=== PATIENT | male | born 1980 | race Caucasian/White ===

== ENCOUNTER 2022-11-19 18:27 | Emergency (ER) | payer OTHER, SELFPAY ==
--- NOTE | ~2022-11-19 | XR_ITS ---
EXAMINATION: XR CHEST CLINICAL INFORMATION: Palpitations. COMPARISON: None available. TECHNIQUE: 2 views of the chest were obtained. XR/XR chest 2V FINDINGS/IMPRESSION: There is no acute radiographic finding. No infiltrate, effusion or pneumothorax is seen. The patient is status post cardiac valve replacement with associated median sternotomy. The heart appears normal in size. No adenopathy is seen.
--- NOTE | 2022-11-19 18:29 | ECG_ITS ---
Test Reason : CHEST PAIN Blood Pressure : / mmHG Vent. Rate : 121 BPM Atrial Rate : 121 BPM P-R Int : 144 ms QRS Dur : 136 ms QT Int : 362 ms P-R-T Axes : 046 -22 121 degrees QTc Int : 514 ms Sinus tachycardia Possible Left atrial enlargement Left bundle branch block Abnormal ECG No previous ECGs available Referred By: Erma Dimas Electronically Signed By:KATLYN CEE
[2022-11-19 18:50] VITALS: BP 150/111; PULSE 129; RESP 18; TEMP 37.4; O2SAT 98; BMI 30.8
--- NOTE | 2022-11-19 18:54 | ED_ITS ---
HPI - Chest Pain General Chief Complaint: Chest Pain Stated Complaint: chest pain, high bp, heart rate inc Time Seen by Provider: 11/19/22 19:37 Related Data Allergies Allergy/AdvReac Type Severity Reaction Status Date / Time phenytoin [From DILANTIN] Allergy Unknown GAVE PT A Unverified 11/19/22 18:50 TOXIC LEVEL [facility] Social History Social History Alcohol intake: current Alcohol intake frequency: 0-2 drinks per day Smoked in Last 30 Days: Yes Substance Use Type: Marijuana Advance Directives: No Advance Directives Information Provided: No Physical Exam 2 Vital Signs: Vital Signs: Last Vital Signs Temp 99.3 F 11/19/22 18:50 Pulse 114 H 11/19/22 19:44 Resp 28 H 11/19/22 19:44 BP 174/111 H 11/19/22 19:44 Pulse Ox 96 11/19/22 19:44 O2 Del Method Room Air 11/19/22 19:44 BMI result Body Mass Index 30.8 Course Course Course Narrative: This is a rapid medical exam. deferred additional HPI, ROS, PE to primary provider. 41 yo male with history of CAD, CABG, aortic valve replacement here with chest pain since yesterday, anxious. Was at [facility] [place]NOTE 2[place] yesterday, left AMA and returns today came [place] [facility] [place]. Unable to tolerate metoprolol/coumadin the last week. Will obtain labs, EKG, CXR Medications Administered Discontinued Medications Generic Name Dose Route Start Last Admin Trade Name Freq PRN Reason Stop Dose Admin Amlodipine Besylate 10 mg 11/19/22 20:12 11/19/22 20:21 Amlodipine Besylate 10 Mg Tablet PO 11/19/22 20:13 10 mg ONCE ONE Administration Protocol Metoprolol Tartrate 50 mg 11/19/22 20:12 11/19/22 20:18 Metoprolol Tartrate 50 Mg Tablet PO 11/19/22 20:13 50 mg ONCE ONE Administration Protocol Medical Decision Making Lab Data 11/19/22 19:21 11/19/22 19:21 Labs: Lab Results 11/19/22 Range/Units 19:21 WBC 17.5 H (4.8-10.8) X10*3/uL RBC 5.19 (4.60-5.80) X10*6/uL Hgb 15.9 (14.0-18.0) g/dl Hct 46.2 (42.0-52.0) % MCV 89.0 (80.0-98.0) fL MCH 30.6 (27.0-33.0) pg MCHC 34.4 (31.0-36.0) g/dl RDW 18.3 H (11.0-16.0) % Plt Count 297 (160-400) X10*3/uL MPV 10.1 (9.4-12.4) fL Immature Gran % (Auto) 0.7 H (0.0-0.4) % Neut % (Auto) 70.1 (45-73) % Lymph % (Auto) 21.0 (20-40) % [place] % (Auto) 7.3 (2-11) % Eos % (Auto) 0.3 (0-4) % Baso % (Auto) 0.6 (0-2) % Lymph # (Auto) 3.7 (1.2-4.9) X10*3/uL [place] # (Auto) 1.3 H (0.1-1.2) X10*3/uL Eos # (Auto) 0.1 (0.0-0.4) X10*3/uL Baso # (Auto) 0.1 (0.0-0.2) X10*3/uL Abs Immat Gran (auto) 0.12 H (0.00-0.03) X10*3/uL Absolute Neuts (auto) 12.2 H (2.0-8.3) x10*3/uL Absolute Nucleated RBC 0.000 (0.0-0.012) X10*3/uL Nucleated RBC % (auto) 0.0 (0.0-0.2) /100WBC PT 16.2 H (11.1-13.3) SEC INR 1.3 H (0.9-1.1) Sodium 139 (135-145) mmol/L Potassium 4.0 (3.3-5.1) mmol/L Chloride 106 (96-108) mmol/L Carbon Dioxide 21 L (22-29) mmol/L Anion Gap 16 (12-20) BUN 10 (9-16) mg/dL Creatinine 0.91 (0.5-1.4) mg/dL Estim Creat Clear Calc 112.7 Estimated GFR > 60 Random Glucose 121 H (60-115) mg/dL Calcium 9.8 (8.4-10.2) mg/dL Magnesium 2.0 (1.6-2.6) mg/dL Total Bilirubin 0.3 (0.0-1.0) mg/dL Direct Bilirubin 0.1 (0.0-0.5) mg/dL AST 51 H (5-37) U/L ALT 44 H (0-40) U/L Alkaline Phosphatase 115 (39-117) U/L Troponin I High Sens 6.4 (<3.5-35.0) ng/L Total Protein 7.7 (6.5-8.0) g/dL Albumin 3.9 (3.5-5.0) g/dL Discharge Plan Discharge Clinical Impression: Chest pain Patient Disposition: Elopement Interventions: ED Discharge Assessment Last Done: 11/19/22 21:04 Discharge Date/Time: 11/19/22 21:17
[2022-11-19 19:25] LABS: MANUAL DIFF FLAG NO
[2022-11-19 19:26] LABS: Basophils Absolute Auto 0.1 X10*3/uL (0.0-0.2); Basophils Percent Auto 0.6 % (0-2); Eosinophils Absolute Auto 0.1 X10*3/uL (0.0-0.4); Eosinophils Percent Auto 0.3 % (0-4); Hematocrit 46.2 % (42.0-52.0); Hemoglobin 15.9 g/dl (14.0-18.0); Imm Gran Abs Auto 0.12 X10*3/uL (0.00-0.03); Imm Gran Pct Auto 0.7 % (0.0-0.4); Lymphocytes Absolute Auto 3.7 X10*3/uL (1.2-4.9); Mean Corpuscular HGB Conc 34.4 g/dl (31.0-36.0); Mean Corpuscular Hemoglobin 30.6 pg (27.0-33.0); Mean Platelet Volume 10.1 fL (9.4-12.4); Monocytes Absolute Auto 1.3 X10*3/uL (0.1-1.2); Monocytes Percent Auto 7.3 % (2-11); Neutrophils Absolute Auto 12.2 x10*3/uL (2.0-8.3); Neutrophils Percent Auto 70.1 % (45-73); Platelet Count 297 X10*3/uL (160-400); Red Blood Count 5.19 X10*6/uL (4.60-5.80); Red Cell Distribution Width 18.3 % (11.0-16.0); White Blood Count 17.5 X10*3/uL (4.8-10.8)
[2022-11-19 19:37] LABS: INTERNATIONAL NORM RATIO 1.3 (0.9-1.1); Prothrombin Time 16.2 SEC (11.1-13.3)
[2022-11-19 19:44] VITALS: BP 174/111; PULSE 114; RESP 28; O2SAT 96
--- NOTE | 2022-11-19 19:45 | PC.NURSE ---
Pt ca&ox4, no signs of distress. Pt reports 3/10 left chest pain that radiates to right chest Pt denies sob. Pts SO at bedside. CT in with pt Plan of care ongoing.
[2022-11-19 19:47] LABS: Alanine Aminotransferase 44 U/L (0-40); Albumin Level 3.9 g/dL (3.5-5.0); Alkaline Phosphatase 115 U/L (39-117); Anion Gap 16 (12-20); Aspartate Amino Transferase 51 U/L (5-37); Bilirubin Direct 0.1 mg/dL (0.0-0.5); Bilirubin Total 0.3 mg/dL (0.0-1.0); Blood Urea Nitrogen 10 mg/dL (9-16); Calcium 9.8 mg/dL (8.4-10.2); Carbon Dioxide 21 mmol/L (22-29); Chloride 106 mmol/L (96-108); Creatinine Clr Calc Pharmacy 112.7; Estimated Glomerular Filt Rate > 60; Glucose Random 121 mg/dL (60-115); Sodium 139 mmol/L (135-145); Total Protein 7.7 g/dL (6.5-8.0)
--- NOTE | 2022-11-19 19:49 | PC.NURSE ---
Provider Ramona notified about B/P 174/111 Per pt will require ultrasound guided iv for placement. provider made aware. plan of care ongoing.
--- NOTE | 2022-11-19 19:51 | PC.NURSE ---
ultrasound placed in pts room for provider. Pt made aware provider to attempt IV. Plan of care ongoing.
[2022-11-19 19:54] LABS: Troponin-I High Sensitivity 6.4 ng/L (<3.5-35.0)
[2022-11-19] MEDS: Metoprolol Tartrate 50 MG TABLET PO (20:18)
[2022-11-19] MEDS: amLODIPine Besylate 10 MG TABLET PO (20:21)
--- NOTE | 2022-11-19 20:23 | PC.NURSE ---
Pt medicated per may. Pt tolerated meds well Plan of care ongoing.
== END 2022-11-19 21:17 | disposition left against medical advice (07) ==
PROVIDERS: Nurse Practitioner Family; Emergency Provider Emergency Medicine; PCP Internal Medicine
DX: R07.9 Chest pain, unspecified (principal); I10 Essential (primary) hypertension; F12.90 Cannabis use, unspecified, uncomplicated; Z95.1 Presence of aortocoronary bypass graft; Z95.3 Presence of xenogenic heart valve
CPT/HCPCS: 36415; 71046; 80048; 80076; 83735; 84484; 85025; 85610; 93005; 99283; 99285

== ENCOUNTER 2024-02-28 02:05 | Inpatient (IN) | payer MEDICAID, SELFPAY ==
--- NOTE | 2024-02-28 | ECG_ITS ---
Test Reason : tachy Blood Pressure : / mmHG Vent. Rate : 131 BPM Atrial Rate : 131 BPM P-R Int : 124 ms QRS Dur : 138 ms QT Int : 366 ms P-R-T Axes : 040 -15 138 degrees QTc Int : 540 ms Sinus tachycardia Left bundle branch block Abnormal ECG When compared with ECG of 19-NOV-2022 18:32, No significant change was found Referred By: Generic ED Physician Electronically Signed By:JL BUSBY MD
--- NOTE | ~2024-02-28 | US_ITS ---
EXAMINATION: US TRIPLEX LOWER EXTREMITY, BILATERAL CLINICAL INFORMATION: Bilateral lower extremity pain. Swelling. Tachycardia. Syncope. COMPARISON: None available. TECHNIQUE: Color-flow triplex imaging with spectral analysis and compression Doppler were performed on the bilateral lower extremities. FINDINGS: Respiratory variation, normal compression and augmented flow are noted throughout the bilateral lower extremities. The visualized common femoral vein, superficial femoral vein, profunda femoral vein, popliteal vein and midcalf peroneal and posterior tibial venous segments show no evidence of deep venous thrombosis bilaterally. There is no Boggs's cyst. US/US venous duplex LE BI IMPRESSION: No evidence of deep venous thrombosis involving the bilateral lower extremities. Electronically signed by: Charli Ang MD 02/28/2024 04:24 AM [facility]
--- NOTE | ~2024-02-28 | CT_ITS ---
EXAMINATION: CT ANGIOGRAM CHEST CLINICAL INFORMATION: Syncope, tachycardia. Positive d-dimer. COMPARISON: Chest radiograph 11/19/2022. TECHNIQUE: Multiple axial images were obtained through the chest after the administration of 65 mL of Omnipaque 350 intravenous contrast. Extensive vascular post-processing including two-dimensional and three-dimensional reformatted images were created and reviewed on an independent workstation. This CT examination was performed using dose optimization techniques as appropriate, variously including the following: *Automated exposure control *Adjustment of mA and/or kV according to patient size (this includes techniques or standardized protocols for targeted exams where dose is matched to indication/reason for exam; i.e. extremities or head) *Use of iterative reconstruction technique DLP: 499 mGy-cm FINDINGS: Pulmonary arterial system: Finding suspicious for subsegmental intraluminal filling defects are noted and include the following: Absent intraluminal opacification within a apical posterior subsegmental branch of the right upper pulmonary lobe (series 604 image [id number]) and several right basilar subsegmental pulmonary arteries within the posteromedial aspect of the right lung base (series 604 image 272, 294. Similar findings are noted within the left lower pulmonary lobe (for example series 604 image 292). No segmental or more proximal pulmonary emboli identified. The main and central pulmonary arteries are normal in caliber. Thoracic aorta: Normal caliber. Mineral scattered calcific atherosclerosis. Lungs and pleura: No focal pulmonary consolidation. No pleural effusions or pneumothoraces. Mediastinum: No pericardial thickening or pericardial fluid collections. Normal heart size. Multiple median sternotomy wires. Thoracic wall: No axillary lymphadenopathy. No thoracic wall inflammatory changes. Incidentally visualized abdominal structures: Digital glands are partially included in the field of view are normal in appearance. Osseous structures: No suspicious skeletal lesions noted. CT/CT angio chest PE protocol IMPRESSION: *CT pulmonary angiogram positive for pulmonary emboli. Scattered subsegmental pulmonary arteries demonstrate abrupt truncation of expected intraluminal opacification. Findings are suspicious for bilateral scattered subsegmental pulmonary emboli. No additional acute pulmonary abnormalities identified. Overall thrombus burden: Mild. No evidence of right heart strain. No reflux of contrast into the hepatic veins to suggest elevated central venous pressure. VTE: Positive Electronically signed by: Charli Ang MD 02/28/2024 05:10 AM [facility]
--- NOTE | ~2024-02-28 | CT_ITS ---
EXAMINATION: CT HEAD WITHOUT CONTRAST CLINICAL INFORMATION: Fall. Syncope. On Coumadin. COMPARISON: None available. TECHNIQUE: Contiguous axial imaging was performed from the skull base to vertex without intravenous administration of contrast. This CT examination was performed using dose optimization techniques as appropriate, variously including the following: *Automated exposure control *Adjustment of mA and/or kV according to patient size (this includes techniques or standardized protocols for targeted exams where dose is matched to indication/reason for exam; i.e. extremities or head) *Use of iterative reconstruction technique DLP: 755 mGy-cm FINDINGS: No intracranial hemorrhage, tumors or acute infarcts identified. Mild diffuse commensurate prominence of the ventricles and sulci. No abnormal extra-axial fluid collections. Mild focal cortical lines of malacia within the anterior left middle frontal lobe gyrus. (Series 2 image 29). No extracranial soft tissue inflammatory changes. No significant opacification of the visualized paranasal sinuses, mastoid air cells and middle ear cavities. CT/CT head/brain wo IV con IMPRESSION: *No acute intracranial abnormalities. No intracanal hemorrhage. 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 Electronically signed by: Charli Ang MD 02/28/2024 04:55 AM EST
[2024-02-28 02:13] VITALS: BP 127/74; PULSE 132; RESP 18; TEMP 37.3; O2SAT 97; BMI 32.1
--- NOTE | 2024-02-28 02:50 | PC.NURSE ---
EKG from triage shown to MD Nunez, per MD Nunez advisement the patient was brought back to the main and placed in ed bed 5. Pt was wheeled back due to his inability to walk well s/t pain. Pt reporting that he has been having work ups completed throughout the week to figure things out adding that he was told that his potassium and magnesium were undetectable and then the next day after repeat lab draw he was told it was back to normal. Staff at bedside attempting to obtain IV access and blood work, however patient reporting he is a difficult stick and requires US guided IVs going further to try and dictate to the RNs where he will and will not have an IV placed. RN found a vein in the right middle finger but he refused to have an IV placed there. staff remains at bedside to continue attempts
[2024-02-28 03:00] VITALS: BP 120/90; PULSE 122; RESP 30; TEMP 37.1; O2SAT 99
[2024-02-28 03:05] LABS: Basophils Absolute Auto 0.1 X10*3/uL (0.0-0.2); Basophils Percent Auto 0.4 % (0-2); Eosinophils Absolute Auto 0.3 X10*3/uL (0.0-0.4); Eosinophils Percent Auto 1.4 % (0-4); Imm Gran Pct Auto 1.5 % (0.0-0.4); Lymphocytes Absolute Auto 3.9 X10*3/uL (1.2-4.9); Lymphocytes Percent Auto 19.8 % (20-40); MANUAL DIFF FLAG SCAN; Mean Corpuscular HGB Conc 35.1 g/dl (31.0-36.0); Mean Corpuscular Volume 88.1 fL (80.0-98.0); Mean Platelet Volume 10.5 fL (9.4-12.4); Monocytes Absolute Auto 1.5 X10*3/uL (0.1-1.2); Monocytes Percent Auto 7.6 % (2-11); NRBC Pct Auto 0.5 /100WBC (0.0-0.2); Neutrophils Absolute Auto 13.8 x10*3/uL (2.0-8.3); Neutrophils Percent Auto 69.3 % (45-73); Platelet Count 315 X10*3/uL (160-400); Red Cell Distribution Width 15.9 % (11.0-16.0); SCAN SMEAR FLAG 1; White Blood Count 19.9 X10*3/uL (4.8-10.8)
[2024-02-28 03:10] LABS: INTERNATIONAL NORM RATIO 1.9 (0.9-1.1); Prothrombin Time 22.4 SEC (10.9-12.4)
[2024-02-28 03:12] LABS: D Dimer High Sensitivity 539 NG/ML
[2024-02-28 03:23] LABS: Albumin Level 3.3 g/dL (3.5-5.0); Anion Gap 14 (12-20); Aspartate Amino Transferase 95 U/L (5-37); Bilirubin Total 0.3 mg/dL (0.0-1.0); Blood Urea Nitrogen 5 mg/dL (9-16); Calcium 8.8 mg/dL (8.4-10.2); Carbon Dioxide 24 mmol/L (22-29); Chloride 104 mmol/L (96-108); Creatinine Clr Calc Pharmacy 131.3; Estimated Glomerular Filt Rate > 60; Glucose Random 121 mg/dL (60-115); Magnesium 1.9 mg/dL (1.6-2.6); Potassium 3.1 mmol/L (3.3-5.1); Sodium 139 mmol/L (135-145); Total Protein 6.6 g/dL (6.5-8.0)
[2024-02-28 03:27] LABS: SLIDE REVIEW VERIFIED
--- NOTE | 2024-02-28 03:45 | ED_ITS ---
HPI - General Adult General Chief complaint: Extremity Problem Stated complaint: fall Time Seen by Provider: 02/28/24 02:51 Source: patient and family Mode of arrival: ambulatory Limitations: no limitations History of Present Illness ED Provider: Dr. Yee Nunez HPI narrative: Patient comes to the emergency room complaining of bilateral lower extremity pain from the ankles to the knees. Patient states that he has noted that his legs are becoming significantly more swollen. Patient states that over last few days he has fallen twice. Patient states that he becomes very lightheaded, dizzy and falls, believes that he has been losing consciousness but is not sure yet. Patient denies any chest pain, complaining of palpitations. Related Data Allergies Allergy/AdvReac Type Severity Reaction Status Date / Time phenytoin [From DILANTIN] Allergy Unknown GAVE PT A Verified 02/28/24 03:56 TOXIC LEVEL albuterol AdvReac Anxiety Verified 02/28/24 03:56 gabapentin [From Neurontin] AdvReac Unknown Verified 02/28/24 03:56 Review of Systems 2 Review of Systems: Constitutional : No Weight loss, No Fever, No Chills, No Night Sweats, No Fatigue, No Malaise ENT/Mouth : No Hearing loss, No Ear Pain, No Nasal Congestion, No Sinus Pain, No Hoarseness, No sore throat, No Rhinorrhea, No Swallowing Difficulty Eyes: No Eye Pain, No Swelling, No Redness, No Foreign Body, No Discharge, No Vision Changes Cardiovascular : Complaining of palpitations, syncopal episode Respiratory : No Cough, No Sputum, No Wheezing, No Smoke Exposure, No Dyspnea Gastrointestinal : No Nausea, No Vomiting, No Diarrhea, No Constipation, No abdominal Pain, No Hematochezia, No Melena Genitourinary : no irregular bleeding, No Dysuria, No Urinary Frequency, No Hematuria, No Urinary Incontinence, No Urgency, No Flank Pain, No Urinary Flow Changes, No Hesitancy Musculoskeletal : Complaining of lower extremity edema, pain No joint pain, No Myalgias, No Joint Swelling Skin : No Skin Lesions, No rash Neuro : No Weakness, No Numbness, No Paresthesias, No Loss of Consciousness, No Dizziness, No Headache Psych : No Anxiety/Panic, No Depression, No SI/HI/AH/VH, No Social Issues, Heme/Lymph: No Bruising, No Bleeding,No Lymphadenopathy Endocrine : No Polyuria, No Polydipsia, No Temperature Intolerance [facility], [facility] Past Medical History Medical History Coronary artery disease Surgical History (Updated 02/28/24 @ 03:52 by Yee Nunez MD) Aortic valve replaced Social History Social History Alcohol intake: current Alcohol intake frequency: 3 or more drinks per day Alcohol type: hard liquor Smoked in Last 30 Days: Yes Use of substances other than those prescribed or required for medical reasons: Yes Substance Use Type: Marijuana Last Used Substance: Days (ago) Advance Directives: No Advance Directives Information Provided: Yes Physical Exam ED Vital Signs: Vital Signs - 24 hr 02/28/24 02:13 02/28/24 03:00 02/28/24 05:10 Temperature 99.1 F 98.8 F 97.9 F Pulse Rate 132 H 122 H 108 H Respiratory Rate 18 30 H 18 Blood Pressure 127/74 120/90 H 122/79 Pulse Oximetry 97 99 97 Oxygen Delivery Method Room Air Room Air Room Air BMI result Body Mass Index 32.1 Const Other: Appearance: Alert. Oriented X3. No acute distress. Eyes: Pupils equal, round and reactive to light. ENT: Pharynx normal. Neck: Normal inspection. Neck supple. No lymph nodes noted. No crepitus CVS: Tachycardic, regular, heart rate in the 120s to 130s. Pulses normal. Normal S1 and S2 Respiratory: No respiratory distress. Breath sounds normal. No Wheezing. No rales Abdomen: Soft and nontender. No rigidity. No distention. Skin: Skin warm and dry. Normal skin color. Normal skin turgor. Extremities: +1 pitting edema bilaterally, pain to palpation in the calves bilaterally. Neuro: Oriented X 3. No motor deficit. No sensory deficit. Moving all extremities. No slurred speech. CN 2 through 12 grossly intact Psych: calm, cooperative, normal affect Course Course Course Narrative: -my interpretation of labs, patient has chronic leukocytosis, today 19.9. Chemistry shows potassium at 3.1, INR a bit subtherapeutic at 1.9, D-dimer 539. -ultrasound, head CT, and CT scan for pulmonary embolisms are pending. -patient refuses to give any ultrasound or imaging done on as he gets pain medications. Patient was given IV morphine. -CT scan of the chest is positive for bilateral pulmonary embolisms, no saddle embolism. Blood pressure stable. Oxygen saturation stable. -I discussed the patient with our hospitalist Dr. Costa. Patient developed PEs on Coumadin which is subtherapeutic. Patient will be admitted, heparin bolus and drip will be started. -patient complaining of ongoing pain in the lower extremities, patient given Dilaudid. -of note, patient states now that earlier today he was seen at [facility]. Patient states that his ultrasound was negative. States that he was not scan. Patient came to the emergency room here because his legs hurt. We obtained records from [facility]. Patient was seen there earlier today, ultrasound was negative for DVTs. Patient did not get a CTA. Seems that earlier today patient was offered Tylenol for leg pain, patient got upset and left against medical advice. -patient was given here Dilaudid, p.o. Ativan for anxiety. -patient being admitted by the medicine day team Patient's potassium 3.1, repleted p.o.. Medications Administered Discontinued Medications Generic Name Dose Route Start Last Admin Trade Name Freq PRN Reason Stop Dose Admin Iohexol 85 ml 02/28/24 04:31 02/28/24 04:31 Iohexol 350 Mg/Ml 100 Ml Infus..Btl IV 02/28/24 04:32 85 ml ONCE ONE Administration Morphine Sulfate 2 mg 02/28/24 03:53 02/28/24 03:57 Morphine Sulfate 2 Mg/Ml Cartridge IVPUSH 02/28/24 03:54 2 mg ONCE ONE Administration Protocol Potassium Chloride 60 meq 02/28/24 03:45 02/28/24 04:33 Potassium Chloride Packet 20 Meq Packet PO 02/28/24 03:46 60 meq ONCE ONE Administration Potassium Chloride 60 meq 02/28/24 04:14 02/28/24 04:33 Potassium Chloride Er 20 Meq Tab.Er.Prt PO 02/28/24 04:15 Not Given ONCE ONE Medical Decision Making Medical Decision Making MDM Narrative: Although patient is ultrasound of the lower extremities is negative, patient is tachycardic, INR subtherapeutic. A CTA of chest was ordered, results positive for PE Differential Diagnosis Differential Diagnoses: The differential diagnosis associated with the presentation includes (DVTs, PEs, ACS) Admission/Observation Consideration of admission/observation: Escalation of care including admission/observation considered Consult Healthcare Provider Management of the patient was discussed with: Hospitalist Lab Data MDM Lab Attestation statement: I reviewed the patient's lab results. 02/28/24 02:59 02/28/24 02:59 Labs: Lab Results 02/28/24 Range/Units 02:59 WBC 19.9 H (4.8-10.8) X10*3/uL RBC 4.20 L (4.60-5.80) X10*6/uL Hgb 13.0 L (14.0-18.0) g/dl Hct 37.0 L (42.0-52.0) % MCV 88.1 (80.0-98.0) fL MCH 31.0 (27.0-33.0) pg MCHC 35.1 (31.0-36.0) g/dl RDW 15.9 (11.0-16.0) % Plt Count 315 (160-400) X10*3/uL MPV 10.5 (9.4-12.4) fL Immature Gran % (Auto) 1.5 H (0.0-0.4) % Neut % (Auto) 69.3 (45-73) % Lymph % (Auto) 19.8 L (20-40) % [place] % (Auto) 7.6 (2-11) % Eos % (Auto) 1.4 (0-4) % Baso % (Auto) 0.4 (0-2) % Lymph # (Auto) 3.9 (1.2-4.9) X10*3/uL [place] # (Auto) 1.5 H (0.1-1.2) X10*3/uL Eos # (Auto) 0.3 (0.0-0.4) X10*3/uL Baso # (Auto) 0.1 (0.0-0.2) X10*3/uL Abs Immat Gran (auto) 0.30 H (0.00-0.03) X10*3/uL Absolute Neuts (auto) 13.8 H (2.0-8.3) x10*3/uL Absolute Nucleated RBC 0.100 H (0.0-0.012) X10*3/uL Nucleated RBC % (auto) 0.5 H (0.0-0.2) /100WBC Smear Tech's Comments VERIFIED PT 22.4 H (10.9-12.4) SEC INR 1.9 H (0.9-1.1) APTT 35.7 (26.0-36.8) SEC D-Dimer High Sensitivty 539 NG/ML Sodium 139 (135-145) mmol/L Potassium 3.1 L (3.3-5.1) mmol/L Chloride 104 (96-108) mmol/L Carbon Dioxide 24 (22-29) mmol/L Anion Gap 14 (12-20) BUN 5 L (9-16) mg/dL Creatinine 0.78 (0.5-1.4) mg/dL Estim Creat Clear Calc 131.3 Estimated GFR > 60 Random Glucose 121 H (60-115) mg/dL Calcium 8.8 D (8.4-10.2) mg/dL Magnesium 1.9 (1.6-2.6) mg/dL Total Bilirubin 0.3 (0.0-1.0) mg/dL AST 95 H (5-37) U/L ALT 41 H (0-40) U/L Alkaline Phosphatase 121 H (39-117) U/L Total Creatine Kinase 33 L (38-174) U/L Total Protein 6.6 (6.5-8.0) g/dL Albumin 3.3 L (3.5-5.0) g/dL Independent Interpretation I performed an independent interpretation of an: Ultrasound and CT Scan Radiology Impression Discussion of test interpretation with radiology: I have reviewed the radiologist's reading. Radiologist Impression: *CT pulmonary angiogram positive for pulmonary emboli. Scattered subsegmental pulmonary arteries demonstrate abrupt truncation of expected intraluminal opacification. Findings are suspicious for bilateral scattered subsegmental pulmonary emboli. No additional acute pulmonary abnormalities identified. Overall thrombus burden: Mild. No evidence of right heart strain. No reflux of contrast into the hepatic veins to suggest elevated central venous pressure. VTE: Positive Respiratory variation, normal compression and augmented flow are noted throughout the bilateral lower extremities. The visualized common femoral vein, superficial femoral vein, profunda femoral vein, popliteal vein and midcalf peroneal and posterior tibial venous segments show no evidence of deep venous thrombosis bilaterally. There is no Boggs's cyst. US/US venous duplex LE BI IMPRESSION: No evidence of deep venous thrombosis involving the bilateral lower extremities. Critical Care Time Critical Care Time Critical Care Time: Yes Total Critical Care Time: 75 Attestation: I have personally provided critical care time. Time includes review of lab data, radiology results, discussion with consultants, and monitoring for potential decompensation. Intervention performed as documented. Discharge Plan Discharge Clinical Impression: Bilateral pulmonary embolism, Acute hypokalemia, Subtherapeutic international normalized ratio (INR) Patient Disposition: Admitted As Inpatient Print Language: Wolof
[2024-02-28] MEDS: Morphine Sulfate 2 MG/ML CARTRIDGE IVPUSH (03:57)
[2024-02-28 04:03] LABS: Alanine Aminotransferase 41 U/L (0-40); Alkaline Phosphatase 121 U/L (39-117)
[2024-02-28] MEDS: iohexoL 350 MG/ML 100 ML INFUS..BTL 85 ML IV (04:31)
[2024-02-28] MEDS: Potassium Chloride Packet 20 MEQ PACKET 60 MEQ PO (04:33)
[2024-02-28 05:10] VITALS: BP 122/79; PULSE 108; RESP 18; TEMP 36.6; O2SAT 97
--- NOTE | 2024-02-28 05:52 | PC.NURSE ---
20g U/S IV placed to R upper arm. pt very vocal about what he does and does not want. pt reports feeling better after pain medication but does not want morphine again. pt remains tachy at 110, O2 97%, grant SOB, diff breathing, and CP
[2024-02-28 05:59] LABS: Partial Thromboplastin Time 35.7 SEC (26.0-36.8)
[2024-02-28 06:36] VITALS: BP 114/87; PULSE 107; RESP 18; TEMP 36.7; O2SAT 97
[2024-02-28] MEDS: HYDROmorphone HCl 1 MG/ML SYRINGE IVPUSH (07:00)
[2024-02-28] MEDS: LORazepam 1 MG TABLET 2 MG PO (07:06)
[2024-02-28] MEDS: Heparin Sodium,Porcine/1/2NS 25,000 UNIT/250 ML IV.SOLN 13.23 UNIT IVCONT (07:09)
--- NOTE | 2024-02-28 07:23 | MHC.EDTECH ---
assumed care of pt at 0700, pt has labs ordered, pt is a hard stick (US IV placed), lab called to attempt draw
--- NOTE | 2024-02-28 07:26 | PC.NURSE ---
Heparin drip started per protocol with 2 RNs verifying. APTT used for baseline PTT, order placed for next draw
[2024-02-28 08:24] VITALS: BP 126/82; PULSE 99; RESP 20; O2SAT 97
--- NOTE | 2024-02-28 09:00 | PC.NURSE ---
Pt agitated and being verbally abusive with staff. rod puller aware and talked to pt about situation.
--- NOTE | 2024-02-28 09:12 | MHC.EDTECH ---
attempted to remind pt of need of urine sample and he stated I am not doing any urine tests for anyone, when you have some time ill explain to you how everything down there is not great. Its a mental thing , RN aware
[2024-02-28] MEDS: Pantoprazole Sodium 40 MG/10 ML VIAL IVPUSH (09:56)
--- NOTE | 2024-02-28 10:07 | PHA.MEDREC ---
Addendum entered by Gus Kelsey RP 02/28/24 11:16: MED REC CHECKED BY [facility] Original Note: Pharmacy Consult ? Medication Reconciliation Pharmacy has completed the medication reconciliation. Spoke to pt to confirm meds. Per patient, still taking fluconazole 100 mg BID and preventative and takes warfarin 5 mg daily. Fluconazole last filled in August and last filled warfarin was 2 mg daily. However, as patient attests to taking them, left them on med rec as patient stated.
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
[2024-02-28 11:29] VITALS: BP 114/89; PULSE 95; RESP 20; TEMP 36.6; O2SAT 98
[2024-02-28] MEDS: LORazepam 1 MG TABLET PO (12:58)
[2024-02-28] MEDS: HYDROmorphone HCl 0.5 MG/0.5 ML SYRINGE IVPUSH (12:59)
--- NOTE | 2024-02-28 13:07 | PC.NURSE ---
Pt medicated per MAR for pain and anxiety.
[2024-02-28 13:17] LABS: PTT Heparin Drip 46.2 SEC (53-77.9)
--- NOTE | 2024-02-28 14:20 | PC.NURSE ---
This RN second witness for heparin bolus in dose rate change however current IV not flushing. Pt is difficult IV stick and refusing further IV sticks, Bandar KOENIG aware. Pt only will accept Ultrasound IV and pt made aware this RN not trained. Fatou aware and will d/c heparin and start Lovenox
--- NOTE | 2024-02-28 14:59 | PC.NURSE ---
IV now working, however, per provider, plan is to D/C heparin.
--- NOTE | 2024-02-28 15:23 | PC.NURSE ---
Went into patient's room w/ primary RN to give scheduled Lovonox. Patient states he does his own lovonox, offered to give patient the vial to dose himself. Patient turned to visitor and asked them do you wan to go home? Patient stating he will not speak to primary nurse and wants to talk to head doctor jose and go home. Informed patient AMA form can be printed and provider notified by primary RN.
--- NOTE | 2024-02-28 15:39 | PC.NURSE ---
2 RNs went into room to administered pts enoxaprin per MAR, pt upset and becoming agitated. Demanding to know why heparin isn't being restarted. RNs explained that pt is being switched to enoxaprin and warfarin and the hospitalist was coming down to re-explain the plan of treatment going forward. Pt continued to be angry and verbally abusive to staff, refused anything at this time. A short period later, pt ripped IV out of his arm, put on his clothing and yelled he was leaving. Pt walked out of hospital, would not stop and talk to anyone. Security checked pts arm at door to confirm absence of IV, no IV noted and IV found on pts stretcher after. Hospitalist aware of situation.
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
== END 2024-02-28 17:37 | disposition left against medical advice (07) | DRG 134 ==
LOC: HO.ED 06:43 → HO.EDOVER 12:40
PROVIDERS: Admitting Provider Student in an Organized Health Care Education/Training Program; Emergency Provider Emergency Medicine; Visit Provider Internal Medicine
DX: I26.99 Other pulmonary embolism without acute cor pulmonale (principal); E87.6 Hypokalemia; R79.1 Abnormal coagulation profile; M79.662 Pain in left lower leg; F41.9 Anxiety disorder, unspecified; M79.661 Pain in right lower leg; F10.20 Alcohol dependence, uncomplicated; K21.9 Gastro-esophageal reflux disease without esophagitis; Z86.718 Personal history of other venous thrombosis and embolism; Z59.2 Discord with neighbors, lodgers and landlord; Z79.01 Long term (current) use of anticoagulants; Z79.899 Other long term (current) drug therapy
CPT/HCPCS: 36415; 70450; 71275; 80053; 82550; 83735; 85025; 85379; 85610; 85730; 93005; 93970; 99285; J1171; J1644; J2270; J2470; Q9967

== ENCOUNTER → 2024-02-28 02:36 | Outpatient (BNV) | payer OTHER, SELFPAY | PROVIDERS: Emergency Provider Emergency Medicine; Visit Provider Internal Medicine Cardiovascular Disease | DX: R00.0 Tachycardia, unspecified (principal); I44.7 Left bundle-branch block, unspecified; R94.31 Abnormal electrocardiogram [ECG] [EKG] | CPT/HCPCS: 93010 ==

== ENCOUNTER → 2024-02-28 12:33 | Outpatient (BNV) | payer MEDICAID, SELFPAY | PROVIDERS: Admitting Provider Student in an Organized Health Care Education/Training Program; Emergency Provider Emergency Medicine; Visit Provider Student in an Organized Health Care Education/Training Program | DX: I26.99 Other pulmonary embolism without acute cor pulmonale (principal); Z53.29 Procedure and treatment not carried out because of patient's decision for other reasons | CPT/HCPCS: 99223; 99238 ==

== ENCOUNTER 2024-03-01 00:54 | Emergency (ER) | payer MEDICAID, SELFPAY ==
[2024-03-01 00:57] VITALS: BMI 32.1
--- NOTE | 2024-03-01 01:00 | PC.NURSE ---
charge lpn made aware of triage note.
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
--- NOTE | 2024-03-01 01:37 | MHC.EDTECH ---
pt to be d/c, labs and urine no longer needed.
[2024-03-01 01:40] VITALS: BP 144/91; PULSE 105; RESP 18; TEMP 36.9; O2SAT 97
== END 2024-03-01 01:47 | disposition home or self-care (01) ==
PROVIDERS: Emergency Provider Internal Medicine
DX: F33.1 Major depressive disorder, recurrent, moderate (principal); I26.99 Other pulmonary embolism without acute cor pulmonale; Z79.01 Long term (current) use of anticoagulants; Z79.899 Other long term (current) drug therapy
CPT/HCPCS: 99283

== ENCOUNTER 2024-03-05 21:33 | Emergency (ER) | payer MEDICAID, SELFPAY ==
--- NOTE | ~2024-03-05 | XR_ITS ---
EXAMINATION: XR chest 2V CLINICAL INFORMATION: cough COMPARISON: CTA dated 02/28/2024 TECHNIQUE: 2 views of the chest FINDINGS: Clear lungs. No pneumothorax. No pleural effusion. Normal cardiomediastinal silhouette. XR/XR chest 2V IMPRESSION: Clear lungs. Electronically signed by: Anisha Sherman MD 03/05/2024 11:15 PM [facility]
[2024-03-05 21:52] VITALS: BP 116/88; PULSE 108; RESP 20; TEMP 37.2; O2SAT 98; BMI 31.3
[2024-03-05 22:43] LABS: Influenza A PCR NEGATIVE (Negative); Influenza B PCR NEGATIVE (Negative); Resp Syncy Virus RNA Qual PCR NEGATIVE (Negative); SARS COV2 PCR INHOUSE NEGATIVE (Negative)
[2024-03-05 22:48] VITALS: BP 124/77; PULSE 96; RESP 20; TEMP 36.7; O2SAT 96
--- NOTE | 2024-03-05 22:48 | ED_ITS ---
HPI - General Adult General Chief complaint: Upper Respiratory Symptoms Stated complaint: ?Cold, flu like symptoms Time Seen by Provider: 03/05/24 22:42 Source: patient Mode of arrival: ambulatory Limitations: no limitations History of Present Illness ED Provider: Dr. Yee Nunez HPI narrative: Patient comes to the emergency room complaining of congestion, generalized body aches for 2 days. Patient denies chest pain and lower extremity pain. Patient has a taking Robitussin without any significant relief. Patient reports some shortness of breath worsened by the nasal congestion. Of note, patient known to have bilateral PEs, left against medical advice from the hospital 5 days ago - Related Data Home Medications ?Medication ?Instructions ?Recorded ?Confirmed clonidine 0.2 mg/24 hr weekly 1 patch transdermal WE@0900 02/28/24 02/28/24 transdermal patch fluconazole 40 mg/mL oral 100 mg PO BID 02/28/24 02/28/24 suspension metoprolol tartrate 50 mg tablet 100 mg PO BID 02/28/24 02/28/24 pantoprazole 40 mg tablet,delayed 40 mg PO DAILY@0630 02/28/24 02/28/24 release warfarin 5 mg tablet 5 mg PO DAILY 02/28/24 02/28/24 warfarin 2 mg tablet 2 mg PO DAILY 03/01/24 03/01/24 Previous Rx's ?Medication ?Instructions ?Recorded prednisolone 15 mg/5 mL oral 60 mg (20 mL) PO DAILY 4 days #80 03/05/24 solution mL Allergies Allergy/AdvReac Type Severity Reaction Status Date / Time phenytoin [From DILANTIN] Allergy Unknown GAVE PT A Verified 03/05/24 21:55 TOXIC LEVEL albuterol AdvReac Anxiety Verified 03/05/24 21:55 gabapentin [From Neurontin] AdvReac Unknown Verified 03/05/24 21:55 Review of Systems Review of Systems: Constitutional : No Weight loss, No Fever, No Chills, No Night Sweats, No Fatigue, No Malaise ENT/Mouth : No Hearing loss, No Ear Pain, complaining of l Congestion, No Sinus Pain, No Hoarseness, No sore throat, No Rhinorrhea, No Swallowing Difficulty Eyes: No Eye Pain, No Swelling, No Redness, No Foreign Body, No Discharge, No Vision Changes Cardiovascular : No Chest Pain, no orthopnea no edema no palpitations Respiratory : Complaining of cough Gastrointestinal : No Nausea, No Vomiting, No Diarrhea, No Constipation, No abdominal Pain, No Hematochezia, No Melena Genitourinary : no irregular bleeding, No Dysuria, No Urinary Frequency, No Hematuria, No Urinary Incontinence, No Urgency, No Flank Pain, No Urinary Flow Changes, No Hesitancy Musculoskeletal : No joint pain, No Myalgias, No Joint Swelling Skin : No Skin Lesions, No rash Neuro : No Weakness, No Numbness, No Paresthesias, No Loss of Consciousness, No Dizziness, No Headache Psych : No Anxiety/Panic, No Depression, No SI/HI/AH/VH, No Social Issues, Heme/Lymph: No Bruising, No Bleeding,No Lymphadenopathy Endocrine : No Polyuria, No Polydipsia, No Temperature Intolerance [facility] Past Medical History Medical History (Updated 03/05/24 @ 23:30 by Yee Nunez MD) Bilateral pulmonary embolism Noncompliance with medications Alcohol dependence Endocarditis Surgical History Aortic valve replaced Social History Social History Alcohol intake: current Alcohol intake frequency: 3 or more drinks per day Alcohol type: hard liquor Substance Use Type: Marijuana Advance Directives: No Advance Directives Information Provided: Yes Do you have a plan to hurt others: No Plan Physical Exam ED Vital Signs: Vital Signs - 24 hr 03/05/24 21:52 03/05/24 22:48 Temperature 98.9 F 98.0 F Pulse Rate 108 H 96 Respiratory Rate 20 20 Blood Pressure 116/88 124/77 Pulse Oximetry 98 96 Oxygen Delivery Method Room Air Room Air BMI result Body Mass Index 31.3 Const Other: Appearance: Alert. Oriented X3. No acute distress. Eyes: Pupils equal, round and reactive to light. ENT: Mild nasal congestion Neck: Normal inspection. Neck supple. No lymph nodes noted. No crepitus CVS: Normal heart rate and rhythm. Pulses normal. Normal S1 and S2 Respiratory: Mild bilateral wheezing, good air movement Abdomen: Soft and nontender. No rigidity. No distention. Skin: Skin warm and dry. Normal skin color. Normal skin turgor. Extremities: No lower extremity edema. No Lacerations. No Rash Neuro: Oriented X 3. No motor deficit. No sensory deficit. Moving all extremities. No slurred speech. CN 2 through 12 grossly intact Psych: calm, cooperative, normal affect Course Course Course Narrative: I discussed the physical exam with the patient, patient is mildly wheezing. Patient states that he has history of childhood asthma. I recommended a breathing treatment and steroids. However, patient states that albuterol/Xopenex give him panic attacks 90 for the wheezing is mild he prefers to skip the breathing treatment altogether, agreeable to take p.o. prednisone. Patient's serology tests and x-rays pending Medications Administered Discontinued Medications Generic Name Dose Route Start Last Admin Trade Name Kelvinq PRN Reason Stop Dose Admin Prednisolone Sodium Phosphate 60 mg 03/05/24 22:53 03/05/24 22:58 Prednisolone Sodium Phosphate 15 Mg/5 Ml Solution PO 03/05/24 22:54 60 mg NOW STA Administration Prednisone 60 mg 03/05/24 22:48 03/05/24 23:03 Prednisone 20 Mg Tablet PO 03/05/24 22:49 Not Given ONCE ONE Medical Decision Making Medical Decision Making MDM Narrative: Patient's serology test negative for influenza COVID and RSV Chest x-ray does not show any acute abnormality. Patient likely having a viral URI Differential Diagnosis Differential Diagnoses: The differential diagnosis associated with the presentation includes (Pneumonia, COVID, RSV, influenza, viral URI) Lab Data [facility] Lab Attestation statement: I reviewed the patient's lab results. Labs: Lab Results 03/05/24 Range/Units 22:02 Influenza Type A (PCR) NEGATIVE (Negative) Influenza Type B (PCR) NEGATIVE (Negative) RSV RNA Qual (PCR) NEGATIVE (Negative) SARS-CoV-2 RNA (RT-PCR) NEGATIVE (Negative) Independent Interpretation I performed an independent interpretation of an: Plain X-Ray Radiology Impression Discussion of test interpretation with radiology: I have reviewed the radiologist's reading. Radiologist Impression: Clear lungs Discharge Plan Discharge Clinical Impression: Acute viral bronchitis Patient Disposition: Home, Self-Care Instructions: Acute Bronchitis (ED) Additional Instructions: Please follow-up with your primary care physician tomorrow. If you have any worsening or new symptoms, please return to the emergency room or call 911 Prescriptions: New prednisolone 15 mg/5 mL solution 60 mg PO DAILY 4 Days Qty: 80 0RF No Action clonidine 0.2 mg/24 hr patch weekly 1 patch transdermal WE@0900 pantoprazole 40 mg tablet,delayed release (DR/EC) 40 mg PO DAILY@0630 metoprolol tartrate 50 mg tablet 100 mg PO BID fluconazole 40 mg/mL suspension for reconstitution 100 mg PO BID warfarin 5 mg tablet 5 mg PO DAILY warfarin 2 mg tablet 2 mg PO DAILY Print Language: Slovak
[2024-03-05] MEDS: prednisoLONE sodium phosphate 15 MG/5 ML SOLUTION 60 MG PO (22:58)
--- NOTE | 2024-03-05 23:03 | PC.NURSE ---
Patient refused prednisone tablets, said he can't swallow pills because it get's stuck i the back of his throat and i cough a lot of crap up. Provider notified.
[2024-03-05 23:48] VITALS: BP 124/77; PULSE 96; RESP 20; TEMP 36.7; O2SAT 96
== END 2024-03-05 23:49 | disposition home or self-care (01) ==
PROVIDERS: Emergency Provider Emergency Medicine
DX: J20.8 Acute bronchitis due to other specified organisms (principal); R05.9 Cough, unspecified; Z03.818 Encounter for observation for suspected exposure to other biological agents ruled out; Z79.01 Long term (current) use of anticoagulants
CPT/HCPCS: 0241U; 71046; 99283; 99284

== ENCOUNTER 2024-03-13 21:15 | Emergency (ER) | payer MEDICAID, SELFPAY ==
[2024-03-13 21:54] VITALS: BP 130/92; PULSE 118; RESP 20; TEMP 37.1; O2SAT 95; BMI 32.9
--- NOTE | 2024-03-13 22:06 | ECG_ITS ---
Test Reason : SYNCOPE Blood Pressure : / mmHG Vent. Rate : 112 BPM Atrial Rate : 112 BPM P-R Int : 146 ms QRS Dur : 132 ms QT Int : 366 ms P-R-T Axes : 025 -21 118 degrees QTc Int : 499 ms Sinus tachycardia Left bundle branch block Abnormal ECG When compared with ECG of 28-FEB-2024 02:36, No significant change was found Referred By: Generic ED Physician Electronically Signed By:JL BUSBY MD
[2024-03-13 22:46] LABS: Appearance Urine Clear; Color Urine Yellow; Glucose Urine UA Negative (Negative); Leukocyte Esterase Urine Negative (Negative); Nitrite Urine Negative (Negative); PH 6.5 (5.0-9.0); Urine Blood Negative (Negative); Urine Ketones Trace mg/dL (Negative); Urine Protein Negative (Neg-Trace)
[2024-03-13 22:47] LABS: Hematocrit 40.1 % (42.0-52.0); Hemoglobin 13.8 g/dl (14.0-18.0); Mean Corpuscular HGB Conc 34.4 g/dl (31.0-36.0); Mean Corpuscular Hemoglobin 31.8 pg (27.0-33.0); Mean Corpuscular Volume 92.4 fL (80.0-98.0); NRBC Pct Auto 0.2 /100WBC (0.0-0.2); PLT CLUMP 1; Red Blood Count 4.34 X10*6/uL (4.60-5.80); Red Cell Distribution Width 18.9 % (11.0-16.0)
[2024-03-13 22:48] LABS: White Blood Count 16.8 X10*3/uL (4.8-10.8)
[2024-03-13 23:00] LABS: Anion Gap 15 (12-20); Blood Urea Nitrogen 10 mg/dL (9-16); Carbon Dioxide 21 mmol/L (22-29); Chloride 109 mmol/L (96-108); Creatinine Clr Calc Pharmacy 134.6; Estimated Glomerular Filt Rate > 60; Glucose Random 107 mg/dL (60-115); Potassium 4.3 mmol/L (3.3-5.1); Sodium 141 mmol/L (135-145)
[2024-03-13 23:05] LABS: SLIDE REVIEW MANUAL DIFF
[2024-03-13 23:13] LABS: Atypical Lymph Absolute Manual 0.7 x10*3/uL; Atypical Lymphs Percent Manual 4 % (0-6); Band Neutrophils Percent 1 % (3-5); Basophils Abs Manual 0.2 X10*3/uL (0.0-0.2); Basophils Percent Manual 1 % (0-2); Eosinophils Absolute Manual 0.2 X10*3/uL (0.0-0.4); Eosinophils Percent Manual 1 % (0-4); Lymphocytes Absolute Manual 4.2 X10*3/uL (1.2-4.9); Lymphocytes Percent Manual 25 % (20-40); Metamyelocytes Absolute 0.3 X10*3/uL; Metamyelocytes Percent 2 %; Monocytes Absolute Manual 1.2 X10*3/uL (0.1-1.2); Monocytes Percent Manual 7 % (2-11); Neutrophils Absolute Manual 10.1 X10*3/uL (2.0-8.3); Neutrophils Percent Manual 59 % (45-73)
[2024-03-13 23:14] LABS: Basophilic Stippling 1+ (0-2) /OIF; RBC Morphology NOTED; Target Cells 1+ (5-14) /OIF
[2024-03-13 23:16] LABS: Platelet Estimate NORMAL (NORMAL); Platelet Morphology Comment NORMAL
[2024-03-13 23:17] LABS: Mean Platelet Volume 10.8 fL (9.4-12.4); Platelet Count 411 X10*3/uL (160-400)
[2024-03-13 23:23] LABS: Influenza A PCR NEGATIVE (Negative); Influenza B PCR NEGATIVE (Negative); Resp Syncy Virus RNA Qual PCR NEGATIVE (Negative); SARS COV2 PCR INHOUSE NEGATIVE (Negative)
--- NOTE | 2024-03-13 23:33 | PC.NURSE ---
radiology came to take the xray and pt refused. This rn talked with the pt and was ruddly answered with WHAT as he took his hat off his face. Pt teaching given and will not ok for xray till he sees a provider. pt is rude and disrespectful to staff.
--- NOTE | 2024-03-13 23:50 | PC.NURSE ---
After pt was triaged, he was to go have labs drawn and refused. After the pt saw who was drawning the labs the pt then permitted the tech to drawn them. pt then goes out to the waiting room.
[2024-03-14 00:59] VITALS: BP 146/94; PULSE 108; PULSE 110; RESP 16; TEMP 36.8; O2SAT 96
[2024-03-14 02:00] VITALS: BP 149/94; PULSE 111; RESP 23; TEMP 36.8; O2SAT 95
--- NOTE | 2024-03-14 02:39 | PC.NURSE ---
Patient left without being seen from his room 16 in the treatment area. Staff were aware.
== END 2024-03-14 02:40 | disposition left against medical advice (07) ==
PROVIDERS: Emergency Provider Emergency Medicine; PCP Internal Medicine
DX: M79.601 Pain in right arm (principal); R55 Syncope and collapse; Z79.899 Other long term (current) drug therapy; Z03.818 Encounter for observation for suspected exposure to other biological agents ruled out
CPT/HCPCS: 0241U; 36415; 80048; 81003; 84484; 85007; 85025; 85027; 93005; 99283; 99285

== ENCOUNTER → 2024-03-13 22:06 | Outpatient (BNV) | payer MEDICAID, SELFPAY | PROVIDERS: Emergency Provider Emergency Medicine; PCP Internal Medicine; Visit Provider Internal Medicine Cardiovascular Disease | DX: R55 Syncope and collapse (principal); R00.0 Tachycardia, unspecified; R94.31 Abnormal electrocardiogram [ECG] [EKG] | CPT/HCPCS: 93010 ==

== ENCOUNTER 2024-03-15 13:59 | Emergency (ER) | payer MEDICAID, SELFPAY ==
[2024-03-15 14:02] VITALS: BP 147/90; PULSE 130; RESP 18; TEMP 37; O2SAT 96; BMI 32.9
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
--- NOTE | 2024-03-15 14:04 | ECG_ITS ---
Test Reason : CHECK QT INTERVAL Blood Pressure : / mmHG Vent. Rate : 140 BPM Atrial Rate : 140 BPM P-R Int : 126 ms QRS Dur : 134 ms QT Int : 324 ms P-R-T Axes : 022 -30 114 degrees QTc Int : 494 ms Sinus tachycardia Left axis deviation Left bundle branch block Abnormal ECG When compared with ECG of 13-MAR-2024 22:15, No significant change was found Referred By: Hayde Ingram Electronically Signed By:JL BUSBY MD
[2024-03-15 14:40] LABS: Appearance Urine Clear; Color Urine Yellow; Glucose Urine UA Negative (Negative); Leukocyte Esterase Urine Negative (Negative); Nitrite Urine Negative (Negative); PH 6.5 (5.0-9.0); Urine Blood Negative (Negative); Urine Ketones Negative (Negative); Urine Protein Negative (Neg-Trace)
--- NOTE | 2024-03-15 14:40 | PC.NURSE ---
pt refusing to be placed on a media monitor upon entering room.
--- NOTE | 2024-03-15 14:44 | PC.NURSE ---
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 States LBB is known and that he feels fine . Is here for medical clearance. skin PWD. denies CP. awaits provider eval.
[2024-03-15 14:48] LABS: Amphetamine Screen Urine Not Detected (Not Detect); Barbiturates, Urine Not Detected (Not Detect); Benzodiazepines Screen Urine POSITIVE (Not Detect); Buprenorphine Scr Not Detected (Not Detect); Cannabinoid Screen Urine POSITIVE (Not Detect); Cocaine Screen Urine Not Detected (Not Detect); Fentanyl, urine Not Detected (Not Detect); Methadone Screen, Urine Not Detected (Not Detect); Opiate Screen Urine POSITIVE (Not Detect); Oxycodone Screen Urine Not Detected (Not Detect); Phencyclidine Screen Urine Not Detected (Not Detect)
[2024-03-15 14:57] LABS: COVID-19 Test Negative (Negative); IDNOW Serial# 55D5AD1C
[2024-03-15 15:02] VITALS: BP 137/107; PULSE 120
[2024-03-15] MEDS: Metoprolol Tartrate 50 MG TABLET PO (15:02)
[2024-03-15] MEDS: diazePAM 5 MG TABLET 10 MG PO (15:03)
[2024-03-15 15:39] LABS: MANUAL DIFF FLAG NO
[2024-03-15 15:45] LABS: Basophils Absolute Auto 0.1 X10*3/uL (0.0-0.2); Basophils Percent Auto 0.6 % (0-2); Eosinophils Absolute Auto 0.1 X10*3/uL (0.0-0.4); Eosinophils Percent Auto 0.4 % (0-4); Hematocrit 40.3 % (42.0-52.0); Imm Gran Abs Auto 0.18 X10*3/uL (0.00-0.03); Imm Gran Pct Auto 1.2 % (0.0-0.4); Lymphocytes Absolute Auto 2.7 X10*3/uL (1.2-4.9); Lymphocytes Percent Auto 18.6 % (20-40); Mean Corpuscular HGB Conc 34.7 g/dl (31.0-36.0); Mean Corpuscular Hemoglobin 31.5 pg (27.0-33.0); Mean Corpuscular Volume 90.8 fL (80.0-98.0); Mean Platelet Volume 10.5 fL (9.4-12.4); Monocytes Percent Auto 7.1 % (2-11); NRBC Pct Auto 0.1 /100WBC (0.0-0.2); Neutrophils Absolute Auto 10.5 x10*3/uL (2.0-8.3); Neutrophils Percent Auto 72.1 % (45-73); Platelet Count 390 X10*3/uL (160-400); Red Blood Count 4.44 X10*6/uL (4.60-5.80); Red Cell Distribution Width 18.7 % (11.0-16.0); White Blood Count 14.5 X10*3/uL (4.8-10.8)
[2024-03-15 16:49] LABS: Troponin-I High Sensitivity 3.4 ng/L (<3.5-35.0)
[2024-03-15 16:53] LABS: Alanine Aminotransferase 56 U/L (0-40); Albumin Level 3.6 g/dL (3.5-5.0); Alkaline Phosphatase 121 U/L (39-117); Anion Gap 13 (12-20); Aspartate Amino Transferase 46 U/L (5-37); Bilirubin Total 0.3 mg/dL (0.0-1.0); Blood Urea Nitrogen 6 mg/dL (9-16); Calcium 9.3 mg/dL (8.4-10.2); Carbon Dioxide 22 mmol/L (22-29); Chloride 108 mmol/L (96-108); Estimated Glomerular Filt Rate > 60; Ethanol < 10 mg/dL; Glucose Random 111 mg/dL (60-115); Magnesium 1.8 mg/dL (1.6-2.6); Sodium 139 mmol/L (135-145); Total Protein 7.3 g/dL (6.5-8.0)
[2024-03-15 17:06] VITALS: BP 137/107; PULSE 120; RESP 18; TEMP 36.6; O2SAT 98
--- NOTE | 2024-03-15 17:06 | PC.NURSE ---
patient refusing to leave until respite wet pour supervisor comes to speak with MD.
== END 2024-03-15 17:18 | disposition home or self-care (01) ==
PROVIDERS: Registered Nurse Emergency; Emergency Provider Emergency Medicine; PCP Internal Medicine
DX: R00.0 Tachycardia, unspecified (principal); F33.1 Major depressive disorder, recurrent, moderate; Z09 Encounter for follow-up examination after completed treatment for conditions other than malignant neoplasm; Z86.718 Personal history of other venous thrombosis and embolism; Z79.01 Long term (current) use of anticoagulants; Z11.52 Encounter for screening for COVID-19; Z79.899 Other long term (current) drug therapy
CPT/HCPCS: 80053; 80307; 81003; 83735; 84443; 84484; 85025; 87635; 93005; 99283

== ENCOUNTER → 2024-03-15 14:04 | Outpatient (BNV) | payer MEDICAID, SELFPAY | PROVIDERS: Emergency Provider Emergency Medicine; PCP Internal Medicine; Visit Provider Internal Medicine Cardiovascular Disease | DX: R00.0 Tachycardia, unspecified (principal); R94.31 Abnormal electrocardiogram [ECG] [EKG]; I44.7 Left bundle-branch block, unspecified | CPT/HCPCS: 93010 ==

== ENCOUNTER 2024-03-17 23:46 | Emergency (ER) | payer MEDICAID, SELFPAY ==
--- NOTE | ~2024-03-17 | CT_ITS ---
CLINICAL HISTORY: fall, on blood thinners CT head without contrast Comparison: CT/SR - CT HEAD/BRAIN WO IV CON - 02/28/24 04:18 EST Findings: Encephalomalacia in the left frontal lobe. No intracranial hemorrhage, mass effect or midline shift. No significant atrophy. Bubbly debris in the right maxillary sinus and to a lesser degree in posterior left ethmoid air cells. Mild mucosal thickening of the sphenoid sinuses. The orbits are unremarkable. There is no acute fracture. IMPRESSION: 1. No acute intracranial findings 2. Paranasal sinus disease. This document has been electronically signed by: Karlos Anaya MD on 03/18/2024 02:40:32
--- NOTE | ~2024-03-17 | CT_ITS ---
CLINICAL HISTORY: fall CT cervical spine without contrast Comparison: None Findings: Vertebral alignment is within normal limits. No significant degenerative change. No acute fractures or dislocations. Visualized intracranial contents are unremarkable. Soft tissues of the neck are normal. Lung apices are clear. IMPRESSION: No acute findings. This document has been electronically signed by: Karlos Anaya MD on 03/18/2024 02:41:37
--- NOTE | ~2024-03-17 | XR_ITS ---
CLINICAL HISTORY: fall, right hip pain Exam: AP pelvis with AP and frog-leg lateral views of the right hip. Comparison: None. Findings: Bony alignment of the hip joints is anatomic. No acute fracture. Minor degenerative change of the hip joints. Pubic rami are intact. Surgical clips are seen within the right inguinal region. Bilateral vasectomy clips are also evident. Impression: No fracture. This document has been electronically signed by: Jt Deluna MD on 03/18/2024 00:44:47
--- NOTE | ~2024-03-17 | XR_ITS ---
CLINICAL HISTORY: pain, fall 2 view right knee Comparison: None Findings: Bones intact. No dislocations. No significant degenerative change. No joint effusion. No radiopaque foreign body. IMPRESSION: 1. No acute findings. This document has been electronically signed by: Karlos Anaya MD on 03/18/2024 02:12:43
[2024-03-17 23:50] VITALS: BP 122/85; PULSE 111; RESP 16; TEMP 36.6; O2SAT 96; BMI 32.9
--- NOTE | 2024-03-18 | ECG_ITS ---
Test Reason : CHEST PAIN Blood Pressure : / mmHG Vent. Rate : 104 BPM Atrial Rate : 104 BPM P-R Int : 154 ms QRS Dur : 136 ms QT Int : 388 ms P-R-T Axes : 036 -16 114 degrees QTc Int : 510 ms Sinus tachycardia Left bundle branch block Abnormal ECG When compared with ECG of 15-MAR-2024 14:30, No significant change was found Referred By: Generic ED Physician Electronically Signed By:JL BUSBY MD
--- NOTE | 2024-03-18 01:30 | PC.NURSE ---
pt complaining to chest pain, order for EKG placed, pt refusing to take shirt off while performing EKG, had to educated pt regarding importance of place him on monitor after refusing, second call about chest pain, educated pt on EKG results, on bedside monitor reading, pt became rude, yelling at this RN, Notified Dr. Nunez and Clinical coordinator. Pt continue to be unapproachable at this time. Pt awaiting CT, X-ray. Due abusive behavior, this RN will have Clinical coordinator address pt needs.
--- NOTE | 2024-03-18 01:35 | ED.FALL ---
HPI - Fall General Chief Complaint: Fall Stated Complaint: fall, head strike Time Seen by Provider: 03/18/24 01:20 Source: patient Mode of arrival: ambulatory Limitations: no limitations History of Present Illness ED Provider: Dr. Yee Nunez HPI Narrative: Patient comes to the emergency room complaining of a mechanical fall. Patient states that he is unsure how he fell, may have tripped on transitioning between the rock and the tile. Patient initially when he came in endorsed right hip pain. When I spoke to the patient, complaining of right femur pain/right knee pain. Also, patient states that he may have hit his head and lost consciousness. Patient takes blood thinners. Related Data Home Medications ?Medication ?Instructions ?Recorded ?Confirmed clonidine 0.2 mg/24 hr weekly 1 patch transdermal WE@0900 02/28/24 02/28/24 transdermal patch fluconazole 40 mg/mL oral 100 mg PO BID 02/28/24 02/28/24 suspension metoprolol tartrate 50 mg tablet 100 mg PO BID 02/28/24 02/28/24 pantoprazole 40 mg tablet,delayed 40 mg PO DAILY@0630 02/28/24 02/28/24 release warfarin 5 mg tablet 5 mg PO DAILY 02/28/24 02/28/24 warfarin 2 mg tablet 2 mg PO DAILY 03/01/24 03/01/24 Previous Rx's ?Medication ?Instructions ?Recorded prednisolone 15 mg/5 mL oral 60 mg (20 mL) PO DAILY 4 days #80 03/05/24 solution mL Allergies Allergy/AdvReac Type Severity Reaction Status Date / Time phenytoin [From DILANTIN] Allergy Unknown GAVE PT A Verified 03/17/24 23:55 TOXIC LEVEL lidocaine Allergy Unknown Verified 03/17/24 23:55 prednisone Allergy Unknown Verified 03/17/24 23:55 tramadol Allergy Anaphylaxis Verified 03/17/24 23:55 trazodone Allergy Unknown Verified 03/17/24 23:55 albuterol AdvReac Anxiety Verified 03/17/24 23:55 gabapentin [From Neurontin] AdvReac Unknown Verified 03/17/24 23:55 morphine AdvReac Unknown Verified 03/17/24 23:55 Review of Systems Review of Systems: Constitutional : No Weight loss, No Fever, No Chills, No Night Sweats, No Fatigue, No Malaise ENT/Mouth : No Hearing loss, No Ear Pain, No Nasal Congestion, No Sinus Pain, No Hoarseness, No sore throat, No Rhinorrhea, No Swallowing Difficulty Eyes: No Eye Pain, No Swelling, No Redness, No Foreign Body, No Discharge, No Vision Changes Cardiovascular : No Chest Pain, No SOB, No Dyspnea on Exertion, No Orthopnea, No Edema, No Palpitations Respiratory : No Cough, No Sputum, No Wheezing, No Smoke Exposure, No Dyspnea Gastrointestinal : No Nausea, No Vomiting, No Diarrhea, No Constipation, No abdominal Pain, No Hematochezia, No Melena Genitourinary : no irregular bleeding, No Dysuria, No Urinary Frequency, No Hematuria, No Urinary Incontinence, No Urgency, No Flank Pain, No Urinary Flow Changes, No Hesitancy Musculoskeletal : Complaining of right hip pain, right leg pain Skin : No Skin Lesions, No rash Neuro : No Weakness, No Numbness, No Paresthesias, complaining of possible loss of consciousness No Dizziness, No Headache Psych : No Anxiety/Panic, No Depression, No SI/HI/AH/VH, No Social Issues, Heme/Lymph: No Bruising, No Bleeding,No Lymphadenopathy Endocrine : No Polyuria, No Polydipsia, No Temperature Intolerance PMFSH Past Medical History Medical History Bilateral pulmonary embolism Noncompliance with medications Alcohol dependence Endocarditis Surgical History Aortic valve replaced Social History Social History Alcohol intake: current Alcohol intake frequency: does not drink Alcohol type: hard liquor Substance Use Type: Marijuana Advance Directives: No Advance Directives Information Provided: Yes Do you have a plan to hurt others: No Plan Physical Exam Vital Signs: Vital Signs: Last Vital Signs Temp 98.6 F 03/18/24 01:54 Pulse 102 H 03/18/24 01:54 Resp 14 03/18/24 01:54 BP 125/99 H 03/18/24 01:54 Pulse Ox 96 03/17/24 23:50 O2 Del Method Room Air 03/18/24 01:54 BMI result Body Mass Index 32.9 Const: Other: Appearance: Alert. Oriented X3. No acute distress. Well-appearing Eyes: Pupils equal, round and reactive to light. ENT: Pharynx normal. Neck: Normal inspection. Neck supple. No lymph nodes noted. No crepitus CVS: Normal heart rate and rhythm. Pulses normal. Normal S1 and S2 Respiratory: No respiratory distress. Breath sounds normal. No Wheezing. No rales Abdomen: Soft and nontender. No rigidity. No distention. Skin: Skin warm and dry. Normal skin color. Normal skin turgor. Extremities: No lower extremity edema. No Lacerations. No Rash Neuro: Oriented X 3. No motor deficit. No sensory deficit. Moving all extremities. No slurred speech. CN 2 through 12 grossly intact Psych: calm, cooperative, normal affect Course Course Course Narrative: I was informed by the patient's nurse, that the patient is being very antagonistic, has already fired his nurse and the tech for no apparent reason. Reviewing patient's records, every time that he comes to the emergency room, he gets into some kind of verbal disagreement with his nurses and the providers. Medical Decision Making Medical Decision Making [facility] Narrative: Patient's x-ray of the hip does not show any acute abnormality. Patient states that it is not his hip his hurts, it is his lower extremity. Extra pending. CT scan of the head pending. Sign-out given to my colleague Dr. Cantu Differential Diagnosis Differential Diagnoses: The differential diagnosis associated with the presentation includes (Contusion, hip fracture, hip dislocation, intracranial bleed) Independent Interpretation I performed an independent interpretation of an: Plain X-Ray Radiology Impression Discussion of test interpretation with radiology: I have reviewed the radiologist's reading. Radiologist Impression: Bony alignment of the hip joints is anatomic. No acute fracture. Minor degenerative change of the hip joints. Pubic rami are intact. Surgical clips are seen within the right inguinal region. Bilateral vasectomy clips are also evident. Impression: No fracture. Discharge Plan Discharge Clinical Impression: Fall, Multiple contusions Patient Disposition: Still a Patient Prescriptions: No Action clonidine 0.2 mg/24 hr patch weekly 1 patch transdermal WE@0900 pantoprazole 40 mg tablet,delayed release (DR/EC) 40 mg PO DAILY@0630 metoprolol tartrate 50 mg tablet 100 mg PO BID fluconazole 40 mg/mL suspension for reconstitution 100 mg PO BID warfarin 5 mg tablet 5 mg PO DAILY warfarin 2 mg tablet 2 mg PO DAILY prednisolone 15 mg/5 mL solution 60 mg PO DAILY 4 Days Qty: 80 0RF Print Language: Turkmen
--- NOTE | 2024-03-18 01:37 | PC.NURSE ---
Assumed care of pt at this time due to patient being verbally abusive to staff/primary RN Lady. Advised that is not acceptable. Shows no evidence of learning. Will stay for imaging.
[2024-03-18 01:54] VITALS: BP 125/99; PULSE 102; RESP 14; TEMP 37
[2024-03-18 02:39] VITALS: BP 125/99; PULSE 102; RESP 14; TEMP 37
== END 2024-03-18 02:39 | disposition home or self-care (01) ==
PROVIDERS: Emergency Provider Emergency Medicine
DX: M25.551 Pain in right hip (principal); M25.561 Pain in right knee; T14.8XXA Other injury of unspecified body region, initial encounter; W01.0XXA Fall on same level from slipping, tripping and stumbling without subsequent striking against object, initial encounter; I44.7 Left bundle-branch block, unspecified; Y93.9 Activity, unspecified; Y92.9 Unspecified place or not applicable; Y99.9 Unspecified external cause status; F12.90 Cannabis use, unspecified, uncomplicated; Z86.711 Personal history of pulmonary embolism; Z79.899 Other long term (current) drug therapy; Z79.01 Long term (current) use of anticoagulants
CPT/HCPCS: 70450; 72125; 73502; 73560; 93005; 99284; 99285

== ENCOUNTER → 2024-03-17 23:59 | Outpatient (BNV) | payer MEDICAID, SELFPAY | PROVIDERS: Visit Provider Radiology Diagnostic Radiology | DX: M25.551 Pain in right hip (principal) | CPT/HCPCS: 73502 ==

== ENCOUNTER → 2024-03-18 01:10 | Outpatient (BNV) | payer MEDICAID, SELFPAY | PROVIDERS: Emergency Provider Emergency Medicine; Visit Provider Internal Medicine Cardiovascular Disease | DX: R07.9 Chest pain, unspecified (principal); R00.0 Tachycardia, unspecified; R94.31 Abnormal electrocardiogram [ECG] [EKG] | CPT/HCPCS: 93010 ==

== ENCOUNTER → 2024-03-18 01:33 | Outpatient (BNV) | payer MEDICAID, SELFPAY | PROVIDERS: Emergency Provider Emergency Medicine; Visit Provider Radiology Diagnostic Radiology | DX: S14.109A Unspecified injury at unspecified level of cervical spinal cord, initial encounter (principal); S09.90XA Unspecified injury of head, initial encounter; Z79.01 Long term (current) use of anticoagulants; M25.561 Pain in right knee; W19.XXXA Unspecified fall, initial encounter | CPT/HCPCS: 70450; 72125; 73560 ==

== ENCOUNTER 2024-03-26 21:38 | Emergency (ER) | payer MEDICAID, SELFPAY ==
[2024-03-26 21:52] VITALS: BP 115/76; PULSE 94; RESP 18; TEMP 37; O2SAT 97; BMI 32.9
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
--- NOTE | 2024-03-26 22:54 | PC.NURSE ---
pt called t/w into room- pt sts that he would like something for his anxiety, as he would like to eventually be comfortable enough to take off bulletproof vest. sts his valium and clonazepam are not working.
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
[2024-03-27] MEDS: diazePAM 5 MG TABLET 10 MG PO (00:16)
[2024-03-27 00:19] LABS: MANUAL DIFF FLAG NO
[2024-03-27 00:20] VITALS: BP 115/86; PULSE 92; RESP 14; TEMP 36.6; O2SAT 94
[2024-03-27 00:23] LABS: Basophils Absolute Auto 0.1 X10*3/uL (0.0-0.2); Basophils Percent Auto 0.6 % (0-2); Eosinophils Absolute Auto 0.3 X10*3/uL (0.0-0.4); Eosinophils Percent Auto 2.1 % (0-4); Hematocrit 36.2 % (42.0-52.0); Hemoglobin 12.5 g/dl (14.0-18.0); Imm Gran Abs Auto 0.06 X10*3/uL (0.00-0.03); Imm Gran Pct Auto 0.5 % (0.0-0.4); Lymphocytes Absolute Auto 3.6 X10*3/uL (1.2-4.9); Lymphocytes Percent Auto 26.8 % (20-40); Mean Corpuscular HGB Conc 34.5 g/dl (31.0-36.0); Mean Corpuscular Hemoglobin 31.5 pg (27.0-33.0); Mean Corpuscular Volume 91.2 fL (80.0-98.0); Mean Platelet Volume 10.5 fL (9.4-12.4); Monocytes Absolute Auto 1.2 X10*3/uL (0.1-1.2); Neutrophils Absolute Auto 8.1 x10*3/uL (2.0-8.3); Platelet Count 334 X10*3/uL (160-400); Red Blood Count 3.97 X10*6/uL (4.60-5.80); Red Cell Distribution Width 17.8 % (11.0-16.0); White Blood Count 13.3 X10*3/uL (4.8-10.8)
[2024-03-27 00:38] LABS: INTERNATIONAL NORM RATIO 2.4 (0.9-1.1); Prothrombin Time 28.6 SEC (10.9-12.4)
[2024-03-27 00:42] LABS: Alanine Aminotransferase 28 U/L (0-40); Albumin Level 3.4 g/dL (3.5-5.0); Alkaline Phosphatase 72 U/L (39-117); Anion Gap 10 (12-20); Aspartate Amino Transferase 37 U/L (5-37); Bilirubin Direct 0.1 mg/dL (0.0-0.5); Bilirubin Total 0.4 mg/dL (0.0-1.0); Blood Urea Nitrogen 8 mg/dL (9-16); Calcium 8.9 mg/dL (8.4-10.2); Carbon Dioxide 24 mmol/L (22-29); Chloride 109 mmol/L (96-108); Creatinine Clr Calc Pharmacy 127.9; Estimated Glomerular Filt Rate > 60; Glucose Random 113 mg/dL (60-115); Potassium 4.1 mmol/L (3.3-5.1); Sodium 139 mmol/L (135-145); Total Protein 6.8 g/dL (6.5-8.0)
[2024-03-27 00:45] LABS: D Dimer High Sensitivity < 150 NG/ML
[2024-03-27 00:57] VITALS: BP 115/86; PULSE 92; RESP 14; TEMP 36.6; O2SAT 94
== END 2024-03-27 00:59 | disposition home or self-care (01) ==
PROVIDERS: Emergency Provider Emergency Medicine; PCP Internal Medicine
DX: R07.9 Chest pain, unspecified (principal); M79.604 Pain in right leg; R79.1 Abnormal coagulation profile; Z86.711 Personal history of pulmonary embolism; Z79.01 Long term (current) use of anticoagulants
CPT/HCPCS: 36415; 80048; 80076; 85025; 85379; 85610; 99283; 99285

== ENCOUNTER 2024-03-28 18:37 | Emergency (ER) | payer MEDICAID, SELFPAY ==
[2024-03-28 19:30] VITALS: BP 133/87; PULSE 111; RESP 18; TEMP 37.2; O2SAT 97; BMI 32.9
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
--- NOTE | 2024-03-28 21:12 | PC.NURSE ---
PT CALLED BACK TO TRIAGE AND SPOKE WITH MD QUINTERO. PT INITIALLY REPORTED THAT HE DID NOT WANT TO BE SEEN AND ONLY WANTED THE NAME OF THE PREVIOUS PROVIDER HE SPOKE TO. ONCE HE SAW DR QUINTERO, HE REPORTED THAT HE DID NOT WANT ANY PRESCRIPTIONS HOWEVER ONLY WANTED HELP WITH HIS ANXIETY. ALTERNATIVE MEDICATIONS TO BENZOS OFFERED (HYDROXYZINE) AND THE PT REFUSED STATING THAT'S FUNNY LAST TIME YOU GAVE ME A BENZO . EDUCATION PROVIDED AND PT OFFERED NO OTHER COMPLAINTS, QUESTIONS, OR CONCERNS STATING I SHOULD HAVE KNOWN BETTER THAN TO COME HERE PRIOR TO EXITING THE TRIAGE ROOM. PT APPEARING TO PRESENT AT BASELINE FROM INITIAL TRIAGE WITHOUT ACUTE DISTRESS NOTED.
--- NOTE | 2024-03-28 21:24 | MHC.CARE ---
The patient is a 43-year-old male who arrived at the [facility] requesting a refill of Klonopin and Valium to facilitate his admission to a treatment program. He was unable to provide contact information to the program. The patient explained that in order to be admitted, he needed an updated prescription and medical clearance. He mentioned that his previous healthcare provider is no longer practicing, and his current primary care physician, who practices holistic medicine, refuses to prescribe these medications. The care team informed him that the ED would not be able to fulfill his prescription request. The patient noted that he had previously obtained a prescription from [facility] and expressed concern that Dr. Sosa at [facility] would not prescribe the medications due to alleged personal issues between them. He further indicated that if he were alone with Dr. Sosa, there will be issues. The patient requested to be medically cleared by a different doctor.
--- NOTE | 2024-03-28 22:24 | PC.NURSE ---
pt not present at 2200 to received dc paperwork. does not appear the pt is anywhere to be found in the WR
== END 2024-03-28 22:00 | disposition home or self-care (01) ==
PROVIDERS: Emergency Provider Emergency Medicine; PCP Internal Medicine
DX: F41.9 Anxiety disorder, unspecified (principal); Z76.5 Malingerer [conscious simulation]; Z86.718 Personal history of other venous thrombosis and embolism; Z79.01 Long term (current) use of anticoagulants; Z79.899 Other long term (current) drug therapy
CPT/HCPCS: 99281; 99282

== ENCOUNTER 2024-03-31 23:10 | Emergency (ER) | payer MEDICAID, SELFPAY ==
--- NOTE | ~2024-03-31 | CT_ITS ---
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 Global cerebral volume loss and chronic microvascular ischemic changes. No acute intracranial hemorrhage, extra-axial fluid collection, mass effect, or midline shift. Ventricular system and basilar cisterns are patent. [place]-white matter differentiation is maintained. No gross orbital abnormality. No suspicious or acute bone lesion. Mastoid air cells and paranasal sinuses are predominantly clear. IMPRESSION: 1. No acute intracranial abnormality. 2. Global cerebral volume loss and chronic microvascular ischemic changes. This document has been electronically signed by: Burke Conley MD on 04/01/2024 01:57:07
[2024-03-31 23:16] VITALS: BP 127/84; PULSE 115; RESP 14; TEMP 36.5; O2SAT 96; BMI 32.9
--- NOTE | 2024-03-31 23:35 | ECG_ITS ---
Test Reason : OD Blood Pressure : */* mmHG Vent. Rate : 103 BPM Atrial Rate : 103 BPM P-R Int : 154 ms QRS Dur : 138 ms QT Int : 382 ms P-R-T Axes : 39 -9 111 degrees QTcB Int : 500 ms Sinus tachycardia Left bundle branch block Abnormal ECG When compared with ECG of 18-Mar-2024 01:10, No significant change was found Referred By: Generic ED Physician Electronically Signed By: JL BUSBY MD
--- NOTE | 2024-04-01 00:10 | PC.NURSE ---
chief ultrasound technologist attempted to draw labs on pt which was unsuccessful, tough stick. This RN walked into the room and said Hi! My name is Lizz I'm going to be your nurse vasu pt replied, You're not sticking me again without an ultrasound, not happening.
--- NOTE | 2024-04-01 00:17 | ED.OVERDOSE ---
HPI - Overdose General Chief Complaint: Overdose Stated Complaint: bad reaction to new meds Time Seen by Provider: 04/01/24 00:16 History of Present Illness ED Provider: Richie Hopper MD HPI Narrative: Per triage note patient initiated Prozac today taking at 20:30 started with 1 mg Prozac tab and took Valium, Klonopin, Tylenol with codeine and clonidine. Patient also reports mild left frontal headache and feeling slightly unsteady on his feet. says it has been a few days he has seemed a little unsteady on his feet but he has not had headache fall or head strike Tells me his INR was 2.7 Related Data Home Medications ?Medication ?Instructions ?Recorded ?Confirmed clonidine 0.2 mg/24 hr weekly 1 patch transdermal WE@0900 02/28/24 02/28/24 transdermal patch fluconazole 40 mg/mL oral 100 mg PO BID 02/28/24 02/28/24 suspension metoprolol tartrate 50 mg tablet 100 mg PO BID 02/28/24 02/28/24 pantoprazole 40 mg tablet,delayed 40 mg PO DAILY@0630 02/28/24 02/28/24 release warfarin 5 mg tablet 5 mg PO DAILY 02/28/24 02/28/24 warfarin 2 mg tablet 2 mg PO DAILY 03/01/24 03/01/24 Previous Rx's ?Medication ?Instructions ?Recorded prednisolone 15 mg/5 mL oral 60 mg (20 mL) PO DAILY 4 days #80 03/05/24 solution mL Allergies Allergy/AdvReac Type Severity Reaction Status Date / Time phenytoin [From DILANTIN] Allergy Unknown GAVE PT A Verified 03/31/24 23:34 TOXIC LEVEL lidocaine Allergy Unknown Verified 03/31/24 23:34 prednisone Allergy Unknown Verified 03/31/24 23:34 tramadol Allergy Anaphylaxis Verified 03/31/24 23:34 trazodone Allergy Unknown Verified 03/31/24 23:34 albuterol AdvReac Anxiety Verified 03/31/24 23:34 gabapentin [From Neurontin] AdvReac Unknown Verified 03/31/24 23:34 morphine AdvReac Unknown Verified 03/31/24 23:34 PMFSH Past Medical History Medical History Bilateral pulmonary embolism Noncompliance with medications Alcohol dependence Endocarditis Surgical History Aortic valve replaced Social History Social History Alcohol intake: current Alcohol intake frequency: does not drink Alcohol type: hard liquor Substance Use Type: Marijuana Advance Directives: No Advance Directives Information Provided: Yes Do you have a plan to hurt others: No Plan Physical Exam Vital Signs: Vital Signs: Last Vital Signs Temp 97.7 F 04/01/24 02:26 Pulse 91 04/01/24 02:26 Resp 23 H 04/01/24 02:26 BP 123/95 H 04/01/24 02:26 Pulse Ox 97 04/01/24 02:26 O2 Del Method Room Air 04/01/24 02:26 BMI result Body Mass Index 32.9 Const: Other: EXAM: Gen: Alert, awake, well appearing, well hydrated. Head: Atraumatic Eyes: Anicteric, Normal conjunctiva. ENT: Moist mucosa, no pallor. ? Neck: Supple. Respiratory: Breathing comfortably, No distress.Clear to auscultation bilaterally, symmetric chest expansion, No wheeze, rales, ronchi. Cardiovascular: Regular rate and rhythm. No murmurs or rub. Well perfused periphery, warm extremities. No edema. ? Abdominal: Soft, no objective distension. No palpable masses or obvious organomegaly. No focal tenderness, no guarding, no rebound tenderness or other peritoneal findings. : No flank tenderness. Neuro: Alert. Gross movement of all extremities intact. ? Vital signs: See flowsheet Medications Administered Discontinued Medications Generic Name Dose Route Start Last Admin Trade Name Freq PRN Reason Stop Dose Admin Iohexol 85 ml 04/01/24 01:21 04/01/24 01:22 Iohexol 350 Mg/Ml 100 Ml Infus..Btl IV 04/01/24 01:22 85 ml ONCE ONE Administration Medical Decision Making Medical Decision Making MDM Narrative: [age] male with adverse reaction to combination of medications that he is prescribed. No overdose, these are prescribed medications taken as prescribed however this is clearly polypharmacy situation. Unclear if he is formally prescribed Valium and clonazepam at the same time? . Monitoring. Advised to call prescribing physician 1st thing in the morning. Left bundle branch block on ECG with no dynamic changes nor any criteria for acute ischemia or STEMI. ___ Patient also reports a mild frontal headache. He is on warfarin for DVT/PE tells me PE was diagnosed in February at [facility] any currently has no chest pain or difficulty breathing nor any hypoxia, his heart rate is 94 at the bedside and he was no pleuritic pain and no labored breathing. INR was 2.7 this morning per the patient he can walk he is slightly unsteady it is unclear whether he was just drowsy when I assessed him or he is perhaps slightly ataxic could be secondary to polypharmacy but given the anticoagulation fact that he is a poor historian CT head to exclude ICH is reasonable. Lab Data MDM Lab Attestation statement: I reviewed the patient's lab results. Of note INR could not be sent as the patient declined any further direct sticks for blood work. Reassuringly he tells me his INR was 2.7 this morning at check in the outpatient setting Discharge Plan Discharge Clinical Impression: Medication adverse effect Patient Disposition: Home, Self-Care Instructions: Benzodiazepine Overdose (ED) Additional Instructions: DISCHARGE DIAGNOSES: Likely symptomatic overdose multiple medications and/or an adverse reaction to your new medication duloxetine. Headache and resolved unsteady walking in the setting of anticoagulation. Unclear cause HISTORY OF PRESENTATION: Significant sleepiness and unsteady gait after taking your medications which include 2 types of benzodiazepines and a new medication that was prescribed duloxetine. EMERGENCY DEPARTMENT COURSE,TESTS, TREATMENTS: While in the ED today you were monitored several hours with no severe or serious adverse events. Because you are on blood thinners and you had a headache and slight unsteadiness of the gait a CT head was performed to rule out bleeding in the brain this was: DISCHARGE MEDICATIONS: ?[We have made no changes to your regular medication regimen] FOLLOW-UP: ?Call your primary or general physician soon as possible to discuss your symptoms, your ED visit and to discuss follow up plans Call your psychiatry provider we recommend a discussion about prescribed Valium and clonazepam as well as discussing the duloxetine INSTRUCTIONS ?& RETURN PRECAUTIONS: If any symptoms change first call your primary physician, if it is after-hours your primary doctors office should have a provider operations coordinator you can speak with. If the symptoms are severe or very concerning to you then call 911 or return to the ED. Richie Hopper MD Emergency Physician [facility] Prescriptions: No Action clonidine 0.2 mg/24 hr patch weekly 1 patch transdermal WE@0900 pantoprazole 40 mg tablet,delayed release (DR/EC) 40 mg PO DAILY@0630 metoprolol tartrate 50 mg tablet 100 mg PO BID fluconazole 40 mg/mL suspension for reconstitution 100 mg PO BID warfarin 5 mg tablet 5 mg PO DAILY warfarin 2 mg tablet 2 mg PO DAILY prednisolone 15 mg/5 mL solution 60 mg PO DAILY 4 Days Qty: 80 0RF Discharge Date/Time: 04/01/24 04:24 Print Language: Kosovan
[2024-04-01] MEDS: iohexoL 350 MG/ML 100 ML INFUS..BTL 85 ML IV (01:22)
[2024-04-01 02:26] VITALS: BP 123/95; PULSE 91; RESP 23; TEMP 36.5; O2SAT 97
== END 2024-04-01 04:24 | disposition home or self-care (01) ==
PROVIDERS: Emergency Provider Emergency Medicine; PCP Internal Medicine
DX: T43.221A Poisoning by selective serotonin reuptake inhibitors, accidental (unintentional), initial encounter (principal); T42.4X1A Poisoning by benzodiazepines, accidental (unintentional), initial encounter; T40.2X1A Poisoning by other opioids, accidental (unintentional), initial encounter; T46.5X1A Poisoning by other antihypertensive drugs, accidental (unintentional), initial encounter; R51.9 Headache, unspecified; Y92.9 Unspecified place or not applicable; R26.81 Unsteadiness on feet; I44.7 Left bundle-branch block, unspecified; F12.90 Cannabis use, unspecified, uncomplicated; Z86.711 Personal history of pulmonary embolism; Z79.01 Long term (current) use of anticoagulants
CPT/HCPCS: 70450; 93005; 99283; 99284; Q9967

== ENCOUNTER → 2024-03-31 23:35 | Outpatient (BNV) | payer MEDICAID, SELFPAY | PROVIDERS: Emergency Provider Emergency Medicine; PCP Internal Medicine; Visit Provider Internal Medicine Cardiovascular Disease | DX: R00.0 Tachycardia, unspecified (principal); I44.7 Left bundle-branch block, unspecified; R94.31 Abnormal electrocardiogram [ECG] [EKG] | CPT/HCPCS: 93010 ==

== ENCOUNTER → 2024-04-01 01:12 | Outpatient (BNV) | payer MEDICAID, SELFPAY | PROVIDERS: Emergency Provider Emergency Medicine; PCP Internal Medicine; Visit Provider Radiology Diagnostic Radiology | DX: G31.89 Other specified degenerative diseases of nervous system (principal); I67.82 Cerebral ischemia | CPT/HCPCS: 70450 ==

== ENCOUNTER 2024-04-06 19:54 | Emergency (ER) | payer MEDICAID, SELFPAY ==
--- NOTE | ~2024-04-06 | US_ITS ---
CLINICAL HISTORY: severe calf pain, hx DVTs Venous duplex ultrasound right lower extremity Comparison: US/SR - US VENOUS DUPLEX LE BI - 02/28/24 03:58 EST Findings: The visualized deep veins are fully compressible with normal Doppler color flow and spectral tracings. No popliteal cyst. Mildly prominent right inguinal lymph node with normal fatty hilum. IMPRESSION: 1. Negative for right lower extremity deep vein thrombosis. This document has been electronically signed by: Karlos Anaya MD on 04/06/2024 21:07:44
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
[2024-04-06 19:59] VITALS: BP 128/83; PULSE 83; RESP 18; TEMP 36.7; O2SAT 98; BMI 31.3
[2024-04-06 21:06] LABS: MANUAL DIFF FLAG NO
[2024-04-06 21:07] LABS: Basophils Absolute Auto 0.1 X10*3/uL (0.0-0.2); Basophils Percent Auto 0.6 % (0-2); Eosinophils Absolute Auto 0.3 X10*3/uL (0.0-0.4); Eosinophils Percent Auto 2.4 % (0-4); Hematocrit 40.7 % (42.0-52.0); Hemoglobin 14.2 g/dl (14.0-18.0); Imm Gran Abs Auto 0.05 X10*3/uL (0.00-0.03); Imm Gran Pct Auto 0.4 % (0.0-0.4); Lymphocytes Absolute Auto 4.1 X10*3/uL (1.2-4.9); Lymphocytes Percent Auto 33.1 % (20-40); Mean Corpuscular HGB Conc 34.9 g/dl (31.0-36.0); Mean Corpuscular Hemoglobin 31.6 pg (27.0-33.0); Mean Corpuscular Volume 90.6 fL (80.0-98.0); Mean Platelet Volume 10.2 fL (9.4-12.4); Monocytes Absolute Auto 1.1 X10*3/uL (0.1-1.2); Neutrophils Absolute Auto 6.7 x10*3/uL (2.0-8.3); Neutrophils Percent Auto 54.5 % (45-73); Platelet Count 365 X10*3/uL (160-400); Red Blood Count 4.49 X10*6/uL (4.60-5.80); Red Cell Distribution Width 17.3 % (11.0-16.0); White Blood Count 12.3 X10*3/uL (4.8-10.8)
[2024-04-06 21:14] LABS: INTERNATIONAL NORM RATIO 4.1 (0.9-1.1); Prothrombin Time 48.3 SEC (10.9-12.4)
[2024-04-06 21:16] LABS: Partial Thromboplastin Time 56.4 SEC (26.0-36.8)
[2024-04-06 21:20] LABS: Alanine Aminotransferase 23 U/L (0-40); Albumin Level 3.6 g/dL (3.5-5.0); Alkaline Phosphatase 83 U/L (39-117); Anion Gap 11 (12-20); Aspartate Amino Transferase 31 U/L (5-37); Bilirubin Total 0.5 mg/dL (0.0-1.0); Blood Urea Nitrogen 7 mg/dL (9-16); Calcium 9.1 mg/dL (8.4-10.2); Carbon Dioxide 22 mmol/L (22-29); Chloride 110 mmol/L (96-108); Creatinine Clr Calc Pharmacy 131.5; Estimated Glomerular Filt Rate > 60; Glucose Random 86 mg/dL (60-115); Potassium 3.5 mmol/L (3.3-5.1); Sodium 139 mmol/L (135-145); Total Protein 7.5 g/dL (6.5-8.0)
--- NOTE | 2024-04-06 22:18 | PC.NURSE ---
Pt asking registration for lab results, angered when they told him they could not provide the results. Pt stated well I'm not waiting any longer its already been 2 hours LWCT.
== END 2024-04-06 22:59 | disposition left against medical advice (07) ==
PROVIDERS: Registered Nurse Emergency; Emergency Provider Emergency Medicine; PCP Internal Medicine
DX: K62.5 Hemorrhage of anus and rectum (principal); R60.0 Localized edema; M79.604 Pain in right leg; Z86.711 Personal history of pulmonary embolism; Z79.01 Long term (current) use of anticoagulants; Z79.899 Other long term (current) drug therapy
CPT/HCPCS: 36415; 80053; 85025; 85610; 85730; 93971; 99281; 99284

== ENCOUNTER → 2024-04-06 20:03 | Outpatient (BNV) | payer MEDICAID, SELFPAY | PROVIDERS: PCP Internal Medicine; Visit Provider Radiology Diagnostic Radiology | DX: M79.661 Pain in right lower leg (principal) | CPT/HCPCS: 93971 ==

== ENCOUNTER 2024-04-10 09:42 | Emergency (ER) | payer MEDICAID, SELFPAY ==
--- NOTE | 2024-04-10 09:44 | ECG_ITS ---
Test Reason : CHEST PAIN Blood Pressure : */* mmHG Vent. Rate : 112 BPM Atrial Rate : 112 BPM P-R Int : 150 ms QRS Dur : 142 ms QT Int : 380 ms P-R-T Axes : 45 -15 118 degrees QTcB Int : 518 ms Sinus tachycardia Left bundle branch block Abnormal ECG When compared with ECG of 31-Mar-2024 23:48, No significant change was found Referred By: Generic ED Physician Electronically Signed By: EMILY ORTEGA
[2024-04-10 10:07] VITALS: BP 124/87; PULSE 103; RESP 18; TEMP 36.8; O2SAT 98; BMI 34.0
[2024-04-10 10:11] LABS: MANUAL DIFF FLAG NO
[2024-04-10 10:13] LABS: Basophils Absolute Auto 0.1 X10*3/uL (0.0-0.2); Basophils Percent Auto 0.4 % (0-2); Eosinophils Absolute Auto 0.1 X10*3/uL (0.0-0.4); Eosinophils Percent Auto 0.6 % (0-4); Hematocrit 40.4 % (42.0-52.0); Hemoglobin 13.9 g/dl (14.0-18.0); Imm Gran Abs Auto 0.07 X10*3/uL (0.00-0.03); Imm Gran Pct Auto 0.4 % (0.0-0.4); Lymphocytes Absolute Auto 3.4 X10*3/uL (1.2-4.9); Lymphocytes Percent Auto 20.8 % (20-40); Mean Corpuscular HGB Conc 34.4 g/dl (31.0-36.0); Mean Corpuscular Hemoglobin 31.2 pg (27.0-33.0); Mean Corpuscular Volume 90.6 fL (80.0-98.0); Mean Platelet Volume 10.6 fL (9.4-12.4); Monocytes Absolute Auto 1.3 X10*3/uL (0.1-1.2); Monocytes Percent Auto 7.8 % (2-11); NRBC Pct Auto 0.1 /100WBC (0.0-0.2); Neutrophils Absolute Auto 11.4 x10*3/uL (2.0-8.3); Platelet Count 342 X10*3/uL (160-400); Red Blood Count 4.46 X10*6/uL (4.60-5.80); Red Cell Distribution Width 17.2 % (11.0-16.0); White Blood Count 16.3 X10*3/uL (4.8-10.8)
--- OUTSIDE RECORDS SUMMARY | 2024-04-10 10:59 | XMS_ITS | Clinical Summary ---
Author Organization [facility] Address [address] [place] [phone] Phone Care Team Providers Care Fastener Technologist Name Role Phone Tomas Jordan MD Primary Care Provider [phone] Allergies Active Allergy Reactions Criticality Noted Date Comments Albuterol Chills Medium 02/27/2024 Phenytoin Sodium Extended Seizures High 02/27/2024 Ketorolac 03/07/2024 Lidocaine 03/07/2024 Morphine 03/07/2024 Nicotine 03/07/2024 Nutritional Supplements 03/07/2024 Prednisone Disorientated 03/07/2024 Trazodone 03/07/2024 Medications No known medications Encounters Date Type Department Care Team Description 03/19/2024 7:38 PM EST - 03/20/2024 12:41 AM [facility] Emergency [address] [place] [phone] Discharge Disposition: Home or Self Care 03/17/2024 12:47 PM EST - 03/17/2024 3:08 PM [facility] Emergency [address] [place] [phone] Discharge Disposition: Home or Self Care 03/07/2024 8:21 PM EST - 03/08/2024 1:28 AM [facility] Emergency [address] [place] [phone] Discharge Disposition: Home or Self Care 02/27/2024 4:17 PM EST - 02/27/2024 6:13 PM [facility] Emergency [address] [place] [phone] Pain (Primary Dx) Discharge Disposition: Left Against Medical Advice from Last 3 Months Surgical History Surgery Date Site/Laterality Comments CARDIAC VALVE REPLACEMENT Medical History Medical History Date Comments Hypertension Social History Tobacco Use Types Packs/Day Years Used Date Smoking Tobacco: Some Days Cigarettes Smokeless Tobacco: Never Tobacco Cessation:Ready to Q uit: Not Asked; Counseling Given: Not Answered Sex and Gender Information Value Date Recorded Sex Assigned at Male 02/27/2024 4:40 PM EST Gender Identity Male 03/17/2024 3:04 PM EST Sexual Orientation Choose not to disclose 2023 4:40 PM EST Job Start Date Occupation Industry Not on file Not on file Not on file Obstetrics History Last Filed Vital Signs Vital Sign Reading Time Taken Comments Blood Pressure 121/71 03/19/2024 7:53 PM EST Pulse 105 03/19/2024 7:53 PM EST Temperature 36.8 ??C (98.2 ??F) 03/19/2024 7:53 PM ES T Respiratory Rate 18 03/19/2024 7:53 PM EST Oxygen Saturation 100% 03/19/2024 7:53 PM EST Inhaled Oxygen Concentration - - Weight 95.5 kg (210 lb 8 oz) 03/19/2024 7:53 PM EST Height 170.2 cm (5' 7 ) 03/19/2024 7:53 PM EST Body Mass Index 32.97 03/19/2024 7:53 PM EST Plan of Treatment Health Maintenance Due Date Last Done Comments DTaP,Tdap,and Td Vaccines (1 - Tdap) 12/20/1998 Hepatitis B Vaccines (1 of 3 - 19+ 3-dose series) 12/20/1998 Pneumococcal Vaccine: Pediat rics (0 to 5 Years) and At-Risk Patients (6 to 64 Years) (2 of 2 - PCV) 05/06/2015 05/06/2014 COVID-19 Vaccine ( - 2023-2 5 season) 2023 Influenza Vaccine (#1) 2023 Cholesterol Screening (Lipid Panel) 02/27/2024 Depression Screening 02/27/2024 HIV Screening 02/27/2024 Hepatitis C Screening 02/27/2024 Social Influencers of Health Screening 02/27/2024 HIB Vaccines Aged Out No longer eligi ble based on patient's age to complete this topic HPV Vaccines Aged Out No longer eligi ble based on patient's age to complete this topic Hepatitis A Vaccines Aged Out No long er eligible based on patient's age to complete this topic IPV Vaccines Aged Out No longer eligi ble based on patient's age to complete this topic MMR Vaccines Aged Out No longer eligi ble based on patient's age to complete this topic Meningococcal ACWY Vaccine Aged Out N o longer eligible based on patient's age to complete this topic RSV Immunization Patients Un marquita 20 months Aged Out No longer eligible b ased on patient's age to complete this topic Varicella Vaccines Aged Out No longer eligible based on patient's age to complete this topic Procedures Procedure Name Priority Date/Time Associated Diagnosis Comments XR CHEST 2 VIEWS STAT 03/19/2024 8:19 PM EST ECG 12-LEAD STAT 03/19/2024 7:48 PM EST ECG ANNOTATED 03/19/2024 XR CHEST 2 VIEWS STAT 03/07/2024 8:54 PM EST XR CHEST 2 VIEWS STAT 02/27/2024 5:59 PM EST URINALYSIS WITH REFLEX MICROSCOPIC STAT 02/27/2024 5:51 PM EST URINALYSIS WITH REFLEX MICROSCOPIC STAT 02/27/2024 5:51 PM EST RESPIRATORY VIRUS PANEL MOLECULAR STUDY STAT 02/27/2024 5:51 PM EST VAS US DUPLEX LOWER EXT VENOUS BILAT STAT 02/27/2024 5:26 PM EST Pain CREATINE KINASE STAT 02/27/2024 4:33 PM EST MAGNESIUM STAT 02/27/2024 4:33 PM EST CBC WITH AUTO DIFFERENTIAL STAT 02/27/2024 4:33 PM EST PROTHROMBIN TIME WITH INR STAT 02/27/2024 4:33 PM EST ACTIVATED PARTIAL THROMBOPLASTIN TIME STAT 02/27/2024 4:33 PM EST CBC AND DIFFERENTIAL STAT 02/27/2024 4:33 PM EST BASIC METABOLIC PANEL STAT 02/27/2024 4:33 PM EST from Last 3 Months Results * XR Chest 2 Views (03/19/2024 8:19 PM EST) Only the most recent of3 resultswithin the time period is included. Anatomical Region Laterality Modality Body Radiographic Evangelina ging 03/20/2024 9:58 AM EST Impressions 03/20/2024 10:02 AM EST FINDINGS/IMPRESSION: No pneumonia or pulmonary edema. ??No pleural effusion or pneumothorax. ??Cardiac silhouette is stable in size with aortic valve prosthesis and median sternotomy noted. ??No acute fracture -------- FINAL REPORT -------- Dictated By: STORM SOLOMON Dictated Date: 03/20/2024 09:58 ET Assigned Physician: STORM SOLOMON Reviewed and Electronically Signed By: STORM SOLOMON Signed Date: 03/20/2024 10:02 ET Workstation ID: [id number] Transcribed By: Self Edit Transcribed Date: 03/20/2024 09:58 ET Narrative 03/20/2024 10:02 AM EST XR CHEST 2 VIEWS INDICATION: ??Chest pain TECHNIQUE: XR CHEST 2 VIEWS COMPARISON: 03/07/2024 Procedure Note Storm Solomon MD - 03/20/2024 XR CHEST 2 VIEWS INDICATION: Chest pain TECHNIQUE: XR CHEST 2 VIEWS COMPARISON: 03/07/2024 IMPRESSION: FINDINGS/IMPRESSION: No pneumonia or pulmonary edema. No pleural effusionor pneumothorax. Cardiac silhouette is stable in size with aortic valveprosthesis and median sternotomy noted. No acute fracture -------- FINAL REPORT -------- Dictated By: STORM SOLOMON Dictated Date: 03/20/2024 09:58 ET Assigned Physician: STORM SOLOMON Reviewed and Electronically Signed By: STORM SOLOMON Signed Date: 03/20/2024 10:02 ET Workstation ID: [id number] Transcribed By: Self Edit Transcribed Date: 03/20/2024 09:58 ET Yobani Ngo DO IMG XR PROCEDURES * ECG 12 lead (03/19/2024 7:48 PM EST) [facility] Ventricular Rate ECG 104 BPM GEMUSE Atrial Rate 104 BPM GEMUSE P-R Interval 128 ms GEMUSE QRS Duration 140 ms GEMUSE Q-T Interval 390 ms GEMUSE QTc 512 ms GEMUSE P Wave [place] 36 degrees GEMUSE R [place] -7 degrees GEMUSE T [place] 107 degrees GEMUSE ECG Interpretation Sinus tachycardia Left bundle branch block Abnormal ECG No previous ECGs available Confirmed by KALA CAVANAUGH ([id number]) on 03/21/2024 3:25:33 PM GEMUSE 03/19/2024 7:48 PM EST 03/21/2024 3:25 PM EST Yobani Ngo DO ECG ORDERABLES GEMUSE * ECG-Annotated (03/19/2024) Provider Onbase MD ECG ORDERABLES * Urinalysis with reflex microscopic (02/27/2024 5:51 PM EST) [facility] Specific [place] Urine 1.012 1.003 - 1.030 LAB URINALYSIS - AUTOMATED METHOD 02/27/2024 6:24 PM [facility] pH, Urine 7.0 5.0 - 8.0 pH LAB URINALYSIS - AUTOMATED METHOD 02/27/2024 6:24 PM [facility] Leukocytes, Urine Negative Negative LAB URINALYSIS - AUTOMATED METHOD 02/27/2024 6:24 PM [facility] Nitrite, Urine Negative Negative LAB URINALYSIS - AUTOMATED METHOD 02/27/2024 6:24 PM [facility] Protein, Urine Negative <=Trace mg/dL LAB URINALYSIS - AUTOMATED METHOD 02/27/2024 6:24 PM [facility] Glucose, Urine Negative Negative mg/dL LAB URINALYSIS - AUTOMATED METHOD 02/27/2024 6:24 PM [facility] Ketones, Urine Negative Negative mg/dL LAB URINALYSIS - AUTOMATED METHOD 02/27/2024 6:24 PM [facility] Urobilinogen, Urine 1.0 0.2 - 1.0 mg/dL LAB URINALYSIS - AUTOMATED METHOD 02/27/2024 6:24 PM [facility] Bilirubin, Urine Negative Negative LAB URINALYSIS - AUTOMATED METHOD 02/27/2024 6:24 PM [facility] Blood, Urine Negative Negative LAB URINALYSIS - AUTOMATED METHOD 02/27/2024 6:24 PM [facility] Urine Urine specimen obtained by clean catch procedure / Unknown Non-blood Collection / Unknown 02/27/2024 5:51 PM EST 02/27/2024 6:03 PM EST Piotr KOENIG LAB URINE ORDERABLES [facility] [address] [place] [address], * Respiratory virus panel molecular study (02/27/2024 5:51 PM EST) Pathologist [facility] Adenovirus Detection by PCR Not Detected Not Detected LAB MICROBIOLOGY METHOD 02/27/2024 7:05 PM [facility] Influenza A PCR Not Detected Not Detected LAB MICROBIOLOGY METHOD 02/27/2024 7:05 PM [facility] Influenza B PCR Not Detected Not Detected LAB MICROBIOLOGY METHOD 02/27/2024 7:05 PM [facility] Coronavirus 229E Not Detected Not Detected LAB MICROBIOLOGY METHOD 02/27/2024 7:05 PM [facility] Coronavirus HKU1 Not Detected Not Detected LAB MICROBIOLOGY METHOD 02/27/2024 7:05 PM [facility] Coronavirus OC43 Not Detected Not Detected LAB MICROBIOLOGY METHOD 02/27/2024 7:05 PM [facility] Coronavirus NL63 Not Detected Not Detected LAB MICROBIOLOGY METHOD 02/27/2024 7:05 PM [facility] Parainfluenza Virus 1 Not Detected Not Detected LAB MICROBIOLOGY METHOD 02/27/2024 7:05 PM [facility] Parainfluenza Virus 2 Not Detected Not Detected LAB MICROBIOLOGY METHOD 02/27/2024 7:05 PM [facility] Parainfluenza Virus 3 Not Detected Not Detected LAB MICROBIOLOGY METHOD 02/27/2024 7:05 PM [facility] Parainfluenza Virus 4 Not Detected Not Detected LAB MICROBIOLOGY METHOD 02/27/2024 7:05 PM [facility] RSV PCR Not Detected Not Detected LAB MICROBIOLOGY METHOD 02/27/2024 7:05 PM [facility] Human Metapneumovirus A and B Not Detected Not Detected LAB MICROBIOLOGY METHOD 02/27/2024 7:05 PM [facility] Rhinovirus/Entero virus Not Detected Not Detected LAB MICROBIOLOGY METHOD 02/27/2024 7:05 PM [facility] Bordetella pertussis Not Detected Not Detected LAB MICROBIOLOGY METHOD 02/27/2024 7:05 PM [facility] Bordetella parapertussis Not Detected Not Detected LAB MICROBIOLOGY METHOD 02/27/2024 7:05 PM [facility] Mycoplasma pneumo by PCR Not Detected Not Detected LAB MICROBIOLOGY METHOD 02/27/2024 7:05 PM [facility] Chlamydia pneumoniae Not Detected Not Detected LAB MICROBIOLOGY METHOD 02/27/2024 7:05 PM [facility] SARS COV-2 Not Detected Not Detected LAB MICROBIOLOGY METHOD 02/27/2024 7:05 PM [facility] Swab Both anterior nares / Unknown Non-blood Collection / Unknown 02/27/2024 5:51 PM EST 02/27/2024 5:59 PM EST Narrative [facility] - 02/27/2024 7:05 PM EST Testing was performed using the [employer] Respiratory Pathogen PCR Assay. All results must be correlated with the clinical findings. Results should not be used as the sole basis for diagnosis. False Negative results may occur from the presence of sequence variants in the region targeted by the assay or the presence of inhibitors. Results may be affected by concurrent antiviral/antimicrobial therapy or levels of organisms that are below the limit of detection. Piotr KOENIG LAB MICROBIOLOGY - G ENERAL ORDERABLES [facility] [address] [place] [address], * Vascular US Duplex Lower Extremity Venous Bilateral (02/27/2024 5:26 PM EST) Anatomical Region Laterality Modality Vascular, Abdomen Ultrasound 02/28/2024 9:28 AM EST Impressions 02/28/2024 9:29 AM EST No evidence of deep vein thrombosis. -------- FINAL REPORT -------- Dictated By: Cong Reza Dictated Date: 02/28/2024 09:28 ET Assigned Physician: Cong Reza Reviewed and Electronically Signed By: Cong Reza Signed Date: 02/28/2024 09:29 ET Workstation ID: [id number] Transcribed By: Self Edit Transcribed Date: 02/28/2024 09:28 ET Narrative 02/28/2024 9:29 AM EST Ultrasound duplex venous study bilateral lower extremity TECHNIQUE: Grayscale and color imaging with spectral analysis was performed of the region of interest INDICATION: Pain COMPARISON: None FINDINGS: The veins appear normal throughout the bilateral lower extremity. ??Normal venous flow. ??Normal compressibility. ??Soft tissues appear normal. ??No evidence of thrombosis. Procedure Note Cong Reza MD - 02/28/2024 Ultrasound duplex venous study bilateral lower extremity TECHNIQUE: Grayscale and color imaging with spectral analysis wasperformed of the region of interest INDICATION: Pain COMPARISON: None FINDINGS: The veins appear normal throughout the bilateral lower extremity. Normalvenous flow. Normal compressibility. Soft tissues appear normal. Noevidence of thrombosis. IMPRESSION: No evidence of deep vein thrombosis. -------- FINAL REPORT -------- Dictated By: Cong Reza Dictated Date: 02/28/2024 09:28 ET Assigned Physician: Cong Reza Reviewed and Electronically Signed By: Cong Reza Signed Date: 02/28/2024 09:29 ET Workstation ID: [id number] Transcribed By: Self Edit Transcribed Date: 02/28/2024 09:28 ET Piotr KOENIG CV VASCULAR PROCEDUR ES * (ABNORMAL) CBC auto differential (02/27/2024 4:33 PM EST) WBC 20.8(H) 4.8 - 10.8 K/mcL LAB HEMETOLOGY METHOD 02/27/2024 4:43 PM [facility] RBC 4.30 3.80 - 5.50 M/mcL LAB HEMETOLOGY METHOD 02/27/2024 4:43 PM [facility] Hemoglobin 13.2 12.0 - 18.0 g/dL LAB HEMETOLOGY METHOD 02/27/2024 4:43 PM [facility] Hematocrit 38.5 36.0 - 48.0 % LAB HEMETOLOGY METHOD 02/27/2024 4:43 PM [facility] MCV 90.0 79.0 - 98.0 FL LAB HEMETOLOGY METHOD 02/27/2024 4:43 PM [facility] MCH 30.8 27.0 - 32.0 pcg LAB HEMETOLOGY METHOD 02/27/2024 4:43 PM [facility] MCHC 34.3 32.0 - 37.0 g/dL LAB HEMETOLOGY METHOD 02/27/2024 4:43 PM [facility] RDW 15.9(H) 11.0 - 15.0 % LAB HEMETOLOGY METHOD 02/27/2024 4:43 PM [facility] Platelets 303 130 - 400 K/mcL LAB HEMETOLOGY METHOD 02/27/2024 4:43 PM [facility] MPV 10.8 7.0 - 11.0 FL LAB HEMETOLOGY METHOD 02/27/2024 4:43 PM [facility] NRBC 0.4 <1.0 % LAB HEMETOLOGY METHOD 02/27/2024 4:43 PM [facility] NRBC Absolute 0.09 <0.10 K/mcL LAB HEMETOLOGY METHOD 02/27/2024 4:43 PM [facility] Neutrophils Relative 77.1 % LAB HEMETOLOGY METHOD 02/27/2024 4:43 PM [facility] Lymphocytes Relative 15.2 % LAB HEMETOLOGY METHOD 02/27/2024 4:43 PM [facility] Monocytes Relative 5.5 % LAB HEMETOLOGY METHOD 02/27/2024 4:43 PM [facility] Eosinophils Relative 0.6 % LAB HEMETOLOGY METHOD 02/27/2024 4:43 PM [facility] Basophils Relative 0.5 % LAB HEMETOLOGY METHOD 02/27/2024 4:43 PM [facility] Immature Granulocytes Relative 1.1 % LAB HEMETOLOGY METHOD 02/27/2024 4:43 PM [facility] Neutrophils Absolute 16.05(H) 1.50 - 7.00 K/mcL LAB HEMETOLOGY METHOD 02/27/2024 4:43 PM [facility] Lymphocytes Absolute 3.16 1.00 - 5.00 K/mcL LAB HEMETOLOGY METHOD 02/27/2024 4:43 PM EST [facility] Monocytes Absolute 1.15(H) 0.20 - 1.00 K/[facility] LAB HEMETOLOGY METHOD 02/27/2024 4:43 PM EST [facility] Eosinophils Absolute 0.13 0.00 - 0.50 K/[facility] LAB HEMETOLOGY METHOD 02/27/2024 4:43 PM EST [facility] Basophils Absolute 0.10 0.00 - 0.20 K/[facility] LAB HEMETOLOGY METHOD 02/27/2024 4:43 PM EST [facility] Immature Granulocytes Absolute 0.23(H) 0.00 - 0.03 K/[facility] LAB HEMETOLOGY METHOD 02/27/2024 4:43 PM EST [facility] Blood Venous blood specimen / Unknown Venipuncture / Unknown 02/27/2024 4:33 PM EST 02/27/2024 4:38 PM EST Orion Davidson MD LAB BLOOD ORDERAB LES [facility] [address] [place] [address], [place] [phone] * APTT (02/27/2024 4:33 PM EST) aPTT 38.3 24.1 - 39.3 sec LAB COAGULATION METHOD 02/27/2024 4:50 PM EST [facility] Blood Venous blood specimen / Unknown Venipuncture / Unknown 02/27/2024 4:33 PM EST 02/27/2024 4:38 PM EST Orion Davidson MD LAB BLOOD ORDERAB LES Performing Organization Address City/[facility]/ZIP Co de Phone Number [facility] [address] [place] [address], [place] [phone] * (ABNORMAL) Prothrombin time with INR (02/27/2024 4:33 PM EST) [facility] Protime 21.2(H) 10.6 - 13.9 sec LAB COAGULATION METHOD 02/27/2024 4:50 PM EST [facility] INR 1.7 LAB COAGULATION METHOD 02/27/2024 4:50 PM EST [facility] Blood Venous blood specimen / Unknown Venipuncture / Unknown 02/27/2024 4:33 PM EST 02/27/2024 4:38 PM EST Orion Davidson MD LAB BLOOD ORDERAB LES Performing Organization Address City/[facility]/ZIP Co de Phone Number [facility] [address] [place] [address], [place] [phone] * Magnesium (02/27/2024 4:33 PM EST) [facility] Magnesium 1.9 1.9 - 2.6 mg/dL LAB CHEMISTRY METHOD 02/27/2024 5:06 PM EST [facility] Blood Venous blood specimen / Unknown Venipuncture / Unknown 02/27/2024 4:33 PM EST 02/27/2024 4:38 PM EST Piotr KOENIG LAB BLOOD ORDERABLES [facility] [address] [place] [address], [place] [phone] * Creatine kinase (02/27/2024 4:33 PM EST) [facility] Total CK 37 22 - 269 unit/L LAB CHEMISTRY METHOD 02/27/2024 5:06 PM EST [facility] Blood Venous blood specimen / Unknown Venipuncture / Unknown 02/27/2024 4:33 PM EST 02/27/2024 4:38 PM EST Piotr KOENIG LAB BLOOD ORDERABLES [facility] [address] [place] [address], * (ABNORMAL) Basic metabolic panel (02/27/2024 4:33 PM EST) Sodium 140 133 - 145 mmol/L LAB CHEMISTRY METHOD 02/27/2024 5:03 PM [facility] Potassium 3.5 3.5 - 5.5 mmol/L LAB CHEMISTRY METHOD 02/27/2024 5:03 PM [facility] Chloride 106 96 - 110 mmol/L LAB CHEMISTRY METHOD 02/27/2024 5:03 PM [facility] CO2 26 21 - 32 mmol/L LAB CHEMISTRY METHOD 02/27/2024 5:03 PM [facility] Anion Gap 8 3 - 11 LAB CHEMISTRY METHOD 02/27/2024 5:03 PM [facility] Glucose 109(H) 70 - 100 mg/dL LAB CHEMISTRY METHOD 02/27/2024 5:03 PM [facility] BUN 6 5 - 25 mg/dL LAB CHEMISTRY METHOD 02/27/2024 5:03 PM [facility] Creatinine 0.72 0.50 - 1.30 mg/dL LAB CHEMISTRY METHOD 02/27/2024 5:03 PM [facility] eGFR 116 >=60 mL/min/1. 73m2 LAB CHEMISTRY METHOD 02/27/2024 5:03 PM [facility] Comment:Calculation based on the??Chronic Kidney Disease Epidemiology Collaboration (CKD-EPI) equation refit??without adjustment for race. BUN/Creatinine Ratio 8.3 LAB CHEMISTRY METHOD 02/27/2024 5:03 PM [facility] Calcium 8.9 8.5 - 10.5 mg/dL LAB CHEMISTRY METHOD 02/27/2024 5:03 PM [facility] Blood Venous blood specimen / Unknown Venipuncture / Unknown 02/27/2024 4:33 PM EST 02/27/2024 4:38 PM EST Orion Davidson MD LAB BLOOD ORDERAB LES JASON [facility] ([facility] [address] [place] [address], from Last 3 Months Care Teams Fastener Technologist Relationship Specialty Start Date End Date Tomas Jordan MD [address] [place] [address], [address] [place] [address] PCP - General Internal Medicine 02/27/24
--- OUTSIDE RECORDS SUMMARY | 2024-04-10 10:59 | XMS_ITS | Encounter Summary ---
Author Organization [facility] Address [address] [place] [address] Care Team Providers Care Hospital Security Officer Name Role Phone Tomas Jordan MD Primary Care Provider [phone] Encounter Details Date Type Department Care Team (Late st Contact Info) Description 03/17/2024 12:47 PM EST - 03/17/2024 3:[address] [facility] Emergency [address] [place] [address] Discharge Disposition: Home or Self Care Social History Tobacco Use Types Packs/Day Years Used Date Smoking Tobacco: Some Days Cigarettes Smokeless Tobacco: Never Sex and Gender Information Value Date Recorded Sex Assigned at Male 02/27/2024 4:40 PM EST Gender Identity Male 03/17/2024 3:04 PM EST Sexual Orientation Choose not to disclose 2023 4:40 PM EST Job Start Date Occupation Industry Not on file Not on file Not on file documented as of this encounter Discharge Disposition Disposition Code Departure Means Destination Home or Self Care documented in this encounter Plan of Treatment Not on file documented as of this encounter Visit Diagnoses Not on filedocumented in this encounter Care Teams Hospital Security Officer Relationship Specialty Start Date End Date Tomas Jordan MD [address] [place] [address], [address] [place] [address] PCP - General Internal Medicine 02/27/24 documented as of this encounter
== END 2024-04-10 11:46 | disposition left against medical advice (07) ==
PROVIDERS: Emergency Provider Emergency Medicine; PCP Internal Medicine
DX: R07.89 Other chest pain (principal)
CPT/HCPCS: 36415; 85025; 93005; 99281; 99283

== ENCOUNTER → 2024-04-10 09:44 | Outpatient (BNV) | payer MEDICAID, SELFPAY | PROVIDERS: Emergency Provider Emergency Medicine; PCP Internal Medicine; Visit Provider Internal Medicine | DX: R07.9 Chest pain, unspecified (principal); R00.0 Tachycardia, unspecified; R94.31 Abnormal electrocardiogram [ECG] [EKG] | CPT/HCPCS: 93010 ==

== ENCOUNTER 2024-04-14 20:22 | Emergency (ER) | payer MEDICAID, SELFPAY ==
--- NOTE | ~2024-04-14 | XR_ITS ---
CLINICAL HISTORY: trauma 4 view right foot Comparison: None Findings: No fractures or dislocations. No significant arthritic change or erosions. No ankle effusion. No radiopaque foreign body. IMPRESSION: 1. No acute findings. This document has been electronically signed by: Jose E Moreno MD on 04/14/2024 21:30:50
--- NOTE | ~2024-04-14 | XR_ITS ---
CLINICAL HISTORY: trauma 3 view right ankle Comparison: None Findings: No acute fractures or dislocations. No significant arthritic change or erosions. No ankle effusion. No radiopaque foreign body. IMPRESSION: 1. No acute findings. This document has been electronically signed by: Jose E Moreno MD on 04/14/2024 21:30:13
[2024-04-14 20:28] VITALS: BP 123/84; PULSE 102; RESP 20; TEMP 36.3; O2SAT 98; BMI 31.3
--- NOTE | 2024-04-14 20:30 | ED_ITS ---
HPI - General Adult General Chief complaint: Extremity Problem Stated complaint: rt foot pain Time Seen by Provider: 04/15/24 01:00 Source: patient Limitations: no limitations History of Present Illness ED Provider: Ruthy Castillo PA-C HPI narrative: 43-year-old male with a history of PE on warfarin, alcohol abuse, prior endocarditis, status post aortic valve replacement, presents with right foot pain. Patient states he fell down 2 stairs last night, now with right foot and ankle pain swelling and redness. Related Data Home Medications ?Medication ?Instructions ?Recorded ?Confirmed clonidine 0.2 mg/24 hr weekly 1 patch transdermal WE@0900 02/28/24 02/28/24 transdermal patch fluconazole 40 mg/mL oral 100 mg PO BID 02/28/24 02/28/24 suspension metoprolol tartrate 50 mg tablet 100 mg PO BID 02/28/24 02/28/24 pantoprazole 40 mg tablet,delayed 40 mg PO DAILY@0630 02/28/24 02/28/24 release warfarin 5 mg tablet 5 mg PO DAILY 02/28/24 02/28/24 warfarin 2 mg tablet 2 mg PO DAILY 03/01/24 03/01/24 Previous Rx's ?Medication ?Instructions ?Recorded prednisolone 15 mg/5 mL oral 60 mg (20 mL) PO DAILY 4 days #80 03/05/24 solution mL Allergies Allergy/AdvReac Type Severity Reaction Status Date / Time phenytoin [From DILANTIN] Allergy Unknown GAVE PT A Verified 04/14/24 20:32 TOXIC LEVEL fluoxetine [From Prozac] Allergy Unknown Verified 04/14/24 20:34 lidocaine Allergy Unknown Verified 04/14/24 20:32 prednisone Allergy Unknown Verified 04/14/24 20:32 tramadol Allergy Anaphylaxis Verified 04/14/24 20:32 trazodone Allergy Unknown Verified 04/14/24 20:32 albuterol AdvReac Anxiety Verified 04/14/24 20:32 gabapentin [From Neurontin] AdvReac Unknown Verified 04/14/24 20:32 morphine AdvReac Unknown Verified 04/14/24 20:32 Review of Systems Review of Systems: Yes all other systems are reviewed and are negative Constitutional: Constitutional: Denies fever(s) Musculoskeletal: Musculoskeletal: Reports arthralgias and Reports joint swelling PMFSH Past Medical History Attestation statement: The following information was validated with the patient. Medical History Bilateral pulmonary embolism Noncompliance with medications Alcohol dependence Endocarditis Surgical History Aortic valve replaced Social History Social History Unable to assess alcohol history related to: Refusing to respond Alcohol intake: current Alcohol intake frequency: does not drink Alcohol type: hard liquor Use of substances other than those prescribed or required for medical reasons: Refusing to respond Substance Use Type: Marijuana Advance Directives: No Advance Directives Information Provided: Yes Physical Exam ED Vital Signs: Vital Signs - 24 hr 04/14/24 20:28 04/15/24 02:00 04/15/24 02:05 Temperature 97.4 F 97.4 F Pulse Rate 102 H 102 H Pulse Rate [Right Dorsalis Pedis] 72 Respiratory Rate 20 20 Blood Pressure 123/84 123/84 Pulse Oximetry 98 98 Oxygen Delivery Method Room Air Room Air BMI result Body Mass Index 31.3 Const Other: Alert, appears older than stated age Orientation/consciousness: patient oriented x3 Resp Effort & Inspection: normal respiratory effort Cardio Other: Pedal edema Skin Other: Warm dry no rash Neuro General: patient oriented x3, gait normal, no focal motor deficits and CN's II- XI intact bilaterally Extrem Other: Full flexion and extension of the right ankle no deformity, no overlying erythema, bilateral pitting edema that is chronic, ambulates with a ease Psych Other: Hostile, belligerent, threatening staff Course Course Course Narrative: RME, this is a rapid medical exam performed by Fabrizio Barreto please refer to primary provider for complete H&P- 43-year-old male presents for evaluation of right ankle pain and foot pain. He reports last night he twisted his foot after falling down the last 2 steps of a staircase. Denies any head injury. Plan for x-rays. He has pain over the right medial malleolus and dorsal surface of the right midfoot Reevaluation(s) Reevaluation #1: As I was reviewing results with the patient and performing an exam, the patient abruptly cut me off to state ?you not listening to a damn thing I am saying?. He proceeded to discuss his chronic bilateral peripheral edema. I attempted to relay to the patient that this is chronic, that he could follow up with his primary care for his dependent edema. The patient proceeded to threaten me stating well I will be reporting you to the medical board too?. Patient leaving without the benefit of his discharge instructions, he is ambulating with a ease without crutches, which I had said I was going to order for him. Time: 01:55 Medical Decision Making Medical Decision Making MDM Narrative: 43-year-old male with a history of PE on warfarin, alcohol abuse, prior endocarditis, status post aortic valve replacement, presents with right foot pain. Patient states he fell down 2 stairs last night, now with right foot and ankle pain swelling and redness. Problem: Anticoagulated alcohol abuse History: Per patient I have considered the following differential diagnoses: Fracture, dislocation, sprain contusion Plan: X-rays of the foot and ankle were obtained from triage they are unremarkable, the plan was to send with crutches, the patient left without the benefit of his discharge instructions, or crutches. However, I watched him walk out of the emergency department with a ease, he is not limping, in his exam was unremarkable. I have independently reviewed the following tests: X-ray right foot: Findings: No fractures or dislocations. No significant arthritic change or erosions. No ankle effusion. No radiopaque foreign body. IMPRESSION: 1. No acute findings. This document has been electronically signed by: Jose E Moreno MD on 04/14/2024 21:30:50 X-ray right ankle:Findings: No acute fractures or dislocations. No significant arthritic change or erosions. No ankle effusion. No radiopaque foreign body. IMPRESSION: 1. No acute findings. This document has been electronically signed by: Jose E Moreno MD on 04/14/2024 21:30:13 Discharge Plan Discharge Clinical Impression: Sprain of foot, right, Sprain of ankle, right Patient Disposition: Home, Self-Care Instructions: Ankle Sprain (ED), Foot Sprain (ED), R.I.C.E. Treatment (ED) Additional Instructions: The x-rays of the foot and ankle were normal, you do not sustain a fracture or dislocation. You have a sprain. See home care instructions. You can use [id number] Tylenol 1000 mg taken every 8 hours, for pain. Use the crutches as needed, bear weight as tolerated. Follow up with your primary care provider as needed. Prescriptions: No Action clonidine 0.2 mg/24 hr patch weekly 1 patch transdermal WE@0900 pantoprazole 40 mg tablet,delayed release (DR/EC) 40 mg PO DAILY@0630 metoprolol tartrate 50 mg tablet 100 mg PO BID fluconazole 40 mg/mL suspension for reconstitution 100 mg PO BID warfarin 5 mg tablet 5 mg PO DAILY warfarin 2 mg tablet 2 mg PO DAILY prednisolone 15 mg/5 mL solution 60 mg PO DAILY 4 Days Qty: 80 0RF Interventions: ED Discharge Assessment Last Done: 04/15/24 02:05 Discharge Date/Time: 04/15/24 02:05 Print Language: Slovak
--- OUTSIDE RECORDS SUMMARY | 2024-04-15 00:43 | XMS_ITS | Clinical Summary ---
Author Organization [facility] Address [address] [place] [phone] Phone Care Team Providers Care Produce Assistant Name Role Phone Tomas Jordan MD Primary Care Provider Allergies Active Allergy Reactions Criticality Noted Date Comments Albuterol Chills Medium 02/27/2024 Phenytoin Sodium Extended Seizures High 02/27/2024 Ketorolac 03/07/2024 Lidocaine 03/07/2024 Morphine 03/07/2024 Nicotine 03/07/2024 Nutritional Supplements 03/07/2024 Prednisone Disorientated 03/07/2024 Trazodone 03/07/2024 Medications No known medications Encounters Date Type Department Care Team Description 03/19/2024 7:38 PM EST - 03/20/2024 12:41 AM [facility] [address] [place] [phone] Discharge Disposition: Home or Self Care 03/17/2024 12:47 PM EST - 03/17/2024 3:08 PM [facility] [address] [place] [phone] Discharge Disposition: Home or Self Care 03/07/2024 8:21 PM EST - 03/08/2024 1:28 AM [facility] [address] [place] [phone] Discharge Disposition: Home or Self Care 02/27/2024 4:17 PM EST - 02/27/2024 6:13 PM [facility] [address] [place] [phone] Pain (Primary Dx) Discharge Disposition: Left Against [...] Signed Date: 03/20/2024 10:02 ET Workstation ID: [id number] Transcribed By: Self Edit Transcribed Date: 03/20/2024 [...] Signed Date: 03/20/2024 10:02 ET Workstation ID: [id number] Transcribed By: Self Edit Transcribed Date: 03/20/2024 09:58 ET Yobani Ngo DO IMG XR PROCEDURES * ECG 12 lead (03/19/2024 7:48 PM EST) [facility] Ventricular Rate ECG 104 BPM GEMUSE Atrial Rate 104 BPM GEMUSE P-R Interval 128 ms GEMUSE QRS Duration 140 ms GEMUSE Q-T Interval 390 ms GEMUSE QTc 512 ms GEMUSE P Wave [place] 36 degrees GEMUSE R [place] -7 degrees GEMUSE T [place] 107 degrees GEMUSE ECG Interpretation Sinus tachycardia Left bundle branch block Abnormal ECG No previous ECGs available Confirmed by KALA CAVANAUGH ([id number]) on 03/21/2024 3:25:33 PM GEMUSE 03/19/2024 7:48 PM EST 03/21/2024 3:25 PM EST Yobani Ngo DO ECG ORDERABLES GEMUSE * ECG-Annotated (03/19/2024) Provider Onbase MD ECG ORDERABLES * Urinalysis with reflex microscopic (02/27/2024 5:51 PM EST) [facility] Specific [place] Urine 1.012 1.003 - 1.030 LAB URINALYSIS - AUTOMATED METHOD 02/27/2024 6:24 PM [facility] pH, Urine 7.0 5.0 - 8.0 pH LAB URINALYSIS - AUTOMATED METHOD 02/27/2024 6:24 PM [facility] Leukocytes, Urine Negative Negative LAB URINALYSIS - AUTOMATED METHOD 02/27/2024 6:24 PM [facility] Nitrite, Urine Negative Negative LAB URINALYSIS - AUTOMATED METHOD 02/27/2024 6:24 PM [facility] Protein, Urine Negative <=Trace mg/dL LAB URINALYSIS - AUTOMATED METHOD 02/27/2024 6:24 PM [facility] Glucose, Urine Negative Negative mg/dL LAB URINALYSIS - AUTOMATED METHOD 02/27/2024 6:24 PM [facility] Ketones, Urine Negative Negative mg/dL LAB URINALYSIS - AUTOMATED METHOD 02/27/2024 6:24 PM [facility] Urobilinogen, Urine 1.0 0.2 - 1.0 mg/dL LAB URINALYSIS - AUTOMATED METHOD 02/27/2024 6:24 PM [facility] Bilirubin, Urine Negative Negative LAB URINALYSIS - AUTOMATED METHOD 02/27/2024 6:24 PM [facility] Blood, Urine Negative Negative LAB URINALYSIS - AUTOMATED METHOD 02/27/2024 6:24 PM [facility] Urine Urine specimen obtained by clean catch procedure / Unknown Non-blood Collection / Unknown 02/27/2024 5:51 PM EST 02/27/2024 6:03 PM EST Piotr KOENIG LAB URINE ORDERABLES [facility] [address] [place] [address], * Respiratory virus panel molecular study (02/27/2024 5:51 PM EST) Pathologist [facility] Adenovirus Detection by PCR Not Detected Not Detected LAB MICROBIOLOGY METHOD 02/27/2024 7:05 PM [facility] Influenza A PCR Not Detected Not Detected LAB MICROBIOLOGY METHOD 02/27/2024 7:05 PM [facility] Influenza B PCR Not Detected Not Detected LAB MICROBIOLOGY METHOD 02/27/2024 7:05 PM [facility] Coronavirus 229E Not Detected Not Detected LAB MICROBIOLOGY METHOD 02/27/2024 7:05 PM [facility] Coronavirus HKU1 Not Detected Not Detected LAB MICROBIOLOGY METHOD 02/27/2024 7:05 PM [facility] Coronavirus OC43 Not Detected Not Detected LAB MICROBIOLOGY METHOD 02/27/2024 7:05 PM [facility] Coronavirus NL63 Not Detected Not Detected LAB MICROBIOLOGY METHOD 02/27/2024 7:05 PM [facility] Parainfluenza Virus 1 Not Detected Not Detected LAB MICROBIOLOGY METHOD 02/27/2024 7:05 PM [facility] Parainfluenza Virus 2 Not Detected Not Detected LAB MICROBIOLOGY METHOD 02/27/2024 7:05 PM [facility] Parainfluenza Virus 3 Not Detected Not Detected LAB MICROBIOLOGY METHOD 02/27/2024 7:05 PM [facility] Parainfluenza Virus 4 Not Detected Not Detected LAB MICROBIOLOGY METHOD 02/27/2024 7:05 PM [facility] RSV PCR Not Detected Not Detected LAB MICROBIOLOGY METHOD 02/27/2024 7:05 PM [facility] Human Metapneumovirus A and B Not Detected Not Detected LAB MICROBIOLOGY METHOD 02/27/2024 7:05 PM [facility] Rhinovirus/Entero virus Not Detected Not Detected LAB MICROBIOLOGY METHOD 02/27/2024 7:05 PM [facility] Bordetella pertussis Not Detected Not Detected LAB MICROBIOLOGY METHOD 02/27/2024 7:05 PM [facility] Bordetella parapertussis Not Detected Not Detected LAB MICROBIOLOGY METHOD 02/27/2024 7:05 PM [facility] Mycoplasma pneumo by PCR Not Detected Not Detected LAB MICROBIOLOGY METHOD 02/27/2024 7:05 PM [facility] Chlamydia pneumoniae Not Detected Not Detected LAB MICROBIOLOGY METHOD 02/27/2024 7:05 PM [facility] SARS COV-2 Not Detected Not Detected LAB MICROBIOLOGY METHOD 02/27/2024 7:05 PM [facility] Swab Both anterior nares / Unknown Non-blood Collection / Unknown 02/27/2024 5:51 PM EST 02/27/2024 5:59 PM EST Narrative [facility] - 02/27/2024 7:05 PM EST Testing was performed using the [employer] Respiratory Pathogen PCR Assay. All results must [...] KOENIG LAB MICROBIOLOGY - G ENERAL ORDERABLES [facility] [address] [place] [address], * Vascular US Duplex Lower Extremity Venous [...] Signed Date: 02/28/2024 09:29 ET Workstation ID: [id number] Transcribed By: Self Edit Transcribed Date: 02/28/2024 [...] Signed Date: 02/28/2024 09:29 ET Workstation ID: [id number] Transcribed By: Self Edit Transcribed Date: 02/28/2024 09:28 ET Piotr KOENIG CV VASCULAR PROCEDUR ES * (ABNORMAL) CBC auto differential (02/27/2024 4:33 PM EST) WBC 20.8(H) 4.8 - 10.8 K/mcL LAB HEMETOLOGY METHOD 02/27/2024 4:43 PM [facility] RBC 4.30 3.80 - 5.50 M/mcL LAB HEMETOLOGY METHOD 02/27/2024 4:43 PM [facility] Hemoglobin 13.2 12.0 - 18.0 g/dL LAB HEMETOLOGY METHOD 02/27/2024 4:43 PM [facility] Hematocrit 38.5 36.0 - 48.0 % LAB HEMETOLOGY METHOD 02/27/2024 4:43 PM [facility] MCV 90.0 79.0 - 98.0 FL LAB HEMETOLOGY METHOD 02/27/2024 4:43 PM [facility] MCH 30.8 27.0 - 32.0 pcg LAB HEMETOLOGY METHOD 02/27/2024 4:43 PM [facility] MCHC 34.3 32.0 - 37.0 g/dL LAB HEMETOLOGY METHOD 02/27/2024 4:43 PM [facility] RDW 15.9(H) 11.0 - 15.0 % LAB HEMETOLOGY METHOD 02/27/2024 4:43 PM [facility] Platelets 303 130 - 400 K/mcL LAB HEMETOLOGY METHOD 02/27/2024 4:43 PM [facility] MPV 10.8 7.0 - 11.0 FL LAB HEMETOLOGY METHOD 02/27/2024 4:43 PM [facility] NRBC 0.4 <1.0 % LAB HEMETOLOGY METHOD 02/27/2024 4:43 PM [facility] NRBC Absolute 0.09 <0.10 K/mcL LAB HEMETOLOGY METHOD 02/27/2024 4:43 PM [facility] Neutrophils Relative 77.1 % LAB HEMETOLOGY METHOD 02/27/2024 4:43 PM [facility] Lymphocytes Relative 15.2 % LAB HEMETOLOGY METHOD 02/27/2024 4:43 PM [facility] Monocytes Relative 5.5 % LAB HEMETOLOGY METHOD 02/27/2024 4:43 PM [facility] Eosinophils Relative 0.6 % LAB HEMETOLOGY METHOD 02/27/2024 4:43 PM [facility] Basophils Relative 0.5 % LAB HEMETOLOGY METHOD 02/27/2024 4:43 PM [facility] Immature Granulocytes Relative 1.1 % LAB HEMETOLOGY METHOD 02/27/2024 4:43 PM [facility] Neutrophils Absolute 16.05(H) 1.50 - 7.00 K/mcL LAB HEMETOLOGY METHOD 02/27/2024 4:43 PM [facility] Lymphocytes Absolute 3.16 1.00 - 5.00 K/mcL LAB HEMETOLOGY METHOD 02/27/2024 4:43 PM EST [facility] Monocytes Absolute 1.15(H) 0.20 - 1.00 K/[facility] LAB HEMETOLOGY METHOD 02/27/2024 4:43 PM EST [facility] Eosinophils Absolute 0.13 0.00 - 0.50 K/[facility] LAB HEMETOLOGY METHOD 02/27/2024 4:43 PM EST [facility] Basophils Absolute 0.10 0.00 - 0.20 K/[facility] LAB HEMETOLOGY METHOD 02/27/2024 4:43 PM EST [facility] Immature Granulocytes Absolute 0.23(H) 0.00 - 0.03 K/[facility] LAB HEMETOLOGY METHOD 02/27/2024 4:43 PM EST [facility] Blood Venous blood specimen / Unknown Venipuncture / Unknown 02/27/2024 4:33 PM EST 02/27/2024 4:38 PM EST Orion Davidson MD LAB BLOOD ORDERAB LES [facility] [address] [place] [address], [place] [phone] * APTT (02/27/2024 4:33 PM EST) aPTT 38.3 24.1 - 39.3 sec LAB COAGULATION METHOD 02/27/2024 4:50 PM EST [facility] Blood Venous blood specimen / Unknown Venipuncture / Unknown 02/27/2024 4:33 PM EST 02/27/2024 4:38 PM EST Orion Davidson MD LAB BLOOD ORDERAB LES Performing Organization Address City/[facility]/ZIP Co de Phone Number [facility] [address] [place] [address], [place] [phone] * (ABNORMAL) Prothrombin time with INR (02/27/2024 4:33 PM EST) [facility] Protime 21.2(H) 10.6 - 13.9 sec LAB COAGULATION METHOD 02/27/2024 4:50 PM EST [facility] INR 1.7 LAB COAGULATION METHOD 02/27/2024 4:50 PM EST [facility] Blood Venous blood specimen / Unknown Venipuncture / Unknown 02/27/2024 4:33 PM EST 02/27/2024 4:38 PM EST Orion Davidson MD LAB BLOOD ORDERAB LES Performing Organization Address City/[facility]/ZIP Co de Phone Number [facility] [address] [place] [address], [place] [phone] * Magnesium (02/27/2024 4:33 PM EST) [facility] Magnesium 1.9 1.9 - 2.6 mg/dL LAB CHEMISTRY METHOD 02/27/2024 5:06 PM EST [facility] Blood Venous blood specimen / Unknown Venipuncture / Unknown 02/27/2024 4:33 PM EST 02/27/2024 4:38 PM EST Piotr KOENIG LAB BLOOD ORDERABLES [facility] [address] [place] [address], [place] [phone] * Creatine kinase (02/27/2024 4:33 PM EST) [facility] Total CK 37 22 - 269 unit/L LAB CHEMISTRY METHOD 02/27/2024 5:06 PM EST [facility] Blood Venous blood specimen / Unknown Venipuncture / Unknown 02/27/2024 4:33 PM EST 02/27/2024 4:38 PM EST Piotr KOENIG LAB BLOOD ORDERABLES [facility] [address] [place] [address], * (ABNORMAL) Basic metabolic panel (02/27/2024 4:33 PM EST) Sodium 140 133 - 145 mmol/L LAB CHEMISTRY METHOD 02/27/2024 5:03 PM [facility] Potassium 3.5 3.5 - 5.5 mmol/L LAB CHEMISTRY METHOD 02/27/2024 5:03 PM [facility] Chloride 106 96 - 110 mmol/L LAB CHEMISTRY METHOD 02/27/2024 5:03 PM [facility] CO2 26 21 - 32 mmol/L LAB CHEMISTRY METHOD 02/27/2024 5:03 PM [facility] Anion Gap 8 3 - 11 LAB CHEMISTRY METHOD 02/27/2024 5:03 PM [facility] Glucose 109(H) 70 - 100 mg/dL LAB CHEMISTRY METHOD 02/27/2024 5:03 PM [facility] BUN 6 5 - 25 mg/dL LAB CHEMISTRY METHOD 02/27/2024 5:03 PM [facility] Creatinine 0.72 0.50 - 1.30 mg/dL LAB CHEMISTRY METHOD 02/27/2024 5:03 PM [facility] eGFR 116 >=60 mL/min/1. 73m2 LAB CHEMISTRY METHOD 02/27/2024 5:03 PM [facility] Comment:Calculation based on the??Chronic Kidney Disease Epidemiology Collaboration (CKD-EPI) equation refit??without adjustment for race. BUN/Creatinine Ratio 8.3 LAB CHEMISTRY METHOD 02/27/2024 5:03 PM [facility] Calcium 8.9 8.5 - 10.5 mg/dL LAB CHEMISTRY METHOD 02/27/2024 5:03 PM [facility] Blood Venous blood specimen / Unknown Venipuncture / Unknown 02/27/2024 4:33 PM EST 02/27/2024 4:38 PM EST Orion Davidson MD LAB BLOOD ORDERAB LES [facility] [address] [place] [address], from Last 3 Months Care Teams Produce Assistant Relationship Specialty Start Date End Date Tomas Jordan MD [address] [place] [address], [address] [place] [address] PCP - General Internal Medicine 02/27/24
--- OUTSIDE RECORDS SUMMARY | 2024-04-15 00:43 | XMS_ITS | Encounter Summary ---
Author Organization [facility] Address [address] [place] [address] Care Team Providers Care Plumbing Hardware Assembler Name Role Phone Tomas Jordan MD Primary Care Provider [phone] Encounter Details Date Type Department Care Team (Late st Contact Info) Description 03/17/2024 12:47 PM EST - 03/17/2024 3:08 PM EST Emergency [facility] Emergency [address] [place] [address] Discharge Disposition: Home or Self [...] on filedocumented in this encounter Care Teams Plumbing Hardware Assembler Relationship Specialty Start Date End Date Tomas Jordan MD [address] [place] [address], [address] [place] [address] PCP - General Internal Medicine 02/27/24 documented as of this encounter
--- OUTSIDE RECORDS SUMMARY | 2024-04-15 00:43 | XMS_ITS | Encounter Summary ---
Author Organization [facility] Address [address] [place] [address] Care Team Providers Care Accounts Receivable Coordinator Name Role Phone Tomas Jordan MD Primary Care Provider [phone] Reason for Visit * Reason Comments Chest Pain Cp, abd pain, coughi ng up blood Encounter Details Date Type Department Care Team (Late st Contact Info) Description 03/19/2024 7:38 PM EST - 03/20/2024 12:41 AM EST Emergency [facility] [address] [place] [address] Discharge Disposition: Home or Self [...] on file documented as of this encounter Last Filed Vital Signs Vital Sign Reading [...] Mass Index 32.97 03/19/2024 7:53 PM EST documented in this encounter Discharge Disposition Disposition Code Departure Means Destination Home or Self Care documented in this encounter Progress Notes * Ambrosio Dowd RN - 03/19/2024 8:02 PM EST Pt states he would like to wait to for ultrasound IV for blood work * Ambrosio Dowd RN - 03/19/2024 7:55 PM EST Pt arrives steady even gait with cane c/o chest pain and coughing up blood that started approx. 2 hours MANAGER STATISTICAL. Pt states he fell 2 days ago and was seen at [facility] and had a head CT done which was unremarkable. Pt also c/o nausea and dizziness. Denies vomiting, diarrhea. Denies blood in stool. documented in this encounter Plan of Treatment Not on file documented as of this encounter Procedures Procedure Name Priority Date/Time Associated Diagnosis Comments XR CHEST 2 VIEWS STAT 03/19/2024 8:19 PM EST ECG 12-LEAD STAT 03/19/2024 7:48 PM EST ECG ANNOTATED 03/19/2024 documented in this encounter Results * XR Chest 2 Views (03/19/2024 8:19 PM EST) Anatomical Region Laterality Modality Body Radiographic Evangelina [...] Signed Date: 03/20/2024 10:02 ET Workstation ID: [id number] Transcribed By: Self Edit Transcribed Date: 03/20/2024 [...] Signed Date: 03/20/2024 10:02 ET Workstation ID: [id number] Transcribed By: Self Edit Transcribed Date: 03/20/2024 09:58 ET Yobani Ngo DO IMG XR PROCEDURES * ECG 12 lead (03/19/2024 7:48 PM EST) Ventricular Rate ECG 104 BPM GEMUSE Atrial Rate 104 BPM GEMUSE P-R Interval 128 ms GEMUSE QRS Duration 140 ms GEMUSE Q-T Interval 390 ms GEMUSE QTc 512 ms GEMUSE P Wave [employer] 36 degrees GEMUSE R [employer] -7 degrees GEMUSE T [employer] 107 degrees GEMUSE ECG Interpretation Sinus tachycardia Left bundle branch block Abnormal ECG No previous ECGs available Confirmed by KALA CAVANAUGH ([id number]) on 03/21/2024 3:25:33 PM GEMUSE 03/19/2024 7:48 PM EST 03/21/2024 3:25 PM EST Yobani Ngo DO ECG ORDERABLES GEMUSE * ECG-Annotated (03/19/2024) Provider Onbase MD ECG ORDERABLES documented in this encounter Visit Diagnoses Not on filedocumented in this encounter Care Teams Accounts Receivable Coordinator Relationship Specialty Start Date End Date Tomas Jordan MD [address] [place] [address], [address] [place] [address] PCP - General Internal Medicine 02/27/24 documented as of this encounter
--- NOTE | 2024-04-15 01:13 | PC.NURSE ---
Patient was brought from waiting room to ED 16. Upon introducing myself, the patient appeared agitated stating: Really? It took me calling the nursing supervisor game farm 3 times for me to get back here? That's ridiculous. This RN apologized for the wait in the waiting room (~4 hours) and assured the patient that a provider will see him shortly. Patient asked which providers are working tonight, and this RN stated Dr. Nunez, Dr. Marks, & ARYA Castillo are working tonight . The patient responded by stating: I can't see Dr. Nunez, I think it's a conflict of interest because I'm filing a lawsuit against her and Dr. Sosa. I'm going to be upset if either of them are going to see me tonight . Nursing Copy Room Technician (June Heard), fast food assistant restaurant manager (Sonja Chandra), & providers aware. Awaiting ED provider evaluation.
--- NOTE | 2024-04-15 01:51 | MHC.EDTECH ---
at this time this tech answered the pt's call light, when asked if i could help the pt stated Are you the doctor? I stated that i am a tech not a doctor, and the pt stated well then you can't help me i then stated that i could attempt in getting the doctor for him.
[2024-04-15 02:00] VITALS: PULSE 72
--- NOTE | 2024-04-15 02:03 | PC.NURSE ---
ARYA Castillo went to bedside to speak with patient regarding xray results. Patient expressed frustration verbally with wait, and stated that he is dissatisfied with his plan of care (to discharge home with crutches & alida wrap for right foot sprain w/o fracture), and stated I'm going to report you to the medical board too and left without awaiting discharge paperwork. Ambulated with steady gait out of ED. Patient did not wait for vital signs, crutches, or discharge paperwork.
[2024-04-15 02:05] VITALS: BP 123/84; PULSE 102; RESP 20; TEMP 36.3; O2SAT 98
== END 2024-04-15 02:05 | disposition home or self-care (01) ==
PROVIDERS: Emergency Provider Emergency Medicine; PCP Internal Medicine
DX: S93.401A Sprain of unspecified ligament of right ankle, initial encounter (principal); M79.671 Pain in right foot; W10.9XXA Fall (on) (from) unspecified stairs and steps, initial encounter; Y93.9 Activity, unspecified; Y92.89 Other specified places as the place of occurrence of the external cause; Y99.8 Other external cause status; Z86.711 Personal history of pulmonary embolism; Z79.01 Long term (current) use of anticoagulants; Z79.899 Other long term (current) drug therapy
CPT/HCPCS: 73610; 73630; 99283; 99284

== ENCOUNTER → 2024-04-14 20:30 | Outpatient (BNV) | payer MEDICAID, SELFPAY | PROVIDERS: PCP Internal Medicine; Visit Provider Specialist | DX: M25.571 Pain in right ankle and joints of right foot (principal); M79.671 Pain in right foot | CPT/HCPCS: 73610; 73630 ==

== ENCOUNTER 2024-04-16 15:54 | Inpatient (IN) | payer MEDICAID, SELFPAY ==
[2024-04-16] VITALS (9 sets, daily range): BP systolic 106–150; BP diastolic 77–100; PULSE 96–160; RESP 14–43; TEMP 35.9–38.2; O2SAT 87–96; BMI 26.6; BMI 31.1
--- NOTE | ~2024-04-16 | XR_ITS ---
CLINICAL HISTORY: cough 2 view chest x-ray. Comparison: CR/SR - XR CHEST 2V - 03/05/24 22:11 EST Findings: The lungs are adequately expanded. Minimal interstitial prominence. No focal consolidation. No effusion or pneumothorax. Cardiac and mediastinal contours are within normal limits. No acute osseous abnormality Impression: Minimal interstitial prominence without focal consolidation to suggest pneumonia. This document has been electronically signed by: Arjun Quintero MD on 04/16/2024 17:17:03
--- NOTE | 2024-04-16 16:05 | ECG_ITS ---
Test Reason : sob Blood Pressure : */* mmHG Vent. Rate : 138 BPM Atrial Rate : 138 BPM P-R Int : 126 ms QRS Dur : 134 ms QT Int : 348 ms P-R-T Axes : 56 -11 112 degrees QTcB Int : 527 ms Sinus tachycardia Left bundle branch block Abnormal ECG When compared with ECG of 10-Apr-2024 09:51, No significant change was found Referred By: Generic ED Physician Electronically Signed By: EMILY ORTEGA
--- NOTE | 2024-04-16 16:10 | ED.SOB ---
HPI - SOB/Dyspnea General Chief Complaint: Dyspnea Stated Complaint: left ama for flu at [facility], now wants to cooperate Time Seen by Provider: 04/16/24 16:06 Related Data Home Medications ?Medication ?Instructions ?Recorded ?Confirmed clonidine 0.2 mg/24 hr weekly 1 patch transdermal TU@0900 02/28/24 04/17/24 transdermal patch metoprolol tartrate 50 mg tablet 100 mg PO BID 02/28/24 04/17/24 pantoprazole 40 mg tablet,delayed 40 mg PO DAILY@0630 02/28/24 04/17/24 release warfarin 5 mg tablet 2 - 7 mg PO DAILY 02/28/24 04/17/24 clonazepam 1 mg tablet 1 mg PO TID PRN Anxiety 04/17/24 04/17/24 clonidine HCl 0.2 mg tablet 0.1 mg PO TID PRN Blood Pressure 04/17/24 04/17/24 Allergies Allergy/AdvReac Type Severity Reaction Status Date / Time phenytoin [From DILANTIN] Allergy Unknown GAVE PT A Verified 04/16/24 16:38 TOXIC LEVEL fluoxetine [From Prozac] Allergy Unknown Verified 04/16/24 16:38 lidocaine Allergy Unknown Verified 04/16/24 16:38 prednisone Allergy Unknown Verified 04/16/24 16:38 tramadol Allergy Anaphylaxis Verified 04/16/24 16:38 trazodone Allergy Unknown Verified 04/16/24 16:38 albuterol AdvReac Anxiety Verified 04/16/24 16:38 gabapentin [From Neurontin] AdvReac Unknown Verified 04/16/24 16:38 morphine AdvReac Unknown Verified 04/16/24 16:38 [facility] Past Medical History Medical History Bilateral pulmonary embolism Noncompliance with medications Alcohol dependence Endocarditis Surgical History Aortic valve replaced Social History Social History Household Members: Spouse Housing: House Do you presently have visiting nurse or other home services: No Unable to assess alcohol history related to: Refusing to respond Alcohol intake: current Alcohol intake frequency: does not drink Alcohol type: hard liquor Comment: Pt refuses fall risk measures, explained protocol/ safety measures Patient Tobacco Use Status: Current everyday Tobacco user Tobacco use type: Cigarette Cigarettes Per Day: 10 e-Cigarette/Vaping Use: Never Used Second Hand Smoke Exposure: No Substance Use Type: Marijuana Physical Exam Vital Signs: Vital Signs: Last Vital Signs Temp 97.6 F 04/17/24 08:00 Pulse 99 04/17/24 09:45 Resp 18 04/17/24 09:45 BP 133/94 H 04/17/24 08:00 Pulse Ox 95 04/17/24 09:00 O2 Del Method Room Air 04/17/24 09:00 O2 Flow Rate 2 04/17/24 08:00 BMI result Body Mass Index 26.6 Medications Administered Discontinued Medications Generic Name Dose Route Start Last Admin Trade Name Freq PRN Reason Stop Dose Admin Acetaminophen 975 mg 04/16/24 17:54 04/16/24 18:09 Acetaminophen 325 Mg Tablet PO 04/16/24 17:55 975 mg ONCE ONE Administration Clonazepam 1 mg 04/17/24 07:44 04/17/24 08:22 Clonazepam 1 Mg Tablet PO 1 mg TID PRN Administration Anxiety Diazepam 5 mg 04/16/24 16:59 04/16/24 17:11 Diazepam 10 Mg/2 Ml Cartridge IVPUSH 04/16/24 17:00 5 mg STAT STA Administration Sodium Chloride 1,000 mls @ 999 mls/hr 04/16/24 17:15 04/16/24 20:40 Ns IV 04/16/24 18:15 Infused .Q1H1M SHAN Infusion Potassium Chloride/Sodium Chloride 20 meq in 1,000 mls @ 100 mls/hr 04/16/24 17:15 04/17/24 06:46 Kcl 20 Meq In 0.9 % Sodium Chl IVCONT Infused .Q10H SHAN Infusion Levalbuterol HCl 5 mg 04/16/24 16:11 04/16/24 16:16 Levalbuterol Hcl 1.25 Mg/3 Ml Vial.Neb INHALE 04/16/24 16:12 5 mg ONCE ONE Administration Levalbuterol HCl 1.25 mg 04/16/24 20:00 04/17/24 11:13 Levalbuterol Hcl 1.25 Mg/3 Ml Vial.Neb INHALE Not Given RQ4H WHILE AWAKE SHAN Methylprednisolone Sodium Succinate 80 mg 04/16/24 17:54 04/16/24 18:12 Methylprednisolone Sod Succ 125 Mg/2 Ml Vial IVPUSH 04/16/24 17:55 80 mg ONCE ONE Administration Methylprednisolone Sodium Succinate 40 mg 04/17/24 09:00 04/17/24 07:19 Methylprednisolone Sod Succ 40 Mg/Ml Vial IVPUSH 40 mg Q12H SHAN Administration Metoprolol Tartrate 100 mg 04/17/24 09:05 04/17/24 09:31 Metoprolol Tartrate 100 Mg Tablet PO 100 mg BID SHAN Administration Protocol Omeprazole 20 mg 04/17/24 09:30 04/17/24 09:32 Omeprazole 20 Mg Capsule. PO Not Given DAILY@0630 [facility] Oseltamivir Phosphate 75 mg 04/16/24 17:54 04/16/24 18:09 Oseltamivir Phosphate 75 Mg Capsule PO 04/16/24 17:55 75 mg ONCE ONE Administration Oseltamivir Phosphate 75 mg 04/17/24 09:00 04/17/24 07:19 Oseltamivir Phosphate 75 Mg Capsule PO 04/21/24 09:01 75 mg Q12H SHAN Administration Sodium Chloride 3 ml 04/17/24 00:00 04/17/24 07:19 0.9 % Sodium Chloride Flush 3 Ml Syringe IVFLUSH 3 ml QSHIFT [facility] Administration Warfarin Sodium 5 mg 04/16/24 21:45 04/16/24 23:00 Warfarin Sodium 5 Mg Tablet PO 04/16/24 21:46 Not Given ONCE ONE Zolpidem Tartrate 5 mg 04/16/24 22:03 04/16/24 22:22 Zolpidem Tartrate 5 Mg Tablet PO 5 mg BEDTIME PRN Administration Insomnia Medical Decision Making Lab Data 04/16/24 16:34 04/16/24 16:34 Labs: Lab Results 04/16/24 04/16/24 Range/Units 16:34 18:48 WBC 15.7 H (4.8-10.8) X10*3/uL RBC 4.35 L (4.60-5.80) X10*6/uL Hgb 13.7 L (14.0-18.0) g/dl Hct 40.4 L (42.0-52.0) % MCV 92.9 (80.0-98.0) fL MCH 31.5 (27.0-33.0) pg MCHC 33.9 (31.0-36.0) g/dl RDW 18.2 H (11.0-16.0) % Plt Count 316 (160-400) X10*3/uL MPV 11.1 (9.4-12.4) fL Immature Gran % (Auto) 0.6 H (0.0-0.4) % Neut % (Auto) 68.9 (45-73) % Lymph % (Auto) 15.9 L (20-40) % [place] % (Auto) 14.2 H (2-11) % Eos % (Auto) 0.0 (0-4) % Baso % (Auto) 0.4 (0-2) % Lymph # (Auto) 2.5 (1.2-4.9) X10*3/uL [place] # (Auto) 2.2 H (0.1-1.2) X10*3/uL Eos # (Auto) 0.0 (0.0-0.4) X10*3/uL Baso # (Auto) 0.1 (0.0-0.2) X10*3/uL Abs Immat Gran (auto) 0.09 H (0.00-0.03) X10*3/uL Absolute Neuts (auto) 10.8 H (2.0-8.3) x10*3/uL Absolute Nucleated RBC 0.160 H (0.0-0.012) X10*3/uL Nucleated RBC % (auto) 1.0 H (0.0-0.2) /100WBC Smear Tech's Comments VERIFIED PT 24.3 H D (10.9-12.4) SEC INR 2.1 H D (0.9-1.1) Hold Blue Top SEE NOTE Sodium 141 (135-145) mmol/L Potassium 3.2 L (3.3-5.1) mmol/L Chloride 105 (96-108) mmol/L Carbon Dioxide 25 (22-29) mmol/L Anion Gap 14 (12-20) BUN 7 L (9-16) mg/dL Creatinine 0.73 (0.5-1.4) mg/dL Estim Creat Clear Calc 116.5 Estimated GFR > 60 Random Glucose 115 (60-115) mg/dL Calcium 9.1 (8.4-10.2) mg/dL Total Bilirubin 0.4 (0.0-1.0) mg/dL Direct Bilirubin 0.2 (0.0-0.5) mg/dL AST 74 H (5-37) U/L ALT 45 H (0-40) U/L Alkaline Phosphatase 83 (39-117) U/L Troponin I High Sens 16.9 D (<3.5-35.0) ng/L B-Natriuretic Peptide 112 H (<100) pg/mL Total Protein 7.7 (6.5-8.0) g/dL Albumin 3.7 (3.5-5.0) g/dL Ethyl Alcohol < 10 mg/dL Influenza Type A (PCR) POSITIVE A (Negative) Influenza Type B (PCR) NEGATIVE (Negative) RSV RNA Qual (PCR) NEGATIVE (Negative) SARS-CoV-2 RNA (RT-PCR) NEGATIVE (Negative) Critical Care Time Critical Care Time Attestation: Critical Care Procedure Note Authorized and Performed by: MD Annetta I, Richie Hopper MD, independently performed critical care. Total critical care time: Approximately 80 minutes Due to a high probability of clinically significant, life threatening deterioration, the patient required my highest level of preparedness to intervene emergently and I personally spent this critical care time directly and personally managing the patient. This critical care time included obtaining a history; examining the patient; pulse oximetry; ordering and review of studies; arranging urgent treatment with development of a management plan; evaluation of patient's response to treatment; frequent reassessment; and, discussions with other providers. This critical care time was performed to assess and manage the high probability of imminent, life-threatening deterioration that could result in multi-organ failure. It was exclusive of separately billable procedures and treating other patients and teaching time. Brief narrative of care:43 M with acute hypoxic respiratory failure, severe tachypnea in the setting of influenza. required frequent clinical reassessment, neb tx, respiratory therapy consultation and aggressive crystaloid, steroid treatment. Discharge Plan Discharge Clinical Impression: Influenza due to influenza virus, type A, human Patient Disposition: Admitted As Inpatient Interventions: Admission Worksheet (ED) Last Done: 04/16/24 20:03 Discharge Date/Time: 04/16/24 20:45
[2024-04-16] MEDS: levalbuterol HCL 1.25 MG/3 ML VIAL.NEB 5 MG INHALE (16:16)
[2024-04-16 16:53] LABS: Basophils Absolute Auto 0.1 X10*3/uL (0.0-0.2); Basophils Percent Auto 0.4 % (0-2); Hematocrit 40.4 % (42.0-52.0); Hemoglobin 13.7 g/dl (14.0-18.0); Imm Gran Abs Auto 0.09 X10*3/uL (0.00-0.03); Imm Gran Pct Auto 0.6 % (0.0-0.4); Lymphocytes Absolute Auto 2.5 X10*3/uL (1.2-4.9); Lymphocytes Percent Auto 15.9 % (20-40); MANUAL DIFF FLAG SCAN; Mean Corpuscular HGB Conc 33.9 g/dl (31.0-36.0); Mean Corpuscular Hemoglobin 31.5 pg (27.0-33.0); Mean Corpuscular Volume 92.9 fL (80.0-98.0); Mean Platelet Volume 11.1 fL (9.4-12.4); Monocytes Absolute Auto 2.2 X10*3/uL (0.1-1.2); Monocytes Percent Auto 14.2 % (2-11); Neutrophils Absolute Auto 10.8 x10*3/uL (2.0-8.3); Neutrophils Percent Auto 68.9 % (45-73); Platelet Count 316 X10*3/uL (160-400); Red Blood Count 4.35 X10*6/uL (4.60-5.80); Red Cell Distribution Width 18.2 % (11.0-16.0); SCAN SMEAR FLAG 1; White Blood Count 15.7 X10*3/uL (4.8-10.8)
[2024-04-16 17:03] LABS: Alanine Aminotransferase 45 U/L (0-40); Albumin Level 3.7 g/dL (3.5-5.0); Alkaline Phosphatase 83 U/L (39-117); Anion Gap 14 (12-20); Aspartate Amino Transferase 74 U/L (5-37); Bilirubin Direct 0.2 mg/dL (0.0-0.5); Bilirubin Total 0.4 mg/dL (0.0-1.0); Blood Urea Nitrogen 7 mg/dL (9-16); Calcium 9.1 mg/dL (8.4-10.2); Carbon Dioxide 25 mmol/L (22-29); Chloride 105 mmol/L (96-108); Creatinine Clr Calc Pharmacy 116.5; Estimated Glomerular Filt Rate > 60; Glucose Random 115 mg/dL (60-115); Potassium 3.2 mmol/L (3.3-5.1); Sodium 141 mmol/L (135-145); Total Protein 7.7 g/dL (6.5-8.0)
[2024-04-16 17:09] LABS: B Type Natriuretic Peptide 112 pg/mL (<100)
[2024-04-16] MEDS: diazePAM 10 MG/2 ML CARTRIDGE 5 MG IVPUSH (17:11)
[2024-04-16 17:12] LABS: Troponin-I High Sensitivity 16.9 ng/L (<3.5-35.0)
[2024-04-16] MEDS: 0.9 % Sodium Chloride 1,000 ML 999 ML IV (17:33)
[2024-04-16] MEDS: Acetaminophen 325 MG TABLET 975 MG PO (18:09)
[2024-04-16] MEDS: Oseltamivir Phosphate 75 MG CAPSULE PO (18:09)
[2024-04-16] MEDS: methylPREDNISolone Sod Succ 125 MG/2 ML VIAL 80 MG IVPUSH (18:12)
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
[2024-04-16 18:20] LABS: SLIDE REVIEW VERIFIED
[2024-04-16 18:27] LABS: INTERNATIONAL NORM RATIO 2.1 (0.9-1.1); Prothrombin Time 24.3 SEC (10.9-12.4)
--- NOTE | 2024-04-16 19:15 | PC.NURSE ---
This RN assumed pt care @ 1900. Pt a&ox4, no signs of distress. Pts bolus still running. Plan of care ongoing.
[2024-04-16 19:35] LABS: Ethanol < 10 mg/dL
[2024-04-16] MEDS: levalbuterol HCL 1.25 MG/3 ML VIAL.NEB INHALE (19:37)
[2024-04-16 19:39] LABS: Influenza A PCR POSITIVE (Negative); Influenza B PCR NEGATIVE (Negative); Resp Syncy Virus RNA Qual PCR NEGATIVE (Negative); SARS COV2 PCR INHOUSE NEGATIVE (Negative)
--- NOTE | 2024-04-16 20:10 | PC.NURSE ---
Previous RN did not administer 1715 KCI. This RN who assumed care @ 1900, administered med. Plan of care ongoing.
[2024-04-16] MEDS: KCl 20 mEq in 0.9 % Sodium ChL 20 MEQ/1,000 ML IV.SOLN 250 MEQ IVCONT (20:18)
--- NOTE | 2024-04-16 20:28 | PC.NURSE ---
Pt reports he took 2mg of warfarin from his home meds Pt educated on importance of not taking home meds. Provider damon notifid and aware. Plan of care ongoing.
[2024-04-16] MEDS: Zolpidem Tartrate 5 MG TABLET PO (22:22)
[2024-04-17] VITALS (7 sets, daily range): BP systolic 133–137; BP diastolic 86–94; PULSE 84–111; RESP 18–24; TEMP 36–36.4; O2SAT 93–97
[2024-04-17] MEDS: KCl 20 mEq in 0.9 % Sodium ChL 20 MEQ/1,000 ML IV.SOLN 250 MEQ IVCONT (02:01)
--- NOTE | 2024-04-17 06:47 | PC.NURSE ---
Pt reported that he had a bright red stool and had flushed toilet. Pt also noted to have dyspnea on exertion, with wheezing noted throughout catalan. MD aware with orders to decrease fluids infusing at current rate of 250/hr to 100/hr. Md also states to continue to monitor for blood in stools, pt informed to not flush toilet if occurs again. Pt anxious, tearful states he wants to go home. Will continue to monitor.
[2024-04-17] MEDS: Oseltamivir Phosphate 75 MG CAPSULE PO (07:19)
[2024-04-17] MEDS: 0.9 % Sodium Chloride Flush 3 ML SYRINGE IVFLUSH ×2 (07:19)
[2024-04-17] MEDS: methylPREDNISolone Sod Succ 40 MG/ML VIAL IVPUSH (07:19)
[2024-04-17] MEDS: levalbuterol HCL 1.25 MG/3 ML VIAL.NEB INHALE (07:47)
[2024-04-17] MEDS: clonazePAM 1 MG TABLET PO (08:22)
--- NOTE | 2024-04-17 08:36 | PHA.MEDREC ---
Pharmacy Consult ? Medication Reconciliation Pharmacy has completed the medication reconciliation. Spoke with patient in his room this morning. Patient had all RX bottles of medications. Patient tests his INR daily and takes between 2-7 mg of warfarin daily and he states iit is never the same dose. Patient is not taking Fluoxetine because he said he had an allergic reaction to this medication. He never took the Truvada/Tivicay/doxycyline prescribed in March from an incident that happened because he was clear of STD's. Patient changes his Clonidine patch on Tuesdays and additionally takes clonidine 0.1 mg po tid if needed. Ambien and Lamotrigine taper were new meds prescribed but he has not picked up from the pharmacy yet.
[2024-04-17] MEDS: Metoprolol Tartrate 100 MG TABLET PO (09:31)
--- NOTE | 2024-04-17 09:44 | PC.NURSE ---
Addendum entered by Yaima Quijano RN 04/17/24 11:38: Time note began was 0944, pt left AMA at 1010am accompanied by his . Original Note: Pt A&Ox4, anxious this am, states has not had any of his home medications since coming in to hospital. Pt's medication reconciliation record updated and confirmed by pharmacy technologist. Pt was medicated with Clonazepam 1 mg po at approximately 0830 for anxiety as ordered by Dr. Pang when this RN reached out to discuss pt's concerns. Pt stating that won't be enough since he didn't take any medications yesterday and requesting Ativan IV. Pt's in room, pt then requested to ambulate around the hallway, discussed will need a mask to do so related to Influenza diagnosis and pt agreed and went for a walk. Pt then back to bed and ringing jerez incessantly stating he asked 4 times what his INR level was yesterday and they wouldn't tell me , pt belligerent and repeatedly threatening to leave AMA stating he wants his meds now and I'll just rip this IV out and leave . Pt updated that his INR was 2.[address] Pang at bedside to eval and declines to order IV anti-anxiety medications and Dr. Pang subsequently reviewed medication reconciliation record at bedside and reordered medications as appropriate. 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 Explained plan of care, all medications, and answered all questions pt asks. Dr. Pang stated if pt's oxygen level on RA was good he would reassess if pt would be able to be discharged later. O2 sat 94-95% on RA/ pt ambulating in room frequently. Pt stated if you're going to make me leave later why not just let me go now. Dr. Pang explained he would reassess pt's oxygen level again a bit later and provide paperwork and prescriptions at time of discharge. Pt stated let me set the record straight, I don't feel ready for discharge and if they do today I will brie and I will add that doctor to the list and you since you're the nurse . Pt explained that he would be reassessed and check all medications out and go over the treatment plan. Pt only want's to take his own home medication tablets due to size of ours and his is pantoprazole, not prilosec, his metoprolol is 2 tablets of the 50 mg tablets not one single 100mg tablet. Pt then in room with for 15-20 minutes and then pt stated I'm ripping this IV out right now, see, i'm putting it in the sharps container so you can't say I left with it and I'm leaving and I'm not signing shit . Pt fully dressed and put very large backpack on his back and walked out with to leave and would not sign any paperwork or wait for discharge or prescriptions. Dr. Pang, charge nurse Nancy Jasso and airfreight loading supervisor Jenni De Guzman notified.
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
== END 2024-04-17 10:10 | disposition left against medical advice (07) | DRG 113 ==
LOC: HO.ED 16:09 → HO.EDOVER 19:26 → HO.IMC 19:48
PROVIDERS: Admitting Provider Student in an Organized Health Care Education/Training Program; Emergency Provider Emergency Medicine; PCP Internal Medicine; Visit Provider Internal Medicine
DX: J10.1 Influenza due to other identified influenza virus with other respiratory manifestations (principal); J96.01 Acute respiratory failure with hypoxia; E87.6 Hypokalemia; F17.210 Nicotine dependence, cigarettes, uncomplicated; I10 Essential (primary) hypertension; K21.9 Gastro-esophageal reflux disease without esophagitis; R79.1 Abnormal coagulation profile; Z95.2 Presence of prosthetic heart valve; Z71.6 Tobacco abuse counseling; Z79.01 Long term (current) use of anticoagulants; Z79.899 Other long term (current) drug therapy
CPT/HCPCS: 0241U; 36415; 71045; 80048; 80076; 80307; 83880; 84484; 85025; 85610; 93005; 94640; 99285; J2919; J3360; J3480

== ENCOUNTER → 2024-04-16 16:05 | Outpatient (BNV) | payer MEDICAID, SELFPAY | PROVIDERS: Admitting Provider Student in an Organized Health Care Education/Training Program; Emergency Provider Emergency Medicine; PCP Internal Medicine; Visit Provider Internal Medicine | DX: I44.7 Left bundle-branch block, unspecified (principal); R00.0 Tachycardia, unspecified | CPT/HCPCS: 93010 ==

== ENCOUNTER → 2024-04-16 16:09 | Outpatient (BNV) | payer MEDICAID, SELFPAY | PROVIDERS: Emergency Provider Emergency Medicine; PCP Internal Medicine; Visit Provider Radiology Vascular & Interventional Radiology | DX: R05.9 Cough, unspecified (principal) | CPT/HCPCS: 71045 ==

== ENCOUNTER → 2024-04-16 18:50 | Outpatient (BNV) | payer MEDICAID, SELFPAY | PROVIDERS: Admitting Provider Student in an Organized Health Care Education/Training Program; Emergency Provider Emergency Medicine; PCP Internal Medicine; Visit Provider Student in an Organized Health Care Education/Training Program | DX: J96.01 Acute respiratory failure with hypoxia (principal); J10.1 Influenza due to other identified influenza virus with other respiratory manifestations; E87.6 Hypokalemia | CPT/HCPCS: 99223; 99238 ==

== ENCOUNTER 2024-04-17 16:00 | Emergency (ER) | payer MEDICAID, SELFPAY ==
[2024-04-17 16:21] VITALS: BP 130/64; PULSE 110; O2SAT 97
--- OUTSIDE RECORDS SUMMARY | 2024-04-17 16:41 | XMS_ITS | Encounter Summary ---
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 Pt states he fell 2 days ago and was seen at [facility] and had a head CT done [...] Signed Date: 03/20/2024 10:02 ET Workstation ID: [id number] Transcribed By: Self Edit Transcribed Date: 03/20/2024 [...] Signed Date: 03/20/2024 10:02 ET Workstation ID: [id number] Transcribed By: Self Edit Transcribed Date: 03/20/2024 09:58 ET Yobani Ngo DO IMG XR PROCEDURES * ECG 12 lead (03/19/2024 7:48 PM EST) Ventricular Rate ECG 104 BPM GEMUSE Atrial Rate 104 BPM GEMUSE P-R Interval 128 ms GEMUSE QRS Duration 140 ms GEMUSE Q-T Interval 390 ms GEMUSE QTc 512 ms GEMUSE P Wave [place] 36 degrees GEMUSE R [place] -7 degrees GEMUSE T [place] 107 degrees GEMUSE ECG Interpretation Sinus tachycardia Left bundle branch block Abnormal ECG No previous ECGs available Confirmed by KALA CAVANAUGH ([id number]) on 03/21/2024 3:25:33 PM GEMUSE 03/19/2024 7:48 PM EST 03/21/2024 3:25 PM EST Yobani Ngo DO ECG ORDERABLES GEMUSE * ECG-Annotated (03/19/2024) Provider Onbase MD ECG ORDERABLES documented in this encounter Visit Diagnoses Not on filedocumented in this encounter Care Teams Tax Director Relationship Specialty Start Date End Date Tomas Jordan MD [address] [place] [address], [address] [place] [address] PCP - General Internal Medicine 02/27/24 documented as of this encounter
--- OUTSIDE RECORDS SUMMARY | 2024-04-17 16:41 | XMS_ITS | Clinical Summary ---
Author Organization [facility] Address [address] [place] [phone] Phone Care Team Providers Care Analytical Lead Name Role Phone Tomas Jordan MD Primary Care Provider [phone] Allergies Active Allergy Reactions Criticality Noted Date Comments Albuterol Chills Medium 02/27/2024 Phenytoin Sodium Extended Seizures High 02/27/2024 Ketorolac 03/07/2024 Lidocaine 03/07/2024 Morphine 03/07/2024 Nicotine 03/07/2024 Nutritional Supplements 03/07/2024 Prednisone Disorientated 03/07/2024 Trazodone 03/07/2024 Medications No known medications Encounters Date Type Department Care Team Description 03/19/2024 7:38 PM EST - 03/20/2024 12:41 AM [facility] [address] [place] [phone] Discharge Disposition: Home or Self Care 03/17/2024 12:47 PM EST - 03/17/2024 3:08 PM [facility] [address] [place] [phone] Discharge Disposition: Home or Self Care 03/07/2024 8:21 PM EST - 03/08/2024 1:28 AM [facility] Emergency [address] [place] [phone] Discharge Disposition: Home or Self Care 02/27/2024 4:17 PM EST - 02/27/2024 6:13 PM [facility] Emergency [address] [place] [phone] Pain (Primary Dx) Discharge Disposition: Left Against [...] Signed Date: 03/20/2024 10:02 ET Workstation ID: [id number] Transcribed By: Self Edit Transcribed Date: 03/20/2024 [...] Signed Date: 03/20/2024 10:02 ET Workstation ID: [id number] Transcribed By: Self Edit Transcribed Date: 03/20/2024 09:58 ET Yobani Ngo DO IMG XR PROCEDURES * ECG 12 lead (03/19/2024 7:48 PM EST) [facility] Ventricular Rate ECG 104 BPM GEMUSE Atrial Rate 104 BPM GEMUSE P-R Interval 128 ms GEMUSE QRS Duration 140 ms GEMUSE Q-T Interval 390 ms GEMUSE QTc 512 ms GEMUSE P Wave [place] 36 degrees GEMUSE R [place] -7 degrees GEMUSE T [place] 107 degrees GEMUSE ECG Interpretation Sinus tachycardia Left bundle branch block Abnormal ECG No previous ECGs available Confirmed by KALA CAVANAUGH ([id number]) on 03/21/2024 3:25:33 PM GEMUSE 03/19/2024 7:48 PM EST 03/21/2024 3:25 PM EST Yobani Ngo DO ECG ORDERABLES GEMUSE * ECG-Annotated (03/19/2024) Provider Onbase MD ECG ORDERABLES * Urinalysis with reflex microscopic (02/27/2024 5:51 PM EST) [facility] Specific [place] Urine 1.012 1.003 - 1.030 LAB URINALYSIS - AUTOMATED METHOD 02/27/2024 6:24 PM [facility] pH, Urine 7.0 5.0 - 8.0 pH LAB URINALYSIS - AUTOMATED METHOD 02/27/2024 6:24 PM [facility] Leukocytes, Urine Negative Negative LAB URINALYSIS - AUTOMATED METHOD 02/27/2024 6:24 PM [facility] Nitrite, Urine Negative Negative LAB URINALYSIS - AUTOMATED METHOD 02/27/2024 6:24 PM [facility] Protein, Urine Negative <=Trace mg/dL LAB URINALYSIS - AUTOMATED METHOD 02/27/2024 6:24 PM [facility] Glucose, Urine Negative Negative mg/dL LAB URINALYSIS - AUTOMATED METHOD 02/27/2024 6:24 PM [facility] Ketones, Urine Negative Negative mg/dL LAB URINALYSIS - AUTOMATED METHOD 02/27/2024 6:24 PM [facility] Urobilinogen, Urine 1.0 0.2 - 1.0 mg/dL LAB URINALYSIS - AUTOMATED METHOD 02/27/2024 6:24 PM [facility] Bilirubin, Urine Negative Negative LAB URINALYSIS - AUTOMATED METHOD 02/27/2024 6:24 PM [facility] Blood, Urine Negative Negative LAB URINALYSIS - AUTOMATED METHOD 02/27/2024 6:24 PM [facility] Urine Urine specimen obtained by clean catch procedure / Unknown Non-blood Collection / Unknown 02/27/2024 5:51 PM EST 02/27/2024 6:03 PM EST Piotr KOENIG LAB URINE ORDERABLES [facility] [address] [place] [address], * Respiratory virus panel molecular study (02/27/2024 5:51 PM EST) Pathologist [facility] Adenovirus Detection by PCR Not Detected Not Detected LAB MICROBIOLOGY METHOD 02/27/2024 7:05 PM [facility] Influenza A PCR Not Detected Not Detected LAB MICROBIOLOGY METHOD 02/27/2024 7:05 PM [facility] Influenza B PCR Not Detected Not Detected LAB MICROBIOLOGY METHOD 02/27/2024 7:05 PM [facility] Coronavirus 229E Not Detected Not Detected LAB MICROBIOLOGY METHOD 02/27/2024 7:05 PM [facility] Coronavirus HKU1 Not Detected Not Detected LAB MICROBIOLOGY METHOD 02/27/2024 7:05 PM [facility] Coronavirus OC43 Not Detected Not Detected LAB MICROBIOLOGY METHOD 02/27/2024 7:05 PM [facility] Coronavirus NL63 Not Detected Not Detected LAB MICROBIOLOGY METHOD 02/27/2024 7:05 PM [facility] Parainfluenza Virus 1 Not Detected Not Detected LAB MICROBIOLOGY METHOD 02/27/2024 7:05 PM [facility] Parainfluenza Virus 2 Not Detected Not Detected LAB MICROBIOLOGY METHOD 02/27/2024 7:05 PM [facility] Parainfluenza Virus 3 Not Detected Not Detected LAB MICROBIOLOGY METHOD 02/27/2024 7:05 PM [facility] Parainfluenza Virus 4 Not Detected Not Detected LAB MICROBIOLOGY METHOD 02/27/2024 7:05 PM [facility] RSV PCR Not Detected Not Detected LAB MICROBIOLOGY METHOD 02/27/2024 7:05 PM [facility] Human Metapneumovirus A and B Not Detected Not Detected LAB MICROBIOLOGY METHOD 02/27/2024 7:05 PM [facility] Rhinovirus/Entero virus Not Detected Not Detected LAB MICROBIOLOGY METHOD 02/27/2024 7:05 PM [facility] Bordetella pertussis Not Detected Not Detected LAB MICROBIOLOGY METHOD 02/27/2024 7:05 PM [facility] Bordetella parapertussis Not Detected Not Detected LAB MICROBIOLOGY METHOD 02/27/2024 7:05 PM [facility] Mycoplasma pneumo by PCR Not Detected Not Detected LAB MICROBIOLOGY METHOD 02/27/2024 7:05 PM [facility] Chlamydia pneumoniae Not Detected Not Detected LAB MICROBIOLOGY METHOD 02/27/2024 7:05 PM [facility] SARS COV-2 Not Detected Not Detected LAB MICROBIOLOGY METHOD 02/27/2024 7:05 PM [facility] Swab Both anterior nares / Unknown Non-blood Collection / Unknown 02/27/2024 5:51 PM EST 02/27/2024 5:[address] [facility] - 02/27/2024 7:05 PM EST Testing was performed using the [employer] Respiratory Pathogen PCR Assay. All results must [...] KOENIG LAB MICROBIOLOGY - G ENERAL ORDERABLES [facility] ([facility]) [facility] [address] [place] [address], * Vascular US Duplex Lower Extremity Venous [...] Signed Date: 02/28/2024 09:29 ET Workstation ID: [id number] Transcribed By: Self Edit Transcribed Date: 02/28/2024 [...] Signed Date: 02/28/2024 09:29 ET Workstation ID: [id number] Transcribed By: Self Edit Transcribed Date: 02/28/2024 09:28 ET Piotr KOENIG CV VASCULAR PROCEDUR ES * (ABNORMAL) CBC auto differential (02/27/2024 4:33 PM EST) WBC 20.8(H) 4.8 - 10.8 K/mcL LAB HEMETOLOGY METHOD 02/27/2024 4:43 PM [facility] RBC 4.30 3.80 - 5.50 M/mcL LAB HEMETOLOGY METHOD 02/27/2024 4:43 PM [facility] Hemoglobin 13.2 12.0 - 18.0 g/dL LAB HEMETOLOGY METHOD 02/27/2024 4:43 PM [facility] Hematocrit 38.5 36.0 - 48.0 % LAB HEMETOLOGY METHOD 02/27/2024 4:43 PM [facility] MCV 90.0 79.0 - 98.0 FL LAB HEMETOLOGY METHOD 02/27/2024 4:43 PM [facility] MCH 30.8 27.0 - 32.0 pcg LAB HEMETOLOGY METHOD 02/27/2024 4:43 PM [facility] MCHC 34.3 32.0 - 37.0 g/dL LAB HEMETOLOGY METHOD 02/27/2024 4:43 PM [facility] RDW 15.9(H) 11.0 - 15.0 % LAB HEMETOLOGY METHOD 02/27/2024 4:43 PM [facility] Platelets 303 130 - 400 K/mcL LAB HEMETOLOGY METHOD 02/27/2024 4:43 PM [facility] MPV 10.8 7.0 - 11.0 FL LAB HEMETOLOGY METHOD 02/27/2024 4:43 PM [facility] NRBC 0.4 <1.0 % LAB HEMETOLOGY METHOD 02/27/2024 4:43 PM [facility] NRBC Absolute 0.09 <0.10 K/mcL LAB HEMETOLOGY METHOD 02/27/2024 4:43 PM [facility] Neutrophils Relative 77.1 % LAB HEMETOLOGY METHOD 02/27/2024 4:43 PM [facility] Lymphocytes Relative 15.2 % LAB HEMETOLOGY METHOD 02/27/2024 4:43 PM [facility] Monocytes Relative 5.5 % LAB HEMETOLOGY METHOD 02/27/2024 4:43 PM [facility] Eosinophils Relative 0.6 % LAB HEMETOLOGY METHOD 02/27/2024 4:43 PM [facility] Basophils Relative 0.5 % LAB HEMETOLOGY METHOD 02/27/2024 4:43 PM [facility] Immature Granulocytes Relative 1.1 % LAB HEMETOLOGY METHOD 02/27/2024 4:43 PM [facility] Neutrophils Absolute 16.05(H) 1.50 - 7.00 K/mcL LAB HEMETOLOGY METHOD 02/27/2024 4:43 PM [facility] Lymphocytes Absolute 3.16 1.00 - 5.00 K/mcL LAB HEMETOLOGY METHOD 02/27/2024 4:[address] [facility] Monocytes Absolute 1.15(H) 0.20 - 1.00 K/[facility] LAB HEMETOLOGY METHOD 02/27/2024 4:[address] [facility] Eosinophils Absolute 0.13 0.00 - 0.50 K/[facility] LAB HEMETOLOGY METHOD 02/27/2024 4:[address] [facility] Basophils Absolute 0.10 0.00 - 0.20 K/[facility] LAB HEMETOLOGY METHOD 02/27/2024 4:[address] [facility] Immature Granulocytes Absolute 0.23(H) 0.00 - 0.03 K/[facility] LAB HEMETOLOGY METHOD 02/27/2024 4:[address] [facility] Blood Venous blood specimen / Unknown Venipuncture / Unknown 02/27/2024 4:33 PM EST 02/27/2024 4:38 PM EST Orion Davidson MD LAB BLOOD ORDERAB LES [facility] [address] [place] [address], [place] [phone] * APTT (02/27/2024 4:33 PM EST) aPTT 38.3 24.1 - 39.3 sec LAB COAGULATION METHOD 02/27/2024 4:[address] [facility] Blood Venous blood specimen / Unknown Venipuncture / Unknown 02/27/2024 4:33 PM EST 02/27/2024 4:38 PM EST Orion Davidson MD LAB BLOOD ORDERAB LES Performing Organization Address City/[facility]/ZIP Co de Phone Number [facility] [address] [place] [address], [place] [phone] * (ABNORMAL) Prothrombin time with INR (02/27/2024 4:33 PM EST) [facility] Protime 21.2(H) 10.6 - 13.9 sec LAB COAGULATION METHOD 02/27/2024 4:[address] [facility] INR 1.7 LAB COAGULATION METHOD 02/27/2024 4:[address] [facility] Blood Venous blood specimen / Unknown Venipuncture / Unknown 02/27/2024 4:33 PM EST 02/27/2024 4:38 PM EST Orion Davidson MD LAB BLOOD ORDERAB LES Performing Organization Address City/[facility]/ZIP Co de Phone Number [facility] [address] [place] [address], [place] [phone] * Magnesium (02/27/2024 4:33 PM EST) [facility] Magnesium 1.9 1.9 - 2.6 mg/dL LAB CHEMISTRY METHOD 02/27/2024 5:[address] [facility] Blood Venous blood specimen / Unknown Venipuncture / Unknown 02/27/2024 4:33 PM EST 02/27/2024 4:38 PM EST Piotr KOENIG LAB BLOOD ORDERABLES [facility] [address] [place] [address], [place] [phone] * Creatine kinase (02/27/2024 4:33 PM EST) [facility] Total CK 37 22 - 269 unit/L LAB CHEMISTRY METHOD 02/27/2024 5:[address] [facility] Blood Venous blood specimen / Unknown Venipuncture / Unknown 02/27/2024 4:33 PM EST 02/27/2024 4:38 PM EST Piotr KOENIG LAB BLOOD ORDERABLES [facility] [address] [place] [address], * (ABNORMAL) Basic metabolic panel (02/27/2024 4:33 PM EST) Sodium 140 133 - 145 mmol/L LAB CHEMISTRY METHOD 02/27/2024 5:03 PM [facility] Potassium 3.5 3.5 - 5.5 mmol/L LAB CHEMISTRY METHOD 02/27/2024 5:03 PM [facility] Chloride 106 96 - 110 mmol/L LAB CHEMISTRY METHOD 02/27/2024 5:03 PM [facility] CO2 26 21 - 32 mmol/L LAB CHEMISTRY METHOD 02/27/2024 5:03 PM [facility] Anion Gap 8 3 - 11 LAB CHEMISTRY METHOD 02/27/2024 5:03 PM [facility] Glucose 109(H) 70 - 100 mg/dL LAB CHEMISTRY METHOD 02/27/2024 5:03 PM [facility] BUN 6 5 - 25 mg/dL LAB CHEMISTRY METHOD 02/27/2024 5:03 PM [facility] Creatinine 0.72 0.50 - 1.30 mg/dL LAB CHEMISTRY METHOD 02/27/2024 5:03 PM [facility] eGFR 116 >=60 mL/min/1. 73m2 LAB CHEMISTRY METHOD 02/27/2024 5:03 PM [facility] Comment:Calculation based on the??Chronic Kidney Disease Epidemiology Collaboration (CKD-EPI) equation refit??without adjustment for race. BUN/Creatinine Ratio 8.3 LAB CHEMISTRY METHOD 02/27/2024 5:03 PM [facility] Calcium 8.9 8.5 - 10.5 mg/dL LAB CHEMISTRY METHOD 02/27/2024 5:03 PM [facility] Blood Venous blood specimen / Unknown Venipuncture / Unknown 02/27/2024 4:33 PM EST 02/27/2024 4:38 PM EST Orion Davidson MD LAB BLOOD ORDERAB LES [facility] ([facility]) [facility] [address] [place] [address], from Last 3 Months Care Teams Analytical Lead Relationship Specialty Start Date End Date Tomas Jordan MD [address] [place] [address], [address] [place] [address] PCP - General Internal Medicine 02/27/24
== END 2024-04-17 16:43 | disposition left against medical advice (07) ==
PROVIDERS: Emergency Provider Emergency Medicine
DX: R05.9 Cough, unspecified (principal)

== ENCOUNTER 2024-04-23 13:39 | Emergency (ER) | payer MEDICAID, SELFPAY ==
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
[2024-04-23 13:42] VITALS: BP 115/61; PULSE 92; RESP 22; O2SAT 96; BMI 33.4
[2024-04-23 14:00] VITALS: BP 93/60; PULSE 89; RESP 12; TEMP 36.4; O2SAT 98
[2024-04-23] MEDS: Albuterol Sulfate 5 MG, Albuterol/Iprat 2.5/0.5MG 3 ML 3 ML INHALE (14:28)
[2024-04-23 14:30] VITALS: PULSE 89; RESP 22; O2SAT 95
--- NOTE | 2024-04-23 14:40 | PC.NURSE ---
Addendum entered by Alexandra Abel RN 04/23/24 15:13: RN returned to room after pt's provider reported pt wanted to speak to the shearing supervisor. Pt verbalized he was originally having anxiety, RN asked if seeing the machine and just looking at pt's veins would make him feel more comfortable. Pt agreeable. Pt became agreeable to RN starting US guided IV, labs obtained and sent. PT requesting something for anxiety. Original Note: RN at bedside for request of US guided IV. Pt initially agreeable and cooperative but upon bringing in the US machine pt states I've never seen that machine before, that's not the one they use. I made him aware it's a new, state of the art one and it's newer. Pt stated you're not using that one on me. RN said okay and left room.
[2024-04-23 15:14] LABS: Basophils Absolute Auto 0.1 X10*3/uL (0.0-0.2); Basophils Percent Auto 0.3 % (0-2); Eosinophils Absolute Auto 0.2 X10*3/uL (0.0-0.4); Eosinophils Percent Auto 1.3 % (0-4); Hematocrit 34.7 % (42.0-52.0); Hemoglobin 11.9 g/dl (14.0-18.0); Imm Gran Abs Auto 0.26 X10*3/uL (0.00-0.03); Imm Gran Pct Auto 1.5 % (0.0-0.4); Lymphocytes Absolute Auto 3.3 X10*3/uL (1.2-4.9); Lymphocytes Percent Auto 18.9 % (20-40); MANUAL DIFF FLAG NO; Mean Corpuscular HGB Conc 34.3 g/dl (31.0-36.0); Mean Corpuscular Hemoglobin 31.3 pg (27.0-33.0); Mean Corpuscular Volume 91.3 fL (80.0-98.0); Mean Platelet Volume 10.5 fL (9.4-12.4); Monocytes Percent Auto 5.6 % (2-11); NRBC Pct Auto 0.5 /100WBC (0.0-0.2); Neutrophils Absolute Auto 12.7 x10*3/uL (2.0-8.3); Neutrophils Percent Auto 72.4 % (45-73); Platelet Count 398 X10*3/uL (160-400); White Blood Count 17.5 X10*3/uL (4.8-10.8)
[2024-04-23 15:22] LABS: Partial Thromboplastin Time 56.6 SEC (26.0-36.8)
[2024-04-23] MEDS: LORazepam 2 MG/ML VIAL 0.5 MG IVPUSH (15:24)
[2024-04-23 15:26] LABS: Prothrombin Time 61.7 SEC (10.9-12.4)
[2024-04-23 16:26] LABS: Alanine Aminotransferase 42 U/L (0-40); Albumin Level 3.1 g/dL (3.5-5.0); Anion Gap 11 (12-20); Aspartate Amino Transferase 47 U/L (5-37); Bilirubin Total 0.3 mg/dL (0.0-1.0); Blood Urea Nitrogen 8 mg/dL (9-16); Calcium 8.5 mg/dL (8.4-10.2); Carbon Dioxide 26 mmol/L (22-29); Chloride 109 mmol/L (96-108); Creatinine Clr Calc Pharmacy 147.1; Estimated Glomerular Filt Rate > 60; Glucose Random 107 mg/dL (60-115); Potassium 3.5 mmol/L (3.3-5.1); Sodium 142 mmol/L (135-145); Total Protein 6.8 g/dL (6.5-8.0)
[2024-04-23 16:29] LABS: INTERNATIONAL NORM RATIO 5.3 (0.9-1.1)
--- NOTE | 2024-04-23 16:47 | PC.NURSE ---
Pt up out of bed walking in hallway yelling at staff. Pt educated on need to stay in room. Pt yelled at this RN Get my papers i'm leaving, I will take this IV out. ARMIN Ritchie and family mediator made aware of pt increasing agitation. Pt removed ultrasound guided IV himself, witnessed by ARMIN Ritchie. Pt refused d/c vitals and walked out of ED. family mediator aware.
[2024-04-23 16:49] VITALS: BP 0/0; PULSE 0; RESP 0; TEMP -17.7; TEMP 0; O2SAT 0
[2024-04-23 16:49] LABS: Alkaline Phosphatase 86 U/L (39-117)
== END 2024-04-23 16:51 | disposition left against medical advice (07) ==
PROVIDERS: Physician Assistant Medical; Emergency Provider Emergency Medicine; PCP Internal Medicine
DX: M54.50 Low back pain, unspecified (principal); S30.1XXA Contusion of abdominal wall, initial encounter; W06.XXXA Fall from bed, initial encounter; R79.1 Abnormal coagulation profile; Z53.29 Procedure and treatment not carried out because of patient's decision for other reasons; Y93.89 Activity, other specified; Y92.003 Bedroom of unspecified non-institutional (private) residence as the place of occurrence of the external cause; Y99.9 Unspecified external cause status; F17.210 Nicotine dependence, cigarettes, uncomplicated; Z95.2 Presence of prosthetic heart valve; Z86.718 Personal history of other venous thrombosis and embolism; Z86.711 Personal history of pulmonary embolism; Z79.01 Long term (current) use of anticoagulants
CPT/HCPCS: 36415; 80053; 83735; 85025; 85610; 85730; 94640; 96374; 99284; 99285; J2060

== ENCOUNTER 2024-04-23 22:32 | Emergency (ER) | payer MEDICAID, SELFPAY ==
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
[2024-04-23 23:00] VITALS: BP 125/82; BP 133/80; PULSE 100; RESP 21; TEMP 36.5; O2SAT 94; O2SAT 98; BMI 33.4
--- NOTE | 2024-04-23 23:13 | PC.NURSE ---
Patient refused blood draw at triage requesting labs draw at the main ED with IV line placement.
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
[2024-04-24 01:47] LABS: Hematocrit 35.8 % (42.0-52.0); Hemoglobin 12.4 g/dl (14.0-18.0)
[2024-04-24 02:09] VITALS: BP 110/68; PULSE 87; RESP 16; TEMP 36.6; O2SAT 96
[2024-04-24 03:29] VITALS: BP 113/78; PULSE 89; RESP 16; TEMP 36.8; O2SAT 98
== END 2024-04-24 03:34 | disposition home or self-care (01) ==
PROVIDERS: Physician Assistant Medical; Emergency Provider Emergency Medicine
DX: S30.1XXA Contusion of abdominal wall, initial encounter (principal); W06.XXXA Fall from bed, initial encounter; R79.1 Abnormal coagulation profile; K62.5 Hemorrhage of anus and rectum; F17.210 Nicotine dependence, cigarettes, uncomplicated; F12.90 Cannabis use, unspecified, uncomplicated; Z86.711 Personal history of pulmonary embolism; Z95.2 Presence of prosthetic heart valve; Z79.01 Long term (current) use of anticoagulants; Y93.89 Activity, other specified; Y92.003 Bedroom of unspecified non-institutional (private) residence as the place of occurrence of the external cause; Y99.9 Unspecified external cause status; Z79.899 Other long term (current) drug therapy
CPT/HCPCS: 36415; 70450; 71250; 74176; 85014; 85018; 99284

== ENCOUNTER → 2024-04-24 01:44 | Outpatient (BNV) | payer MEDICAID, SELFPAY | PROVIDERS: Emergency Provider Emergency Medicine; Visit Provider Radiology Diagnostic Radiology | DX: S20.212A Contusion of left front wall of thorax, initial encounter (principal); K62.5 Hemorrhage of anus and rectum; R55 Syncope and collapse; R16.0 Hepatomegaly, not elsewhere classified; W06.XXXA Fall from bed, initial encounter | CPT/HCPCS: 70450; 71250; 74176 ==

== ENCOUNTER 2024-05-09 21:34 | Emergency (ER) | payer MEDICAID, SELFPAY ==
[2024-05-09 21:46] VITALS: BP 152/100; PULSE 133; RESP 22; TEMP 37.3; O2SAT 96; BMI 36.6
[2024-05-09 21:52] VITALS: BP 152/94; PULSE 129; RESP 26; O2SAT 95
[2024-05-09 22:08] VITALS: BP 152/94; PULSE 130
[2024-05-09] MEDS: EPINEPHrine 1 MG/ML VIAL 0.3 MG IM (22:08)
[2024-05-09] MEDS: methylPREDNISolone Sod Succ 125 MG/2 ML VIAL IVPUSH (22:09)
[2024-05-09] MEDS: diphenhydrAMINE HCL 50 MG/ML VIAL IVPUSH (22:09)
[2024-05-09] MEDS: Famotidine/PF 20 MG/2 ML VIAL IVPUSH (22:09)
--- NOTE | 2024-05-09 22:26 | ED.ALLEREA ---
HPI - Allergic Reaction General Chief complaint: Allergic Reaction Stated complaint: ? medication reaction Time Seen by Provider: 05/09/24 21:54 Source: patient Mode of arrival: ambulatory Limitations: no limitations History of Present Illness ED Provider: HPI narrative: Patient apparently had burger at [place] within 45 minutes of eating burger noticed swelling of the tongue patient has same burger before without any problems does have allergic reaction to mushroom and bees patient feel his tongue is swollen no itching no rash otherwise no difficulty in breathing Related Data Home Medications ?Medication ?Instructions ?Recorded ?Confirmed clonidine 0.2 mg/24 hr weekly 1 patch transdermal TU@0900 02/28/24 04/17/24 transdermal patch metoprolol tartrate 50 mg tablet 100 mg PO BID 02/28/24 04/17/24 pantoprazole 40 mg tablet,delayed 40 mg PO DAILY@0630 02/28/24 04/17/24 release warfarin 5 mg tablet 2 - 7 mg PO DAILY 02/28/24 04/17/24 clonazepam 1 mg tablet 1 mg PO TID PRN Anxiety 04/17/24 04/17/24 clonidine HCl 0.2 mg tablet 0.1 mg PO TID PRN Blood Pressure 04/17/24 04/17/24 Previous Rx's ?Medication ?Instructions ?Recorded diphenhydramine HCl 25 mg capsule 50 mg (2 x 25 mg) PO TID PRN 05/09/24 (Benadryl) allergic reaction #20 caps nystatin 100,000 unit/mL oral 100,000 unit buccal DAILY #60 mL 05/09/24 suspension Allergies Allergy/AdvReac Type Severity Reaction Status Date / Time phenytoin [From DILANTIN] Allergy Unknown GAVE PT A Verified 05/09/24 21:50 TOXIC LEVEL fluoxetine [From Prozac] Allergy Unknown Verified 05/09/24 21:50 lidocaine Allergy Unknown Verified 05/09/24 21:50 tramadol Allergy Anaphylaxis Verified 05/09/24 21:50 trazodone Allergy Unknown Verified 05/09/24 21:50 gabapentin [From Neurontin] AdvReac Unknown Verified 05/09/24 21:50 morphine AdvReac Unknown Verified 05/09/24 21:50 Review of Systems Review of Systems: Yes all other systems are reviewed and are negative PMFSH Past Medical History Medical History Bilateral pulmonary embolism Noncompliance with medications Alcohol dependence Endocarditis Surgical History Aortic valve replaced Social History Social History Household Members: Spouse Housing: House Do you presently have visiting nurse or other home services: No Unable to assess alcohol history related to: Refusing to respond Alcohol intake: former Comment: Pt refuses fall risk measures, explained protocol/ safety measures Patient Tobacco Use Status: Current everyday Tobacco user Tobacco use type: Cigarette Cigarettes Per Day: 10 e-Cigarette/Vaping Use: Never Used Second Hand Smoke Exposure: No Substance Use Type: Marijuana Advance Directives: No Advance Directives Information Provided: No Do you have a plan to hurt others: No Plan Physical Exam ED Vital Signs: Vital Signs - 24 hr 05/09/24 21:46 05/09/24 21:52 05/09/24 22:08 Temperature 99.2 F Pulse Rate 133 H 129 H 130 H Respiratory Rate 22 H 26 H Blood Pressure 152/100 H 152/94 H 152/94 H Pulse Oximetry 96 95 Oxygen Delivery Method Room Air Room Air 05/09/24 23:29 05/09/24 23:47 Temperature 98.7 F 98.3 F Pulse Rate 113 H 112 H Respiratory Rate 18 20 Blood Pressure 124/78 125/77 Pulse Oximetry 95 98 Oxygen Delivery Method Room Air Room Air BMI result Body Mass Index 36.6 Appearance: Alert. Oriented X3. No acute distress. Eyes: PERRLA, No Nystagmus ENT: Pharynx normal. Swollen tongue uvula normal does have oral thrush Oral Mucosa moist Neck: Normal inspection. Neck supple. No stridor CVS: Normal heart rate and rhythm. Pulses normal aortic valve click+. Respiratory: No respiratory distress. Equal air entry bilateral, no wheezing/rales/rhonchi Abdomen: Soft and nontender. Bowel sounds are present, no mass palpable, no CVA tenderness Skin: Skin warm and dry. Normal skin color. Normal skin turgor. Extremities: No lower extremity edema. No calf tenderness Neuro: Oriented X 3. No motor deficit. Medications Administered Discontinued Medications Generic Name Dose Route Start Last Admin Trade Name Freq PRN Reason Stop Dose Admin Diphenhydramine HCl 50 mg 05/09/24 21:55 05/09/24 22:09 Diphenhydramine Hcl 50 Mg/Ml Vial IVPUSH 05/09/24 21:56 50 mg ONCE ONE Administration Epinephrine 0.3 mg 05/09/24 21:54 05/09/24 22:08 Epinephrine 1 Mg/Ml Vial IM 05/09/24 21:55 0.3 mg STAT STA Administration Famotidine 20 mg 05/09/24 21:55 05/09/24 22:09 Famotidine/Pf 20 Mg/2 Ml Vial IVPUSH 05/09/24 21:56 20 mg ONCE ONE Administration Fluconazole 150 mg 05/09/24 22:50 05/09/24 23:19 Fluconazole 150 Mg Tablet PO 05/09/24 22:51 Not Given ONCE ONE Lorazepam 1 mg 05/09/24 22:47 05/09/24 23:04 Lorazepam 2 Mg/Ml Vial IVPUSH 05/09/24 22:48 1 mg ONCE ONE Administration Methylprednisolone Sodium Succinate 125 mg 05/09/24 21:55 05/09/24 22:09 Methylprednisolone Sod Succ 125 Mg/2 Ml Vial IVPUSH 05/09/24 21:56 125 mg ONCE ONE Administration Nystatin 200,000 unit 05/09/24 23:11 05/09/24 23:44 Nystatin Oral Susp 500,000 Unit/5 Ml Oral.Susp BUCCAL 05/09/24 23:12 200,000 unit ONCE ONE Administration Protocol Medical Decision Making Medical Decision Making MDM Narrative: Patient has received epi Benadryl Solu-Medrol improved done swelling has not improved will discharge patient home on Benadryl Critical Care Time Critical Care Time Critical Care Time: Yes Total Critical Care Time: 35 Attestation: The patient was critically ill with a high probability of imminent or life threatening deterioration. I spent greater than 40???minutes of discontinuous time evaluating the patient,delivering critical care at the bedside, discussing and evaluating pertinent data with consultants. Critical care time does not include time spent performing separately billable procedures or teaching. Total time spent performing critical care was ?35??minutes. Discharge Plan Discharge Clinical Impression: Angioedema, Allergic reaction, Candidiasis of mouth Patient Disposition: Home, Self-Care Instructions: Oral Candidiasis (ED), Angioedema (ED), General Allergic Reaction (ED) Additional Instructions: Care and cautions as advised You can take Benadryl 25 mg 1-2 tablets every 6 hours if swelling of the tongue/rash. Nystatin liquid for oral throat as prescribed Report to ER if worsening of swelling of the tongue Prescriptions: New nystatin 100,000 unit/mL suspension 100,000 unit buccal DAILY Qty: 60 0RF Rx Instructions: administer 1/2 of dose in each side of the mouth diphenhydramine HCl [Benadryl] 25 mg capsule 50 mg PO TID PRN (Reason: allergic reaction) Qty: 20 0RF No Action clonidine 0.2 mg/24 hr patch weekly 1 patch transdermal TU@0900 pantoprazole 40 mg tablet,delayed release (DR/EC) 40 mg PO DAILY@0630 metoprolol tartrate 50 mg tablet 100 mg PO BID warfarin 5 mg tablet 2 - 7 mg PO DAILY clonazepam 1 mg tablet 1 mg PO TID PRN (Reason: Anxiety) clonidine HCl 0.2 mg Tablet 0.1 mg PO TID PRN (Reason: Blood Pressure) Interventions: ED Discharge Assessment Last Done: 05/09/24 23:47 Discharge Date/Time: 05/09/24 23:53 Print Language: Ecuadorean
[2024-05-09] MEDS: LORazepam 2 MG/ML VIAL 1 MG IVPUSH (23:04)
[2024-05-09 23:29] VITALS: BP 124/78; PULSE 113; RESP 18; TEMP 37.1; O2SAT 95
[2024-05-09] MEDS: Nystatin Oral Susp 500,000 UNIT/5 ML ORAL.SUSP 200000 UNIT BUCCAL (23:44)
[2024-05-09 23:47] VITALS: BP 125/77; PULSE 112; RESP 20; TEMP 36.8; O2SAT 98
== END 2024-05-09 23:53 | disposition home or self-care (01) ==
PROVIDERS: Emergency Provider Internal Medicine
DX: B37.0 Candidal stomatitis (principal); K14.8 Other diseases of tongue; Z79.899 Other long term (current) drug therapy
CPT/HCPCS: 96372; 96374; 96375; 99283; 99284; J0171; J1200; J2060; J2919

== ENCOUNTER 2024-05-10 19:06 | Emergency (ER) | payer MEDICAID, SELFPAY ==
[2024-05-10 19:10] VITALS: BP 129/73; PULSE 114; RESP 18; TEMP 37.3; O2SAT 97; BMI 30.4
--- NOTE | 2024-05-10 19:10 | ED.GENADULT ---
HPI - General Adult General Chief complaint: Allergic Reaction Stated complaint: Allergic reaction Related Data Home Medications ?Medication ?Instructions ?Recorded ?Confirmed clonidine 0.2 mg/24 hr weekly 2 patch transdermal TU@0900 02/28/24 04/17/24 transdermal patch metoprolol tartrate 50 mg tablet 100 mg PO BID 02/28/24 04/17/24 pantoprazole 40 mg tablet,delayed 40 mg PO DAILY@0630 02/28/24 04/17/24 release warfarin 5 mg tablet 2 - 7 mg PO DAILY 02/28/24 04/17/24 clonazepam 1 mg tablet 1 mg PO TID PRN Anxiety 04/17/24 04/17/24 clonidine HCl 0.2 mg tablet 0.1 mg PO TID PRN Blood Pressure 04/17/24 04/17/24 dolutegravir 50 mg tablet (Tivicay) 50 mg PO DAILY 05/12/24 emtricitabine 200 mg-tenofovir 1 tab PO DAILY 05/12/24 disoproxil fumarate 300 mg tablet lamotrigine 25 mg tablet 37.5 mg PO DAILY 05/12/24 Previous Rx's ?Medication ?Instructions ?Recorded nystatin 100,000 unit/mL oral 100,000 unit buccal DAILY #60 mL 05/09/24 suspension Allergies Allergy/AdvReac Type Severity Reaction Status Date / Time phenytoin [From DILANTIN] Allergy Unknown GAVE PT A Verified 05/12/24 12:20 TOXIC LEVEL fluoxetine [From Prozac] Allergy Unknown Verified 05/12/24 12:20 lidocaine Allergy Unknown Verified 05/12/24 12:20 tramadol Allergy Anaphylaxis Verified 05/12/24 12:20 trazodone Allergy Unknown Verified 05/12/24 12:20 gabapentin [From Neurontin] AdvReac Unknown Verified 05/12/24 12:20 morphine AdvReac Unknown Verified 05/12/24 12:20 [facility] Past Medical History Medical History Bilateral pulmonary embolism Noncompliance with medications Alcohol dependence Endocarditis Surgical History Aortic valve replaced Social History Social History Household Members: Spouse Housing: House Do you presently have visiting nurse or other home services: No Unable to assess alcohol history related to: Unknown Alcohol intake: former Comment: Pt refuses fall risk measures, explained protocol/ safety measures Patient Tobacco Use Status: Current everyday Tobacco user Tobacco use type: Cigarette Cigarettes Per Day: 10 Smoked in Last 30 Days: Yes e-Cigarette/Vaping Use: Never Used Second Hand Smoke Exposure: No Use of substances other than those prescribed or required for medical reasons: No Substance Use Type: Marijuana Advance Directives: No Advance Directives Information Provided: Yes Physical Exam ED Vital Signs: BMI result Body Mass Index 30.4 Course Course Course Narrative: This is a rapid medical exam performed by Марина Ingram NP: Additional HPI, ROS, PE not included below will be deferred to primary provider. Patient is a 43-year-old male with pmhx of bilateral PEs on warfarin, endocarditis, alcohol dependence presenting with complaint of tongue swelling and feeling short of breath after eating a bologna sandwich. Seen in this ED last night for similar symptoms after eating a burger. Managing secretions without difficulty. No angioedema. No uvula edema. Tongue appears red but does not appear swollen. Lungs clear throughout, no wheezing or stridor. No rash/hives. Was not able to pick up attendant his prescriptions from last night's visit. Discharge Plan Discharge Clinical Impression: Diagnosis unknown Patient Disposition: Left W/O Completing Treatment Prescriptions: No Action clonidine 0.2 mg/24 hr patch weekly 2 patch transdermal TU@0900 pantoprazole 40 mg tablet,delayed release (DR/EC) 40 mg PO DAILY@0630 metoprolol tartrate 50 mg tablet 100 mg PO BID warfarin 5 mg tablet 2 - 7 mg PO DAILY nystatin 100,000 unit/mL suspension 100,000 unit buccal DAILY Qty: 60 0RF Rx Instructions: administer 1/2 of dose in each side of the mouth clonazepam 1 mg tablet 1 mg PO TID PRN (Reason: Anxiety) clonidine HCl 0.2 mg Tablet 0.1 mg PO TID PRN (Reason: Blood Pressure) lamotrigine 25 mg tablet 37.5 mg PO DAILY emtricitabine-tenofovir (TDF) 200-300 mg tablet 1 tab PO DAILY Tivicay 50 mg tablet 50 mg PO DAILY Discharge Date/Time: 05/10/24 19:25
--- OUTSIDE RECORDS SUMMARY | 2024-05-10 20:07 | XMS_ITS | Encounter Summary ---
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 Anxiety Anxiety state, unspecified documented in this encounter Administered Medications Inactive Administered Medications - up to 3 most recent administrations Medication Order MAR Action Action Date Dose Rate Site acetaminophen (TYLENOL) tablet 1,000 mg 1,000 mg, oral, 3 times daily, First dose on Thu04/26/24 at 2100 aluminum-magnesium hydroxide-simethicone (MAALOX) 200-200-20 mg/5 mL suspension 30 mL 30 mL, oral, Every 8 hours PRN, heartburn, indigestion, Starting on Thu04/26/24 at 1958 HYDROmorphone (DILAUDID) tablet 4 mg 4 mg, oral, Every 4 hours PRN, severe pain, Starting on Thu04/26/24 at 1929 Given 04/26/2024 9:49 PM EST 4 mg ketamine (KETALAR) injection 500 mg 500 mg, intramuscular, As needed, severe agitation, Starting on Thu04/26/24 at 2052, For 1 dose LORazepam (ATIVAN) tablet 1 mg 1 mg, oral, Every 6 hours PRN, anxiety, Starting on Thu04/26/24 at 194 Given 04/26/2024 9:49 PM EST 1 mg melatonin tablet 6 mg 6 mg, oral, Nightly PRN, sleep, Starting on Thu04/26/24 at 1957 OLANZapine (ZyPREXA ZYDIS) disintegrating tablet 5 mg 5 mg, oral, 2 times daily PRN, agitation, Starting on Thu04/26/24 at 1945, Tablets should NOT be swallowed whole, chewed, broken, or crushed. Place tablet in mouth, allow to dissolve, and then swallow saliva with or without water. ondansetron ODT (ZOFRAN-ODT) disintegrating tablet 4 mg 4 mg, oral, Every 8 hours PRN, nausea, vomiting, Starting on Thu04/26/24 at 1957 documented in this encounter Active and Recently Administered Medications Times are shown in EST. Scheduled Medication Order 04/24/2024 04/25/2024 04/26/2024 acetaminophen (TYLENOL) tablet 1,000 mg 1,000 mg, oral, 3 times daily, First dose on Thu04/26/24 at 2099 2039 (Not Given - Pr ovider: Charlotte Woo RN - Reason: Patient/Resident/Agent refused - education provided - Comment: patient states he does not take tylenol and it doesn't work) PRN Medication Order 04/24/2024 04/25/2024 04/26/2024 aluminum-magnesium hydroxide-simethicone (MAALOX) 200-200-20 mg/5 mL suspension 30 mL 30 mL, oral, Every 8 hours PRN, heartburn, indigestion, Starting on Thu04/26/24 at 1957 HYDROmorphone (DILAUDID) tablet 4 mg 4 mg, oral, Every 4 hours PRN, severe pain, Starting on Thu04/26/24 at 1928 2148 (Given - Provid er: Charlotte Woo, MERY) ketamine (KETALAR) injection 500 mg 500 mg, intramuscular, As needed, severe agitation, Starting on Thu04/26/24 at 2052, For 1 dose LORazepam (ATIVAN) tablet 1 mg 1 mg, oral, Every 6 hours PRN, anxiety, Starting on Thu04/26/24 at 1946 2149 (Given - Provid er: Charlotte Woo RN) melatonin tablet 6 mg 6 mg, oral, Nightly PRN, sleep, Starting on Thu04/26/24 at 1958 OLANZapine (ZyPREXA ZYDIS) disintegrating tablet 5 mg 5 mg, oral, 2 times daily PRN, agitation, Starting on Thu04/26/24 at 1946, Tablets should NOT be swallowed whole, chewed, broken, or crushed. Place tablet in mouth, allow to dissolve, and then swallow saliva with or without water. ondansetron ODT (ZOFRAN-ODT) disintegrating tablet 4 mg 4 mg, oral, Every 8 hours PRN, nausea, vomiting, Starting on Thu04/26/24 at 8 documented in this encounter Orders Medications Ordered That Bran ht Not Have Been Administered Count Last Ordered Date First Ordered Date acetaminophen (TYLENOL) tablet 1,000 mg 1 0 04/26/2024 aluminum-magnesium hydroxide -simethicone (MAALOX) 200-200-20 mg/5 mL suspension 30 mL 1 04/26/2024 ketamine (KETALAR) injection 500 mg 1 04/26 melatonin tablet 6 mg 1 04/26/2024 OLANZapine (ZyPREXA ZYDIS) d isintegrating tablet 5 mg 1 04/26/2024 ondansetron ODT (ZOFRAN-ODT) disintegrating tablet 4 mg 1 04/26/2024 Consult Count Last Ordered Date First Orde red Date IP CONSULT TO HAND SPRING REPAIRER HELPER 1 04/26/2024 documented in this encounter Care Teams Filler Mixer Relationship Specialty Start Date End Date Tomas Jordan MD [address] [facility], [address] [place] [address] PCP - General Internal Medicine 02/27/24 documented as of this encounter
--- OUTSIDE RECORDS SUMMARY | 2024-05-10 20:07 | XMS_ITS | Encounter Summary ---
Author Organization [facility] Address [address] [place] [address] Care Team Providers Care Translation Director Name Role Phone Tomas Jordan MD Primary Care Provider [phone] Reason for Visit * Reason Comments Allergic Reaction Encounter Details Date Type Department Care Team (Late st Contact Info) Description 05/10/2024 7:37 PM EST - Present Emergency [facility] Emergency [address] [place] [address] Social History Tobacco Use Types Packs/Day Years [...] Sign Reading Time Taken Comments Blood Pressure 141/80 05/10/2024 7:39 PM EST Pulse 151 05/10/2024 7:39 PM EST Temperature - - Respiratory Rate 20 05/10/2024 7:39 PM EST Oxygen Saturation 96% 05/10/2024 7:39 PM EST Inhaled Oxygen Concentration - - Weight 95.3 kg (210 lb) 05/10/2024 7:39 PM EST Height 170.2 cm (5' 7 ) 05/10/2024 7:39 PM EST Body Mass Index 32.89 05/10/2024 7:39 PM EST documented in this encounter Functional Status * Are you deaf or do you have serious difficulty hearing? Answer Date of Assessment Author No 04/30/2024 9:34 AM EST Juan Sparrow, RN * Are you blind or do you have serious difficulty seeing, even when wearing glasses? Answer Date of Assessment Author No 04/30/2024 9:34 AM Juan Galvez RN * Do you have serious difficulty walking or climbing stairs? Answer Date of Assessment Author No 04/30/2024 9:34 AM Juan Galvez RN * Do you have serious difficulty dressing or bathing? Answer Date of Assessment Author No 04/30/2024 9:34 AM Juan Galvez RN * Because of a physical, mental, or emotional condition, do you have serious difficulty doing errandsalone such as visiting the doctor? Answer Date of Assessment Author No 04/30/2024 9:34 AM Juan Galvez RN documented as of this encounter Mental Status * Because of a physical, mental, or emotional condition, do you have serious difficulty concentrating, remembering, or making decisions? 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
--- OUTSIDE RECORDS SUMMARY | 2024-05-10 20:07 | XMS_ITS | Encounter Summary ---
Author Organization [facility] Address [address] [place] [address] Care Team Providers Care Windows Server Specialist Name Role Phone Tomas Jordan MD Primary Care Provider [phone] Reason for Visit * Reason Comments Syncope Passed out today at home lower back pain Encounter Details Date Type Department Care Team (Late st Contact Info) Description 04/27/2024 7:54 PM EST - 04/27/2024 10:50 PM EST Emergency [facility] Emergency [address] [place] [address] Discharge Disposition: Home or Self [...] Sign Reading Time Taken Comments Blood Pressure 117/74 04/27/2024 8:04 PM EST Pulse 96 04/27/2024 8:04 PM EST Temperature 36.8 ??C (98.2 ??F) 04/27/2024 8:04 PM ES T Respiratory Rate 20 04/27/2024 8:04 PM EST Oxygen Saturation 95% 04/27/2024 8:04 PM EST Inhaled Oxygen Concentration - - Weight 95.3 kg (210 lb) 04/27/2024 8:04 PM EST Height 170.2 cm (5' 7 ) 04/27/2024 8:04 PM EST Body Mass Index 32.89 04/27/2024 8:04 PM EST documented in this encounter Functional Status * Are you deaf or do you have serious difficulty hearing? Answer Date of Assessment Author No 04/26/2024 8:38 PM Charlotte Penaloza RN * Are you blind or do you have serious difficulty seeing, even when wearing glasses? Answer Date of Assessment Author No 04/26/2024 8:38 PM Charlotte Penaloza RN * Do you have serious difficulty walking or climbing stairs? Answer Date of Assessment Author No 04/26/2024 8:38 PM Charlotte Penaloza RN * Do you have serious difficulty dressing or bathing? Answer Date of Assessment Author No 04/26/2024 8:38 PM Charlotte Penaloza RN * Because of a physical, mental, or emotional condition, do you have serious difficulty doing errandsalone such as visiting the doctor? Answer Date of Assessment Author No 04/26/2024 8:38 PM Charlotte Alvarez RN documented as of this encounter Mental Status * Because of a physical, mental, or emotional condition, do you have serious difficulty concentrating, remembering, or making decisions? (5 years old or older) Answer Entry Date Author No 04/26/2024 8:38 PM Charlotte Penaloza RN documented in this encounter Medications at Time of Discharge clonazePAM (KlonoPIN) 1 mg tablet TAKE ONE (1) TABLET BY MOUTH THREE TIMES A DAY, NEEDED FOR SEVERE ANXIETY/PANIC . USE SPARINGLY. documented as of this encounter Discharge Disposition Disposition Code Departure Means Destination Comment s Home or Self Care Called x 3 no answer documented in this encounter Progress Notes * Liliana Denny RN - 04/27/2024 8:00 PM EST PT REPORTS FALL AT APPROX 10a. ALSO REPORTS MULTIPLE FALLS THROUGHOUT WEEK (SEEN HERE). POS+ HEAD STRIKE, UNK LOC, POS+ THINNERS. STATES, THE'RE TRYING TO GET MY ANXIETY MEDS RIGHT BECAUSE THEY MAKEME DIZZY. REPORTS DIZZINESS & FLOATERS IN EYES & RECTAL BLEEDING. documented in this encounter Plan of Treatment Scheduled Orders Name Type Priority Associated Diagnoses Orde r Schedule ECG 12 lead ECG STAT Once for 1 Oc currences starting 04/27/2024 until 04/27/2024 documented as of this encounter Visit Diagnoses Not on filedocumented in this encounter Historical Medications * This list may reflect changes made after this encounter. clonazePAM (KlonoPIN) 1 mg tablet TAKE ONE (1) TABLET BY MOUTH THREE TIMES A DAY, NEEDED FOR SEVERE ANXIETY/PANIC . USE SPARINGLY. added in this encounter Care Teams Windows Server Specialist Relationship Specialty Start Date End Date Tomas Jordan MD [address] [place] [address], [place] [id number] PCP - General Internal Medicine 02/27/24 documented as of this encounter
--- OUTSIDE RECORDS SUMMARY | 2024-05-10 20:07 | XMS_ITS | Encounter Summary ---
Author Organization [facility] Address [address] [place] [address] Care Team Providers Care Arabic Linguist Name Role Phone Tomas Jordan MD Primary Care Provider Reason for Visit * Reason Comments Fall Pt comes in with a f all a couple hours ago on ice. Positive head strike, unsure of LOC. Pt takes coumadin . Reports dizziness and headache. Encounter Details Date Type Department Care Team (Late st Contact Info) Description 04/29/2024 10:23 PM EST - 04/30/2024 2:17 AM EST Emergency [facility] Emergency [address] [place] [address] Discharge Disposition: Home or Self [...] Sign Reading Time Taken Comments Blood Pressure 109/56 04/29/2024 10:38 PM EST Pulse 114 04/29/2024 10:38 PM EST Temperature 36.9 ??C (98.4 ??F) 04/29/2024 10:[address] Respiratory Rate 18 04/29/2024 10:38 PM EST Oxygen Saturation 96% 04/29/2024 10:38 PM EST Inhaled Oxygen Concentration - - Weight 95.3 kg (210 lb) 04/29/2024 10:38 PM EST Height 170.2 cm (5' 7 ) 04/29/2024 10:38 PM EST Body Mass Index 32.89 04/29/2024 10:38 PM EST documented in this encounter Functional [...] 04/26/2024 8:38 PM Charlotte Penaloza RN documented as of this encounter Mental [...] documented in this encounter Progress Notes * Debra Post RN - 04/29/2024 10:35 PM EST Pt was walking and fell, hit his head, unknown loc, on blood thinner-warfarin C/o dizziness and sore documented in this encounter Plan of Treatment Not on file documented as of this encounter Procedures Procedure Name Priority Date/Time Associated Diagnosis Comments ECG ANNOTATED 05/02/2024 ECG 12-LEAD STAT 04/29/2024 11:25 PM EST documented in this encounter Results * ECG-Annotated (05/02/2024) us Provider Onbase MD ECG ORDERABLES Final Result * ECG 12 lead (04/29/2024 11:25 PM EST) Ventricular Rate ECG 112 BPM GEMUSE Atrial Rate 112 BPM GEMUSE P-R Interval 186 ms GEMUSE QRS Duration 140 ms GEMUSE Q-T Interval 328 ms GEMUSE QTc 447 ms GEMUSE P Wave [place] 27 degrees GEMUSE R [place] 0 degrees GEMUSE T [place] 120 degrees GEMUSE ECG Interpretation Sinus tachycardia Possible Left atrial enlargement Left bundle branch block Abnormal ECG When compared with ECG of 25-APR-2024 19:48, No significant change was found Confirmed by KALA CAVANAUGH ([id number]) on 05/01/2024 6:09:52 PM GEMUSE 04/29/2024 11:2 5 PM EST 05/01/2024 6:09 PM EST us Denae Rivas DO ECG ORDERABLES Final Res ult GEMUSE documented in this encounter Visit Diagnoses Not on filedocumented in this encounter Orders EKG Orders Without Results Count Last Ordered D ate First Ordered Date ECG 12-LEAD 1 04/29/2024 documented in this encounter Care Teams Arabic Linguist Relationship Specialty Start Date End Date Tomas Jordan MD [address] [place] [address], [address] [place] [address] PCP - General Internal Medicine 02/27/24 documented as of this encounter
--- OUTSIDE RECORDS SUMMARY | 2024-05-10 20:07 | XMS_ITS | Clinical Summary ---
Author Organization [facility] Address [address] [place] [address] Phone Care Team Providers Care Monument Erector Name Role Phone Tomas Jordan MD Primary Care Provider [phone] Allergies Active Allergy Reactions Criticality Noted Date Comments Phenytoin Sodium Extended Seizures High 02/27/2024 Ketorolac 03/07/2024 I get meaN QUICK as soon as my face starts burning. Lidocaine 03/07/2024 I'm only allergic to the liquid I used to get it when my teeth where bad, made my mouth swell . Morphine 03/07/2024 It makes me angry Mushroom 04/30/2024 Nicotine Anaphylaxis High 03/07/2024 It closes my throat . Nutritional Supplements 03/07/2024 [place] 04/30/2024 Trazodone 03/07/2024 Elongated erection. Do you know why trazadone was originally made for? . Medications clonazePAM (KlonoPIN) 1 mg tablet TAKE ONE (1) TABLET BY MOUTH THREE TIMES A DAY, NEEDED FOR SEVERE ANXIETY/MALHOTRA IC. USE SPARINGLY. Active Encounters Date Type Department Care Team Description 05/10/2024 7:37 PM EST - Present Emergency [facility] Emergency [address] [place] [phone] 04/30/2024 9:22 AM EST - 04/30/2024 10:12 AM EST Emergency [facility] Emergency [address] [place] [phone] Walter Gomez MD Fall, initial encounter (Primary Dx) Discharge Disposition: Left Against Medical Advice 04/29/2024 10:23 PM EST - 04/30/2024 2:[address] [facility] [address] [place] [phone] Discharge Disposition: Home or Self Care 04/27/2024 7:54 PM EST - 04/27/2024 10:[address] [facility] [address] [place] [phone] Discharge Disposition: Home or Self Care 04/26/2024 7:21 PM EST - 04/26/2024 9:[address] [facility] [address] [place] [phone] Baldemar Shah MD Homicidal ideation (Primary Dx); Musculoskeletal back pain; Polypharmacy; Mild episode of recurrent major depressive disorder (CMS/HCC); Anxiety Discharge Disposition: Home or Self Care 04/26/2024 3:20 PM EST - 04/26/2024 6:[address] [facility] [address] [place] [phone] Baldemar Shah MD Acute head injury without loss of consciousness, initial encounter (Primary Dx); Lumbar strain, initial encounter; Homicidal ideation Discharge Disposition: Left Against Medical Advice 04/25/2024 7:54 PM EST - 04/26/2024 1:[address] [facility] [address] [place] [phone] Fall from bed, initial encounter (Primary Dx); Bruise, trunk, initial encounter Discharge Disposition: Home or Self Care 03/19/2024 7:38 PM EST - 03/20/2024 12:[address] [facility] [address] [place] [phone] Discharge Disposition: Home or Self Care 03/17/2024 12:47 PM EST - 03/17/2024 3:[address] [facility] [address] [place] [phone] Discharge Disposition: Home or Self Care 03/07/2024 8:21 PM EST - 03/08/2024 1:[address] [facility] [address] [place] [phone] Discharge Disposition: Home or Self Care 02/27/2024 4:17 PM EST - 02/27/2024 6:13 PM EST Emergency [facility] Emergency [address] [place] [phone] Pain (Primary Dx) Discharge Disposition: Left Against [...] not to disclose 2023 4:40 PM EST Obstetrics History Last Filed Vital Signs Vital Sign Reading Time Taken Comments Blood Pressure 141/80 05/10/2024 7:39 PM EST Pulse 151 05/10/2024 7:39 PM EST Temperature 36.7 ??C (98.1 ??F) 04/30/2024 9:33 AM ES T Respiratory Rate 20 05/10/2024 7:39 PM EST Oxygen Saturation 96% 05/10/2024 7:39 PM EST Inhaled Oxygen Concentration - - Weight 95.3 kg (210 lb) 05/10/2024 7:39 PM EST Height 170.2 cm (5' 7 ) 05/10/2024 7:39 PM EST Body Mass Index 32.89 05/10/2024 7:39 PM EST Plan of Treatment Health Maintenance Due Date Last Done Comments DTaP,Tdap,and Td Vaccines (1 - Tdap) 12/20/1998 Pneumococcal Vaccine: Pediat rics (0 to 5 Years) and At-Risk Patients (6 to 64 Years) (2 of 2 - PCV) 05/06/2015 05/06/2014 COVID-19 Vaccine ( - 2023-2 5 season) 2023 Influenza Vaccine (#1) 2023 Cholesterol Screening (Lipid Panel) 02/27/2024 Depression Screening 02/27/2024 HIV Screening 02/27/2024 Hepatitis C Screening 02/27/2024 Social Influencers of Health Screening 02/27/2024 Hepatitis B Vaccines (2 of 3 - 19+ 3-dose series) 04/30/2024 04/02/2024 HIB Vaccines Aged Out No longer eligi [...] patient's age to complete this topic Meningococcal B Vacine Aged Out No lo nger eligible based on patient's age to complete this topic RSV Immunization Patients Un marquita 20 months Aged Out No longer eligible b ased on patient's age to complete this topic Varicella Vaccines Aged Out No longer eligible based on patient's age to complete this topic Procedures * The patient is currently admitted. The information in this section might not be complete until the patient is discharged. Procedure Name Priority Date/Time Associated Diagnosis Comments ECG ANNOTATED 05/02/2024 ECG 12-LEAD STAT 04/29/2024 11:25 PM EST MANUAL DIFFERENTIAL - SYSMEX WAM STAT 04/26/2024 8:42 PM EST CBC WITH AUTO DIFFERENTIAL STAT 04/26/2024 8:42 PM EST CBC AND DIFFERENTIAL STAT 04/26/2024 8:[address] HEAD WO CONTRAST STAT 04/26/2024 4 :28 PM EST ECG ANNOTATED 04/26/2024 CT CHEST/ABDOMEN/PELVIS W CONTRAST STAT 04/25/2024 11:[address] CERVICAL SPINE WO CONTRAST STAT 04/25/2024 11:[address] HEAD WO CONTRAST STAT 04/25/2024 1 1:00 PM EST TROPONIN I HIGH SENSITIVITY STAT 04/25/2024 10:23 PM EST SALICYLATE LEVEL STAT Add-on 04/25/2024 8:59 PM EST ACETAMINOPHEN LEVEL STAT Add-on 04/25/2024 8 :59 PM EST ETHANOL STAT Add-on 04/25/2024 8:59 PM EST CBC WITH AUTO DIFFERENTIAL STAT 04/25/2024 8:59 PM EST PROTHROMBIN TIME WITH INR STAT 04/25/2024 8:59 PM EST B-TYPE NATRIURETIC PEPTIDE STAT 04/25/2024 8:59 PM EST MAGNESIUM STAT 04/25/2024 8:59 PM EST LIPASE STAT 04/25/2024 8:59 PM EST COMPREHENSIVE METABOLIC PANEL STAT 04/25/2024 8:59 PM EST CBC AND DIFFERENTIAL STAT 04/25/2024 8:59 PM EST TROPONIN I HIGH SENSITIVITY STAT 04/25/2024 8:59 PM EST ECG 12-LEAD STAT 04/25/2024 7:48 PM EST XR CHEST 2 VIEWS STAT 03/19/2024 8:19 [...] EST from Last 3 Months Results * ECG-Annotated (05/02/2024) Only the most recent of3 resultswithin the time period is included. us Provider Onbase MD ECG ORDERABLES Final Result * ECG 12 lead (04/29/2024 11:25 PM EST) Only the most recent of3 resultswithin the time period is included. Ventricular Rate ECG 112 BPM GEMUSE Atrial Rate 112 BPM GEMUSE P-R Interval 186 ms GEMUSE QRS Duration 140 ms GEMUSE Q-T Interval 328 ms GEMUSE QTc 447 ms GEMUSE P Wave [place] 27 degrees GEMUSE R [place] 0 degrees GEMUSE T [place] 120 degrees GEMUSE ECG Interpretation Sinus tachycardia Possible Left atrial enlargement Left bundle branch block Abnormal ECG When compared with ECG of 25-APR-2024 19:48, No significant change was found Confirmed by KALA CAVANAUGH ([id number]) on 05/01/2024 6:09:52 PM GEMUSE 04/29/2024 11:2 5 PM EST 05/01/2024 6:09 PM EST us Denae Fernnádez Rivas DO ECG ORDERABLES Final Res ult GEMUSE * (ABNORMAL) Manual differential (04/26/2024 8:42 PM EST) Neutrophils % 62.0 % LAB HEMETOLOGY METHOD 04/26/2024 9:56 PM [facility] Bands % 1.0 % LAB HEMETOLOGY METHOD 04/26/2024 9:56 PM [facility] Lymphocytes % 25.0 % LAB HEMETOLOGY METHOD 04/26/2024 9:56 PM [facility] Reactive Lymphocyte 1.00 % LAB HEMETOLOGY METHOD 04/26/2024 9:56 PM [facility] Monocytes % 9.0 % LAB HEMETOLOGY METHOD 04/26/2024 9:56 PM [facility] Eosinophils % 2.0 % LAB HEMETOLOGY METHOD 04/26/2024 9:56 PM [facility] Basophils % 1.0 % LAB HEMETOLOGY METHOD 04/26/2024 9:56 PM [facility] Neutrophils Absolute Manual 10.04(H) 1.50 - 7.00 K/mcL LAB HEMETOLOGY METHOD 04/26/2024 9:56 PM [facility] Bands Absolute Manual 0.16(H) 0.00 - 0.00 K/mcL LAB HEMETOLOGY METHOD 04/26/2024 9:56 PM [facility] Lymphocytes Absolute 4.05 1.00 - 5.00 K/mcL LAB HEMETOLOGY METHOD 04/26/2024 9:56 PM [facility] Reactive Lymph Abs Manual 0.16(H) 0.00 - 0.00 lym LAB HEMETOLOGY METHOD 04/26/2024 9:56 PM [facility] Monocytes Absolute Manual 1.46(H) 0.20 - 1.00 K/mcL LAB HEMETOLOGY METHOD 04/26/2024 9:56 PM [facility] Eosinophils Absolute Manual 0.32 0.00 - 0.50 K/mcL LAB HEMETOLOGY METHOD 04/26/2024 9:56 PM [facility] Basophils Absolute Manual 0.16 0.00 - 0.20 K/[facility] LAB HEMETOLOGY METHOD 04/26/2024 9:56 PM [facility] Rbc Morphology Present( A) Consistent with indices, Normal for LAB HEMETOLOGY METHOD 04/26/2024 9:56 PM [facility] Comment:RBC: Morphology agre es with CBC Platelet Morphology - WAM See Note(A) Normal LAB HEMETOLOGY METHOD 04/26/2024 9:56 PM [facility] Comment:PLT: Large platelets seen Polychromasia Present Present( A) (none) LAB HEMETOLOGY METHOD 04/26/2024 9:56 PM [facility] Basophilic Stippling Present Present( A) (none) LAB HEMETOLOGY METHOD 04/26/2024 9:56 PM [facility] [place] Bodies Present Present( A) (none) LAB HEMETOLOGY METHOD 04/26/2024 9:56 PM [facility] Pappenheimer Bodies Present Present( A) (none) LAB HEMETOLOGY METHOD 04/26/2024 9:56 PM [facility] Schistocytes Present < 5%(A) (none) LAB HEMETOLOGY METHOD 04/26/2024 9:56 PM EST [facility] Target Cells Present 11 - 15%(A) (none) LAB HEMETOLOGY METHOD 04/26/2024 9:56 PM [facility] Vacuolated Neutrophils Present Present( A) (none) LAB HEMETOLOGY METHOD 04/26/2024 9:56 PM [facility] Blood Venous blood specimen / Unknown Venipuncture / Unknown 04/26/2024 8:42 PM EST 04/26/2024 8:54 PM EST us Baldemar Shah MD LAB BLOOD ORDERABLES Final Resu lt [facility] [address] [place] [address], [place] [phone] * (ABNORMAL) CBC auto differential (04/26/2024 8:42 PM EST) Only the most recent of3 resultswithin the time period is included. WBC 16.2(H) 4.8 - 10.8 K/mcL LAB HEMETOLOGY METHOD 04/26/2024 9:56 PM [facility] RBC 4.10(L) 4.50 - 5.50 M/mcL LAB HEMETOLOGY METHOD 04/26/2024 9:56 PM [facility] Hemoglobin 12.9(L) 13.5 - 17.5 g/dL LAB HEMETOLOGY METHOD 04/26/2024 9:56 PM [facility] Hematocrit 39.1(L) 42.0 - 54.0 % LAB HEMETOLOGY METHOD 04/26/2024 9:56 PM [facility] MCV 94.9 79.0 - 98.0 FL LAB HEMETOLOGY METHOD 04/26/2024 9:56 PM [facility] MCH 31.3 27.0 - 32.0 pcg LAB HEMETOLOGY METHOD 04/26/2024 9:56 PM EST [facility] MCHC 33.0 32.0 - 37.0 g/dL LAB HEMETOLOGY METHOD 04/26/2024 9:56 PM EST [facility] RDW 17.8(H) 11.0 - 15.0 % LAB HEMETOLOGY METHOD 04/26/2024 9:56 PM [facility] Platelets 396 130 - 400 K/mcL LAB HEMETOLOGY METHOD 04/26/2024 9:56 PM [facility] MPV 11.2(H) 7.0 - 11.0 FL LAB HEMETOLOGY METHOD 04/26/2024 9:56 PM EST [facility] NRBC 0.2 <1.0 % LAB HEMETOLOGY METHOD 04/26/2024 9:56 PM [facility] NRBC Absolute 0.03 <0.10 K/mcL LAB HEMETOLOGY METHOD 04/26/2024 9:56 PM [facility] Blood Venous blood specimen / Unknown Venipuncture / Unknown 04/26/2024 8:42 PM EST 04/26/2024 8:54 PM EST us Baldemar Shah MD LAB BLOOD ORDERABLES Final Resu lt [facility] [address] [place] [address], * CT Head wo Contrast (04/26/2024 4:28 PM EST) Only the most recent of2 resultswithin the time period is included. Anatomical Region Laterality Modality Head and Neck Computed Tomogra phy 04/26/2024 4:34 PM EST Impressions 04/26/2024 4:42 PM EST NO ACUTE INTRACRANIAL ABNORMALITY. -------- FINAL REPORT -------- Dictated By: Michele Goetz Dictated Date: 04/26/2024 16:34 ET Assigned Physician: Michele Goetz Reviewed and Electronically Signed By: Michele Goetz Signed Date: 04/26/2024 16:42 ET Workstation ID: [id number] Transcribed By: Self Edit Transcribed Date: 04/26/2024 16:34 ET Narrative 04/26/2024 4:42 PM EST PROCEDURE: HEAD CT INDICATION: Trauma TECHNIQUE: CT of the head without intravenous contrast. Multiplanar reformats. The examination was performed utilizing dose reduction techniques. Total DLP 1204 COMPARISON: ??04/25/2024 FINDINGS: ?? No acute territorial infarct, mass effect, or intracranial hemorrhage. ??Remote insult in the left operculum. Mild scattered periventricular and subcortical white matter hypodensities are most likely related to chronic small vessel ischemic change. Ventricles, sulci, and cisterns are normal in size and configuration. No hydrocephalus or volume loss. Polypoid mucosal thickening of the maxillary sinuses. ??Mastoid air cells are clear. No scalp hematoma or skull fracture. Procedure Note Michele Goetz MD - 04/26/2024 PROCEDURE: HEAD CT INDICATION: Trauma TECHNIQUE: CT of the head without intravenous contrast. Multiplanarreformats. The examination was performed utilizing dose reductiontechniques. Total DLP 1204 COMPARISON: 04/25/2024 FINDINGS: No acute territorial infarct, mass effect, or intracranial hemorrhage.Remote insult in the left operculum. Mild scattered periventricular and subcortical white matter hypodensitiesare most likely related to chronic small vessel ischemic change. Ventricles, sulci, and cisterns are normal in size and configuration. Nohydrocephalus or volume loss. Polypoid mucosal thickening of the maxillary sinuses. Mastoid air cellsare clear. No scalp hematoma or skull fracture. IMPRESSION: NO ACUTE INTRACRANIAL ABNORMALITY. -------- FINAL REPORT -------- Dictated By: Michele Goetz Dictated Date: 04/26/2024 16:34 ET Assigned Physician: Michele Goetz Reviewed and Electronically Signed By: Michele Goetz Signed Date: 04/26/2024 16:42 ET Workstation ID: [id number] Transcribed By: Self Edit Transcribed Date: 04/26/2024 16:34 ET Baldemar Shah MD IMG CT PROCEDURES Final Result * CT Chest/Abdomen/Pelvis w Contrast (04/25/2024 11:00 PM EST) Anatomical Region Laterality Modality Body Computed Tomogra phy 04/26/2024 12:2 0 AM EST Impressions 04/26/2024 12:20 AM EST No acute fracture or organ injury. Possible bronchitis. CT Abdomen and Pelvis W Contrast COMPARISON: None FINDINGS: Detail limited by artifacts. Hepatomegaly. Absent spleen. Splenules in the left upper quadrant. Mild right renal scarring. Unremarkable left kidney. No hydronephrosis. Normal adrenal glands. Normal pancreas. No visible cholelithiasis. No biliary dilation. No evidence of bowel obstruction or colitis. Normal appendix. Unremarkable bladder. No ascites. No pneumoperitoneum. No lymphadenopathy. No acute fracture. No abdominal aortic aneurysm. IMPRESSION: No acute findings. Nonemergent/incidental findings above. This document has been electronically signed by: Ambrosio Walker MD on 04/26/2024 00:20:07 Narrative 04/26/2024 12:20 AM EST INDICATION: [id number] trauma, blunt CT Chest W Contrast COMPARISON: None FINDINGS: Detail limited by artifacts. No pulmonary consolidation or mass. Mild bilateral bronchial wall thickening. No pleural effusion. No pneumothorax. No cardiomegaly. No pericardial effusion. No pathologically enlarged lymph nodes. No thoracic aortic aneurysm. No acute fracture. Status post median sternotomy. Procedure Note Ambrosio Walker MD - 04/26/2024 INDICATION: Ccxmr-[id number] trauma, blunt CT Chest W Contrast COMPARISON: None FINDINGS: Detail limited by artifacts. No pulmonary consolidation or mass. Mild bilateral bronchial wall thickening. No pleural effusion. No pneumothorax. No cardiomegaly. No pericardial effusion. No pathologically enlarged lymph nodes. No thoracic aortic aneurysm. No acute fracture. Status post median sternotomy. IMPRESSION: No acute fracture or organ injury. Possible bronchitis. CT Abdomen and Pelvis W Contrast COMPARISON: None FINDINGS: Detail limited by artifacts. Hepatomegaly. Absent spleen. Splenules in the left upper quadrant. Mild right renal scarring. Unremarkable left kidney. No hydronephrosis. Normal adrenal glands. Normal pancreas. No visible cholelithiasis. No biliary dilation. No evidence of bowel obstruction or colitis. Normal appendix. Unremarkable bladder. No ascites. No pneumoperitoneum. No lymphadenopathy. No acute fracture. No abdominal aortic aneurysm. IMPRESSION: No acute findings. Nonemergent/incidental findings above. This document has been electronically signed by: Ambrosio Walker MD on 04/26/2024 00:20:07 [place] [facility] [place]ED[place] Final Result * CT Cervical Spine wo Contrast (04/25/2024 11:00 PM EST) Anatomical Region Laterality Modality Spine, C-spine Computed Tomogra phy 04/26/2024 12:1 0 AM EST Impressions 04/26/2024 12:10 AM EST No acute findings. This document has been electronically signed by: Ambrosio Walker MD on 04/26/2024 00:10:13 Narrative 04/26/2024 12:10 AM EST INDICATION: Neck trauma, midline tenderness (Age 16-64y) CT Cervical Spine WO Contrast COMPARISON: None FINDINGS: No acute fracture or malalignment. Soft tissues are normal. Lung apices are clear. Procedure Note Ambrosio Walker MD - 04/26/2024 INDICATION: Neck trauma, midline tenderness (Age 16-64y) CT Cervical Spine WO Contrast COMPARISON: None FINDINGS: No acute fracture or malalignment. Soft tissues are normal. Lung apices are clear. IMPRESSION: No acute findings. This document has been electronically signed by: Ambrosio Walker MD on 04/26/2024 00:10:13 [place] [facility] [place]ED[place] Final Result * Troponin I high sensitivity (04/25/2024 10:23 PM EST) Only the most recent of2 resultswithin the time period is included. [facility] High Sensitivity Troponin I 9 <=79 ng/L LAB CHEMISTRY METHOD 04/25/2024 10:55 PM EST [facility] Blood Venous blood specimen / Unknown Venipuncture / Unknown 04/25/2024 10:23 PM EST 04/25/2024 10:29 PM EST Narrative [facility] - 04/25/2024 10:55 PM EST High levels of biotin in samples may falsely decrease hsTroponin values. ??Use caution when interpreting hsTroponin results in patients taking biotin who exhibit renal impairment (eGFR <60) or in patients taking more than 20 mg/day of biotin. Walter Gomez MD LAB BLOOD ORDERABLES Final Result Performing Organization Address [facility]/ZIP Co de Phone Number [facility] [address] [place] [address], [place] [phone] * (ABNORMAL) Protime-INR (04/25/2024 8:59 PM EST) Only the most recent of2 resultswithin the time period is included. Pathologist [facility] Protime 57.0(H) 10.6 - 13.9 sec LAB COAGULATION METHOD 04/25/2024 9:32 PM EST [facility] INR 4.7 LAB COAGULATION METHOD 04/25/2024 9:32 PM [facility] Blood Venous blood specimen / Unknown Venipuncture / Unknown 04/25/2024 8:59 PM EST 04/25/2024 9:18 PM EST Walter Gomez MD LAB BLOOD ORDERABLES Final Result [facility] [address] [place] [address], [place] [phone] * B-type natriuretic peptide (04/25/2024 8:59 PM EST) BNP 16 <=100 pcg/mL LAB CHEMISTRY METHOD 04/25/2024 9:52 PM EST [facility] Blood Venous blood specimen / Unknown Venipuncture / Unknown 04/25/2024 8:59 PM EST 04/25/2024 9:19 PM EST Walter Gomez MD LAB BLOOD ORDERABLES Final Result Performing Organization Address [facility]/ZIP Co de Phone Number [facility] [address] [place] [address], [place] [phone] * Magnesium (04/25/2024 8:59 PM EST) Only the most recent of2 resultswithin the time period is included. Pathologist [facility] Magnesium 1.9 1.9 - 2.6 mg/dL LAB CHEMISTRY METHOD 04/25/2024 9:46 PM EST [facility] Blood Venous blood specimen / Unknown Venipuncture / Unknown 04/25/2024 8:59 PM EST 04/25/2024 9:19 PM EST Walter Gomez MD LAB BLOOD ORDERABLES Final Result Performing Organization Address [facility] Co de Phone Number [facility] [address] [place] [address], [place] [phone] * Lipase (04/25/2024 8:59 PM EST) [facility] Lipase 65 13 - 75 unit/L LAB CHEMISTRY METHOD 04/25/2024 9:46 PM EST [facility] Blood Venous blood specimen / Unknown Venipuncture / Unknown 04/25/2024 8:59 PM EST 04/25/2024 9:19 PM EST us Walter Gomez MD LAB BLOOD ORDERABLES Final Result Performing Organization Address City/[facility]/ZIP Co de Phone Number [facility] [address] [place] [address], [place] [phone] * Ethanol (04/25/2024 8:59 PM EST) Ethanol Level 9 0 - 10 mg/dL LAB CHEMISTRY METHOD 04/26/2024 5:52 PM EST [facility] Blood Venous blood specimen / Unknown Venipuncture / Unknown 04/25/2024 8:59 PM EST 04/25/2024 9:19 PM EST us Baldemar Shah MD LAB BLOOD ORDERABLES Final Resu lt Performing Organization Address [facility] de Phone Number [facility] [address] [place] [address], [place] [phone] * (ABNORMAL) Acetaminophen level (04/25/2024 8:59 PM EST) Acetaminophen Level <2.0(L) 10.0 - 30.0 mcg/mL LAB CHEMISTRY METHOD 04/26/2024 5:52 PM EST [facility] Blood Venous blood specimen / Unknown Venipuncture / Unknown 04/25/2024 8:59 PM EST 04/25/2024 9:19 PM EST us Baldemar Shah MD LAB BLOOD ORDERABLES Final Resu lt Performing Organization Address [facility] de Phone Number [facility] [address] [place] [address], [place] [phone] * Salicylate level (04/25/2024 8:59 PM EST) Salicylate Level 2.2 2.0 - 29.0 mg/dL LAB CHEMISTRY METHOD 04/26/2024 5:52 PM EST [facility] Blood Venous blood specimen / Unknown Venipuncture / Unknown 04/25/2024 8:59 PM EST 04/25/2024 9:19 PM EST us Baldemar Shah MD LAB BLOOD ORDERABLES Final Resu lt Performing Organization Address [facility] de Phone Number [facility] [address] [place] [address], [place] [phone] * (ABNORMAL) Comprehensive metabolic panel (04/25/2024 8:59 PM EST) Sodium 139 133 - 145 mmol/L LAB CHEMISTRY METHOD 04/25/2024 9:52 PM [facility] Potassium 4.2 3.5 - 5.5 mmol/L LAB CHEMISTRY METHOD 04/25/2024 9:52 PM [facility] Chloride 105 96 - 110 mmol/L LAB CHEMISTRY METHOD 04/25/2024 9:52 PM [facility] CO2 28 21 - 32 mmol/L LAB CHEMISTRY METHOD 04/25/2024 9:52 PM [facility] Anion Gap 6 3 - 11 LAB CHEMISTRY METHOD 04/25/2024 9:52 PM [facility] Glucose 125(H) 70 - 100 mg/dL LAB CHEMISTRY METHOD 04/25/2024 9:52 PM [facility] BUN 12 5 - 25 mg/dL LAB CHEMISTRY METHOD 04/25/2024 9:52 PM [facility] Creatinine 0.86 0.70 - 1.30 mg/dL LAB CHEMISTRY METHOD 04/25/2024 9:52 PM [facility] eGFR 109 >=60 mL/min/1. 73m2 LAB CHEMISTRY METHOD 04/25/2024 9:52 PM [facility] Comment:Calculation based on the??Chronic Kidney Disease Epidemiology Collaboration (CKD-EPI) equation refit??without adjustment for race. BUN/Creatinine Ratio 14.0 LAB CHEMISTRY METHOD 04/25/2024 9:52 PM [facility] Calcium 9.2 8.5 - 10.5 mg/dL LAB CHEMISTRY METHOD 04/25/2024 9:52 PM [facility] AST (SGOT) 46(H) 10 - 42 unit/L LAB CHEMISTRY METHOD 04/25/2024 9:52 PM EST [facility] ALT (SGPT) 43 10 - 60 unit/L LAB CHEMISTRY METHOD 04/25/2024 9:52 PM [facility] Alkaline Phosphatase 113 42 - 121 unit/L LAB CHEMISTRY METHOD 04/25/2024 9:52 PM [facility] Total Protein 6.6 6.0 - 8.0 g/dL LAB CHEMISTRY METHOD 04/25/2024 9:52 PM [facility] Albumin 2.9(L) 3.2 - 5.0 g/dL LAB CHEMISTRY METHOD 04/25/2024 9:52 PM [facility] Total Bilirubin 0.4 0.0 - 1.4 mg/dL LAB CHEMISTRY METHOD 04/25/2024 9:52 PM [facility] Blood Venous blood specimen / Unknown Venipuncture / Unknown 04/25/2024 8:59 PM EST 04/25/2024 9:19 PM EST us Walter Gomez MD LAB BLOOD ORDERABLES Final Result [facility] [address] [place] [address], * XR Chest 2 Views (03/19/2024 8:19 [...] fracture -------- FINAL REPORT -------- Dictated By: STEWART SOLOMON Dictated Date: 03/20/2024 09:58 ET Assigned Physician: STEWART SOLOMON Reviewed and Electronically Signed By: STEWART SOLOMON Signed Date: 03/20/2024 10:02 ET Workstation ID: [id number] Transcribed By: Self Edit Transcribed Date: 03/20/2024 09:58 ET Narrative 03/20/2024 10:02 AM EST XR CHEST 2 VIEWS INDICATION: ??Chest pain TECHNIQUE: XR CHEST 2 VIEWS COMPARISON: 03/07/2024 Procedure Note Stewart Solomon MD - 03/20/2024 XR CHEST 2 VIEWS INDICATION: Chest pain TECHNIQUE: XR CHEST 2 VIEWS COMPARISON: 03/07/2024 IMPRESSION: FINDINGS/IMPRESSION: No pneumonia or pulmonary edema. No pleural effusionor pneumothorax. Cardiac silhouette is stable in size with aortic valveprosthesis and median sternotomy noted. No acute fracture -------- FINAL REPORT -------- Dictated By: STEWART SOLOMON Dictated Date: 03/20/2024 09:58 ET Assigned Physician: STEWART SOLOMON Reviewed and Electronically Signed By: STEWART SOLOMON Signed Date: 03/20/2024 10:02 ET Workstation ID: [id number] Transcribed By: Self Edit Transcribed Date: 03/20/2024 09:58 ET Yobani Ngo DO IMG XR PROCEDURES Final Result * Urinalysis with reflex microscopic (02/27/2024 5:51 PM EST) Specific Dewitt Urine 1.012 1.003 - 1.030 LAB URINALYSIS - AUTOMATED METHOD 02/27/2024 6:24 PM [facility] pH, Urine 7.0 5.0 - 8.0 pH LAB URINALYSIS - AUTOMATED METHOD 02/27/2024 6:24 PM [facility] Leukocytes, Urine Negative Negative LAB URINALYSIS - AUTOMATED METHOD 02/27/2024 6:24 PM [facility] Nitrite, Urine Negative Negative LAB URINALYSIS - AUTOMATED METHOD 02/27/2024 6:24 PM [facility] Protein, Urine Negative <=Trace mg/dL LAB URINALYSIS - AUTOMATED METHOD 02/27/2024 6:24 PM EST [facility] Glucose, Urine Negative Negative mg/dL LAB URINALYSIS - AUTOMATED METHOD 02/27/2024 6:24 PM [facility] Ketones, Urine Negative Negative mg/dL LAB URINALYSIS - AUTOMATED METHOD 02/27/2024 6:24 PM [facility] Urobilinogen, Urine 1.0 0.2 - 1.0 mg/dL LAB URINALYSIS - AUTOMATED METHOD 02/27/2024 6:24 PM [facility] Bilirubin, Urine Negative Negative LAB URINALYSIS - AUTOMATED METHOD 02/27/2024 6:24 PM [facility] Blood, Urine Negative Negative LAB URINALYSIS - AUTOMATED METHOD 02/27/2024 6:24 PM [facility] Urine Urine specimen obtained by clean catch procedure / Unknown Non-blood Collection / Unknown 02/27/2024 5:51 PM EST 02/27/2024 6:03 PM EST us Piotr KOENIG LAB URINE ORDERABLES Final R esult [facility] [address] [place] [address], * Respiratory virus panel molecular study (02/27/2024 5:51 PM EST) Adenovirus Detection by PCR Not Detected Not Detected LAB MICROBIOLOGY METHOD 02/27/2024 7:05 PM EST [facility] Influenza A PCR Not Detected Not Detected LAB MICROBIOLOGY METHOD 02/27/2024 7:05 PM EST [facility] Influenza B PCR Not Detected Not Detected LAB MICROBIOLOGY METHOD 02/27/2024 7:05 PM EST [facility] Coronavirus 229E Not Detected Not Detected LAB MICROBIOLOGY METHOD 02/27/2024 7:05 PM EST [facility] Coronavirus HKU1 Not Detected Not Detected LAB MICROBIOLOGY METHOD 02/27/2024 7:05 PM [facility] Coronavirus OC43 Not Detected Not Detected LAB MICROBIOLOGY METHOD 02/27/2024 7:05 PM [facility] Coronavirus NL63 Not Detected Not Detected LAB MICROBIOLOGY METHOD 02/27/2024 7:05 PM [facility] Parainfluenza Virus 1 Not Detected Not Detected LAB MICROBIOLOGY METHOD 02/27/2024 7:05 PM [facility] Parainfluenza Virus 2 Not Detected Not Detected LAB MICROBIOLOGY METHOD 02/27/2024 7:05 PM [facility] Parainfluenza Virus 3 Not Detected Not Detected LAB MICROBIOLOGY METHOD 02/27/2024 7:05 PM [facility] Parainfluenza Virus 4 Not Detected Not Detected LAB MICROBIOLOGY METHOD 02/27/2024 7:05 PM [facility] RSV PCR Not Detected Not Detected LAB MICROBIOLOGY METHOD 02/27/2024 7:05 PM [facility] Human Metapneumovirus A and B Not Detected Not Detected LAB MICROBIOLOGY METHOD 02/27/2024 7:05 PM [facility] Rhinovirus/Entero virus Not Detected Not Detected LAB MICROBIOLOGY METHOD 02/27/2024 7:05 PM [facility] Bordetella pertussis Not Detected Not Detected LAB MICROBIOLOGY METHOD 02/27/2024 7:05 PM [facility] Bordetella parapertussis Not Detected Not Detected LAB MICROBIOLOGY METHOD 02/27/2024 7:05 PM [facility] Mycoplasma pneumo by PCR Not Detected Not Detected LAB MICROBIOLOGY METHOD 02/27/2024 7:05 PM [facility] Chlamydia pneumoniae Not Detected Not Detected LAB MICROBIOLOGY METHOD 02/27/2024 7:05 PM [facility] SARS COV-2 Not Detected Not Detected LAB MICROBIOLOGY METHOD 02/27/2024 7:05 PM EST [facility] Swab Both anterior nares / Unknown Non-blood Collection / Unknown 02/27/2024 5:51 PM EST 02/27/2024 5:59 PM EST Narrative [facility] - 02/27/2024 7:05 PM EST Testing was performed using the [employer] Respiratory Pathogen PCR Assay. All results must [...] that are below the limit of detection. us Piotr KOENIG LAB MICROBIOLOGY - GENERAL O RDERABLES Final Result [facility] [address] [place] [address], * Vascular US Duplex Lower Extremity Venous [...] Signed Date: 02/28/2024 09:29 ET Workstation ID: [id number] Transcribed By: Self Edit Transcribed Date: 02/28/2024 [...] Signed Date: 02/28/2024 09:29 ET Workstation ID: [id number] Transcribed By: Self Edit Transcribed Date: 02/28/2024 09:28 ET Piotr KOENIG CV VASCULAR PROCEDURES Final Result * APTT (02/27/2024 4:33 PM EST) Pathologist [facility] aPTT 38.3 24.1 - 39.3 sec LAB COAGULATION METHOD 02/27/2024 4:50 PM EST [facility] Blood Venous blood specimen / Unknown Venipuncture / Unknown 02/27/2024 4:33 PM EST 02/27/2024 4:38 PM EST Orion Davidson MD LAB BLOOD ORDERABLES Simin l Result [facility] [address] [place] [address], [place] [phone] * Creatine kinase (02/27/2024 4:33 PM EST) Pathologist [facility] Total CK 37 22 - 269 unit/L LAB CHEMISTRY METHOD 02/27/2024 5:06 PM EST [facility] Blood Venous blood specimen / Unknown Venipuncture / Unknown 02/27/2024 4:33 PM EST 02/27/2024 4:38 PM EST us Piotr KOENIG LAB BLOOD ORDERABLES Final R esult [facility] [address] [place] [address], [place] [phone] * (ABNORMAL) Basic metabolic panel (02/27/2024 4:33 PM EST) Sodium 140 133 - 145 mmol/L LAB CHEMISTRY METHOD 02/27/2024 5:03 PM [facility] Potassium 3.5 3.5 - 5.5 mmol/L LAB CHEMISTRY METHOD 02/27/2024 5:03 PM [facility] Chloride 106 96 - 110 mmol/L LAB CHEMISTRY METHOD 02/27/2024 5:03 PM [facility] CO2 26 21 - 32 mmol/L LAB CHEMISTRY METHOD 02/27/2024 5:03 PM [facility] Anion Gap 8 3 - 11 LAB CHEMISTRY METHOD 02/27/2024 5:03 PM [facility] Glucose 109(H) 70 - 100 mg/dL LAB CHEMISTRY METHOD 02/27/2024 5:03 PM [facility] BUN 6 5 - 25 mg/dL LAB CHEMISTRY METHOD 02/27/2024 5:03 PM [facility] Creatinine 0.72 0.50 - 1.30 mg/dL LAB CHEMISTRY METHOD 02/27/2024 5:03 PM [facility] eGFR 116 >=60 mL/min/1. 73m2 LAB CHEMISTRY METHOD 02/27/2024 5:03 PM [facility] Comment:Calculation based on the??Chronic Kidney Disease Epidemiology Collaboration (CKD-EPI) equation refit??without adjustment for race. BUN/Creatinine Ratio 8.3 LAB CHEMISTRY METHOD 02/27/2024 5:03 PM EST [facility] Calcium 8.9 8.5 - 10.5 mg/dL LAB CHEMISTRY METHOD 02/27/2024 5:03 PM EST [facility] Blood Venous blood specimen / Unknown Venipuncture / Unknown 02/27/2024 4:33 PM EST 02/27/2024 4:38 PM EST us Orion Davidson MD LAB BLOOD ORDERABLES Simin l Result [facility] ([facility] [address] [place] [address], [place] [phone] from Last 3 Months Insurance [facility] Care Teams Monument Erector Relationship Specialty Start Date End Date Tomas Jordan MD [address] [place] [address], [address] [place], [place] [id number] PCP - General Internal Medicine 02/27/24
--- OUTSIDE RECORDS SUMMARY | 2024-05-10 20:07 | XMS_ITS | Encounter Summary ---
[facility] Address [address] [place] [address] Care Team Providers Care Wigs Salesperson Name Role Phone Tomas Jordan MD Primary Care Provider [phone] Reason for Visit * Reason Comments Back Pain Lower right back Dizziness Encounter Details Date Type Department Care Team (Late st Contact Info) Description 04/26/2024 3:20 PM EST - 04/26/2024 6:00 PM EST Emergency [facility] Emergency [address] [place] [address] Baldemar Shah MD [address] [place] [address] Acute head injury without loss of consciousness, initial encounter (Primary Dx); Lumbar strain, initial encounter; Homicidal ideation Discharge Disposition: Left Against Medical Advice Social History Tobacco Use Types Packs/Day Years [...] Sign Reading Time Taken Comments Blood Pressure 119/84 04/26/2024 3:50 PM EST Pulse 92 04/26/2024 3:50 PM EST Temperature 36.8 ??C (98.2 ??F) 04/26/2024 3:50 PM ES T Respiratory Rate 18 04/26/2024 3:50 PM EST Oxygen Saturation 98% 04/26/2024 3:50 PM EST Inhaled Oxygen Concentration - - Weight 99.8 kg (220 lb) 04/26/2024 3:50 PM EST Height 165.1 cm (5' 5 ) 04/26/2024 3:50 PM EST Body Mass Index 36.61 04/26/2024 3:50 PM EST documented in this encounter Functional Status * Are you deaf or do you have serious difficulty hearing? Answer Date of Assessment Author No 04/26/2024 12:33 AM Daniela Peters RN * Are you blind or do you have serious difficulty seeing, even when wearing glasses? Answer Date of Assessment Author No 04/26/2024 12:33 AM Daniela Peters RN * Do you have serious difficulty walking or climbing stairs? Answer Date of Assessment Author No 04/26/2024 12:33 AM Daniela Peters RN * Do you have serious difficulty dressing or bathing? Answer Date of Assessment Author No 04/26/2024 12:33 AM Daniela Peters RN * Because of a physical, mental, or emotional condition, do you have serious difficulty doing errandsalone such as visiting the doctor? Answer Date of Assessment Author No 04/26/2024 12:33 AM Daniela Peters RN documented as of this encounter Mental Status * Because of a physical, mental, or emotional condition, do you have serious difficulty concentrating, remembering, or making decisions? (5 years old or older) Answer Entry Date Author No 04/26/2024 12:33 AM Daniela Peters RN documented in this encounter Discharge Disposition Disposition Code Departure Means Destination Comment s Left Against Medical Advice documented in this encounter Progress Notes * Rickey Mayers RN - 04/26/2024 5:14 PM EST Pt left ama against the advice of this RN and his at 1708 according to security in [employer] pod. Rickey Mayers RN 04/26/24 1715 * Brianna Rodriguez RN - 04/26/2024 5:07 PM EST Delayed documentation secondary to patient care; this RN approached by [facility] Clinician secondary to conversation with patient; pt reported to clinician (Alissa) I will be back tonight with my whit[place] section 12 . Per clinician, pt expressed HI with planned intent. Upon discussion with clinician, this RN contacted primary RN and ER MD Shah with plan to transition patient to aqua pod for continued evaluation and psychiatric evaluation. sack lifter aware of plan and returned to pt stretcher, finding patient eloped from ER without notification to hospital staff. MD Shah aware. Security staff aware pending return of patient to ER. [facility] Clinician contacted patient via phone with attempt unsuccessful. * Rickey Mayers RN - 04/26/2024 3:27 PM EST Pt states he is due for anxiety medication at this time, but feels his anxiety medicine dose is too high and contributing to his dizziness. Takes clonazepam, diazepam. Rickey Mayers RN 04/26/24 1536 * Rickey Mayers RN - 04/26/2024 3:21 PM EST Pt biba from home today after discharge from here last night for a similar fall. Sit up at home today, got dizzy and fell. No syncope per pt, + headstrike, + coumadin and lovenox. Bruising to lower left back. 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 Pt c/o lower left back pain at this time. * Baldemar Shah MD - 04/26/2024 3:10 PM EST Emergency Medicine Note Patient Name: Ok Zapata Initial Evaluation: 04/26/2024 : 1980 Patient's PCP: Tomas Jordan MD Emergency Physician: Baldemar Shah MD History of Present Illness Chief Complaint: Chief Complaint Patient presents with Back Pain Lower right back Dizziness HPI: 43-year-old male presents as a bounce back for back pain. Patient was recently discharged fromthe ED for back pain. States he was recently started on clonazepam and lorazepam by his psychiatrist. Takes them in the afternoon then becomes dizzy and falls. Taken this afternoon became dizzy and fell, again striking his back against his bedside table. He also hit his head, unclear LOC. Currentlyon Lovenox. ROS: I have performed a ROS with [...] in imaging ARYA Bowser 90 mL at 04/25/242253 [COMPLETED] ondansetron (PF) (ZOFRAN) injection 4 mg 4 mg intravenous Once ARYA Bowser 4 mg at 04/25/242237 [COMPLETED] sodium chloride 0.9 % bolus 1,000 mL 1,000 mL intravenous Once ARYA Bowser Stopped at 04/26/24 0033 [COMPLETED] sodium chloride 0.9 % flush 10 mL 10 mL intravenous Once ARYA Bowser 10 mL at 04/25/242252 No current outpatient medications on file prior to encounter. Physical Exam ED Triage Vitals [04/26/24 1550] Temp Heart Rate Resp BP 36.8 ??C (98.2 ??F) 92 18 119/84 SpO2 Temp Source Heart Rate Source Patient Position 98 % Oral Brachial Lying BP Location FiO2 (%) Left arm -- GENERAL: Well-Appearing SKIN: Warm, dry, normal for ethnicity. No rashes. HEENT: Normal sclera, noninjected nonicteric CHEST: Normal peripheral perfusion, no edema PULMONARY: Normal respiratory effort ABDOMINAL: Nondistended NEURO: Alert and oriented, moving all extremities equally PSYCHIATRIC: Normal affect, fluid speech, good eye contact and appropriate demeanor. Back: Ecchymosis over the left flank, tender to palpation Results Labs Reviewed CBC AND DIFFERENTIAL Narrative: The following orders were created for panel order CBC and differential. Procedure Abnormality Status --------- ------ CBC auto differential[[id number]] Please view results for these tests on the individual orders. COMPREHENSIVE METABOLIC PANEL ETHANOL ACETAMINOPHEN LEVEL SALICYLATE LEVEL DRUG ABUSE SCREEN 8A PANEL, URINE BUPRENORPHINE SCREEN, URINE PHENCYCLIDINE, URINE METHADONE SCREEN, URINE CBC WITH AUTO DIFFERENTIAL Abnormal Labs Reviewed - No abnormal labs to display CT Head wo Contrast Final Result NO ACUTE INTRACRANIAL ABNORMALITY. -------- FINAL REPORT -------- Dictated By: Michele Goetz Dictated Date: 04/26/2024 16:34 ET Assigned Physician: Michele Goetz Reviewed and Electronically Signed By: Michele Goetz Signed Date: 04/26/2024 16:42 ET Workstation ID: [id number] Transcribed By: Self Edit Transcribed Date: 04/26/2024 16:34 ET I have discussed the incidental/abnormal imaging and/or [...] None ? Medical Decision Making Differential Diagnosis: Musculoskeletal back pain, polypharmacy, falls MDM: 43-year-old male with recent ED visit for falls presents after a fall. Falls likely due to polypharmacy, patient can follow-up outpatient regarding reduction in his benzodiazepine regimen. Incidentally, the patient's arrived and stated she was planning to bring him back later today for a section 12. At home he expressed homicidal ideation with plan means and at target. He was briefly seen by crisis, however in the time it took to try and relocate him from [facility] to replaced by [facility] the patient eloped from the department. Notified Sharla STATON after attempting to call the patient on his cell phone. Clinical Impression: Homicidal ideation, falls, head injury without loss of consciousness, musculoskeletal back pain SEPSIS Exemption: [ x ] It is unlikely this patient has sepsis at the time of my evaluation. Medications - No data to display ED Course as of 04/26/241723 Tue Apr 26, [address] head negative. Crisis was able to speak to the patient via phone and he will return back tot ED for evaluation. [MG] ED Course User Index [MG] Baldemar Shah MD Clinical Impressions as of 04/26/241723 Acute head injury without loss of consciousness, initial encounter Lumbar strain, initial encounter Homicidal ideation Procedures Procedures Diagnosis 1. Acute head injury without loss of consciousness, initial encounter 2. Lumbar strain, initial encounter 3. Homicidal ideation Disposition AMA ED Prescriptions None Physician Attestation Baldemar Shah MD 04/26/241723 documented in this encounter Plan of Treatment Scheduled Orders Name Type Priority Associated Diagnoses Orde r Schedule ECG 12 lead ECG STAT Once for 1 Oc currences starting 04/26/2024 until 04/26/2024 documented as of this encounter Procedures Procedure Name Priority Date/Time Associated Diagnosis Comments CT HEAD WO CONTRAST STAT 04/26/2024 4 :28 PM EST ETHANOL STAT Add-on 04/25/2024 8:59 PM EST ACETAMINOPHEN LEVEL STAT Add-on 04/25/2024 8 :59 PM EST SALICYLATE LEVEL STAT Add-on 04/25/2024 8:59 PM EST documented in this encounter Results * CT Head wo Contrast (04/26/2024 4:28 PM EST) Anatomical Region Laterality Modality Head and Neck Computed Tomogra phy 04/26/2024 4:34 PM EST Impressions 04/26/2024 4:42 PM EST NO ACUTE INTRACRANIAL ABNORMALITY. -------- FINAL REPORT -------- Dictated By: Michele Goetz Dictated Date: 04/26/2024 16:34 ET Assigned Physician: Michele Goetz Reviewed and Electronically Signed By: Michele Goetz Signed Date: 04/26/2024 16:42 ET Workstation ID: [id number] Transcribed By: Self Edit Transcribed Date: 04/26/2024 [...] Signed Date: 04/26/2024 16:42 ET Workstation ID: [id number] Transcribed By: Self Edit Transcribed Date: 04/26/2024 16:34 ET us Baldemar Shah MD IMG CT PROCEDURES Final Result * Salicylate level (04/25/2024 8:59 PM EST) Salicylate Level 2.2 2.0 - 29.0 mg/dL LAB CHEMISTRY METHOD 04/26/2024 5:52 PM EST [facility] Blood Venous blood specimen / Unknown Venipuncture / Unknown 04/25/2024 8:59 PM EST 04/25/2024 9:19 PM EST us Baldemar Shah MD LAB BLOOD ORDERABLES Final Resu lt [facility] [address] [place] [address], [place] [phone] * (ABNORMAL) Acetaminophen level (04/25/2024 8:59 PM EST) Acetaminophen Level <2.0(L) 10.0 - 30.0 mcg/mL LAB CHEMISTRY METHOD 04/26/2024 5:52 PM EST [facility] Blood Venous blood specimen / Unknown Venipuncture / Unknown 04/25/2024 8:59 PM EST 04/25/2024 9:19 PM EST us Baldemar Shah MD LAB BLOOD ORDERABLES Final Resu lt [facility] [address] [place] [address], [place] [phone] * Ethanol (04/25/2024 8:59 PM EST) Ethanol Level 9 0 - 10 mg/dL LAB CHEMISTRY METHOD 04/26/2024 5:52 PM EST [facility] Blood Venous blood specimen / Unknown Venipuncture / Unknown 04/25/2024 8:59 PM EST 04/25/2024 9:19 PM EST us Baldemar Shah MD LAB BLOOD ORDERABLES Final Resu lt [facility] [address] [place] [address], documented in this encounter Visit Diagnoses Diagnosis Acute head injury without loss of consciousness, initial encounter- Primary Lumbar strain, initial encounter Homicidal ideation documented in this encounter Care Teams Wigs Salesperson Relationship Specialty Start Date End Date Tomas Jordan MD [address] [place] [address], [address] [place] [address] PCP - General Internal Medicine 02/27/24 documented as of this encounter
--- OUTSIDE RECORDS SUMMARY | 2024-05-10 20:07 | XMS_ITS | Encounter Summary ---
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 [phone] * (ABNORMAL) Comprehensive metabolic panel (04/25/2024 8:59 PM EST) Pathologist [facility] [place] Sodium 139 133 - 145 mmol/L LAB CHEMISTRY METHOD 04/25/2024 9:52 PM [facility] Potassium 4.2 3.5 - 5.5 mmol/L LAB CHEMISTRY METHOD 04/25/2024 9:52 PM [facility] Chloride 105 96 - 110 mmol/L LAB CHEMISTRY METHOD 04/25/2024 9:52 PM [facility] CO2 28 21 - 32 mmol/L LAB CHEMISTRY METHOD 04/25/2024 9:52 PM [facility] Anion Gap 6 3 - 11 LAB CHEMISTRY METHOD 04/25/2024 9:52 PM [facility] Glucose 125(H) 70 - 100 mg/dL LAB CHEMISTRY METHOD 04/25/2024 9:52 PM [facility] BUN 12 5 - 25 mg/dL LAB CHEMISTRY METHOD 04/25/2024 9:52 PM [facility] Creatinine 0.86 0.70 - 1.30 mg/dL LAB CHEMISTRY METHOD 04/25/2024 9:52 PM [facility] eGFR 109 >=60 mL/min/1. 73m2 LAB CHEMISTRY METHOD 04/25/2024 9:52 PM [facility] Comment:Calculation based on the??Chronic Kidney Disease Epidemiology Collaboration (CKD-EPI) equation refit??without adjustment for race. BUN/Creatinine Ratio 14.0 LAB CHEMISTRY METHOD 04/25/2024 9:52 PM [facility] Calcium 9.2 8.5 - 10.5 mg/dL LAB CHEMISTRY METHOD 04/25/2024 9:52 PM [facility] AST (SGOT) 46(H) 10 - 42 unit/L LAB CHEMISTRY METHOD 04/25/2024 9:52 PM [facility] ALT (SGPT) 43 10 - 60 unit/L LAB CHEMISTRY METHOD 04/25/2024 9:52 PM [facility] Alkaline Phosphatase 113 42 - 121 unit/L LAB CHEMISTRY METHOD 04/25/2024 9:52 PM [facility] Total Protein 6.6 6.0 - 8.0 g/dL LAB CHEMISTRY METHOD 04/25/2024 9:52 PM [facility] Albumin 2.9(L) 3.2 - 5.0 g/dL LAB CHEMISTRY METHOD 04/25/2024 9:52 PM [facility] Total Bilirubin 0.4 0.0 - 1.4 mg/dL LAB CHEMISTRY METHOD 04/25/2024 9:52 PM [facility] Blood Venous blood specimen / Unknown Venipuncture / Unknown 04/25/2024 8:59 PM EST 04/25/2024 9:19 PM EST us Walter Gomez MD LAB BLOOD ORDERABLES Final Result [facility] [address] [place] [address], * Troponin I high sensitivity (04/25/2024 8:59 PM EST) [facility] High Sensitivity Troponin I 10 <=79 ng/L LAB CHEMISTRY METHOD 04/25/2024 9:45 PM EST [facility] Blood Venous blood specimen / Unknown Venipuncture / Unknown 04/25/2024 8:59 PM EST 04/25/2024 9:19 PM EST Narrative [facility] - 04/25/2024 9:45 PM EST High levels of biotin in samples may falsely decrease hsTroponin values. ??Use caution when interpreting hsTroponin results in patients taking biotin who exhibit renal impairment (eGFR <60) or in patients taking more than 20 mg/day of biotin. Walter Gomez MD LAB BLOOD ORDERABLES Final Result [facility] [address] [place] [address], * ECG 12 lead (04/25/2024 7:48 PM EST) [facility] Ventricular Rate ECG 112 BPM GEMUSE Atrial Rate 112 BPM GEMUSE P-R Interval 148 ms GEMUSE QRS Duration 136 ms GEMUSE Q-T Interval 368 ms GEMUSE QTc 502 ms GEMUSE P Wave Mcdougal 55 degrees GEMUSE R Mcdougal -15 degrees GEMUSE T Mcdougal 114 degrees GEMUSE ECG Interpretation Poor data quality, interpretation may be adversely affected Sinus tachycardia Possible Left atrial enlargement Left bundle branch block Abnormal ECG When compared with ECG of 19-MAR-2024 19:48, No significant change was found Confirmed by Teofilo VELA YUFENG ([id number]) on 04/26/2024 2:37:40 PM GEMUSE 04/25/2024 7:48 PM EST 04/26/2024 2:37 PM EST Reji Kirk DO ECG ORDERABLES Final Result GEMUSE documented in this encounter Visit Diagnoses Diagnosis Fall from bed, initial encounter- Primary Bruise, trunk, initial encounter documented in this encounter Administered Medications Inactive Administered Medications - up to 3 most recent administrations Medication Order MAR Action Action Date Dose Rate Site HYDROmorphone (PF) (DILAUDID) injection 1 mg 1 mg, intravenous, Once, On Thu04/25/24 at 2223, For 1 dose Given 04/25/2024 10:38 PM EST 1 mg iopamidoL (ISOVUE-370) 370 mg iodine /mL (76 %) injection 100 mL 100 mL, intravenous, Once in imaging, Starting on Thu04/25/24 at 2252, For 1 dose Given 04/25/2024 10:54 PM EST 90 mL ondansetron (PF) (ZOFRAN) injection 4 mg 4 mg, intravenous, Once, On Thu04/25/24 at 2223, For 1 dose Given 04/25/2024 10:38 PM EST 4 mg sodium chloride 0.9 % bolus 1,000 mL 1,000 mL, intravenous, at 1,000 mL/hr, Administer over 1 Hours, Once, On Thu04/25/24 at 2223, For 1 dose New Bag 04/25/2024 10:38 PM EST 1,000 mL 1000 mL/hr sodium chloride 0.9 % flush 10 mL 10 mL, intravenous, Once, On Thu04/25/24 at 2253, For 1 dose Given 04/25/2024 10:53 PM EST 10 mL documented in this encounter Active and Recently Administered Medications Times are shown in EST. Scheduled Medication Order 04/24/2024 04/25/2024 04/26/2024 HYDROmorphone (PF) (DILAUDID) injection 1 mg (COMPLETED) 1 mg, intravenous, Once, On Thu04/25/24 at 2223, For 1 dose 2237 (Given - Provider: Daniela Back RN) iopamidoL (ISOVUE-370) 370 mg iodine /mL (76 %) injection 100 mL (COMPLETED) 100 mL, intravenous, Once in imaging, Starting on Thu04/25/24 at 2252, For 1 dose 2253 (Given - Provider: Sekou Sapp) ondansetron (PF) (ZOFRAN) injection 4 mg (COMPLETED) 4 mg, intravenous, Once, On Thu04/25/24 at 2223, For 1 dose 2237 (Given - Provider: Daniela Back, MERY) sodium chloride 0.9 % bolus 1,000 mL (COMPLETED) 1,000 mL, intravenous, at 1,000 mL/hr, Administer over 1 Hours, Once, On Thu04/25/24 at 222, For 1 dose 2237 (New Bag - Provider: Daniela Back RN) 32 (Stopped - Provider: Daniela Back RN) sodium chloride 0.9 % flush 10 mL (COMPLETED) 10 mL, intravenous, Once, On Thu04/25/24 at 225, For 1 dose 2252 (Given - Provider: Sekou Sapp) documented in this encounter Care Teams Card Boxer Relationship Specialty Start Date End Date Tomas Jordan MD [address] [place] [address], [address] [place] [address] PCP - General Internal Medicine 02/27/24 documented as of this encounter
--- OUTSIDE RECORDS SUMMARY | 2024-05-10 20:07 | XMS_ITS | Encounter Summary ---
Author Organization [facility] Address [address] [place] [address] Care Team Providers Care Manager People Name Role Phone Tomas Jordan MD Primary Care Provider [phone] Reason for Visit * Reason Comments Neck Pain Encounter Details Date Type Department Care Team (Late st Contact Info) Description 04/30/2024 9:22 AM EST - 04/30/2024 10:12 AM EST Emergency [facility] Emergency [address] [place] [id number] Walter Gomez MD [address] [address] Fall, initial encounter (Primary Dx) Discharge Disposition: Left Against Medical Advice Social [...] Sign Reading Time Taken Comments Blood Pressure 134/93 04/30/2024 9:33 AM EST Pulse 95 04/30/2024 9:33 AM EST Temperature 36.7 ??C (98.1 ??F) 04/30/2024 9:33 AM ES T Respiratory Rate 18 04/30/2024 9:33 AM EST Oxygen Saturation 94% 04/30/2024 9:33 AM EST Inhaled Oxygen Concentration - - Weight - - Height - - Body Mass Index - - documented in this encounter Functional Status * Are you deaf or do you have serious difficulty hearing? Answer Date of Assessment Author No 04/30/2024 9:34 AM Juan Galvez RN * Are you blind or do [...] Juan Galvez RN documented in this encounter Medications at Time of Discharge clonazePAM (KlonoPIN) 1 mg tablet TAKE ONE (1) TABLET BY MOUTH THREE TIMES A DAY, NEEDED FOR SEVERE ANXIETY/PANIC . USE SPARINGLY. documented as of this encounter Discharge Disposition Disposition Code Departure Means Destination Comment s Left Against Medical Advice See note documented in this encounter Progress Notes * Nena Sparrow RN - 04/30/2024 10:00 AM EST Patient very agitated refusing to lay flat for c collar despite education. Verbally aggressive to staff stating he is leaving. Refusing to sign ama papers states I'm not signing anything I'm going to [facility] . Extensive education provided to patient on importance of staying for Cts at this time. Patient ambulated out steady gait and balance accompanied by . A+Ox4. Dr. Gomez notified and aware. Nena Sparrow RN 04/30/24 1012 * Nena Sparrow RN - 04/30/2024 9:28 AM EST Collared per ems Nena Sparrow RN 04/30/24 0928 * Nena Sparrow RN - 04/30/2024 9:23 AM EST Biba from home c/o fall x3 last one yesterday +hit, +loc now having left shoulder pain and midline neck pain. On coumadin, stopped taking it three days ago. 148/88 hr 99 rr 16 o2 97% ra * Walter Gomez MD - 04/30/2024 9:19 AM EST Emergency Medicine Note Patient Name: Ok Zapata Initial Evaluation: 04/30/2024 : 1980 Patient's PCP: Tomas Jordan MD Emergency Physician: Walter Gomez MD History of Present Illness Chief Complaint: Chief Complaint Patient presents with ??? Neck Pain HPI: Hypertension history of endocarditis and heart valve replacement on Coumadin now with a fall slip and fall in a icy driveway and neck and back pain questionable LOC. This happened last night INR 1.3 last night per patient ROS: I have performed a ROS with the pertinent positives and negatives documented in the history ofpresent illness. Previous History Past Medical History: Diagnosis Date ??? Hypertension Past Surgical History: Procedure Laterality Date ??? CARDIAC VALVE REPLACEMENT Social History Tobacco Use ??? Smoking status: Some Days Types: Cigarettes ??? Smokeless tobacco: Never No family history on file. is allergic to dilantin [phenytoin sodium extended], nicotine, ketorolac, lidocaine, morphine, mushroom, nutritional supplements, strawberry, and trazodone. No current facility-administered medications on file prior to encounter. Current Outpatient Medications on File Prior to Encounter Medication Sig Dispense Refill ??? clonazePAM (KlonoPIN) 1 mg tablet TAKE ONE (1) TABLET BY MOUTH THREE TIMES A DAY, NEEDED FORSEVERE ANXIETY/PANIC. USE SPARINGLY. Physical Exam ED Triage Vitals [04/30/24 0933] Temp Heart Rate Resp BP 36.7 ??C (98.1 ??F) 95 18 (!) 134/93 SpO2 Temp Source Heart Rate Source Patient Position 94 % Oral Monitor -- BP Location FiO2 (%) Left arm -- General: Well-appearing, well nourished, in no acute distress HEENT: PERRL, EOMI, external ears and nose appear unremarkable, airway is patent Neck: Supple, full range of motion, no meningismus, no JVD Fuhs tenderness C-spine chest: Clear to auscultation; no evidence of respiratory distress Circulatory: The rate and rhythm , no murmurs rubs or gallops Abdomen: Non-distended, Non-Tender Extremities: Normal ROM, No edema, ranging all extremities without difficulty Tenderness L-spine Skin: Warm and dry, well-perfused , no rashes Neuro: Alert and oriented x 3. no motor or sensory deficits Psyche: Normal affect Results Labs Reviewed - No data to display Abnormal Labs Reviewed - No data to display CT Head wo Contrast (Results Pending) CT Cervical Spine wo Contrast (Results Pending) CT Lumbar Spine wo Contrast (Results Pending) I have discussed the incidental/abnormal imaging and/or lab abnormalities with the patient and haveinstructed them the need for further evaluation and workup with their primary care doctor. I have provided the patient with a paper copy of the abnormality. The laboratory results, imaging results and other diagnostic exam results were reviewed in the EMR. EKG Interpretation Critical Care Time None Medical Decision Making Medications acetaminophen (TYLENOL) tablet 1,000 mg (has no administration in time range) Clinical Impressions as of 05/01/24 132 Fall, initial encounter Urine for C-spine injury patient was in a c-collar patient left against medical advice because he did not want to wait for his CT scans to be done even though this was ordered very quickly after his evaluation AMA without paperwork walked out Procedures Procedures Diagnosis No diagnosis found. Disposition Data Unavailable ED Prescriptions None Physician Attestation Walter Gomez MD 04/30/24 1004 Walter Gomez MD 05/01/24 1324 documented in this encounter Plan of Treatment Not on file documented as of this encounter Visit Diagnoses Diagnosis Fall, initial encounter- Primary documented in this encounter Active and Recently Administered Medications Times are shown in EST. Scheduled Medication Order 04/28/2024 04/29/2024 04/30/2024 acetaminophen (TYLENOL) tablet 1,000 mg 1,000 mg, oral, Once, On 04/30/24 at 0954, For 1 dose 0954 (Canceled Entry - Provider: Automatic Discharge Provider - Comment: Automatically canceled at discontinue of medication order) documented in this encounter Orders Medications Ordered That Bran ht Not Have Been Administered Count Last Ordered Date First Ordered Date acetaminophen (TYLENOL) tablet 1,000 mg 1 0 04/30/2024 documented in this encounter Care Teams Manager People Relationship Specialty Start Date End Date Tomas Jordan MD [address] [place] [address], [address] [phone] PCP - General Internal Medicine 02/27/24 documented as of this encounter
== END 2024-05-10 19:25 | disposition left against medical advice (07) ==
PROVIDERS: Emergency Provider Emergency Medicine; PCP Internal Medicine
DX: R06.02 Shortness of breath (principal); Z79.899 Other long term (current) drug therapy
CPT/HCPCS: 99281; 99282

== ENCOUNTER 2024-05-11 20:28 | Emergency (ER) | payer MEDICAID, SELFPAY ==
--- NOTE | 2024-05-11 | ECG_ITS ---
Test Reason : CHEST PAIN Blood Pressure : */* mmHG Vent. Rate : 103 BPM Atrial Rate : 103 BPM P-R Int : 156 ms QRS Dur : 140 ms QT Int : 386 ms P-R-T Axes : 18 -24 111 degrees QTcB Int : 505 ms Sinus tachycardia Left bundle branch block Abnormal ECG When compared with ECG of 16-Apr-2024 16:08, T wave amplitude has decreased in Lateral leads Referred By: Generic ED Physician Electronically Signed By: Nicholas Hinojosa
--- NOTE | ~2024-05-11 | XR_ITS ---
CLINICAL HISTORY: wheezing 1 view chest x-ray Comparison: CT/SR - CT CHEST WO IV CON - 04/24/24 02:12 EST Findings: Median sternotomy changes. No consolidation or effusion. Heart size is normal. No acute fracture. IMPRESSION: 1. No acute findings. This document has been electronically signed by: Burke Conley MD on 05/12/2024 00:35:17
--- NOTE | 2024-05-11 20:34 | ED.GENADULT ---
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 Patient states that earlier today he was watching TV and had an episode of sharp chest pain. He denies shortness of breath, diaphoresis, recent illness. His chest pain has since resolved. He denies recent drug use. He does endorse daily alcohol use Related Data Home Medications ?Medication ?Instructions ?Recorded ?Confirmed clonidine 0.2 mg/24 hr weekly 1 patch transdermal TU@0900 02/28/24 04/17/24 transdermal patch metoprolol tartrate 50 mg tablet 100 mg PO BID 02/28/24 04/17/24 pantoprazole 40 mg tablet,delayed 40 mg PO DAILY@0630 02/28/24 04/17/24 release warfarin 5 mg tablet 2 - 7 mg PO DAILY 02/28/24 04/17/24 clonazepam 1 mg tablet 1 mg PO TID PRN Anxiety 04/17/24 04/17/24 clonidine HCl 0.2 mg tablet 0.1 mg PO TID PRN Blood Pressure 04/17/24 04/17/24 Previous Rx's ?Medication ?Instructions ?Recorded diphenhydramine HCl 25 mg capsule 50 mg (2 x 25 mg) PO TID PRN 05/09/24 (Benadryl) allergic reaction #20 caps nystatin 100,000 unit/mL oral 100,000 unit buccal DAILY #60 mL 05/09/24 suspension Allergies Allergy/AdvReac Type Severity Reaction Status Date / Time phenytoin [From DILANTIN] Allergy Unknown GAVE PT A Verified 05/11/24 20:37 TOXIC LEVEL fluoxetine [From Prozac] Allergy Unknown Verified 05/11/24 20:37 lidocaine Allergy Unknown Verified 05/11/24 20:37 tramadol Allergy Anaphylaxis Verified 05/11/24 20:37 trazodone Allergy Unknown Verified 05/11/24 20:37 gabapentin [From Neurontin] AdvReac Unknown Verified 05/11/24 20:37 morphine AdvReac Unknown Verified 05/11/24 20:37 Review of Systems Review of Systems: Yes all other systems are reviewed and are negative PMFSH Past Medical History Attestation statement: The following information was validated with the patient. [facility] Narrative: Endocarditis, aortic valve replacement, DVTs, Source: old records reviewed Medical History Bilateral pulmonary embolism Noncompliance with medications Alcohol dependence Endocarditis Surgical History Aortic valve replaced Social History Social History Household Members: Spouse Housing: House Do you presently have visiting nurse or other home services: No Unable to assess alcohol history related to: Unknown Alcohol intake: former Comment: Pt refuses fall risk measures, explained protocol/ safety measures Patient Tobacco Use Status: Current everyday Tobacco user Tobacco use type: Cigarette Cigarettes Per Day: 10 e-Cigarette/Vaping Use: Never Used Second Hand Smoke Exposure: No Use of substances other than those prescribed or required for medical reasons: Unknown Substance Use Type: Marijuana Advance Directives: No Advance Directives Information Provided: Yes Do you have a plan to hurt others: No Plan Physical Exam ED Vital Signs: Vital Signs - 24 hr 05/11/24 20:36 05/11/24 22:53 05/12/24 01:35 Temperature 97.8 F 98.0 F Pulse Rate 111 H 99 96 Respiratory Rate 18 16 16 Blood Pressure 147/99 H 162/106 H Pulse Oximetry 96 98 Oxygen Delivery Method Room Air Room Air BMI result Body Mass Index 33.9 Well-appearing male in no acute distress Alert and oriented x4; normal speech and cognition Mild wheezing with good aeration auscultated bilaterally Normal S1-S2 regular rate rhythm Abdomen is soft nontender nondistended No lower extremity edema appreciated Course Course Course Narrative: RME, this is a rapid medical exam performed by Fabrizio Barreto please refer to primary provider for complete H&P- 43-year-old male presents for evaluation of chest pain. He was on warfarin due to mechanical valvular to endocarditis secondary to a dental infection. Patient reports he was chest pain every day but since 3:00 a.m. his chest pain has felt different. Plan for cardiac workup. Medications Administered Discontinued Medications Generic Name Dose Route Start Last Admin Trade Name Freq PRN Reason Stop Dose Admin Albuterol Sulfate 2 puff 05/12/24 01:44 05/12/24 02:11 Albuterol Sulfate 90 Mcg 8 Gm Inhaler INHALE 05/12/24 01:45 Not Given ONCE ONE Aspirin 325 mg 05/11/24 23:35 05/11/24 23:49 Aspirin Enteric Coated 325 Mg Tablet.Dr PO 05/11/24 23:36 Not Given ONCE ONE Aspirin 324 mg 05/12/24 02:06 05/12/24 02:11 Aspirin 81 Mg Tab.Chew PO 05/12/24 02:07 324 mg ONCE ONE Administration Lorazepam 0.5 mg 05/12/24 02:04 05/12/24 02:11 Lorazepam 0.5 Mg Tablet PO 05/12/24 02:05 0.5 mg ONCE ONE Administration Medical Decision Making Medical Decision Making MDM Narrative: 43-year-old male presenting for chest pain -I am concerned for the following; ACS, costochondritis, viral URI, COVID, flu, pneumonia -labs and imaging studies ordered Labs and imaging interpretation: -elevated flat troponin x2, leukocytosis, stable H&H -I reviewed patient's ECG and do not appreciate any signs of ischemia. Patient has known left bundle-branch block however today's ECG does not meet Sgarbossa criteria -I do not appreciate pneumothorax or consolidation on patient's chest x-ray and the Radiology impression reads no acute finding Aspirin given due to elevated troponin; albuterol inhaler ordered I consulted overnight tobacco acreage measurer Dr. Hinojosa recommended admission without a heparin drip I spoke with overnight hospitalist Dr. Nj who accepted patient for admission I was informed by the patient's nurse the patient wants to leave against medical advice. I called Dr. Nj to let him know that his patient is leaving against medical advice, Dr. Nj states that it is not his patient because he did not admit him. I reviewed patient's records, patient is notorious for leaving against medical advice patient was warned that if he leaves against medical advice, it puts his life at risk, patient aware done elevated troponin may indicate a complication of his chronic pulmonary embolisms or a heart attack. Both which may be lethal. Patient understands and wants to leave against medical advice. Patient states that he will follow-up with his tobacco acreage measurer tomorrow. Patient signed the AMA form and left Differential Diagnosis Differential Diagnoses: The differential diagnosis associated with the presentation includes ( STEMI, NSTEMI, cardiac arrhythmias, pulmonary embolism) Admission/Observation Consideration of admission/observation: Escalation of care including admission/observation considered Consult Healthcare Provider Management of the patient was discussed with: Hospitalist Lab Data [facility] Lab Attestation statement: I reviewed the patient's lab results. 05/11/24 21:56 05/11/24 21:56 Labs: Lab Results 05/11/24 05/11/24 Range/Units 21:56 23:57 WBC 15.5 H (4.8-10.8) X10*3/uL RBC 4.16 L (4.60-5.80) X10*6/uL Hgb 12.8 L (14.0-18.0) g/dl Hct 38.7 L (42.0-52.0) % MCV 93.0 (80.0-98.0) fL MCH 30.8 (27.0-33.0) pg MCHC 33.1 (31.0-36.0) g/dl RDW 18.2 H (11.0-16.0) % Plt Count 341 (160-400) X10*3/uL MPV 10.8 (9.4-12.4) fL Immature Gran % (Auto) 0.8 H (0.0-0.4) % Neut % (Auto) 60.2 (45-73) % Lymph % (Auto) 27.8 (20-40) % [place] % (Auto) 10.1 (2-11) % Eos % (Auto) 0.7 (0-4) % Baso % (Auto) 0.4 (0-2) % Lymph # (Auto) 4.3 (1.2-4.9) X10*3/uL [place] # (Auto) 1.6 H (0.1-1.2) X10*3/uL Eos # (Auto) 0.1 (0.0-0.4) X10*3/uL Baso # (Auto) 0.1 (0.0-0.2) X10*3/uL Abs Immat Gran (auto) 0.13 H (0.00-0.03) X10*3/uL Absolute Neuts (auto) 9.4 H (2.0-8.3) x10*3/uL Absolute Nucleated RBC 0.060 H (0.0-0.012) X10*3/uL Nucleated RBC % (auto) 0.4 H (0.0-0.2) /100WBC Smear Tech's Comments VERIFIED PT 36.6 H D (10.9-12.4) SEC INR 3.1 H D (0.9-1.1) D-Dimer High Sensitivty 164 NG/ML Sodium 141 (135-145) mmol/L Potassium 3.2 L (3.3-5.1) mmol/L Chloride 109 H (96-108) mmol/L Carbon Dioxide 23 (22-29) mmol/L Anion Gap 12 (12-20) BUN 9 (9-16) mg/dL Creatinine 0.77 (0.5-1.4) mg/dL Estim Creat Clear Calc 132.2 Estimated GFR > 60 Random Glucose 96 (60-115) mg/dL Calcium 8.4 (8.4-10.2) mg/dL Total Bilirubin 0.2 (0.0-1.0) mg/dL AST 37 (5-37) U/L ALT 19 (0-40) U/L Alkaline Phosphatase 80 (39-117) U/L Troponin I High Sens 145.4 H* D 148.4 H* (<3.5-35.0) ng/L B-Natriuretic Peptide 60 (<100) pg/mL Total Protein 6.9 (6.5-8.0) g/dL Albumin 3.2 L (3.5-5.0) g/dL Lipase 36 (8-78) U/L Influenza Type A (PCR) NEGATIVE (Negative) Influenza Type B (PCR) NEGATIVE (Negative) RSV RNA Qual (PCR) NEGATIVE (Negative) SARS-CoV-2 RNA (RT-PCR) NEGATIVE (Negative) Discharge Plan Discharge Clinical Impression: Chest pain Qualifiers: Chest pain type: unspecified Qualified Code(s): R07.9 - Chest pain, unspecified Patient Disposition: Left Against Medical Advice Prescriptions: No Action clonidine 0.2 mg/24 hr patch weekly 1 patch transdermal TU@0900 pantoprazole 40 mg tablet,delayed release (DR/EC) 40 mg PO DAILY@0630 metoprolol tartrate 50 mg tablet 100 mg PO BID warfarin 5 mg tablet 2 - 7 mg PO DAILY nystatin 100,000 unit/mL suspension 100,000 unit buccal DAILY Qty: 60 0RF Rx Instructions: administer 1/2 of dose in each side of the mouth diphenhydramine HCl [Benadryl] 25 mg capsule 50 mg PO TID PRN (Reason: allergic reaction) Qty: 20 0RF clonazepam 1 mg tablet 1 mg PO TID PRN (Reason: Anxiety) clonidine HCl 0.2 mg Tablet 0.1 mg PO TID PRN (Reason: Blood Pressure) Stand Alone Forms: Against Medical Advice Print Language: Panamanian
[2024-05-11 20:36] VITALS: BP 147/99; PULSE 111; RESP 18; TEMP 36.6; O2SAT 96; BMI 33.9
[2024-05-11 22:13] LABS: Basophils Absolute Auto 0.1 X10*3/uL (0.0-0.2); Basophils Percent Auto 0.4 % (0-2); Eosinophils Absolute Auto 0.1 X10*3/uL (0.0-0.4); Eosinophils Percent Auto 0.7 % (0-4); Hematocrit 38.7 % (42.0-52.0); Hemoglobin 12.8 g/dl (14.0-18.0); Imm Gran Abs Auto 0.13 X10*3/uL (0.00-0.03); Imm Gran Pct Auto 0.8 % (0.0-0.4); Lymphocytes Absolute Auto 4.3 X10*3/uL (1.2-4.9); Lymphocytes Percent Auto 27.8 % (20-40); MANUAL DIFF FLAG SCAN; Mean Corpuscular HGB Conc 33.1 g/dl (31.0-36.0); Mean Corpuscular Hemoglobin 30.8 pg (27.0-33.0); Mean Platelet Volume 10.8 fL (9.4-12.4); Monocytes Absolute Auto 1.6 X10*3/uL (0.1-1.2); Monocytes Percent Auto 10.1 % (2-11); NRBC Pct Auto 0.4 /100WBC (0.0-0.2); Neutrophils Absolute Auto 9.4 x10*3/uL (2.0-8.3); Neutrophils Percent Auto 60.2 % (45-73); Platelet Count 341 X10*3/uL (160-400); Red Blood Count 4.16 X10*6/uL (4.60-5.80); Red Cell Distribution Width 18.2 % (11.0-16.0); SCAN SMEAR FLAG 1; White Blood Count 15.5 X10*3/uL (4.8-10.8)
[2024-05-11 22:18] LABS: INTERNATIONAL NORM RATIO 3.1 (0.9-1.1); Prothrombin Time 36.6 SEC (10.9-12.4)
[2024-05-11 22:22] LABS: Alanine Aminotransferase 19 U/L (0-40); Albumin Level 3.2 g/dL (3.5-5.0); Alkaline Phosphatase 80 U/L (39-117); Anion Gap 12 (12-20); Aspartate Amino Transferase 37 U/L (5-37); Bilirubin Total 0.2 mg/dL (0.0-1.0); Blood Urea Nitrogen 9 mg/dL (9-16); Calcium 8.4 mg/dL (8.4-10.2); Carbon Dioxide 23 mmol/L (22-29); Chloride 109 mmol/L (96-108); Creatinine Clr Calc Pharmacy 132.2; Estimated Glomerular Filt Rate > 60; Glucose Random 96 mg/dL (60-115); Lipase 36 U/L (8-78); Potassium 3.2 mmol/L (3.3-5.1); Sodium 141 mmol/L (135-145); Total Protein 6.9 g/dL (6.5-8.0)
[2024-05-11 22:33] LABS: Troponin-I High Sensitivity 145.4 ng/L (<3.5-35.0)
[2024-05-11 22:44] LABS: SLIDE REVIEW VERIFIED
[2024-05-11 22:52] LABS: Influenza A PCR NEGATIVE (Negative); Influenza B PCR NEGATIVE (Negative); Resp Syncy Virus RNA Qual PCR NEGATIVE (Negative); SARS COV2 PCR INHOUSE NEGATIVE (Negative)
[2024-05-11 22:53] VITALS: BP 162/106; PULSE 99; RESP 16; TEMP 36.7; O2SAT 98
--- NOTE | 2024-05-11 23:36 | ECG_ITS ---
Test Reason : CHEST PAIN Blood Pressure : */* mmHG Vent. Rate : 89 BPM Atrial Rate : 89 BPM P-R Int : 158 ms QRS Dur : 144 ms QT Int : 432 ms P-R-T Axes : 26 -6 64 degrees QTcB Int : 525 ms Normal sinus rhythm Left bundle branch block Abnormal ECG When compared with ECG of 11-May-2024 20:31, Nonspecific T wave abnormality has replaced inverted T waves in Lateral leads Referred By: Ok Harrison Electronically Signed By: Nicholas Hinojosa
--- NOTE | 2024-05-11 23:49 | PC.NURSE ---
pt states he wants to leave AMA . says he does not trust the other doctors out there pt also refused aspirin E.C. , says he cannot swallow pills. offered chewable version but pt states i have no teeth documented as patient refused. MD Velez aware.
--- NOTE | 2024-05-11 23:50 | MHC.EDTECH ---
at this time this tech attempted to get blood work and EKG, the pt stated that I am not getting poked again if they need blood work get it through the IV, I am still bleeding from last time. Pt allowed this tech to perform an EKG but continued to deny blood work, stated that The lady doctor better not have ordered anything because I do not trust her . I stated that another MD ordered the EKG and Blood work
[2024-05-11 23:51] LABS: D Dimer High Sensitivity 164 NG/ML
[2024-05-12 00:31] LABS: Troponin-I High Sensitivity 148.4 ng/L (<3.5-35.0)
[2024-05-12 00:40] LABS: B Type Natriuretic Peptide 60 pg/mL (<100)
[2024-05-12 01:35] VITALS: PULSE 96; RESP 16
[2024-05-12] MEDS: LORazepam 0.5 MG TABLET PO (02:11)
[2024-05-12] MEDS: Aspirin 81 MG TAB.CHEW 324 MG PO (02:11)
--- NOTE | 2024-05-12 02:25 | PC.NURSE ---
pt now declining admission, states he does not wish to stay, especially since there are no beds available upstairs overnight . pt made aware and verbalizes understanding that his troponins are high meaning there could be injury to his heart and could be very serious and could lead to if he chooses to leave. pt verbalizes understandings. pt states that he has a coroner transport technician appointment in the morning and he will follow up then - confirming appointment. pt adamant about leaving. MD Nunez aware and witnessing. pt did take po aspirin for this RN prior to signing AMA forms and leaving. ambulates with a steady gait out of tx room at time of departure. vital signs updated and stable.
[2024-05-12 02:30] VITALS: BP 131/90; PULSE 92; RESP 20; TEMP 36.8; O2SAT 97
== END 2024-05-11 23:12 | disposition left against medical advice (07) ==
PROVIDERS: Physician Assistant; Emergency Provider Student in an Organized Health Care Education/Training Program; PCP Internal Medicine
DX: R07.9 Chest pain, unspecified (principal); R00.0 Tachycardia, unspecified; I44.7 Left bundle-branch block, unspecified; F17.210 Nicotine dependence, cigarettes, uncomplicated; F12.90 Cannabis use, unspecified, uncomplicated; Z95.2 Presence of prosthetic heart valve; Z86.718 Personal history of other venous thrombosis and embolism; Z03.818 Encounter for observation for suspected exposure to other biological agents ruled out; Z53.29 Procedure and treatment not carried out because of patient's decision for other reasons; Z79.01 Long term (current) use of anticoagulants; Z79.899 Other long term (current) drug therapy
CPT/HCPCS: 0241U; 36415; 71045; 80053; 83690; 83880; 84484; 85025; 85379; 85610; 93005; 99284

== ENCOUNTER → 2024-05-11 20:31 | Outpatient (BNV) | payer MEDICAID, SELFPAY | PROVIDERS: Emergency Provider Student in an Organized Health Care Education/Training Program; PCP Internal Medicine; Visit Provider Internal Medicine Cardiovascular Disease | DX: R07.9 Chest pain, unspecified (principal); I44.7 Left bundle-branch block, unspecified; R94.31 Abnormal electrocardiogram [ECG] [EKG] | CPT/HCPCS: 93010 ==

== ENCOUNTER → 2024-05-11 23:35 | Outpatient (BNV) | payer MEDICAID, SELFPAY | PROVIDERS: Emergency Provider Student in an Organized Health Care Education/Training Program; PCP Internal Medicine; Visit Provider Radiology Diagnostic Radiology | DX: R07.9 Chest pain, unspecified (principal) | CPT/HCPCS: 71045 ==

== ENCOUNTER 2024-05-12 12:13 | Emergency (ER) | payer MEDICAID, SELFPAY ==
--- NOTE | 2024-05-12 | ECG_ITS ---
Test Reason : CHEST PAIN Blood Pressure : */* mmHG Vent. Rate : 97 BPM Atrial Rate : 97 BPM P-R Int : 154 ms QRS Dur : 140 ms QT Int : 414 ms P-R-T Axes : 15 -11 92 degrees QTcB Int : 525 ms Normal sinus rhythm Left bundle branch block Abnormal ECG When compared with ECG of 11-May-2024 23:45, No significant change was found Referred By: Generic ED Physician Electronically Signed By: Nicholas Hinojosa
[2024-05-12 12:20] VITALS: BP 136/94; PULSE 99; RESP 18; TEMP 37.1; O2SAT 97; BMI 36.1
--- NOTE | 2024-05-12 12:23 | ED.CHESTPAIN ---
HPI - Chest Pain General Chief Complaint: Chest Pain Stated Complaint: chest pain Time Seen by Provider: 05/12/24 12:30 History of Present Illness HPI narrative: Seen By Dr. Cordero, and note written by Dr. Cordero. Related Data Home Medications ?Medication ?Instructions ?Recorded ?Confirmed clonidine 0.2 mg/24 hr weekly 2 patch transdermal TU@0900 02/28/24 04/17/24 transdermal patch metoprolol tartrate 50 mg tablet 100 mg PO BID 02/28/24 04/17/24 pantoprazole 40 mg tablet,delayed 40 mg PO DAILY@0630 02/28/24 04/17/24 release warfarin 5 mg tablet 2 - 7 mg PO DAILY 02/28/24 04/17/24 clonazepam 1 mg tablet 1 mg PO TID PRN Anxiety 04/17/24 04/17/24 clonidine HCl 0.2 mg tablet 0.1 mg PO TID PRN Blood Pressure 04/17/24 04/17/24 dolutegravir 50 mg tablet (Tivicay) 50 mg PO DAILY 05/12/24 emtricitabine 200 mg-tenofovir 1 tab PO DAILY 05/12/24 disoproxil fumarate 300 mg tablet lamotrigine 25 mg tablet 37.5 mg PO DAILY 05/12/24 Previous Rx's ?Medication ?Instructions ?Recorded nystatin 100,000 unit/mL oral 100,000 unit buccal DAILY #60 mL 05/09/24 suspension Allergies Allergy/AdvReac Type Severity Reaction Status Date / Time phenytoin [From DILANTIN] Allergy Unknown GAVE PT A Verified 05/12/24 12:20 TOXIC LEVEL fluoxetine [From Prozac] Allergy Unknown Verified 05/12/24 12:20 lidocaine Allergy Unknown Verified 05/12/24 12:20 tramadol Allergy Anaphylaxis Verified 05/12/24 12:20 trazodone Allergy Unknown Verified 05/12/24 12:20 gabapentin [From Neurontin] AdvReac Unknown Verified 05/12/24 12:20 morphine AdvReac Unknown Verified 05/12/24 12:20 PMFSH Past Medical History Medical History Bilateral pulmonary embolism Noncompliance with medications Alcohol dependence Endocarditis Surgical History Aortic valve replaced Social History Social History Household Members: Spouse Housing: House Do you presently have visiting nurse or other home services: No Unable to assess alcohol history related to: Unknown Alcohol intake: former Comment: Pt refuses fall risk measures, explained protocol/ safety measures Patient Tobacco Use Status: Current everyday Tobacco user Tobacco use type: Cigarette Cigarettes Per Day: 10 Smoked in Last 30 Days: Yes e-Cigarette/Vaping Use: Never Used Second Hand Smoke Exposure: No Use of substances other than those prescribed or required for medical reasons: No Substance Use Type: Marijuana Advance Directives: No Advance Directives Information Provided: Yes Physical Exam Vital Signs: Vital Signs: Last Vital Signs Temp 98.0 F 05/12/24 15:49 Pulse 84 05/12/24 15:49 Resp 13 05/12/24 15:49 BP 137/95 H 05/12/24 15:49 Pulse Ox 98 05/12/24 15:49 O2 Del Method Room Air 05/12/24 15:49 BMI result Body Mass Index 36.1 Course Course Course Narrative: RME: 43-year-old male with extensive cardiac history was seen here yesterday for chest pain with elevated troponin and was supposed to be admitted but patient has signed out against medical advice. Financial Institution Treasurer informed patient to return to the ED today. Patient states so having chest pain. Repeat labs EKGs ordered. Patient to be brought back immediately to the ED. Medications Administered Discontinued Medications Generic Name Dose Route Start Last Admin Trade Name Freq PRN Reason Stop Dose Admin Potassium Chloride 40 meq 05/12/24 15:45 05/12/24 15:47 Potassium Chloride Packet 20 Meq Packet PO 05/12/24 15:46 40 meq ONCE ONE Administration Medical Decision Making Lab Data 05/12/24 12:51 05/12/24 12:51 Labs: Lab Results 05/12/24 Range/Units 12:51 WBC 13.4 H (4.8-10.8) X10*3/uL RBC 3.92 L (4.60-5.80) X10*6/uL Hgb 12.2 L (14.0-18.0) g/dl Hct 36.1 L (42.0-52.0) % MCV 92.1 (80.0-98.0) fL MCH 31.1 (27.0-33.0) pg MCHC 33.8 (31.0-36.0) g/dl RDW 18.1 H (11.0-16.0) % Plt Count 366 (160-400) X10*3/uL MPV 10.4 (9.4-12.4) fL Immature Gran % (Auto) Cancelled Neut % (Auto) Cancelled Lymph % (Auto) Cancelled [place] % (Auto) Cancelled Eos % (Auto) Cancelled Baso % (Auto) Cancelled Lymph # (Auto) Cancelled [place] # (Auto) Cancelled Eos # (Auto) Cancelled Baso # (Auto) Cancelled Abs Immat Gran (auto) Cancelled Absolute Neuts (auto) Cancelled Absolute Nucleated RBC 0.050 H (0.0-0.012) X10*3/uL Nucleated RBC % (auto) 0.4 H (0.0-0.2) /100WBC Neutrophils % (Manual) 66 (45-73) % Band Neutrophils % 1 L (3-5) % Lymphocytes % (Manual) 24 (20-40) % Atypical Lymphs % (Man) 1 (0-6) % Monocytes % (Manual) 6 (2-11) % Eosinophils % (Manual) 2 (0-4) % Abs Neuts (Manual) 9.0 H (2.0-8.3) X10*3/uL Lymphocytes # (Manual) 3.2 (1.2-4.9) X10*3/uL Atyp Lymphs # (Manual) 0.1 x10*3/uL Monocytes # (Manual) 0.8 (0.1-1.2) X10*3/uL Eosinophils # (Manual) 0.3 (0.0-0.4) X10*3/uL Nucleated RBCs 1 H (0-0) /100WBC Platelet Estimate NORMAL (NORMAL) Plt Morphology Comment NORMAL RBC Morphology NOTED Polychromasia 1+ (0-2) /OIF Target Cells 1+ (5-14) /OIF [place] Bodies PRESENT PT 31.7 H (10.9-12.4) SEC INR 2.7 H (0.9-1.1) APTT 41.4 H D (26.0-36.8) SEC Sodium 140 (135-145) mmol/L Potassium 3.1 L (3.3-5.1) mmol/L Chloride 106 (96-108) mmol/L Carbon Dioxide 28 (22-29) mmol/L Anion Gap 9 L (12-20) BUN 6 L (9-16) mg/dL Creatinine 0.69 (0.5-1.4) mg/dL Estim Creat Clear Calc 152.5 Estimated GFR > 60 Random Glucose 99 (60-115) mg/dL Calcium 8.3 L (8.4-10.2) mg/dL Total Bilirubin 0.4 (0.0-1.0) mg/dL AST 40 H (5-37) U/L ALT 19 (0-40) U/L Alkaline Phosphatase 87 (39-117) U/L Troponin I High Sens 92.8 H (<3.5-35.0) ng/L B-Natriuretic Peptide 47 (<100) pg/mL Total Protein 6.9 (6.5-8.0) g/dL Albumin 3.1 L (3.5-5.0) g/dL Discharge Plan Discharge Clinical Impression: Chest pain, Acute hypokalemia Patient Disposition: Home, Self-Care Instructions: Chest Pain (DC), Potassium Content of Foods List (ED), Hypokalemia (ED) Additional Instructions: You should call your protection chief industrial plant in arrange a follow-up appointment in 3 or 4 days. We are always here for you if you get worse recurrent chest pain shortness of breath any concern come back Prescriptions: No Action clonidine 0.2 mg/24 hr patch weekly 2 patch transdermal TU@0900 pantoprazole 40 mg tablet,delayed release (DR/EC) 40 mg PO DAILY@0630 metoprolol tartrate 50 mg tablet 100 mg PO BID warfarin 5 mg tablet 2 - 7 mg PO DAILY nystatin 100,000 unit/mL suspension 100,000 unit buccal DAILY Qty: 60 0RF Rx Instructions: administer 1/2 of dose in each side of the mouth clonazepam 1 mg tablet 1 mg PO TID PRN (Reason: Anxiety) clonidine HCl 0.2 mg Tablet 0.1 mg PO TID PRN (Reason: Blood Pressure) lamotrigine 25 mg tablet 37.5 mg PO DAILY emtricitabine-tenofovir (TDF) 200-300 mg tablet 1 tab PO DAILY Tivicay 50 mg tablet 50 mg PO DAILY Referrals: Tomas Jordan MD [Primary Care Provider] - 1 day Interventions: ED Discharge Assessment Last Done: 05/12/24 15:49 Discharge Date/Time: 05/12/24 15:50 Print Language: Surinamese
--- NOTE | 2024-05-12 12:44 | MHC.EDTECH ---
pt refused labs: Attempted to do labs pt refused stated he wanted the male tech to draw them. Attempt to put shelter monitor on pt refused unless it was using the stickers already on his chest. Yasmin evans notified. also notified of refusal
--- NOTE | 2024-05-12 13:03 | ED_ITS ---
HPI - Chest Pain General Chief Complaint: Chest Pain Stated Complaint: chest pain Time Seen by Provider: 05/12/24 12:30 Source: patient Mode of arrival: ambulatory Limitations: no limitations History of Present Illness HPI narrative: This is a 43 years old male with a history of endocarditis which was secondary to dental procedure, status post aortic valve replacement x2, anticoagulated with warfarin presented to the emergency department complaining of epigastric abdominal pain he was in the emergency room yesterday he had elevated troponin and by the troponin was flat return today to be evaluated he denies any chest pain he tells me that he has epigastric abdominal pain.Went to see his manager loss prevention but did not see the manager loss prevention the tech told him to return to the ED MD complaint: other (Epigastric pain) Pertinent past history: other (No history of coronary artery disease) Onset (ago): day(s) (2) Prior episodes: Yes Onset: during rest Pain location: epigastric Pain radiation: none Relieving factors: nothing Exacerbating factors: nothing Risk Factors Coronary artery disease risk factors: none Related Data Home Medications ?Medication ?Instructions ?Recorded ?Confirmed clonidine 0.2 mg/24 hr weekly 2 patch transdermal TU@0900 02/28/24 04/17/24 transdermal patch metoprolol tartrate 50 mg tablet 100 mg PO BID 02/28/24 04/17/24 pantoprazole 40 mg tablet,delayed 40 mg PO DAILY@0630 02/28/24 04/17/24 release warfarin 5 mg tablet 2 - 7 mg PO DAILY 02/28/24 04/17/24 clonazepam 1 mg tablet 1 mg PO TID PRN Anxiety 04/17/24 04/17/24 clonidine HCl 0.2 mg tablet 0.1 mg PO TID PRN Blood Pressure 04/17/24 04/17/24 dolutegravir 50 mg tablet (Tivicay) 50 mg PO DAILY 05/12/24 emtricitabine 200 mg-tenofovir 1 tab PO DAILY 05/12/24 disoproxil fumarate 300 mg tablet lamotrigine 25 mg tablet 37.5 mg PO DAILY 05/12/24 Previous Rx's ?Medication ?Instructions ?Recorded nystatin 100,000 unit/mL oral 100,000 unit buccal DAILY #60 mL 05/09/24 suspension Allergies Allergy/AdvReac Type Severity Reaction Status Date / Time phenytoin [From DILANTIN] Allergy Unknown GAVE PT A Verified 05/12/24 12:20 TOXIC LEVEL fluoxetine [From Prozac] Allergy Unknown Verified 05/12/24 12:20 lidocaine Allergy Unknown Verified 05/12/24 12:20 tramadol Allergy Anaphylaxis Verified 05/12/24 12:20 trazodone Allergy Unknown Verified 05/12/24 12:20 gabapentin [From Neurontin] AdvReac Unknown Verified 05/12/24 12:20 morphine AdvReac Unknown Verified 05/12/24 12:20 Review of Systems 2 Constitutional: Constitutional: Reports no additional constitutional complaints Cardiovascular: Cardiovascular: Reports no additional cardiovascular complaints [facility] Past Medical History Attestation statement: The following information was validated with the patient. [facility] Narrative: Aortic valve replacement x2 anticoagulated on warfarin Medical History Bilateral pulmonary embolism Noncompliance with medications Alcohol dependence Endocarditis Surgical History Aortic valve replaced Social History Social History Household Members: Spouse Housing: House Do you presently have visiting nurse or other home services: No Unable to assess alcohol history related to: Unknown Alcohol intake: former Comment: Pt refuses fall risk measures, explained protocol/ safety measures Patient Tobacco Use Status: Current everyday Tobacco user Tobacco use type: Cigarette Cigarettes Per Day: 10 Smoked in Last 30 Days: Yes e-Cigarette/Vaping Use: Never Used Second Hand Smoke Exposure: No Use of substances other than those prescribed or required for medical reasons: No Substance Use Type: Marijuana Advance Directives: No Advance Directives Information Provided: Yes Physical Exam 2 Vital Signs: Vital Signs: Last Vital Signs Temp 98.0 F 05/12/24 13:45 Pulse 84 05/12/24 13:45 Resp 13 05/12/24 13:45 BP 137/95 H 05/12/24 13:45 Pulse Ox 98 05/12/24 13:45 O2 Del Method Room Air 05/12/24 13:45 BMI result Body Mass Index 36.1 No acute distress comfortable Const: General: cooperative Nutritional Appearance: well nourished O rientation/consciousness: patient oriented x3 Limitations: no limitations HEENT: Head: Yes normal to inspection Ears: hearing grossly normal bilaterally General nose exam: Normal external nose present Face and sinus: Yes normal facial exam Mouth: Normal oral and palatal mucosa present Throat: Yes posterior oropharynx normal Neck: Neck: Yes normal visual inspection Chest: Chest palpation & inspection: normal inspection of the chest Resp: Effort & Inspection: normal respiratory effort Auscultation: clear to auscultation bilaterally Cardio: Jugular venous distension: no JVD Rate: regular rate Rhythm: r egular rhythm GI: Inspection: Yes normal to inspection Palpation (GI): Soft to palpation, not firm, nontender and no guarding Back/Spine/Pelvis: Other: No acute distress Neuro: General: patient oriented x3 Course Reevaluation(s) Reevaluation #1: On re-evaluation patient has no chest pain pain whatsoever delta trop is flat, patient wants to go home I want to get out I reviewed his troponin with Dr Hinojosa troponin not raising very unlikely ACS,unlikely PE on coumadin and this AM d-dimer negative,pain not consistent with dissection no radiation to back no sudden Time: 15:41 Medical Decision Making Medical Decision Making [facility] Narrative: Patient presented here with epigastric abdominal pain we will obtain blood work Differential Diagnosis Differential Diagnoses: The differential diagnosis associated with the presentation includes Peptic ulcer disease acute coronary syndrome Admission/Observation Consideration of admission/observation: Escalation of care including admission/observation considered Consult Healthcare Provider Management of the patient was discussed with: Rivet Spinner Dr Hinojosa manager loss prevention Lab Data [facility] Lab Attestation statement: I reviewed the patient's lab results. 05/12/24 12:51 05/12/24 12:51 Labs: Lab Results 05/12/24 Range/Units 12:51 WBC 13.4 H (4.8-10.8) X10*3/uL RBC 3.92 L (4.60-5.80) X10*6/uL Hgb 12.2 L (14.0-18.0) g/dl Hct 36.1 L (42.0-52.0) % MCV 92.1 (80.0-98.0) fL MCH 31.1 (27.0-33.0) pg MCHC 33.8 (31.0-36.0) g/dl RDW 18.1 H (11.0-16.0) % Plt Count 366 (160-400) X10*3/uL MPV 10.4 (9.4-12.4) fL Immature Gran % (Auto) Cancelled Neut % (Auto) Cancelled Lymph % (Auto) Cancelled [place] % (Auto) Cancelled Eos % (Auto) Cancelled Baso % (Auto) Cancelled Lymph # (Auto) Cancelled [place] # (Auto) Cancelled Eos # (Auto) Cancelled Baso # (Auto) Cancelled Abs Immat Gran (auto) Cancelled Absolute Neuts (auto) Cancelled Absolute Nucleated RBC 0.050 H (0.0-0.012) X10*3/uL Nucleated RBC % (auto) 0.4 H (0.0-0.2) /100WBC Neutrophils % (Manual) 66 (45-73) % Band Neutrophils % 1 L (3-5) % Lymphocytes % (Manual) 24 (20-40) % Atypical Lymphs % (Man) 1 (0-6) % Monocytes % (Manual) 6 (2-11) % Eosinophils % (Manual) 2 (0-4) % Abs Neuts (Manual) 9.0 H (2.0-8.3) X10*3/uL Lymphocytes # (Manual) 3.2 (1.2-4.9) X10*3/uL Atyp Lymphs # (Manual) 0.1 x10*3/uL Monocytes # (Manual) 0.8 (0.1-1.2) X10*3/uL Eosinophils # (Manual) 0.3 (0.0-0.4) X10*3/uL Nucleated RBCs 1 H (0-0) /100WBC Platelet Estimate NORMAL (NORMAL) Plt Morphology Comment NORMAL RBC Morphology NOTED Polychromasia 1+ (0-2) /OIF Target Cells 1+ (5-14) /OIF [place] Bodies PRESENT PT 31.7 H (10.9-12.4) SEC INR 2.7 H (0.9-1.1) APTT 41.4 H D (26.0-36.8) SEC Sodium 140 (135-145) mmol/L Potassium 3.1 L (3.3-5.1) mmol/L Chloride 106 (96-108) mmol/L Carbon Dioxide 28 (22-29) mmol/L Anion Gap 9 L (12-20) BUN 6 L (9-16) mg/dL Creatinine 0.69 (0.5-1.4) mg/dL Estim Creat Clear Calc 152.5 Estimated GFR > 60 Random Glucose 99 (60-115) mg/dL Calcium 8.3 L (8.4-10.2) mg/dL Total Bilirubin 0.4 (0.0-1.0) mg/dL AST 40 H (5-37) U/L ALT 19 (0-40) U/L Alkaline Phosphatase 87 (39-117) U/L Troponin I High Sens 92.8 H (<3.5-35.0) ng/L B-Natriuretic Peptide 47 (<100) pg/mL Total Protein 6.9 (6.5-8.0) g/dL Albumin 3.1 L (3.5-5.0) g/dL Independent Interpretation I performed an independent interpretation of an: EKG Interpretation: Normal sinus rhythm rate 97 a left bundle-branch block which is old Radiology Impression Radiologist Impression: I reviewed CXR of this am Chronic Conditions Patient?s care impacted by: Other (AVR) Discharge Plan Discharge Clinical Impression: Acute hypokalemia Chest pain Qualifiers: Chest pain type: unspecified Qualified Code(s): R07.9 - Chest pain, unspecified Patient Disposition: Home, Self-Care Instructions: Chest Pain (DC), Potassium Content of Foods List (ED), Hypokalemia (ED) Additional Instructions: You should call your manager loss prevention in arrange a follow-up appointment in 3 or 4 days. We are always here for you if you get worse recurrent chest pain shortness of breath any concern come back Prescriptions: No Action clonidine 0.2 mg/24 hr patch weekly 2 patch transdermal TU@0900 pantoprazole 40 mg tablet,delayed release (DR/EC) 40 mg PO DAILY@0630 metoprolol tartrate 50 mg tablet 100 mg PO BID warfarin 5 mg tablet 2 - 7 mg PO DAILY nystatin 100,000 unit/mL suspension 100,000 unit buccal DAILY Qty: 60 0RF Rx Instructions: administer 1/2 of dose in each side of the mouth clonazepam 1 mg tablet 1 mg PO TID PRN (Reason: Anxiety) clonidine HCl 0.2 mg Tablet 0.1 mg PO TID PRN (Reason: Blood Pressure) lamotrigine 25 mg tablet 37.5 mg PO DAILY emtricitabine-tenofovir (TDF) 200-300 mg tablet 1 tab PO DAILY Tivicay 50 mg tablet 50 mg PO DAILY Referrals: Tomas Jordan MD [Primary Care Provider] - 1 day Print Language: Greek
[2024-05-12 13:07] LABS: Hematocrit 36.1 % (42.0-52.0); Hemoglobin 12.2 g/dl (14.0-18.0); Mean Corpuscular HGB Conc 33.8 g/dl (31.0-36.0); Mean Corpuscular Hemoglobin 31.1 pg (27.0-33.0); Mean Corpuscular Volume 92.1 fL (80.0-98.0); Mean Platelet Volume 10.4 fL (9.4-12.4); NRBC Pct Auto 0.4 /100WBC (0.0-0.2); Platelet Count 366 X10*3/uL (160-400); Red Blood Count 3.92 X10*6/uL (4.60-5.80); Red Cell Distribution Width 18.1 % (11.0-16.0); White Blood Count 13.4 X10*3/uL (4.8-10.8)
--- NOTE | 2024-05-12 13:07 | PC.NURSE ---
pt difficult stick. he refused techs to draw his labs and refused nursing to put in an IV. notified. attempted to place US IV. labs drawn
[2024-05-12 13:17] LABS: INTERNATIONAL NORM RATIO 2.7 (0.9-1.1); Prothrombin Time 31.7 SEC (10.9-12.4)
[2024-05-12 13:19] LABS: Partial Thromboplastin Time 41.4 SEC (26.0-36.8)
[2024-05-12 13:28] LABS: Alanine Aminotransferase 19 U/L (0-40); Albumin Level 3.1 g/dL (3.5-5.0); Alkaline Phosphatase 87 U/L (39-117); Anion Gap 9 (12-20); Aspartate Amino Transferase 40 U/L (5-37); Bilirubin Total 0.4 mg/dL (0.0-1.0); Blood Urea Nitrogen 6 mg/dL (9-16); Calcium 8.3 mg/dL (8.4-10.2); Carbon Dioxide 28 mmol/L (22-29); Chloride 106 mmol/L (96-108); Creatinine Clr Calc Pharmacy 152.5; Estimated Glomerular Filt Rate > 60; Glucose Random 99 mg/dL (60-115); Potassium 3.1 mmol/L (3.3-5.1); Sodium 140 mmol/L (135-145); Total Protein 6.9 g/dL (6.5-8.0)
[2024-05-12 13:32] LABS: B Type Natriuretic Peptide 47 pg/mL (<100); Troponin-I High Sensitivity 92.8 ng/L (<3.5-35.0)
[2024-05-12 13:41] LABS: Atypical Lymph Absolute Manual 0.1 x10*3/uL; Atypical Lymphs Percent Manual 1 % (0-6); Band Neutrophils Percent 1 % (3-5); Eosinophils Absolute Manual 0.3 X10*3/uL (0.0-0.4); Eosinophils Percent Manual 2 % (0-4); Lymphocytes Absolute Manual 3.2 X10*3/uL (1.2-4.9); Lymphocytes Percent Manual 24 % (20-40); Monocytes Absolute Manual 0.8 X10*3/uL (0.1-1.2); Monocytes Percent Manual 6 % (2-11); Neutrophils Percent Manual 66 % (45-73); Nucleated Red Blood Cells 1 /100WBC (0-0)
[2024-05-12 13:44] LABS: Howell Jolly Bodies PRESENT; RBC Morphology NOTED; Target Cells 1+ (5-14) /OIF
[2024-05-12 13:45] VITALS: BP 137/95; PULSE 84; RESP 13; TEMP 36.7; O2SAT 98
[2024-05-12 13:45] LABS: Platelet Estimate NORMAL (NORMAL); Platelet Morphology Comment NORMAL; Polychromasia 1+ (0-2) /OIF
--- NOTE | 2024-05-12 14:40 | PC.NURSE ---
pt denies pain. he says he came in with a little bit of chest pain but that he often has it. he denies now.
--- OUTSIDE RECORDS SUMMARY | 2024-05-12 15:04 | XMS_ITS | Encounter Summary ---
Author Organization [facility] Address [address] [place] [address] Care Team Providers Care Baker Bread Name Role Phone Tomas Jordan MD Primary Care Provider [phone] Reason for Visit * Reason Comments Fall Pt comes in with a f all a couple hours ago on ice. Positive head strike, unsure of LOC. Pt takes coumadin . Reports dizziness and headache. Encounter Details Date Type Department Care Team (Late st Contact Info) Description 04/29/2024 10:23 PM EST - 04/30/2024 2:[address] [facility] Emergency [address] [place] [address] Discharge Disposition: Home or Self [...] GEMUSE QTc 447 ms GEMUSE P Wave [place] 27 degrees GEMUSE R [place] 0 degrees GEMUSE T [place] 120 degrees GEMUSE ECG Interpretation Sinus tachycardia [...] 04/29/2024 documented in this encounter Care Teams Baker Bread Relationship Specialty Start Date End Date Tomas Jordan MD [address] [place] [address], [address] [place] [address] PCP - General Internal Medicine 02/27/24 documented as of this encounter
--- OUTSIDE RECORDS SUMMARY | 2024-05-12 15:04 | XMS_ITS | Encounter Summary ---
[facility] [address] [place] [address] Care Team Providers Care Pharmacist Assistant Name Role Phone Tomas Jordan MD Primary Care Provider Reason for Visit * Reason Comments Neck Pain Encounter Details Date Type Department Care Team (Late st Contact Info) Description 04/30/2024 9:22 AM EST - 04/30/2024 10:12 AM EST Emergency [facility] Emergency [address] [place] [id number] Walter Gomez MD [address] [address] Fall, initial encounter (Primary Dx) Discharge Disposition: [...] I'm not signing anything I'm going to [facility] . Extensive education provided to patient on [...] 04/30/2024 documented in this encounter Care Teams Pharmacist Assistant Relationship Specialty Start Date End Date Tomas Jordan MD [address] [place] [address], [address] [id number] PCP - General Internal Medicine 02/27/24 documented as of this encounter
--- OUTSIDE RECORDS SUMMARY | 2024-05-12 15:04 | XMS_ITS | Clinical Summary ---
Author Organization [facility] Address [address] [place] [address] Phone Care Team Providers Care [employer] Name Role Phone Tomas Jordan MD Primary Care Provider [phone] Allergies Active Allergy Reactions Criticality Noted Date [...] closes my throat . Nutritional Supplements 03/07/2024 Avis 04/30/2024 Trazodone 03/07/2024 Elongated erection. Do you know why trazadone was originally made for? . Medications clonazePAM (KlonoPIN) 1 mg tablet TAKE ONE (1) TABLET BY MOUTH THREE TIMES A DAY, NEEDED FOR SEVERE ANXIETY/MALHOTRA IC. USE SPARINGLY. Active Encounters Date Type Department Care Team Description 05/10/2024 7:37 PM EST - 05/10/2024 8:59 PM EST Emergency [facility] Emergency [address] [place] [address] Orion Davidson MD Oral thrush (Primary Dx); Thrush Discharge Disposition: Home or Self Care 04/30/2024 9:22 AM EST - 04/30/2024 10:12 AM [facility] Emergency [address] [place] [address] Walter Gomez MD Fall, initial encounter (Primary Dx) Discharge Disposition: Left Against Medical Advice 04/29/2024 10:23 PM EST - 04/30/2024 2:17 AM [facility] Emergency [address] [place] [phone] Discharge Disposition: Home or Self Care 04/27/2024 7:54 PM EST - 04/27/2024 10:50 PM [facility] Emergency [address] [place] [phone] Discharge Disposition: Home or Self Care 04/26/2024 7:21 PM EST - 04/26/2024 9:[address] [phone] Baldemar Shah MD Homicidal ideation (Primary Dx); Musculoskeletal back pain; Polypharmacy; Mild episode of recurrent major depressive disorder (CMS/HCC); Anxiety Discharge Disposition: Home or Self Care 04/26/2024 3:20 PM EST - 04/26/2024 6:00 PM [facility] Emergency [address] [place] [phone] Baldemar Shah MD Acute head injury without loss of consciousness, initial encounter (Primary Dx); Lumbar strain, initial encounter; Homicidal ideation Discharge Disposition: Left Against Medical Advice 04/25/2024 7:54 PM EST - 04/26/2024 1:01 AM [facility] Emergency [address] [place] [phone] Fall from bed, initial encounter (Primary Dx); Bruise, trunk, initial encounter Discharge Disposition: Home or Self Care 03/19/2024 7:38 PM EST - 03/20/2024 12:[address] [phone] Discharge Disposition: Home or Self Care 03/17/2024 12:47 PM EST - 03/17/2024 3:[address] [phone] Discharge Disposition: Home or Self Care 03/07/2024 8:21 PM EST - 03/08/2024 1:28 AM EST Emergency [facility] Emergency [address] [place] [address] Discharge Disposition: Home or Self Care 02/27/2024 4:17 PM EST - 02/27/2024 6:13 PM EST Emergency [facility] Emergency [address] [place] [phone] Pain (Primary Dx) Discharge Disposition: Left Against [...] PCV) 05/06/2015 05/06/2014 COVID-19 Vaccine ( - 2024-2 5 season) 2023 Influenza Vaccine (#1) 2023 [...] Comments MANUAL DIFFERENTIAL - SYSMEX WAM STAT 05/10/2024 8:28 PM EST CBC WITH AUTO DIFFERENTIAL STAT 05/10/2024 8:28 PM EST CBC AND DIFFERENTIAL STAT 05/10/2024 8:28 PM EST BASIC METABOLIC PANEL STAT 05/10/2024 8:28 PM EST ECG ANNOTATED 05/02/2024 ECG 12-LEAD STAT 04/29/2024 [...] EST from Last 3 Months Results * (ABNORMAL) Manual differential (05/10/2024 8:28 PM EST) Only the most recent of2 resultswithin the time period is included. Neutrophils % 81.0 % LAB HEMETOLOGY METHOD 05/10/2024 9:26 PM [facility] Lymphocytes % 10.0 % LAB HEMETOLOGY METHOD 05/10/2024 9:26 PM [facility] Monocytes % 9.0 % LAB HEMETOLOGY METHOD 05/10/2024 9:26 PM [facility] Eosinophils % 0.0 % LAB HEMETOLOGY METHOD 05/10/2024 9:26 PM [facility] Basophils % 0.0 % LAB HEMETOLOGY METHOD 05/10/2024 9:26 PM [facility] Neutrophils Absolute Manual 24.22(H) 1.50 - 7.00 K/mcL LAB HEMETOLOGY METHOD 05/10/2024 9:26 PM [facility] Lymphocytes Absolute 2.99 1.00 - 5.00 K/mcL LAB HEMETOLOGY METHOD 05/10/2024 9:26 PM [facility] Monocytes Absolute Manual 2.69(H) 0.20 - 1.00 K/mcL LAB HEMETOLOGY METHOD 05/10/2024 9:26 PM [facility] Eosinophils Absolute Manual 0.00 0.00 - 0.50 K/mcL LAB HEMETOLOGY METHOD 05/10/2024 9:26 PM [facility] Basophils Absolute Manual 0.00 0.00 - 0.20 K/mcL LAB HEMETOLOGY METHOD 05/10/2024 9:26 PM [facility] Rbc Morphology Present( A) Consistent with indices, Normal for [place] LAB HEMETOLOGY METHOD 05/10/2024 9:26 PM [facility] Comment:RBC: Morphology agre es with CBC Platelet Morphology - WAM See Note(A) Normal LAB HEMETOLOGY METHOD 05/10/2024 9:26 PM [facility] Comment:PLT: Normal [place] Bodies Present Present( A) (none) LAB HEMETOLOGY METHOD 05/10/2024 9:26 PM EST [facility] Schistocytes Present < 5%(A) (none) LAB HEMETOLOGY METHOD 05/10/2024 9:26 PM [facility] Target Cells Present 5 - 10%(A) (none) LAB HEMETOLOGY METHOD 05/10/2024 9:26 PM [facility] Blood Venous blood specimen / Unknown Venipuncture / Unknown 05/10/2024 8:28 PM EST 05/10/2024 8:55 PM EST Tangela KOENIG LAB BLOOD ORDERABLES F inal Result [facility] [address] [place] [address], [place] [phone] * (ABNORMAL) CBC auto differential (05/10/2024 8:28 PM EST) Only the most recent of4 resultswithin the time period is included. WBC 29.9(H) 4.8 - 10.8 K/mcL LAB HEMETOLOGY METHOD 05/10/2024 9:26 PM [facility] RBC 4.00(L) 4.50 - 5.50 M/mcL LAB HEMETOLOGY METHOD 05/10/2024 9:26 PM [facility] Hemoglobin 12.5(L) 13.5 - 17.5 g/dL LAB HEMETOLOGY METHOD 05/10/2024 9:26 PM [facility] Hematocrit 38.2(L) 42.0 - 54.0 % LAB HEMETOLOGY METHOD 05/10/2024 9:26 PM [facility] MCV 95.3 79.0 - 98.0 FL LAB HEMETOLOGY METHOD 05/10/2024 9:26 PM [facility] MCH 31.2 27.0 - 32.0 pcg LAB HEMETOLOGY METHOD 05/10/2024 9:26 PM EST [facility] MCHC 32.7 32.0 - 37.0 g/dL LAB HEMETOLOGY METHOD 05/10/2024 9:26 PM EST [facility] RDW 17.9(H) 11.0 - 15.0 % LAB HEMETOLOGY METHOD 05/10/2024 9:26 PM EST [facility] Platelets 389 130 - 400 K/mcL LAB HEMETOLOGY METHOD 05/10/2024 9:26 PM [facility] MPV 11.1(H) 7.0 - 11.0 FL LAB HEMETOLOGY METHOD 05/10/2024 9:26 PM [facility] NRBC 0.2 <1.0 % LAB HEMETOLOGY METHOD 05/10/2024 9:26 PM EST [facility] NRBC Absolute 0.05 <0.10 K/mcL LAB HEMETOLOGY METHOD 05/10/2024 9:26 PM [facility] Blood Venous blood specimen / Unknown Venipuncture / Unknown 05/10/2024 8:28 PM EST 05/10/2024 8:55 PM EST Tangela KOENIG LAB BLOOD ORDERABLES F inal Result [facility] [address] [place] [address], * (ABNORMAL) Basic Metabolic Panel (BMP) (05/10/2024 8:28 PM EST) Only the most recent of2 resultswithin the time period is included. Sodium 142 133 - 145 mmol/L LAB CHEMISTRY METHOD 05/10/2024 9:27 PM EST [facility] Potassium 3.5 3.5 - 5.5 mmol/L LAB CHEMISTRY METHOD 05/10/2024 9:27 PM [facility] Chloride 111(H) 96 - 110 mmol/L LAB CHEMISTRY METHOD 05/10/2024 9:27 PM [facility] CO2 20(L) 21 - 32 mmol/L LAB CHEMISTRY METHOD 05/10/2024 9:27 PM [facility] Anion Gap 11 3 - 11 LAB CHEMISTRY METHOD 05/10/2024 9:27 PM [facility] Glucose 92 70 - 100 mg/dL LAB CHEMISTRY METHOD 05/10/2024 9:27 PM [facility] BUN 8 5 - 25 mg/dL LAB CHEMISTRY METHOD 05/10/2024 9:27 PM [facility] Creatinine 0.84 0.70 - 1.30 mg/dL LAB CHEMISTRY METHOD 05/10/2024 9:27 PM [facility] eGFR 110 >=60 mL/min/1. 73m2 LAB CHEMISTRY METHOD 05/10/2024 9:27 PM [facility] Comment:Calculation based on the??Chronic Kidney Disease Epidemiology Collaboration (CKD-EPI) equation refit??without adjustment for race. BUN/Creatinine Ratio 9.5 LAB CHEMISTRY METHOD 05/10/2024 9:27 PM [facility] Calcium 9.1 8.5 - 10.5 mg/dL LAB CHEMISTRY METHOD 05/10/2024 9:27 PM [facility] Blood Venous blood specimen / Unknown Venipuncture / Unknown 05/10/2024 8:28 PM EST 05/10/2024 8:55 PM EST us Tangela KOENIG LAB BLOOD ORDERABLES F inal Result [facility] [address] [place] [address], * ECG-Annotated (05/02/2024) Only the most recent [...] GEMUSE QTc 447 ms GEMUSE P Wave [place] 27 degrees GEMUSE R [place] 0 degrees GEMUSE T [place] 120 degrees GEMUSE ECG Interpretation Sinus tachycardia Possible Left atrial enlargement Left bundle branch block Abnormal ECG When compared with ECG of 25-APR-2024 19:48, No significant change was found Confirmed by KALA CAVANAUGH ([id number]) on 05/01/2024 6:09:52 PM GEMUSE 04/29/2024 11:2 5 PM EST 05/01/2024 6:09 PM EST Denae Rivas DO ECG ORDERABLES Final Res ult GEMUSE * CT Head wo Contrast (04/26/2024 4:28 [...] Signed Date: 04/26/2024 16:42 ET Workstation ID: [id number] Transcribed By: Self Edit Transcribed Date: 04/26/2024 [...] Signed Date: 04/26/2024 16:42 ET Workstation ID: [id number] Transcribed By: Self Edit Transcribed Date: 04/26/2024 16:34 ET us Baldemar Shah MD IM CT PROCEDURES Final Result * CT Chest/Abdomen/Pelvis [...] 00:20:07 Narrative 04/26/2024 12:20 AM EST INDICATION: [place]-chiwpnq-iwmimh trauma, blunt CT Chest W Contrast COMPARISON: None FINDINGS: Detail limited by artifacts. No pulmonary consolidation or mass. Mild bilateral bronchial wall thickening. No pleural effusion. No pneumothorax. No cardiomegaly. No pericardial effusion. No pathologically enlarged lymph nodes. No thoracic aortic aneurysm. No acute fracture. Status post median sternotomy. Procedure Note Ambrosio Walker MD - 04/26/2024 INDICATION: Lyntc-uirmnmn-[id number] trauma, blunt CT Chest W Contrast COMPARISON: [...] Walker MD on 04/26/2024 00:20:07 Eamon KOENIG [facility] CT PROCEDURES Final Result * CT Cervical [...] Walker MD on 04/26/2024 00:10:13 Eamon KOENIG [facility] CT PROCEDURES Final Result * Troponin I high sensitivity (04/25/2024 10:23 PM EST) Only the most recent of2 resultswithin the time period is included. High Sensitivity Troponin I 9 <=79 ng/L LAB CHEMISTRY METHOD 04/25/2024 10:55 PM EST [facility] Blood Venous blood specimen / Unknown Venipuncture / Unknown 04/25/2024 10:23 PM EST 04/25/2024 10:29 PM EST Narrative [facility] - 04/25/2024 10:55 PM EST High levels of biotin in samples may falsely decrease hsTroponin values. ??Use caution when interpreting hsTroponin results in patients taking biotin who exhibit renal impairment (eGFR <60) or in patients taking more than 20 mg/day of biotin. Walter Gomez MD LAB BLOOD ORDERABLES Final Result Performing Organization Address [facility] de Phone Number [facility] [address] [place] [address], * (ABNORMAL) Protime-INR (04/25/2024 8:59 PM EST) Only the most recent of2 resultswithin the time period is included. [facility] Protime 57.0(H) 10.6 - 13.9 sec LAB COAGULATION METHOD 04/25/2024 9:32 PM EST [facility] INR 4.7 LAB COAGULATION METHOD 04/25/2024 9:32 PM EST [facility] Blood Venous blood specimen / Unknown Venipuncture / Unknown 04/25/2024 8:59 PM EST 04/25/2024 9:18 PM EST Walter Gomez MD LAB BLOOD ORDERABLES Final Result Performing Organization Address [facility] de Phone Number [facility] [address] [place] [address], * B-type natriuretic peptide (04/25/2024 8:59 PM EST) [facility] BNP 16 <=100 pcg/mL LAB CHEMISTRY METHOD 04/25/2024 9:52 PM EST [facility] Blood Venous blood specimen / Unknown Venipuncture / Unknown 04/25/2024 8:59 PM EST 04/25/2024 9:19 PM EST Walter Gomez MD LAB BLOOD ORDERABLES Final Result Performing Organization Address [facility] Co de Phone Number [facility] [address] [place] [address], [place] [phone] * Magnesium (04/25/2024 8:59 PM EST) Only the most recent of2 resultswithin the time period is included. Magnesium 1.9 1.9 - 2.6 mg/dL LAB CHEMISTRY METHOD 04/25/2024 9:46 PM EST [facility] Blood Venous blood specimen / Unknown Venipuncture / Unknown 04/25/2024 8:59 PM EST 04/25/2024 9:19 PM EST Walter Gomez MD LAB BLOOD ORDERABLES Final Result Performing Organization Address City/[facility]/ZIP Co de Phone Number [facility] [address] [place] [address], [place] [phone] * Lipase (04/25/2024 8:59 PM EST) Lipase 65 13 - 75 unit/L LAB CHEMISTRY METHOD 04/25/2024 9:46 PM EST [facility] Blood Venous blood specimen / Unknown Venipuncture / Unknown 04/25/2024 8:59 PM EST 04/25/2024 9:19 PM EST Walter Gomez MD LAB BLOOD ORDERABLES Final Result [facility] [address] [place] [address], [place] [phone] * Ethanol (04/25/2024 8:59 PM EST) Ethanol Level 9 0 - 10 mg/dL LAB CHEMISTRY METHOD 04/26/2024 5:52 PM EST [facility] Blood Venous blood specimen / Unknown Venipuncture / Unknown 04/25/2024 8:59 PM EST 04/25/2024 9:19 PM EST Baldemar Shah MD LAB BLOOD ORDERABLES Final Resu lt Performing Organization Address City/[facility]/ZIP Co de Phone Number [facility] [address] [place] [address], [place] [phone] * (ABNORMAL) Acetaminophen level (04/25/2024 8:59 PM EST) Acetaminophen Level <2.0(L) 10.0 - 30.0 mcg/mL LAB CHEMISTRY METHOD 04/26/2024 5:52 PM EST [facility] Blood Venous blood specimen / Unknown Venipuncture / Unknown 04/25/2024 8:59 PM EST 04/25/2024 9:19 PM EST Baldemar Shah MD LAB BLOOD ORDERABLES Final Resu lt Performing Organization Address [facility] de Phone Number [facility] [address] [place] [address], [place] [phone] * Salicylate level (04/25/2024 8:59 PM EST) Salicylate Level 2.2 2.0 - 29.0 mg/dL LAB CHEMISTRY METHOD 04/26/2024 5:52 PM EST [facility] Blood Venous blood specimen / Unknown Venipuncture / Unknown 04/25/2024 8:59 PM EST 04/25/2024 9:19 PM EST Baldemar Shah MD LAB BLOOD ORDERABLES Final Resu lt Performing Organization Address City/[facility]/ZIP Co de Phone Number [facility] [address] [place] [address], [place] [phone] * (ABNORMAL) Comprehensive metabolic panel (04/25/2024 8:59 PM EST) Sodium 139 133 - 145 mmol/L LAB CHEMISTRY METHOD 04/25/2024 9:52 PM [facility] Potassium 4.2 3.5 - 5.5 mmol/L LAB CHEMISTRY METHOD 04/25/2024 9:52 PM [facility] Chloride 105 96 - 110 mmol/L LAB CHEMISTRY METHOD 04/25/2024 9:52 PM [facility] CO2 28 21 - 32 mmol/L LAB CHEMISTRY METHOD 04/25/2024 9:52 PM [facility] Anion Gap 6 3 - 11 LAB CHEMISTRY METHOD 04/25/2024 9:52 PM [facility] Glucose 125(H) 70 - 100 mg/dL LAB CHEMISTRY METHOD 04/25/2024 9:52 PM [facility] BUN 12 5 - 25 mg/dL LAB CHEMISTRY METHOD 04/25/2024 9:52 PM [facility] Creatinine 0.86 0.70 - 1.30 mg/dL LAB CHEMISTRY METHOD 04/25/2024 9:52 PM [facility] eGFR 109 >=60 mL/min/1. 73m2 LAB CHEMISTRY METHOD 04/25/2024 9:52 PM [facility] Comment:Calculation based on the??Chronic Kidney Disease Epidemiology Collaboration (CKD-EPI) equation refit??without adjustment for race. BUN/Creatinine Ratio 14.0 LAB CHEMISTRY METHOD 04/25/2024 9:52 PM [facility] Calcium 9.2 8.5 - 10.5 mg/dL LAB CHEMISTRY METHOD 04/25/2024 9:52 PM [facility] AST (SGOT) 46(H) 10 - 42 unit/L LAB CHEMISTRY METHOD 04/25/2024 9:52 PM [facility] ALT (SGPT) 43 10 - 60 unit/L LAB CHEMISTRY METHOD 04/25/2024 9:52 PM [facility] Alkaline Phosphatase 113 42 - 121 unit/L LAB CHEMISTRY METHOD 04/25/2024 9:52 PM [facility] Total Protein 6.6 6.0 - 8.0 g/dL LAB CHEMISTRY METHOD 04/25/2024 9:52 PM EST [facility] Albumin 2.9(L) 3.2 - 5.0 g/dL LAB CHEMISTRY METHOD 04/25/2024 9:52 PM EST [facility] Total Bilirubin 0.4 0.0 - 1.4 mg/dL LAB CHEMISTRY METHOD 04/25/2024 9:52 PM EST [facility] Blood Venous blood specimen / Unknown Venipuncture / Unknown 04/25/2024 8:59 PM EST 04/25/2024 9:19 PM EST us Walter Gomez MD LAB BLOOD ORDERABLES Final Result [facility] [address] [place] [address], * XR Chest 2 Views (03/19/2024 8:19 [...] Signed Date: 03/20/2024 10:02 ET Workstation ID: [id number] Transcribed By: Self Edit Transcribed Date: 03/20/2024 [...] Signed Date: 03/20/2024 10:02 ET Workstation ID: [id number] Transcribed By: Self Edit Transcribed Date: 03/20/2024 09:58 ET us Yobani Ngo DO IMG XR PROCEDURES Final Result * Urinalysis with reflex microscopic (02/27/2024 5:51 PM EST) Specific [place] Urine 1.012 1.003 - 1.030 LAB URINALYSIS - AUTOMATED METHOD 02/27/2024 6:24 PM [facility] pH, Urine 7.0 5.0 - 8.0 pH LAB URINALYSIS - AUTOMATED METHOD 02/27/2024 6:24 PM [facility] Leukocytes, Urine Negative Negative LAB URINALYSIS - AUTOMATED METHOD 02/27/2024 6:24 PM [facility] Nitrite, Urine Negative Negative LAB URINALYSIS - AUTOMATED METHOD 02/27/2024 6:24 PM [facility] Protein, Urine Negative <=Trace mg/dL LAB URINALYSIS - AUTOMATED METHOD 02/27/2024 6:24 PM [facility] Glucose, Urine Negative Negative mg/dL LAB URINALYSIS - AUTOMATED METHOD 02/27/2024 6:24 PM [facility] Ketones, Urine Negative Negative mg/dL LAB URINALYSIS - AUTOMATED METHOD 02/27/2024 6:24 PM [facility] Urobilinogen, Urine 1.0 0.2 - 1.0 mg/dL LAB URINALYSIS - AUTOMATED METHOD 02/27/2024 6:24 PM [facility] Bilirubin, Urine Negative Negative LAB URINALYSIS - AUTOMATED METHOD 02/27/2024 6:24 PM [facility] Blood, Urine Negative Negative LAB URINALYSIS - AUTOMATED METHOD 02/27/2024 6:24 PM [facility] Urine Urine specimen obtained by clean catch procedure / Unknown Non-blood Collection / Unknown 02/27/2024 5:51 PM EST 02/27/2024 6:03 PM EST Piotr KOENIG LAB URINE ORDERABLES Final R esult [facility] [address] [place] [address], * Respiratory virus panel molecular study (02/27/2024 5:51 PM EST) Adenovirus Detection by PCR Not Detected Not Detected LAB MICROBIOLOGY METHOD 02/27/2024 7:05 PM [facility] Influenza A PCR Not Detected Not Detected LAB MICROBIOLOGY METHOD 02/27/2024 7:05 PM [facility] Influenza B PCR Not Detected Not Detected LAB MICROBIOLOGY METHOD 02/27/2024 7:05 PM [facility] Coronavirus 229E Not Detected Not Detected LAB MICROBIOLOGY METHOD 02/27/2024 7:05 PM [facility] Coronavirus HKU1 Not Detected Not Detected LAB MICROBIOLOGY METHOD 02/27/2024 7:05 PM [facility] Coronavirus OC43 Not Detected Not Detected LAB MICROBIOLOGY METHOD 02/27/2024 7:05 PM [facility] Coronavirus NL63 Not Detected Not Detected LAB MICROBIOLOGY METHOD 02/27/2024 7:05 PM [facility] Parainfluenza Virus 1 Not Detected Not Detected LAB MICROBIOLOGY METHOD 02/27/2024 7:05 PM [facility] Parainfluenza Virus 2 Not Detected Not Detected LAB MICROBIOLOGY METHOD 02/27/2024 7:05 PM [facility] Parainfluenza Virus 3 Not Detected Not Detected LAB MICROBIOLOGY METHOD 02/27/2024 7:05 PM [facility] Parainfluenza Virus 4 Not Detected Not Detected LAB MICROBIOLOGY METHOD 02/27/2024 7:05 PM [facility] RSV PCR Not Detected Not Detected LAB MICROBIOLOGY METHOD 02/27/2024 7:05 PM [facility] Human Metapneumovirus A and B Not Detected Not Detected LAB MICROBIOLOGY METHOD 02/27/2024 7:05 PM [facility] Rhinovirus/Entero virus Not Detected Not Detected LAB MICROBIOLOGY METHOD 02/27/2024 7:05 PM [facility] Bordetella pertussis Not Detected Not Detected LAB MICROBIOLOGY METHOD 02/27/2024 7:05 PM [facility] Bordetella parapertussis Not Detected Not Detected LAB MICROBIOLOGY METHOD 02/27/2024 7:05 PM [facility] Mycoplasma pneumo by PCR Not Detected Not Detected LAB MICROBIOLOGY METHOD 02/27/2024 7:05 PM [facility] Chlamydia pneumoniae Not Detected Not Detected LAB MICROBIOLOGY METHOD 02/27/2024 7:05 PM [facility] SARS COV-2 Not Detected Not Detected LAB MICROBIOLOGY METHOD 02/27/2024 7:05 PM [facility] Swab Both anterior nares / Unknown Non-blood Collection / Unknown 02/27/2024 5:51 PM EST 02/27/2024 5:[address] [facility] - 02/27/2024 7:05 PM EST Testing was performed using the [employer] Respiratory Pathogen PCR Assay. All results must [...] MICROBIOLOGY - GENERAL O RDERABLES Final Result [facility] [address] [place] [address], * Vascular US Duplex Lower Extremity Venous [...] Signed Date: 02/28/2024 09:29 ET Workstation ID: [id number] Transcribed By: Self Edit Transcribed Date: 02/28/2024 [...] Signed Date: 02/28/2024 09:29 ET Workstation ID: [id number] Transcribed By: Self Edit Transcribed Date: 02/28/2024 09:28 ET Piotr KOENIG CV VASCULAR PROCEDURES Final Result * APTT (02/27/2024 4:33 PM EST) [facility] aPTT 38.3 24.1 - 39.3 sec LAB COAGULATION METHOD 02/27/2024 4:50 PM EST [facility] Blood Venous blood specimen / Unknown Venipuncture / Unknown 02/27/2024 4:33 PM EST 02/27/2024 4:38 PM EST Orion Davidson MD LAB BLOOD ORDERABLES Simin l Result Performing Organization Address City/[facility]/ZIP Co de Phone Number [facility] [address] [place] [address], [place] [phone] * Creatine kinase (02/27/2024 4:33 PM EST) [facility] Total CK 37 22 - 269 unit/L LAB CHEMISTRY METHOD 02/27/2024 5:06 PM EST [facility] Blood Venous blood specimen / Unknown Venipuncture / Unknown 02/27/2024 4:33 PM EST 02/27/2024 4:38 PM EST Piotr KOENIG LAB BLOOD ORDERABLES Final R esult [facility] [address] [place] [address], [place] [phone] from Last 3 Months Insurance [facility] Care Teams [employer] Relationship Specialty Start Date End Date Tomas Jordan MD [address] [place] [address], [address] [place], [place] [id number] PCP - General Internal Medicine 02/27/24
--- OUTSIDE RECORDS SUMMARY | 2024-05-12 15:04 | XMS_ITS | Encounter Summary ---
[facility] [address] [place] [address] Care Team Providers Care Spragger Name Role Phone Tomas Jordan MD Primary Care Provider [phone] Reason for Visit * Reason Comments Back Pain Lower right back Dizziness Encounter Details Date Type Department Care Team (Late st Contact Info) Description 04/26/2024 3:20 PM EST - 04/26/2024 6:00 PM EST Emergency [facility] Emergency [address] [place] [address] Baldemar Shah MD [address] [place] [address] Acute head injury without loss of consciousness, [...] his at 1708 according to security in [employer] pod. Rickey Mayers RN 04/26/24 1715 * Brianna Rodriguez RN - 04/26/2024 5:07 PM EST Delayed documentation secondary to patient care; this RN approached by [facility] Clinician secondary to conversation with patient; pt reported to clinician (Alissa) I will be back tonight with my [place] section 12 . Per clinician, pt expressed HI with planned intent. Upon discussion with clinician, this RN contacted primary RN and ER MD Shah with plan to transition patient to aqu[facility] pod for continued evaluation and psychiatric evaluation. academic services professional aware of plan and returned to pt stretcher, finding patient eloped from ER without notification to hospital staff. MD Shah aware. Security staff aware pending return of patient to ER. [facility] Clinician contacted patient via phone [...] Procedure Abnormality Status --------- ------ CBC auto differential[[id number]] Please view results for these tests on [...] Signed Date: 04/26/2024 16:42 ET Workstation ID: [id number] Transcribed By: Self Edit Transcribed Date: 04/26/2024 [...] took to try and relocate him from [facility] to [facility] the patient eloped from the department. Notified [...] Signed Date: 04/26/2024 16:42 ET Workstation ID: [id number] Transcribed By: Self Edit Transcribed Date: 04/26/2024 [...] Michele Goetz Reviewed and Electronically Signed By: Micheel Goetz Signed Date: 04/26/2024 16:42 ET Workstation ID: [id number] Transcribed By: Self Edit Transcribed Date: 04/26/2024 [...] MD LAB BLOOD ORDERABLES Final Resu lt [facility] [address] [place] [address], [place] [phone] * (ABNORMAL) Acetaminophen level (04/25/2024 8:59 PM EST) Acetaminophen Level <2.0(L) 10.0 - 30.0 mcg/mL LAB CHEMISTRY METHOD 04/26/2024 5:52 PM EST [facility] Blood Venous blood specimen / Unknown Venipuncture / Unknown 04/25/2024 8:59 PM EST 04/25/2024 9:19 PM EST us Baldemar Shah MD LAB BLOOD ORDERABLES Final Resu lt [facility] [address] [place] [address], [place] [phone] * Ethanol (04/25/2024 8:59 PM EST) Ethanol Level 9 0 - 10 mg/dL LAB CHEMISTRY METHOD 04/26/2024 5:52 PM EST [facility] Blood Venous blood specimen / Unknown Venipuncture / Unknown 04/25/2024 8:59 PM EST 04/25/2024 9:19 PM EST us Baldemar Shah MD LAB BLOOD ORDERABLES Final Resu lt [email or web address] [address] [place] [address], documented in this encounter Visit Diagnoses Diagnosis Acute head injury without loss of consciousness, initial encounter- Primary Lumbar strain, initial encounter Homicidal ideation documented in this encounter Care Teams Spragger Relationship Specialty Start Date End Date Tomas Jordan MD [address] [place] [address], [address] [place] [address] PCP - General Internal Medicine 02/27/24 documented as of this encounter
--- OUTSIDE RECORDS SUMMARY | 2024-05-12 15:04 | XMS_ITS | Encounter Summary ---
Author Organization [facility] Address [address] [place] [address] Care Team Providers Care Hot Stick Worker Name Role Phone oTmas Jordan MD Primary Care Provider [phone] Reason for Visit * Reason Comments Allergic Reaction Encounter Details Date Type Department Care Team (Late st Contact Info) Description 05/10/2024 7:37 PM EST - 05/10/2024 8:59 PM EST Emergency [facility] Emergency [address] [place] [id number] Orion Davidson MD [address] [place] [address] Oral thrush (Primary Dx); Thrush Discharge Disposition: Home or Self Care Social [...] Juan Galvez RN documented in this encounter Discharge Instructions * Discharge Instructions* Orion Davidson MD - 05/10/2024 8:49 PM EST take your medication as directed Take your metoprolol at home as directed. 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 Hospital given medication for an allergic reaction. States came back. She is allergic to bologna. At home today smoking had a cocktail with dinner. States he hasnot taken his metoprolol as well as heart rate is up he takes metoprolol for his tachycardia. He does not wanted take metoprolol here he states he will take it at home and does not like to take pillsanyways. ROS: I have performed a ROS with [...] Prior to Encounter Medication Sig Dispense Refill clonazePAM (KlonoPIN) 1 mg tablet TAKE ONE (1) TABLET BY MOUTH THREE TIMES A DAY, NEEDED FOR SEVERE ANXIETY/PANIC. USE SPARINGLY. Physical Exam ED Triage Vitals [05/10/24 1939] Temp Heart Rate Resp BP -- (!) 151 20 (!) 141/80 SpO2 Temp src Heart Rate Source Patient Position 96 % -- -- -- BP Location FiO2 (%) -- -- Physical Exam Vitals and nursing note reviewed. Constitutional: Appearance: Normal appearance. HENT: Head: Normocephalic. Nose: Nose normal. Mouth/Throat: Comments: Posterior pharynx positive thrush Eyes: Extraocular Movements: Extraocular movements intact. Cardiovascular: Rate and Rhythm: Normal rate and regular rhythm. Pulmonary: Effort: Pulmonary effort is normal. Breath sounds: Normal breath sounds. Musculoskeletal: General: Normal range of motion. Skin: General: Skin is warm. Capillary Refill: Capillary refill takes less than 2 seconds. Neurological: General: No focal deficit present. Mental Status: He is alert and oriented to person, place, and time. Psychiatric: Mood and Affect: Mood normal. Behavior: Behavior normal. Results Labs Reviewed BASIC METABOLIC PANEL CBC AND DIFFERENTIAL Narrative: The following orders were created for panel order CBC and differential. Procedure Abnormality Status --------- ------ CBC auto differential[[id number]] Please view results for these tests on the individual orders. CBC WITH AUTO DIFFERENTIAL Abnormal Labs Reviewed - No abnormal labs to display No orders to display I have discussed [...] EKG Interpretation Critical Care Time None ? Differential Diagnosis Angioedema Thrush Allergic reaction Medical Decision Making Patient here today has no trismus no stridor patent airway with some thrush noted oropharyngeal. Was prescribed thrush medication weight picked it up this morning did not tell him. Patient is not taking his metoprolol he is tacky 140s but he has metoprolol at home. Requesting to be discharged. In no respiratory distress. Fully speaking sentences. Evaluated and discussed bedside with my supervising physician Medications - No data to display Clinical Impressions as of 05/10/242049 Oral thrush Thrush Amount and/or Complexity of Data Reviewed External Data Reviewed: Encounters reviewed in Chart Review. Details: Labs: ordered. Decision-making details documented in ED Course. Radiology: ordered. Decision-making details documented in ED Course. ECG/medicine tests: ordered. Decision-making details documented in ED Course. Procedures Procedures Diagnosis 1. Oral thrush 2. Thrush Disposition Discharge ED Prescriptions None Physician Attestation ARYA Louise 05/10/242041 ARYA Louise 05/10/242047 ARYA Louise 05/10/242050 Cosigned by Orion Davidson MD at 05/10/2024 10:49 PM EST * Orion Davidson MD - 05/10/2024 7:33 PM EST HPI Chief Complaint Patient presents with Allergic Reaction HPI Rigby Coma Scale Score: 15 Patient History Past Medical History: Diagnosis Date Hypertension Past Surgical History: Procedure Laterality Date CARDIAC VALVE REPLACEMENT No family history on file. Social History Tobacco Use Smoking status: Some Days Types: Cigarettes Smokeless tobacco: Never Substance Use Topics Alcohol use: Not on file Drug use: Not on file Review of Systems Review of Systems Physical Exam ED Triage Vitals [05/10/24 1939] Temp Heart Rate Resp BP -- (!) 151 20 (!) 141/80 SpO2 Temp src Heart Rate Source Patient Position 96 % -- -- -- BP Location FiO2 (%) -- -- Physical Exam ED Course & MDM Clinical Impressions as of 05/10/242057 Oral thrush Thrush Medical Decision Making Procedures This is a split/shared visit with Orion Davidson MD. I personally performed the medical decision making (MDM) for the care of this patient on 05/10/24 as documented below Multiple visits to ER, presented stating that he was at [facility] yesterday and was given epi shot he does not want it today and that he has a hard time talking, his records reviewed note that he was prescribed a statin as he does have evidence of likely thrush, and patient states his did not tell him that she picked it up. Initially he was requesting clonazepam to take any of his medications, he was noted to be tachycardic and states he has not taken his metoprolol that he supposed to take he does smoke tobacco, on physical examination speaking full sentences no evidence ofangioedema, I told him that he has all his necessary medications at the pharmacy that is a very been picked up and he should start using it, quit smoking and patient walked out of department without his written discharge paperwork however verbally he received instructions. Orion Davidson MD 05/10/24 8:58 PM EST MD Orion Alarcon MD 05/10/242057 Orion Davidson MD 05/10/242247 documented in this encounter Plan of Treatment Not on file documented as of this encounter Procedures Procedure Name Priority Date/Time Associated Diagnosis Comments MANUAL DIFFERENTIAL - SYSMEX WAM STAT 05/10/2024 8:28 PM EST CBC WITH AUTO DIFFERENTIAL STAT 05/10/2024 8:28 PM EST CBC AND DIFFERENTIAL STAT 05/10/2024 8:28 PM EST BASIC METABOLIC PANEL STAT 05/10/2024 8:28 PM EST documented in this encounter Results * (ABNORMAL) Manual differential (05/10/2024 8:28 PM EST) Neutrophils % 81.0 % LAB HEMETOLOGY METHOD 05/10/2024 9:[address] [facility] Lymphocytes % 10.0 % LAB HEMETOLOGY METHOD 05/10/2024 9:[address] [facility] Monocytes % 9.0 % LAB HEMETOLOGY METHOD 05/10/2024 9:[address] [facility] Eosinophils % 0.0 % LAB HEMETOLOGY METHOD 05/10/2024 9:[address] [facility] Basophils % 0.0 % LAB HEMETOLOGY METHOD 05/10/2024 9:[address] [facility] Neutrophils Absolute Manual 24.22(H) 1.50 - 7.00 K/[facility] LAB HEMETOLOGY METHOD 05/10/2024 9:[address] [facility] Lymphocytes Absolute 2.99 1.00 - 5.00 K/mcL LAB HEMETOLOGY METHOD 05/10/2024 9:[address] [facility] Monocytes Absolute Manual 2.69(H) 0.20 - 1.00 K/[facility] LAB HEMETOLOGY METHOD 05/10/2024 9:[address] [facility] Eosinophils Absolute Manual 0.00 0.00 - 0.50 K/[facility] HEMETOLOGY METHOD 05/10/2024 9:[address] [facility] Basophils Absolute Manual 0.00 0.00 - 0.20 K/[facility] HEMETOLOGY METHOD 05/10/2024 9:[address] [facility] Rbc Morphology Present( A) Consistent with indices, Normal for LAB HEMETOLOGY METHOD 05/10/2024 9:[address] [facility] Comment:RBC: Morphology agre es with CBC Platelet Morphology - WAM See Note(A) Normal LAB HEMETOLOGY METHOD 05/10/2024 9:[address] [facility] Comment:PLT: Normal [place] Bodies Present Present( A) (none) LAB HEMETOLOGY METHOD 05/10/2024 9:[address] [facility] Schistocytes Present < 5%(A) (none) LAB HEMETOLOGY METHOD 05/10/2024 9:[address] [facility] Target Cells Present 5 - 10%(A) (none) LAB HEMETOLOGY METHOD 05/10/2024 9:[address] [facility] Blood Venous blood specimen / Unknown Venipuncture / Unknown 05/10/2024 8:28 PM EST 05/10/2024 8:55 PM EST Tangela KOENIG LAB BLOOD ORDERABLES F inal Result [facility] [address] [place] [address], * (ABNORMAL) CBC auto differential (05/10/2024 8:28 PM EST) WBC 29.9(H) 4.8 - 10.8 K/mcL LAB HEMETOLOGY METHOD 05/10/2024 9:[address] [facility] RBC 4.00(L) 4.50 - 5.50 M/mcL LAB HEMETOLOGY METHOD 05/10/2024 9:[address] [facility] Hemoglobin 12.5(L) 13.5 - 17.5 g/dL LAB HEMETOLOGY METHOD 05/10/2024 9:[address] [facility] Hematocrit 38.2(L) 42.0 - 54.0 % LAB HEMETOLOGY METHOD 05/10/2024 9:[address] [facility] MCV 95.3 79.0 - 98.0 FL LAB HEMETOLOGY METHOD 05/10/2024 9:[address] [facility] MCH 31.2 27.0 - 32.0 pcg LAB HEMETOLOGY METHOD 05/10/2024 9:[address] [facility] MCHC 32.7 32.0 - 37.0 g/dL LAB HEMETOLOGY METHOD 05/10/2024 9:[address] [facility] RDW 17.9(H) 11.0 - 15.0 % LAB HEMETOLOGY METHOD 05/10/2024 9:[address] [facility] Platelets 389 130 - 400 K/mcL LAB HEMETOLOGY METHOD 05/10/2024 9:[address] [facility] MPV 11.1(H) 7.0 - 11.0 FL LAB HEMETOLOGY METHOD 05/10/2024 9:26 PM EST [facility] NRBC 0.2 <1.0 % LAB HEMETOLOGY METHOD 05/10/2024 9:[address] [facility] NRBC Absolute 0.05 <0.10 K/mcL LAB HEMETOLOGY METHOD 05/10/2024 9:[address] [facility] Blood Venous blood specimen / Unknown Venipuncture / Unknown 05/10/2024 8:28 PM EST 05/10/2024 8:55 PM EST Tangela KOENIG LAB BLOOD ORDERABLES F inal Result [facility] [address] [place] [address], * (ABNORMAL) Basic Metabolic Panel (BMP) (05/10/2024 8:28 PM EST) Sodium 142 133 - 145 mmol/L LAB CHEMISTRY METHOD 05/10/2024 9:[address] [facility] Potassium 3.5 3.5 - 5.5 mmol/L LAB CHEMISTRY METHOD 05/10/2024 9:[address] [facility] Chloride 111(H) 96 - 110 mmol/L LAB CHEMISTRY METHOD 05/10/2024 9:[address] [facility] CO2 20(L) 21 - 32 mmol/L LAB CHEMISTRY METHOD 05/10/2024 9:[address] [facility] Anion Gap 11 3 - 11 LAB CHEMISTRY METHOD 05/10/2024 9:[address] [facility] Glucose 92 70 - 100 mg/dL LAB CHEMISTRY METHOD 05/10/2024 9:[address] [facility] BUN 8 5 - 25 mg/dL LAB CHEMISTRY METHOD 05/10/2024 9:[address] [facility] Creatinine 0.84 0.70 - 1.30 mg/dL LAB CHEMISTRY METHOD 05/10/2024 9:27 PM EST [facility] eGFR 110 >=60 mL/min/1. 73m2 LAB CHEMISTRY METHOD 05/10/2024 9:27 PM EST [facility] Comment:Calculation based on the??Chronic Kidney Disease Epidemiology Collaboration (CKD-EPI) equation refit??without adjustment for race. BUN/Creatinine Ratio 9.5 LAB CHEMISTRY METHOD 05/10/2024 9:27 PM EST [facility] Calcium 9.1 8.5 - 10.5 mg/dL LAB CHEMISTRY METHOD 05/10/2024 9:[address] [facility] Blood Venous blood specimen / Unknown Venipuncture / Unknown 05/10/2024 8:28 PM EST 05/10/2024 8:55 PM EST Tangela KOENIG LAB BLOOD ORDERABLES F inal Result [facility] [address] [place] [address], documented in this encounter Visit Diagnoses Diagnosis Oral thrush- Primary Candidiasis of mouth Thrush Candidiasis of mouth documented in this encounter Active and Recently Administered Medications Orders Medications Ordered That Bran ht Not Have Been Administered Count Last Ordered Date First Ordered Date diphenhydrAMINE (BENADRYL) injection 50 mg 1 05/10/2024 methylPREDNISolone sodium [place] cc (SOLU-Medrol) injection 125 mg 1 05/10/2024 sodium chloride 0.9 % bolus 1,000 mL 1 04/17 documented in this encounter Care Teams Hot Stick Worker Relationship Specialty Start Date End Date Tomas Jordan MD [address] [place] [address], [address] [place] [address] PCP - General Internal Medicine 02/27/24 documented as of this encounter
--- OUTSIDE RECORDS SUMMARY | 2024-05-12 15:05 | XMS_ITS | Encounter Summary ---
Author Organization [facility] Address [address] [place] [address] Care Team Providers Care Reducing System Operator Name Role Phone Tomas Jordan MD Primary Care Provider [phone] Reason for Visit * Reason Comments Homicidal [...] EST - 04/26/2024 9:59 PM EST Emergency [facility] Emergency [address] [place] [id number] Baldemar Shah MD [address] [place] [address] Homicidal ideation (Primary Dx); Musculoskeletal back pain; [...] you for additional services, call or text [phone]. You can also chat online at [email or web address] If you want to speak to a [...] Dr. Carpenter, juli RN and a [place] security intelligence analyst and willingly discusses what occurred in the [...] person, adding that he has [facility] years ago while in [...] the evening he endorsed HI to a roundhouse worker. Patient stated he had plans means [...] imaging ARYA Bowser 90 mL at 04/25/24 887 [COMPLETED] ondansetron (PF) (ZOFRAN) injection 4 mg [...] Procedure Abnormality Status --------- ------ CBC auto differential[[id number]] Abnormal Preliminary result Please view results for [...] that he would be suitable for discharge. [place] police came into the pod and took [...] 9:59 PM ESTAssociated Order(s): IP CONSULT TO CELERY WRAPPER Images from the original note were not included. [facility] - Crisis Assessment Important times Time of arrival: 04/26/241920 Time of referral: 04/26/241932 Time of readiness: 04/26/241932 Time assessment started: 04/26/241944 Time of disposition: 04/26/242044 Location: [facility] ER Consulted case with: Kitty Rodriguez [...] the time of the assessment with this development writer, the patient denied SI/HI, AH/VH. The patient [...] his own medications. Conversation with Liliana Ott: [phone] with patient in room The patient's Liliana [...] with an officer. She also informed this development writer that the patient has an appointment with [...] education: Patient completed high school and attended [employer], in [place], [place]. 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 This report is written and finalized by: Almaz Lantigua LCSW Behavioral Health Specialist [facility] (Tel): [phone] / : [phone] documented in this encounter Plan of Treatment [...] % LAB HEMETOLOGY METHOD 04/26/2024 9:56 PM [facility] Bands % 1.0 % LAB HEMETOLOGY METHOD 04/26/2024 9:56 PM [facility] Lymphocytes % 25.0 % LAB HEMETOLOGY METHOD 04/26/2024 9:56 PM [facility] Reactive Lymphocyte 1.00 % LAB HEMETOLOGY METHOD 04/26/2024 9:56 PM [facility] Monocytes % 9.0 % LAB HEMETOLOGY METHOD 04/26/2024 9:56 PM [facility] Eosinophils % 2.0 % LAB HEMETOLOGY METHOD 04/26/2024 9:56 PM [facility] Basophils % 1.0 % LAB HEMETOLOGY METHOD 04/26/2024 9:56 PM [facility] Neutrophils Absolute Manual 10.04(H) 1.50 - 7.00 K/mcL LAB HEMETOLOGY METHOD 04/26/2024 9:56 PM [facility] Bands Absolute Manual 0.16(H) 0.00 - 0.00 K/mcL LAB HEMETOLOGY METHOD 04/26/2024 9:56 PM [facility] Lymphocytes Absolute 4.05 1.00 - 5.00 K/mcL LAB HEMETOLOGY METHOD 04/26/2024 9:56 PM [facility] Reactive Lymph Abs Manual 0.16(H) 0.00 - 0.00 lym LAB HEMETOLOGY METHOD 04/26/2024 9:56 PM [facility] Monocytes Absolute Manual 1.46(H) 0.20 - 1.00 K/mcL LAB HEMETOLOGY METHOD 04/26/2024 9:56 PM [facility] Eosinophils Absolute Manual 0.32 0.00 - 0.50 K/mcL LAB HEMETOLOGY METHOD 04/26/2024 9:56 PM [facility] Basophils Absolute Manual 0.16 0.00 - 0.20 K/mcL LAB HEMETOLOGY METHOD 04/26/2024 9:56 PM [facility] Rbc Morphology Present( A) Consistent with indices, Normal for LAB HEMETOLOGY METHOD 04/26/2024 9:56 PM [facility] Comment:RBC: Morphology agre es with CBC Platelet Morphology - WAM See Note(A) Normal LAB HEMETOLOGY METHOD 04/26/2024 9:56 PM [facility] Comment:PLT: Large platelets seen Polychromasia Present Present( A) (none) LAB HEMETOLOGY METHOD 04/26/2024 9:56 PM [facility] Basophilic Stippling Present Present( A) (none) LAB HEMETOLOGY METHOD 04/26/2024 9:56 PM [facility] [place] Bodies Present Present( A) (none) LAB HEMETOLOGY METHOD 04/26/2024 9:56 PM [facility] Pappenheimer Bodies Present Present( A) (none) LAB HEMETOLOGY METHOD 04/26/2024 9:56 PM [facility] Schistocytes Present < 5%(A) (none) LAB HEMETOLOGY METHOD 04/26/2024 9:56 PM [facility] Target Cells Present 11 - 15%(A) (none) LAB HEMETOLOGY METHOD 04/26/2024 9:56 PM [facility] Vacuolated Neutrophils Present Present( A) (none) LAB HEMETOLOGY METHOD 04/26/2024 9:56 PM [facility] Blood Venous blood specimen / Unknown Venipuncture / Unknown 04/26/2024 8:42 PM EST 04/26/2024 8:54 PM EST us Baldemar Shah MD LAB BLOOD ORDERABLES Final Resu lt [facility] [address] [place] [address], * (ABNORMAL) CBC auto differential (04/26/2024 8:42 PM EST) [facility] WBC 16.2(H) 4.8 - 10.8 K/mcL LAB HEMETOLOGY METHOD 04/26/2024 9:56 PM [facility] RBC 4.10(L) 4.50 - 5.50 M/mcL LAB HEMETOLOGY METHOD 04/26/2024 9:56 PM [facility] Hemoglobin 12.9(L) 13.5 - 17.5 g/dL LAB HEMETOLOGY METHOD 04/26/2024 9:56 PM [facility] Hematocrit 39.1(L) 42.0 - 54.0 % LAB HEMETOLOGY METHOD 04/26/2024 9:56 PM [facility] MCV 94.9 79.0 - 98.0 FL LAB HEMETOLOGY METHOD 04/26/2024 9:56 PM [facility] MCH 31.3 27.0 - 32.0 pcg LAB HEMETOLOGY METHOD 04/26/2024 9:56 PM [facility] MCHC 33.0 32.0 - 37.0 g/dL LAB HEMETOLOGY METHOD 04/26/2024 9:56 PM [facility] RDW 17.8(H) 11.0 - 15.0 % LAB HEMETOLOGY METHOD 04/26/2024 9:56 PM [facility] Platelets 396 130 - 400 K/mcL LAB HEMETOLOGY METHOD 04/26/2024 9:56 PM EST [facility] MPV 11.2(H) 7.0 - 11.0 FL LAB HEMETOLOGY METHOD 04/26/2024 9:56 PM EST [facility] NRBC 0.2 <1.0 % LAB HEMETOLOG METHOD 04/26/2024 9:56 PM EST [facility] NRBC Absolute 0.03 <0.10 K/mcL LAB HEMETOLOGY METHOD 04/26/2024 9:56 PM EST [facility] Blood Venous blood specimen / Unknown Venipuncture / Unknown 04/26/2024 8:42 PM EST 04/26/2024 8:54 PM EST us Baldemar Shah MD LAB BLOOD ORDERABLES Final Resu lt [facility] [address] [place] [address], documented in this encounter Visit Diagnoses Diagnosis [...] First Orde red Date IP CONSULT TO CELERY WRAPPER 1 04/26/2024 documented in this encounter Care Teams Reducing System Operator Relationship Specialty Start Date End Date Tomas Jordan MD [address] [facility], [address] [place] [address] PCP - General Internal Medicine 02/27/24 documented as of this encounter
--- OUTSIDE RECORDS SUMMARY | 2024-05-12 15:05 | XMS_ITS | Encounter Summary ---
Author Organization [facility] Address [address] [place] [address] Care Team Providers Care Cuff Turner Name Role Phone Tomas Jordan MD Primary Care Provider [phone] Reason for Visit * Reason Comments Syncope Passed out today at home lower back pain Encounter Details Date Type Department Care Team (Late st Contact Info) Description 04/27/2024 7:54 PM EST - 04/27/2024 10:50 PM EST Emergency [facility] Emergency [address] [place] [address] Discharge Disposition: Home or Self [...] SPARINGLY. added in this encounter Care Teams Cuff Turner Relationship Specialty Start Date End Date Tomas Jordan MD [address] [place] [address], [address] [place] [phone] PCP - General Internal Medicine 02/27/24 documented as of this encounter
--- OUTSIDE RECORDS SUMMARY | 2024-05-12 15:05 | XMS_ITS | Encounter Summary ---
[facility] Address [address] [place] [address] Care Team Providers Care It Assistant Name Role Phone Tomas Jordan MD Primary Care Provider [phone] Reason for Visit * Reason Comments Chest Pain Fell yesterday rpts having bruise on back. Diarrhea yesterday all blood . Today serious chest pain. Encounter Details Date Type Department Care Team (Late st Contact Info) Description 04/25/2024 7:54 PM EST - 04/26/2024 1:01 AM EST Emergency [facility] Emergency [address] [place] [address] Fall from bed, initial encounter [...] 12:47 AM EST Thank you for choosing [facility]'s Emergency Department for your care today. Thankfully [...] for recurrent bleeding. Please also follow-up with [facility] regarding your recent visit which may be [...] a primary care physician, please call the [facility] at [phone] toestablish a new primary care physician. Please return to the emergency department if you develop a sudden severe change in your symptoms, afever over 100.4,, or severe or recurrent vomiting, or if you experience any other new or worseningsymptoms or concerns. * Attachments The following attachments cannot be sent through Care Everywhere. * Contusion ([place]) documented in this encounter Discharge Disposition Disposition [...] Procedure Abnormality Status --------- ------ CBC auto differential[[id number]] Abnormal Final result Please view results for [...] [facility] and had [facility] exam and police [...] 00:20:07 Narrative 04/26/2024 12:20 AM EST INDICATION: [id number] trauma, blunt CT Chest W Contrast COMPARISON: None FINDINGS: Detail limited by artifacts. No pulmonary consolidation or mass. Mild bilateral bronchial wall thickening. No pleural effusion. No pneumothorax. No cardiomegaly. No pericardial effusion. No pathologically enlarged lymph nodes. No thoracic aortic aneurysm. No acute fracture. Status post median sternotomy. Procedure Note Jelly Walker MD - 04/26/2024 INDICATION: Kkwgg-[id number] trauma, blunt CT Chest W Contrast COMPARISON: [...] document has been electronically signed by: Jelly Wlaker MD on 04/26/2024 00:07:15 Narrative 04/26/2024 12:07 [...] I high sensitivity (04/25/2024 10:23 PM EST) [facility] High Sensitivity Troponin I 9 <=79 ng/L LAB CHEMISTRY METHOD 04/25/2024 10:55 PM EST [facility] Blood Venous blood specimen / Unknown Venipuncture / Unknown 04/25/2024 10:23 PM EST 04/25/2024 10:29 PM EST Narrative [facility] - 04/25/2024 10:55 PM EST High levels of biotin in samples may falsely decrease hsTroponin values. ??Use caution when interpreting hsTroponin results in patients taking biotin who exhibit renal impairment (eGFR <60) or in patients taking more than 20 mg/day of biotin. Walter Gomez MD LAB BLOOD ORDERABLES Final Result [facility] [address] [place] [address], * (ABNORMAL) CBC auto differential (04/25/2024 8:59 PM EST) [facility] WBC 15.1(H) 4.8 - 10.8 K/[facility] LAB HEMETOLOGY METHOD 04/25/2024 9:33 PM EST [facility] RBC 3.90(L) 4.50 - 5.50 M/[facility] LAB HEMETOLOGY METHOD 04/25/2024 9:33 PM EST [facility] Hemoglobin 11.8(L) 13.5 - 17.5 g/dL LAB HEMETOLOGY METHOD 04/25/2024 9:33 PM [facility] Hematocrit 36.3(L) 42.0 - 54.0 % LAB HEMETOLOGY METHOD 04/25/2024 9:33 PM [facility] MCV 94.0 79.0 - 98.0 FL LAB HEMETOLOGY METHOD 04/25/2024 9:33 PM [facility] MCH 30.6 27.0 - 32.0 pcg LAB HEMETOLOGY METHOD 04/25/2024 9:33 PM [facility] MCHC 32.5 32.0 - 37.0 g/dL LAB HEMETOLOGY METHOD 04/25/2024 9:33 PM [facility] RDW 18.0(H) 11.0 - 15.0 % LAB HEMETOLOGY METHOD 04/25/2024 9:33 PM [facility] Platelets 478(H) 130 - 400 K/mcL LAB HEMETOLOGY METHOD 04/25/2024 9:33 PM [facility] MPV 10.6 7.0 - 11.0 FL LAB HEMETOLOGY METHOD 04/25/2024 9:33 PM [facility] NRBC 0.3 <1.0 % LAB HEMETOLOGY METHOD 04/25/2024 9:33 PM [facility] NRBC Absolute 0.04 <0.10 K/mcL LAB HEMETOLOGY METHOD 04/25/2024 9:33 PM [facility] Neutrophils Relative 67.1 % LAB HEMETOLOGY METHOD 04/25/2024 9:33 PM [facility] Lymphocytes Relative 19.9 % LAB HEMETOLOGY METHOD 04/25/2024 9:33 PM [facility] Monocytes Relative 9.2 % LAB HEMETOLOGY METHOD 04/25/2024 9:33 PM EST [facility] Eosinophils Relative 1.5 % LAB HEMETOLOGY METHOD 04/25/2024 9:33 PM [facility] Basophils Relative 0.5 % LAB HEMETOLOGY METHOD 04/25/2024 9:33 PM [facility] Immature Granulocytes Relative 1.8 % LAB HEMETOLOGY METHOD 04/25/2024 9:33 PM [facility] Neutrophils Absolute 10.11(H) 1.50 - 7.00 K/mcL LAB HEMETOLOGY METHOD 04/25/2024 9:33 PM [facility] Lymphocytes Absolute 3.00 1.00 - 5.00 K/mcL LAB HEMETOLOGY METHOD 04/25/2024 9:33 PM [facility] Monocytes Absolute 1.39(H) 0.20 - 1.00 K/mcL LAB HEMETOLOGY METHOD 04/25/2024 9:33 PM [facility] Eosinophils Absolute 0.23 0.00 - 0.50 K/mcL LAB HEMETOLOGY METHOD 04/25/2024 9:33 PM [facility] Basophils Absolute 0.08 0.00 - 0.20 K/mcL LAB HEMETOLOGY METHOD 04/25/2024 9:33 PM [facility] Immature Granulocytes Absolute 0.27(H) 0.00 - 0.03 K/mcL LAB HEMETOLOGY METHOD 04/25/2024 9:33 PM [facility] Blood Venous blood specimen / Unknown Venipuncture / Unknown 04/25/2024 8:59 PM EST 04/25/2024 9:19 PM EST us Walter Gomez MD LAB BLOOD ORDERABLES Final Result [facility] [address] [place] [address], * (ABNORMAL) Protime-INR (04/25/2024 8:59 PM EST) Protime 57.0(H) 10.6 - 13.9 sec LAB COAGULATION METHOD 04/25/2024 9:32 PM EST [facility] INR 4.7 LAB COAGULATION METHOD 04/25/2024 9:32 PM EST [facility] Blood Venous blood specimen / Unknown Venipuncture / Unknown 04/25/2024 8:59 PM EST 04/25/2024 9:18 PM EST Walter Gomez MD LAB BLOOD ORDERABLES Final Result [facility] [address] [place] [address], [place] [phone] * B-type natriuretic peptide (04/25/2024 8:59 PM EST) Pathologist [facility] BNP 16 <=100 pcg/mL LAB CHEMISTRY METHOD 04/25/2024 9:52 PM EST [facility] Blood Venous blood specimen / Unknown Venipuncture / Unknown 04/25/2024 8:59 PM EST 04/25/2024 9:19 PM EST Walter Gomez MD LAB BLOOD ORDERABLES Final Result [facility] [address] [place] [address], [place] [phone] * Magnesium (04/25/2024 8:59 PM EST) Pathologist [facility] Magnesium 1.9 1.9 - 2.6 mg/dL LAB CHEMISTRY METHOD 04/25/2024 9:46 PM EST [facility] Blood Venous blood specimen / Unknown Venipuncture / Unknown 04/25/2024 8:59 PM EST 04/25/2024 9:19 PM EST Walter Gomez MD LAB BLOOD ORDERABLES Final Result Performing Organization Address City/[facility]/ZIP Co de Phone Number [facility] [address] [place] [address], [place] [phone] * Lipase (04/25/2024 8:59 PM EST) Lipase 65 13 - 75 unit/L LAB CHEMISTRY METHOD 04/25/2024 9:46 PM [facility] Blood Venous blood specimen / Unknown Venipuncture / Unknown 04/25/2024 8:59 PM EST 04/25/2024 9:19 PM EST Walter Gomez MD LAB BLOOD ORDERABLES Final Result Performing Organization Address [facility]/ZIP Co de Phone Number [facility] [address] [place] [address], [place] [phone] * (ABNORMAL) Comprehensive metabolic panel (04/25/2024 8:59 PM EST) Pathologist [facility] Sodium 139 133 - 145 mmol/L LAB [...] g/dL LAB CHEMISTRY METHOD 04/25/2024 9:52 PM [facility] Albumin 2.9(L) 3.2 - 5.0 g/dL LAB CHEMISTRY METHOD 04/25/2024 9:52 PM [facility] Total Bilirubin 0.4 0.0 - 1.4 mg/dL LAB CHEMISTRY METHOD 04/25/2024 9:52 PM [facility] Blood Venous blood specimen / Unknown Venipuncture / Unknown 04/25/2024 8:59 PM EST 04/25/2024 9:19 PM EST us Walter Gomez MD LAB BLOOD ORDERABLES Final Result [facility] [address] [place] [address], * Troponin I high sensitivity (04/25/2024 8:59 PM EST) [facility] High Sensitivity Troponin I 10 <=79 ng/L LAB CHEMISTRY METHOD 04/25/2024 9:45 PM EST [facility] Blood Venous blood specimen / Unknown Venipuncture / Unknown 04/25/2024 8:59 PM EST 04/25/2024 9:19 PM EST Narrative [facility] - 04/25/2024 9:45 PM EST High levels of biotin in samples may falsely decrease hsTroponin values. ??Use caution when interpreting hsTroponin results in patients taking biotin who exhibit renal impairment (eGFR <60) or in patients taking more than 20 mg/day of biotin. Walter Gomez MD LAB BLOOD ORDERABLES Final Result [facility] [address] [place] [address], * ECG 12 lead (04/25/2024 7:48 PM EST) [facility] Ventricular Rate ECG 112 BPM GEMUSE Atrial Rate 112 BPM GEMUSE P-R Interval 148 ms GEMUSE QRS Duration 136 ms GEMUSE Q-T Interval 368 ms GEMUSE QTc 502 ms GEMUSE P Wave [place] 55 degrees GEMUSE R [place] -15 degrees GEMUSE T [place] 114 degrees GEMUSE ECG Interpretation Poor data [...] Sapp) documented in this encounter Care Teams It Assistant Relationship Specialty Start Date End Date Tomas Jordan MD [address] [place] [address], [address] [place] [address] PCP - General Internal Medicine 02/27/24 documented as of this encounter
[2024-05-12] MEDS: Potassium Chloride Packet 20 MEQ PACKET 40 MEQ PO (15:47)
[2024-05-12 15:49] VITALS: BP 137/95; PULSE 84; RESP 13; TEMP 36.7; O2SAT 98
== END 2024-05-12 15:50 | disposition home or self-care (01) ==
PROVIDERS: Physician Assistant; Emergency Provider Emergency Medicine; PCP Internal Medicine
DX: R07.9 Chest pain, unspecified (principal); E87.6 Hypokalemia; I44.7 Left bundle-branch block, unspecified; F17.210 Nicotine dependence, cigarettes, uncomplicated; Z86.711 Personal history of pulmonary embolism; Z79.01 Long term (current) use of anticoagulants; Z79.899 Other long term (current) drug therapy
CPT/HCPCS: 36415; 80053; 83880; 84484; 85007; 85027; 85610; 85730; 93005; 99283; 99285

== ENCOUNTER → 2024-05-12 12:31 | Outpatient (BNV) | payer MEDICAID, SELFPAY | PROVIDERS: Emergency Provider Emergency Medicine; PCP Internal Medicine; Visit Provider Internal Medicine Cardiovascular Disease | DX: R07.9 Chest pain, unspecified (principal); I44.7 Left bundle-branch block, unspecified; R94.31 Abnormal electrocardiogram [ECG] [EKG] | CPT/HCPCS: 93010 ==

== ENCOUNTER 2024-05-22 13:58 | Emergency (ER) | payer MEDICAID, SELFPAY ==
--- NOTE | ~2024-05-22 | XR_ITS ---
CLINICAL HISTORY: chest pain 1 view chest x-ray Comparison: CR - XR CHEST 1V - 05/12/24 00:00 EST Findings: No consolidation, pleural effusion or pneumothorax. Median sternotomy and aortic valve prosthesis. Heart size is within normal limits. No acute fracture. IMPRESSION: 1. No acute findings. This document has been electronically signed by: Sakina Basilio DO on 05/22/2024 15:16:12
[2024-05-22 13:59] VITALS: BP 152/96; PULSE 83; RESP 18; TEMP 37.1; O2SAT 98; BMI 34.0
--- NOTE | 2024-05-22 14:00 | ECG_ITS ---
Test Reason : chest pain Blood Pressure : */* mmHG Vent. Rate : 82 BPM Atrial Rate : 82 BPM P-R Int : 168 ms QRS Dur : 138 ms QT Int : 436 ms P-R-T Axes : 20 0 58 degrees QTcB Int : 509 ms Normal sinus rhythm Left bundle branch block Abnormal ECG When compared with ECG of 12-May-2024 12:31, No significant change was found Referred By: Maciej Moser Electronically Signed By: EMILY ORTEGA
--- NOTE | 2024-05-22 14:03 | ED.GENADULT ---
HPI - General Adult General Chief complaint: Chest Pain Stated complaint: chest pain History of Present Illness HPI narrative: Patient left before completion of treatment by ED provider. Related Data Home Medications ?Medication ?Instructions ?Recorded ?Confirmed clonidine 0.2 mg/24 hr weekly 2 patch transdermal TU@0900 02/28/24 04/17/24 transdermal patch metoprolol tartrate 50 mg tablet 100 mg PO BID 02/28/24 04/17/24 pantoprazole 40 mg tablet,delayed 40 mg PO DAILY@0630 02/28/24 04/17/24 release warfarin 5 mg tablet 2 - 7 mg PO DAILY 02/28/24 04/17/24 clonazepam 1 mg tablet 1 mg PO TID PRN Anxiety 04/17/24 04/17/24 clonidine HCl 0.2 mg tablet 0.1 mg PO TID PRN Blood Pressure 04/17/24 04/17/24 dolutegravir 50 mg tablet (Tivicay) 50 mg PO DAILY 05/12/24 emtricitabine 200 mg-tenofovir 1 tab PO DAILY 05/12/24 disoproxil fumarate 300 mg tablet lamotrigine 25 mg tablet 37.5 mg PO DAILY 05/12/24 Previous Rx's ?Medication ?Instructions ?Recorded nystatin 100,000 unit/mL oral 100,000 unit buccal DAILY #60 mL 05/09/24 suspension Allergies Allergy/AdvReac Type Severity Reaction Status Date / Time phenytoin [From DILANTIN] Allergy Unknown GAVE PT A Verified 05/22/24 14:01 TOXIC LEVEL fluoxetine [From Prozac] Allergy Unknown Verified 05/22/24 14:01 lidocaine Allergy Unknown Verified 05/22/24 14:01 tramadol Allergy Anaphylaxis Verified 05/22/24 14:01 trazodone Allergy Unknown Verified 05/22/24 14:01 gabapentin [From Neurontin] AdvReac Unknown Verified 05/22/24 14:01 morphine AdvReac Unknown Verified 05/22/24 14:01 COUNT INCLUDES THE [facility] Past Medical History Medical History Bilateral pulmonary embolism Noncompliance with medications Alcohol dependence Endocarditis Surgical History Aortic valve replaced Social History Social History Household Members: Spouse Housing: House Do you presently have visiting nurse or other home services: No Unable to assess alcohol history related to: Unknown Alcohol intake: former Comment: Pt refuses fall risk measures, explained protocol/ safety measures Patient Tobacco Use Status: Current everyday Tobacco user Tobacco use type: Cigarette Cigarettes Per Day: 10 e-Cigarette/Vaping Use: Never Used Second Hand Smoke Exposure: No Substance Use Type: Marijuana Advance Directives: No Advance Directives Information Provided: Yes Physical Exam ED Vital Signs: BMI result Body Mass Index 34.0 Course Course Course Narrative: RME: 43-year-old male presents to ED for chest pain patient has history of cardiac MIs and stents in the past. Patient not in distress. Labs EKG chest x-ray ordered Medical Decision Making Lab Data 05/22/24 14:13 05/22/24 14:13 Labs: Lab Results 05/22/24 Range/Units 14:13 WBC 8.3 (4.8-10.8) X10*3/uL RBC 4.23 L (4.60-5.80) X10*6/uL Hgb 13.4 L (14.0-18.0) g/dl Hct 38.5 L (42.0-52.0) % MCV 91.0 (80.0-98.0) fL MCH 31.7 (27.0-33.0) pg MCHC 34.8 (31.0-36.0) g/dl RDW 18.2 H (11.0-16.0) % Plt Count 375 (160-400) X10*3/uL MPV 10.0 (9.4-12.4) fL Immature Gran % (Auto) 0.7 H (0.0-0.4) % Neut % (Auto) 52.8 (45-73) % Lymph % (Auto) 34.9 (20-40) % [place] % (Auto) 9.6 (2-11) % Eos % (Auto) 1.2 (0-4) % Baso % (Auto) 0.8 (0-2) % Lymph # (Auto) 2.9 (1.2-4.9) X10*3/uL [place] # (Auto) 0.8 (0.1-1.2) X10*3/uL Eos # (Auto) 0.1 (0.0-0.4) X10*3/uL Baso # (Auto) 0.1 (0.0-0.2) X10*3/uL Abs Immat Gran (auto) 0.06 H (0.00-0.03) X10*3/uL Absolute Neuts (auto) 4.4 (2.0-8.3) x10*3/uL Absolute Nucleated RBC 0.060 H (0.0-0.012) X10*3/uL Nucleated RBC % (auto) 0.7 H (0.0-0.2) /100WBC PT 14.7 H D (10.9-12.4) SEC INR 1.3 H (0.9-1.1) APTT 30.2 D (26.0-36.8) SEC Sodium 138 (135-145) mmol/L Potassium 3.9 D (3.3-5.1) mmol/L Chloride 108 (96-108) mmol/L Carbon Dioxide 20 L (22-29) mmol/L Anion Gap 14 (12-20) BUN 8 L (9-16) mg/dL Creatinine 0.69 (0.5-1.4) mg/dL Estim Creat Clear Calc 152.6 Estimated GFR > 60 Random Glucose 102 (60-115) mg/dL Calcium 8.9 D (8.4-10.2) mg/dL Total Bilirubin 0.2 (0.0-1.0) mg/dL AST 81 H (5-37) U/L ALT 64 H (0-40) U/L Alkaline Phosphatase 92 (39-117) U/L Troponin I High Sens 2.9 D (<3.5-35.0) ng/L B-Natriuretic Peptide 19 (<100) pg/mL Total Protein 7.6 (6.5-8.0) g/dL Albumin 3.5 (3.5-5.0) g/dL Discharge Plan Discharge Clinical Impression: Chest pain Patient Disposition: Left W/O Completing Treatment Prescriptions: No Action clonidine 0.2 mg/24 hr patch weekly 2 patch transdermal TU@0900 pantoprazole 40 mg tablet,delayed release (DR/EC) 40 mg PO DAILY@0630 metoprolol tartrate 50 mg tablet 100 mg PO BID warfarin 5 mg tablet 2 - 7 mg PO DAILY nystatin 100,000 unit/mL suspension 100,000 unit buccal DAILY Qty: 60 0RF Rx Instructions: administer 1/2 of dose in each side of the mouth clonazepam 1 mg tablet 1 mg PO TID PRN (Reason: Anxiety) clonidine HCl 0.2 mg Tablet 0.1 mg PO TID PRN (Reason: Blood Pressure) lamotrigine 25 mg tablet 37.5 mg PO DAILY emtricitabine-tenofovir (TDF) 200-300 mg tablet 1 tab PO DAILY Tivicay 50 mg tablet 50 mg PO DAILY Discharge Date/Time: 05/22/24 20:31
--- OUTSIDE RECORDS SUMMARY | 2024-05-22 14:09 | XMS_ITS | Encounter Summary ---
Author Organization [facility] Address [address] [place] [address] Care Team Providers Care Help Desk Technician Name Role Phone Tomas Jordan MD Primary Care Provider [phone] Reason for Visit * Reason Comments Fall Pt comes in with a f all a couple hours ago on ice. Positive head strike, unsure of LOC. Pt takes coumadin . Reports dizziness and headache. Encounter Details Date Type Department Care Team (Late st Contact Info) Description 04/29/2024 10:23 PM EST - 04/30/2024 2:[address] [facility] Emergency [address] [place] [address] Discharge Disposition: Home or Self [...] GEMUSE QTc 447 ms GEMUSE P Wave [place] 27 degrees GEMUSE R [place] 0 degrees GEMUSE T [place] 120 degrees GEMUSE ECG Interpretation Sinus tachycardia [...] 04/29/2024 documented in this encounter Care Teams Help Desk Technician Relationship Specialty Start Date End Date Tomas Jordan MD [address] [place] [address], [address] [place] [address] PCP - General Internal Medicine 02/27/24 documented as of this encounter
--- OUTSIDE RECORDS SUMMARY | 2024-05-22 14:09 | XMS_ITS | Encounter Summary ---
Author Organization [facility] Address [address] [place] [address] Care Team Providers Care Health Safety Specialist Name Role Phone Tomas Jordan MD Primary Care Provider [phone] Reason for Visit * Reason Comments Allergic Reaction Encounter Details Date Type Department Care Team (Late st Contact Info) Description 05/10/2024 7:37 PM EST - 05/10/2024 8:[address] 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 [...] Procedure Abnormality Status --------- ------ CBC auto differential[[id number]] Please view results for these tests on [...] Complaint Patient presents with Allergic Reaction HPI Mandy Coma Scale Score: 15 Patient History Past [...] ER, presented stating that he was at [facility] yesterday and was given epi [...] % LAB HEMETOLOGY METHOD 05/10/2024 9:26 PM [facility] Lymphocytes % 10.0 % LAB HEMETOLOGY METHOD 05/10/2024 9:26 PM [facility] Monocytes % 9.0 % LAB HEMETOLOGY METHOD 05/10/2024 9:26 PM [facility] Eosinophils % 0.0 % LAB HEMETOLOGY METHOD 05/10/2024 9:26 PM [facility] Basophils % 0.0 % LAB HEMETOLOGY METHOD 05/10/2024 9:26 PM [facility] Neutrophils Absolute Manual 24.22(H) 1.50 - 7.00 [facility] LAB HEMETOLOGY METHOD 05/10/2024 9:26 PM [facility] Lymphocytes Absolute 2.99 1.00 - 5.00 K/mcL LAB HEMETOLOGY METHOD 05/10/2024 9:26 PM [facility] Monocytes Absolute Manual 2.69(H) 0.20 - 1.00 [facility] LAB HEMETOLOGY METHOD 05/10/2024 9:26 PM [facility] Eosinophils Absolute Manual 0.00 0.00 - 0.50 [facility] LAB HEMETOLOGY METHOD 05/10/2024 9:26 PM [facility] Basophils Absolute Manual 0.00 0.00 - 0.20 [facility] LAB HEMETOLOGY METHOD 05/10/2024 9:26 PM [facility] Rbc Morphology Present( A) Consistent with indices, Normal for [place] LAB HEMETOLOGY METHOD 05/10/2024 9:26 PM [facility] Comment:RBC: Morphology agre es with CBC Platelet Morphology - WAM See Note(A) Normal LAB HEMETOLOGY METHOD 05/10/2024 9:26 PM [facility] Comment:PLT: Normal [place] Bodies Present Present( A) (none) LAB HEMETOLOGY METHOD 05/10/2024 9:26 PM [facility] Schistocytes Present < 5%(A) (none) LAB HEMETOLOGY METHOD 05/10/2024 9:26 PM [facility] Target Cells Present 5 - 10%(A) (none) LAB HEMETOLOGY METHOD 05/10/2024 9:26 PM [facility] Blood Venous blood specimen / Unknown Venipuncture / Unknown 05/10/2024 8:28 PM EST 05/10/2024 8:55 PM EST Tangela KOENIG LAB BLOOD ORDERABLES F inal Result [facility] [address] [place] [address], * (ABNORMAL) CBC auto differential (05/10/2024 8:28 PM EST) WBC 29.9(H) 4.8 - 10.8 K/mcL LAB HEMETOLOGY METHOD 05/10/2024 9:26 PM [facility] RBC 4.00(L) 4.50 - 5.50 M/mcL LAB HEMETOLOGY METHOD 05/10/2024 9:26 PM [facility] Hemoglobin 12.5(L) 13.5 - 17.5 g/dL LAB HEMETOLOGY METHOD 05/10/2024 9:26 PM [facility] Hematocrit 38.2(L) 42.0 - 54.0 % LAB HEMETOLOGY METHOD 05/10/2024 9:26 PM [facility] MCV 95.3 79.0 - 98.0 FL LAB HEMETOLOGY METHOD 05/10/2024 9:26 PM [facility] MCH 31.2 27.0 - 32.0 pcg LAB HEMETOLOGY METHOD 05/10/2024 9:26 PM [facility] MCHC 32.7 32.0 - 37.0 g/dL LAB HEMETOLOGY METHOD 05/10/2024 9:26 PM [facility] RDW 17.9(H) 11.0 - 15.0 % LAB HEMETOLOGY METHOD 05/10/2024 9:26 PM [facility] Platelets 389 130 - 400 K/mcL LAB HEMETOLOGY METHOD 05/10/2024 9:26 PM [facility] MPV 11.1(H) 7.0 - 11.0 FL LAB HEMETOLOGY METHOD 05/10/2024 9:26 PM EST [facility] NRBC 0.2 <1.0 % LAB HEMETOLOGY METHOD 05/10/2024 9:26 PM [facility] NRBC Absolute 0.05 <0.10 K/mcL LAB HEMETOLOGY METHOD 05/10/2024 9:26 PM [facility] Blood Venous blood specimen / Unknown Venipuncture / Unknown 05/10/2024 8:28 PM EST 05/10/2024 8:55 PM EST Tangela KOENIG LAB BLOOD ORDERABLES F inal Result [facility] [address] [place] [address], * (ABNORMAL) Basic Metabolic Panel (BMP) (05/10/2024 8:28 PM EST) Sodium 142 133 - 145 mmol/L LAB CHEMISTRY METHOD 05/10/2024 9:27 PM [facility] Potassium 3.5 3.5 - 5.5 mmol/L LAB CHEMISTRY METHOD 05/10/2024 9:27 PM [facility] Chloride 111(H) 96 - 110 mmol/L LAB CHEMISTRY METHOD 05/10/2024 9:27 PM [facility] CO2 20(L) 21 - 32 mmol/L LAB CHEMISTRY METHOD 05/10/2024 9:27 PM [facility] Anion Gap 11 3 - 11 LAB CHEMISTRY METHOD 05/10/2024 9:27 PM [facility] Glucose 92 70 - 100 mg/dL LAB CHEMISTRY METHOD 05/10/2024 9:27 PM [facility] BUN 8 5 - 25 mg/dL LAB CHEMISTRY METHOD 05/10/2024 9:27 PM [facility] Creatinine 0.84 0.70 - 1.30 mg/dL LAB CHEMISTRY METHOD 05/10/2024 9:27 PM EST [facility] eGFR 110 >=60 mL/min/1. 73m2 LAB CHEMISTRY METHOD 05/10/2024 9:27 PM EST [facility] Comment:Calculation based on the??Chronic Kidney Disease Epidemiology Collaboration (CKD-EPI) equation refit??without adjustment for race. BUN/Creatinine Ratio 9.5 LAB CHEMISTRY METHOD 05/10/2024 9:27 PM EST [facility] Calcium 9.1 8.5 - 10.5 mg/dL LAB CHEMISTRY METHOD 05/10/2024 9:27 PM [facility] Blood Venous blood specimen / Unknown Venipuncture / Unknown 05/10/2024 8:28 PM EST 05/10/2024 8:55 PM EST Tangela KOENIG LAB BLOOD ORDERABLES F inal Result [facility] [address] [place] [address], documented in this encounter Visit Diagnoses Diagnosis [...] 04/17 documented in this encounter Care Teams Health Safety Specialist Relationship Specialty Start Date End Date Tomas Jordan MD [address] [place] [address], [address] [place] [address] PCP - General Internal Medicine 02/27/24 documented as of this encounter
--- OUTSIDE RECORDS SUMMARY | 2024-05-22 14:09 | XMS_ITS | Encounter Summary ---
Author Organization [facility] Address [address] [place] [address] Care Team Providers Care Concrete Worker Name Role Phone Tomas Jordan MD Primary Care Provider [phone] Reason for Visit * Reason Comments Neck Pain Encounter Details Date Type Department Care Team (Late st Contact Info) Description 04/30/2024 9:22 AM EST - 04/30/2024 10:12 AM EST Emergency [facility] Emergency [address] [place] [id number] Walter Gomez MD [address] [address] Fall, initial encounter (Primary Dx) Discharge Disposition: [...] I'm not signing anything I'm going to [facility] . Extensive education provided to patient [...] 04/30/2024 documented in this encounter Care Teams Concrete Worker Relationship Specialty Start Date End Date Tomas Jordan MD [address] [place] [address], [address] [place] [id number] PCP - General Internal Medicine 02/27/24 documented as of this encounter
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
--- OUTSIDE RECORDS SUMMARY | 2024-05-22 14:10 | XMS_ITS | Encounter Summary ---
Author Organization [facility] Address [address] [place] [address] Care Team Providers Care Telephonic Nurse Name Role Phone Tomas Jordan MD Primary Care Provider [phone] Reason for Visit * Reason Comments Syncope Passed out today at home lower back pain Encounter Details Date Type Department Care Team (Late st Contact Info) Description 04/27/2024 7:54 PM EST - 04/27/2024 10:50 PM EST Emergency [facility] Emergency [address] [place] [address] Discharge Disposition: Home or Self [...] SPARINGLY. added in this encounter Care Teams Telephonic Nurse Relationship Specialty Start Date End Date Tomas Jordan MD [address] [place] [address], [address] [place] [id number] PCP - General Internal Medicine 02/27/24 documented as of this encounter
--- OUTSIDE RECORDS SUMMARY | 2024-05-22 14:10 | XMS_ITS | Clinical Summary ---
Author Organization [facility] Address [address] [place] [address] Phone Care Team Providers Care Learning Facilitator Name Role Phone Tomas Jordan MD Primary Care Provider [phone] Allergies Active Allergy Reactions Criticality Noted Date [...] closes my throat . Nutritional Supplements 03/07/2024 Wellpinit 04/30/2024 Trazodone 03/07/2024 Elongated erection. Do you know why trazadone was originally made for? . Medications clonazePAM (KlonoPIN) 1 mg tablet TAKE ONE (1) TABLET BY MOUTH THREE TIMES A DAY, NEEDED FOR SEVERE ANXIETY/MALHOTRA IC. USE SPARINGLY. Active Encounters Date Type Department Care Team Description 05/10/2024 7:37 PM EST - 05/10/2024 8:59 PM EST Emergency [facility] Emergency [address] [place] [address] Orion Davidson MD Oral thrush (Primary Dx); Thrush Discharge Disposition: Home or Self Care 04/30/2024 9:22 AM EST - 04/30/2024 10:12 AM EST [facility] Emergency [address] [place] [address] Walter Gomez MD Fall, initial encounter (Primary Dx) Discharge Disposition: Left Against Medical Advice 04/29/2024 10:23 PM EST - 04/30/2024 2:17 AM [facility] Emergency [address] [place] [phone] Discharge Disposition: Home or Self Care 04/27/2024 7:54 PM EST - 04/27/2024 10:50 PM [facility] Emergency [address] [place] [phone] Discharge Disposition: Home or Self Care 04/26/2024 7:21 PM EST - 04/26/2024 9:[address] [phone] Baldemar Shah MD 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); Musculoskeletal back pain; Polypharmacy; Homicidal ideation; Anxiety Discharge Disposition: Home or Self Care 04/26/2024 3:20 PM EST - 04/26/2024 6:00 PM [facility] Emergency [address] [place] [phone] Baldemar Shah MD Acute head injury without loss of consciousness, initial encounter (Primary Dx); Lumbar strain, initial encounter; Homicidal ideation Discharge Disposition: Left Against Medical Advice 04/25/2024 7:54 PM EST - 04/26/2024 1:01 AM [facility] Emergency [address] [place] [phone] Fall from bed, initial encounter (Primary Dx); Bruise, trunk, initial encounter Discharge Disposition: Home or Self Care 03/19/2024 7:38 PM EST - 03/20/2024 12:[address] [phone] Discharge Disposition: Home or Self Care 03/17/2024 12:47 PM EST - 03/17/2024 3:[address] [phone] Discharge Disposition: Home or Self Care 03/07/2024 8:21 PM EST - 03/08/2024 1:28 AM EST Emergency [facility] Emergency [address] [place] [address] Discharge Disposition: Home or Self Care 02/27/2024 4:17 PM EST - 02/27/2024 6:13 PM EST Emergency [facility] Emergency [address] [place] [phone] Pain (Primary Dx) Discharge Disposition: Left Against [...] % LAB HEMETOLOGY METHOD 05/10/2024 9:26 PM [facility] Lymphocytes % 10.0 % LAB HEMETOLOGY METHOD 05/10/2024 9:26 PM [facility] Monocytes % 9.0 % LAB HEMETOLOGY METHOD 05/10/2024 9:26 PM [facility] Eosinophils % 0.0 % LAB HEMETOLOGY METHOD 05/10/2024 9:26 PM [facility] Basophils % 0.0 % LAB HEMETOLOGY METHOD 05/10/2024 9:26 PM [facility] Neutrophils Absolute Manual 24.22(H) 1.50 - 7.00 K/mcL LAB HEMETOLOGY METHOD 05/10/2024 9:26 PM [facility] Lymphocytes Absolute 2.99 1.00 - 5.00 K/mcL LAB HEMETOLOGY METHOD 05/10/2024 9:26 PM [facility] Monocytes Absolute Manual 2.69(H) 0.20 - 1.00 K/mcL LAB HEMETOLOGY METHOD 05/10/2024 9:26 PM [facility] Eosinophils Absolute Manual 0.00 0.00 - 0.50 K/mcL LAB HEMETOLOGY METHOD 05/10/2024 9:26 PM [facility] Basophils Absolute Manual 0.00 0.00 - 0.20 K/mcL LAB HEMETOLOGY METHOD 05/10/2024 9:26 PM [facility] Rbc Morphology Present( A) Consistent with indices, Normal for LAB HEMETOLOGY METHOD 05/10/2024 9:26 PM [facility] Comment:RBC: Morphology agre es with CBC Platelet Morphology - WAM See Note(A) Normal LAB HEMETOLOGY METHOD 05/10/2024 9:26 PM [facility] Comment:PLT: Normal [place] Bodies Present Present( A) (none) LAB HEMETOLOGY METHOD 05/10/2024 9:26 PM EST [facility] Schistocytes Present < 5%(A) (none) LAB HEMETOLOGY METHOD 05/10/2024 9:26 PM [facility] Target Cells Present 5 - 10%(A) (none) LAB HEMETOLOGY METHOD 05/10/2024 9:26 PM [facility] Blood Venous blood specimen / Unknown Venipuncture / Unknown 05/10/2024 8:28 PM EST 05/10/2024 8:55 PM EST Tangela KOENIG LAB BLOOD ORDERABLES F inal Result [facility] [address] [place] [address], [place] [phone] * (ABNORMAL) CBC auto differential (05/10/2024 8:28 PM EST) Only the most recent of4 resultswithin the time period is included. WBC 29.9(H) 4.8 - 10.8 K/mcL LAB HEMETOLOGY METHOD 05/10/2024 9:26 PM [facility] RBC 4.00(L) 4.50 - 5.50 M/mcL LAB HEMETOLOGY METHOD 05/10/2024 9:26 PM [facility] Hemoglobin 12.5(L) 13.5 - 17.5 g/dL LAB HEMETOLOGY METHOD 05/10/2024 9:26 PM [facility] Hematocrit 38.2(L) 42.0 - 54.0 % LAB HEMETOLOGY METHOD 05/10/2024 9:26 PM [facility] MCV 95.3 79.0 - 98.0 FL LAB HEMETOLOGY METHOD 05/10/2024 9:26 PM [facility] MCH 31.2 27.0 - 32.0 pcg LAB HEMETOLOGY METHOD 05/10/2024 9:26 PM EST [facility] MCHC 32.7 32.0 - 37.0 g/dL LAB HEMETOLOGY METHOD 05/10/2024 9:26 PM EST [facility] RDW 17.9(H) 11.0 - 15.0 % LAB HEMETOLOGY METHOD 05/10/2024 9:26 PM EST [facility] Platelets 389 130 - 400 K/mcL LAB HEMETOLOGY METHOD 05/10/2024 9:26 PM [facility] MPV 11.1(H) 7.0 - 11.0 FL LAB HEMETOLOGY METHOD 05/10/2024 9:26 PM [facility] NRBC 0.2 <1.0 % LAB HEMETOLOGY METHOD 05/10/2024 9:26 PM EST [facility] NRBC Absolute 0.05 <0.10 K/mcL LAB HEMETOLOGY METHOD 05/10/2024 9:26 PM [facility] Blood Venous blood specimen / Unknown Venipuncture / Unknown 05/10/2024 8:28 PM EST 05/10/2024 8:55 PM EST Tangela KOENIG LAB BLOOD ORDERABLES F inal Result [facility] [address] [place] [address], * (ABNORMAL) Basic Metabolic Panel (BMP) (05/10/2024 8:28 PM EST) Only the most recent of2 resultswithin the time period is included. Sodium 142 133 - 145 mmol/L LAB CHEMISTRY METHOD 05/10/2024 9:27 PM EST [facility] Potassium 3.5 3.5 - 5.5 mmol/L LAB CHEMISTRY METHOD 05/10/2024 9:27 PM [facility] Chloride 111(H) 96 - 110 mmol/L LAB CHEMISTRY METHOD 05/10/2024 9:27 PM [facility] CO2 20(L) 21 - 32 mmol/L LAB CHEMISTRY METHOD 05/10/2024 9:27 PM [facility] Anion Gap 11 3 - 11 LAB CHEMISTRY METHOD 05/10/2024 9:27 PM [facility] Glucose 92 70 - 100 mg/dL LAB CHEMISTRY METHOD 05/10/2024 9:27 PM [facility] BUN 8 5 - 25 mg/dL LAB CHEMISTRY METHOD 05/10/2024 9:27 PM [facility] Creatinine 0.84 0.70 - 1.30 mg/dL LAB CHEMISTRY METHOD 05/10/2024 9:27 PM [facility] eGFR 110 >=60 mL/min/1. 73m2 LAB CHEMISTRY METHOD 05/10/2024 9:27 PM [facility] Comment:Calculation based on the??Chronic Kidney Disease Epidemiology Collaboration (CKD-EPI) equation refit??without adjustment for race. BUN/Creatinine Ratio 9.5 LAB CHEMISTRY METHOD 05/10/2024 9:27 PM [facility] Calcium 9.1 8.5 - 10.5 mg/dL LAB CHEMISTRY METHOD 05/10/2024 9:27 PM [facility] Blood Venous blood specimen / Unknown Venipuncture / Unknown 05/10/2024 8:28 PM EST 05/10/2024 8:55 PM EST us Tangela KOENIG LAB BLOOD ORDERABLES F inal Result [facility] [address] [place] [address], * ECG-Annotated (05/02/2024) Only the most recent [...] GEMUSE QTc 447 ms GEMUSE P Wave [place] 27 degrees GEMUSE R Empire 0 degrees GEMUSE T Empire 120 degrees GEMUSE ECG Interpretation Sinus tachycardia [...] Signed Date: 04/26/2024 16:42 ET Workstation ID: [id number] Transcribed By: Self Edit Transcribed Date: 04/26/2024 [...] Signed Date: 04/26/2024 16:42 ET Workstation ID: [id number] Transcribed By: Self Edit Transcribed Date: 04/26/2024 [...] 00:20:07 Narrative 04/26/2024 12:20 AM EST INDICATION: Crekz-hmnxqaz-ujgbls trauma, blunt CT Chest W Contrast COMPARISON: None FINDINGS: Detail limited by artifacts. No pulmonary consolidation or mass. Mild bilateral bronchial wall thickening. No pleural effusion. No pneumothorax. No cardiomegaly. No pericardial effusion. No pathologically enlarged lymph nodes. No thoracic aortic aneurysm. No acute fracture. Status post median sternotomy. Procedure Note Ambrosio Walker MD - 04/26/2024 INDICATION: Wtcuy-feuekdo-oloouw trauma, blunt CT Chest W Contrast COMPARISON: [...] Walker MD on 04/26/2024 00:20:07 Eamon KOENIG [facility] [place] PROCEDURES Final Result * CT Cervical [...] Walker MD on 04/26/2024 00:10:13 Eamon KOENIG [facility] [place] CT PROCEDURES Final Result * Troponin I high sensitivity (04/25/2024 10:23 PM EST) Only the most recent of2 resultswithin the time period is included. High Sensitivity Troponin I 9 <=79 ng/L LAB CHEMISTRY METHOD 04/25/2024 10:55 PM EST [facility] Blood Venous blood specimen / Unknown Venipuncture / Unknown 04/25/2024 10:23 PM EST 04/25/2024 10:29 PM EST Narrative [facility] - 04/25/2024 10:55 PM EST High levels of biotin in samples may falsely decrease hsTroponin values. ??Use caution when interpreting hsTroponin results in patients taking biotin who exhibit renal impairment (eGFR <60) or in patients taking more than 20 mg/day of biotin. Walter Gomez MD LAB BLOOD ORDERABLES Final Result Performing Organization Address [facility] de Phone Number [facility] [address] [place] [address], * (ABNORMAL) Protime-INR (04/25/2024 8:59 PM EST) Only the most recent of2 resultswithin the time period is included. [facility] Protime 57.0(H) 10.6 - 13.9 sec LAB COAGULATION METHOD 04/25/2024 9:32 PM EST [facility] INR 4.7 LAB COAGULATION METHOD 04/25/2024 9:32 PM EST [facility] Blood Venous blood specimen / Unknown Venipuncture / Unknown 04/25/2024 8:59 PM EST 04/25/2024 9:18 PM EST Walter Gomez MD LAB BLOOD ORDERABLES Final Result Performing Organization Address [facility] de Phone Number [facility] [address] [place] [address], * B-type natriuretic peptide (04/25/2024 8:59 PM EST) [facility] BNP 16 <=100 pcg/mL LAB CHEMISTRY METHOD 04/25/2024 9:52 PM EST [facility] Blood Venous blood specimen / Unknown Venipuncture / Unknown 04/25/2024 8:59 PM EST 04/25/2024 9:19 PM EST Walter Gomez MD LAB BLOOD ORDERABLES Final Result Performing Organization Address [facility] Co de Phone Number [facility] [address] [place] [address], [place] [phone] * Magnesium (04/25/2024 8:59 PM EST) Only the most recent of2 resultswithin the time period is included. Magnesium 1.9 1.9 - 2.6 mg/dL LAB CHEMISTRY METHOD 04/25/2024 9:46 PM EST [facility] Blood Venous blood specimen / Unknown Venipuncture / Unknown 04/25/2024 8:59 PM EST 04/25/2024 9:19 PM EST Walter Gomez MD LAB BLOOD ORDERABLES Final Result Performing Organization Address City/[facility]/ZIP Co de Phone Number [facility] [address] [place] [address], [place] [phone] * Lipase (04/25/2024 8:59 PM EST) Lipase 65 13 - 75 unit/L LAB CHEMISTRY METHOD 04/25/2024 9:46 PM EST [facility] Blood Venous blood specimen / Unknown Venipuncture / Unknown 04/25/2024 8:59 PM EST 04/25/2024 9:19 PM EST Walter Gomez MD LAB BLOOD ORDERABLES Final Result [facility] [address] [place] [address], [place] [phone] * Ethanol (04/25/2024 8:59 PM EST) Ethanol Level 9 0 - 10 mg/dL LAB CHEMISTRY METHOD 04/26/2024 5:52 PM EST [facility] Blood Venous blood specimen / Unknown Venipuncture / Unknown 04/25/2024 8:59 PM EST 04/25/2024 9:19 PM EST Baldemar Shah MD LAB BLOOD ORDERABLES Final Resu lt Performing Organization Address City/[facility]/ZIP Co de Phone Number [facility] [address] [place] [address], [place] [phone] * (ABNORMAL) Acetaminophen level (04/25/2024 8:59 PM EST) Acetaminophen Level <2.0(L) 10.0 - 30.0 mcg/mL LAB CHEMISTRY METHOD 04/26/2024 5:52 PM EST [facility] Blood Venous blood specimen / Unknown Venipuncture / Unknown 04/25/2024 8:59 PM EST 04/25/2024 9:19 PM EST Baldemar Shah MD LAB BLOOD ORDERABLES Final Resu lt Performing Organization Address [facility] de Phone Number [facility] [address] [place] [address], [place] [phone] * Salicylate level (04/25/2024 8:59 PM EST) Salicylate Level 2.2 2.0 - 29.0 mg/dL LAB CHEMISTRY METHOD 04/26/2024 5:52 PM EST [facility] Blood Venous blood specimen / Unknown Venipuncture / Unknown 04/25/2024 8:59 PM EST 04/25/2024 9:19 PM EST Baldemar Shah MD LAB BLOOD ORDERABLES Final Resu lt Performing Organization Address City/[facility]/ZIP Co de Phone Number [facility] [address] [place] [address], [place] [phone] * (ABNORMAL) Comprehensive metabolic panel (04/25/2024 8:59 PM EST) Sodium 139 133 - 145 mmol/L LAB CHEMISTRY METHOD 04/25/2024 9:52 PM [facility] Potassium 4.2 3.5 - 5.5 mmol/L LAB CHEMISTRY METHOD 04/25/2024 9:52 PM [facility] Chloride 105 96 - 110 mmol/L LAB CHEMISTRY METHOD 04/25/2024 9:52 PM [facility] CO2 28 21 - 32 mmol/L LAB CHEMISTRY METHOD 04/25/2024 9:52 PM [facility] Anion Gap 6 3 - 11 LAB CHEMISTRY METHOD 04/25/2024 9:52 PM [facility] Glucose 125(H) 70 - 100 mg/dL LAB CHEMISTRY METHOD 04/25/2024 9:52 PM [facility] BUN 12 5 - 25 mg/dL LAB CHEMISTRY METHOD 04/25/2024 9:52 PM [facility] Creatinine 0.86 0.70 - 1.30 mg/dL LAB CHEMISTRY METHOD 04/25/2024 9:52 PM [facility] eGFR 109 >=60 mL/min/1. 73m2 LAB CHEMISTRY METHOD 04/25/2024 9:52 PM [facility] Comment:Calculation based on the??Chronic Kidney Disease Epidemiology Collaboration (CKD-EPI) equation refit??without adjustment for race. BUN/Creatinine Ratio 14.0 LAB CHEMISTRY METHOD 04/25/2024 9:52 PM [facility] Calcium 9.2 8.5 - 10.5 mg/dL LAB CHEMISTRY METHOD 04/25/2024 9:52 PM [facility] AST (SGOT) 46(H) 10 - 42 unit/L LAB CHEMISTRY METHOD 04/25/2024 9:52 PM [facility] ALT (SGPT) 43 10 - 60 unit/L LAB CHEMISTRY METHOD 04/25/2024 9:52 PM [facility] Alkaline Phosphatase 113 42 - 121 unit/L LAB CHEMISTRY METHOD 04/25/2024 9:52 PM [facility] Total Protein 6.6 6.0 - 8.0 g/dL LAB CHEMISTRY METHOD 04/25/2024 9:52 PM EST [facility] Albumin 2.9(L) 3.2 - 5.0 g/dL LAB CHEMISTRY METHOD 04/25/2024 9:52 PM EST [facility] Total Bilirubin 0.4 0.0 - 1.4 mg/dL LAB CHEMISTRY METHOD 04/25/2024 9:52 PM EST [facility] Blood Venous blood specimen / Unknown Venipuncture / Unknown 04/25/2024 8:59 PM EST 04/25/2024 9:19 PM EST us Walter Gomez MD LAB BLOOD ORDERABLES Final Result [facility] [address] [place] [address], * XR Chest 2 Views (03/19/2024 8:19 [...] Signed Date: 03/20/2024 10:02 ET Workstation ID: [id number] Transcribed By: Self Edit Transcribed Date: 03/20/2024 [...] Signed Date: 03/20/2024 10:02 ET Workstation ID: [id number] Transcribed By: Self Edit Transcribed Date: 03/20/2024 09:58 ET us Yobani Ngo DO IMG XR PROCEDURES Final Result * Urinalysis with reflex microscopic (02/27/2024 5:51 PM EST) Specific [place] Urine 1.012 1.003 - 1.030 LAB URINALYSIS - AUTOMATED METHOD 02/27/2024 6:24 PM [facility] pH, Urine 7.0 5.0 - 8.0 pH LAB URINALYSIS - AUTOMATED METHOD 02/27/2024 6:24 PM [facility] Leukocytes, Urine Negative Negative LAB URINALYSIS - AUTOMATED METHOD 02/27/2024 6:24 PM [facility] Nitrite, Urine Negative Negative LAB URINALYSIS - AUTOMATED METHOD 02/27/2024 6:24 PM [facility] Protein, Urine Negative <=Trace mg/dL LAB URINALYSIS - AUTOMATED METHOD 02/27/2024 6:24 PM [facility] Glucose, Urine Negative Negative mg/dL LAB URINALYSIS - AUTOMATED METHOD 02/27/2024 6:24 PM [facility] Ketones, Urine Negative Negative mg/dL LAB URINALYSIS - AUTOMATED METHOD 02/27/2024 6:24 PM [facility] Urobilinogen, Urine 1.0 0.2 - 1.0 mg/dL LAB URINALYSIS - AUTOMATED METHOD 02/27/2024 6:24 PM [facility] Bilirubin, Urine Negative Negative LAB URINALYSIS - AUTOMATED METHOD 02/27/2024 6:24 PM [facility] Blood, Urine Negative Negative LAB URINALYSIS - AUTOMATED METHOD 02/27/2024 6:24 PM [facility] Urine Urine specimen obtained by clean catch procedure / Unknown Non-blood Collection / Unknown 02/27/2024 5:51 PM EST 02/27/2024 6:03 PM EST Piotr KOENIG LAB URINE ORDERABLES Final R esult [facility] [address] [place] [address], * Respiratory virus panel molecular study (02/27/2024 5:51 PM EST) Adenovirus Detection by PCR Not Detected Not Detected LAB MICROBIOLOGY METHOD 02/27/2024 7:05 PM [facility] Influenza A PCR Not Detected Not Detected LAB MICROBIOLOGY METHOD 02/27/2024 7:05 PM [facility] Influenza B PCR Not Detected Not Detected LAB MICROBIOLOGY METHOD 02/27/2024 7:05 PM [facility] Coronavirus 229E Not Detected Not Detected LAB MICROBIOLOGY METHOD 02/27/2024 7:05 PM [facility] Coronavirus HKU1 Not Detected Not Detected LAB MICROBIOLOGY METHOD 02/27/2024 7:05 PM [facility] Coronavirus OC43 Not Detected Not Detected LAB MICROBIOLOGY METHOD 02/27/2024 7:05 PM [facility] Coronavirus NL63 Not Detected Not Detected LAB MICROBIOLOGY METHOD 02/27/2024 7:05 PM [facility] Parainfluenza Virus 1 Not Detected Not Detected LAB MICROBIOLOGY METHOD 02/27/2024 7:05 PM [facility] Parainfluenza Virus 2 Not Detected Not Detected LAB MICROBIOLOGY METHOD 02/27/2024 7:05 PM [facility] Parainfluenza Virus 3 Not Detected Not Detected LAB MICROBIOLOGY METHOD 02/27/2024 7:05 PM [facility] Parainfluenza Virus 4 Not Detected Not Detected LAB MICROBIOLOGY METHOD 02/27/2024 7:05 PM [facility] RSV PCR Not Detected Not Detected LAB MICROBIOLOGY METHOD 02/27/2024 7:05 PM [facility] Human Metapneumovirus A and B Not Detected Not Detected LAB MICROBIOLOGY METHOD 02/27/2024 7:05 PM [facility] Rhinovirus/Entero virus Not Detected Not Detected LAB MICROBIOLOGY METHOD 02/27/2024 7:05 PM [facility] Bordetella pertussis Not Detected Not Detected LAB MICROBIOLOGY METHOD 02/27/2024 7:05 PM [facility] Bordetella parapertussis Not Detected Not Detected LAB MICROBIOLOGY METHOD 02/27/2024 7:05 PM [facility] Mycoplasma pneumo by PCR Not Detected Not Detected LAB MICROBIOLOGY METHOD 02/27/2024 7:05 PM [facility] Chlamydia pneumoniae Not Detected Not Detected LAB MICROBIOLOGY METHOD 02/27/2024 7:05 PM [facility] SARS COV-2 Not Detected Not Detected LAB MICROBIOLOGY METHOD 02/27/2024 7:05 PM [facility] Swab Both anterior nares / Unknown Non-blood Collection / Unknown 02/27/2024 5:51 PM EST 02/27/2024 5:59 PM [facility] - 02/27/2024 7:05 PM EST Testing was performed using the [employer] Respiratory Pathogen PCR Assay. All results must [...] MICROBIOLOGY - GENERAL O RDERABLES Final Result [facility] [address] [place] [address], * Vascular US Duplex Lower Extremity Venous [...] Signed Date: 02/28/2024 09:29 ET Workstation ID: [id number] Transcribed By: Self Edit Transcribed Date: 02/28/2024 [...] Signed Date: 02/28/2024 09:29 ET Workstation ID: [id number] Transcribed By: Self Edit Transcribed Date: 02/28/2024 09:28 ET Piotr KOENIG CV VASCULAR PROCEDURES Final Result * APTT (02/27/2024 4:33 PM EST) [facility] aPTT 38.3 24.1 - 39.3 sec LAB COAGULATION METHOD 02/27/2024 4:50 PM EST [facility] Blood Venous blood specimen / Unknown Venipuncture / Unknown 02/27/2024 4:33 PM EST 02/27/2024 4:38 PM EST Orion Davidson MD LAB BLOOD ORDERABLES Simin l Result Performing Organization Address City/[facility]/ZIP Co de Phone Number [facility] [address] [place] [address], [place] [phone] * Creatine kinase (02/27/2024 4:33 PM EST) [facility] Total CK 37 22 - 269 unit/L LAB CHEMISTRY METHOD 02/27/2024 5:06 PM EST [facility] Blood Venous blood specimen / Unknown Venipuncture / Unknown 02/27/2024 4:33 PM EST 02/27/2024 4:38 PM EST Piotr KOENIG LAB BLOOD ORDERABLES Final R esult [facility] [address] [place] [address], [place] [phone] from Last 3 Months Insurance [facility] Care Teams Learning Facilitator Relationship Specialty Start Date End Date Tomas Jordan MD [address] [place] [address], [address] [place], [place] [phone] PCP - General Internal Medicine 02/27/24
--- OUTSIDE RECORDS SUMMARY | 2024-05-22 14:10 | XMS_ITS | Encounter Summary ---
[facility] Address [address] [place] [address] Care Team Providers Care Prescription Clerk Name Role Phone Tomas Jordan MD Primary Care Provider [phone] Reason for Visit * Reason Comments Chest Pain Fell yesterday rpts having bruise on back. Diarrhea yesterday all blood . Today serious chest pain. Encounter Details Date Type Department Care Team (Late st Contact Info) Description 04/25/2024 7:54 PM EST - 04/26/2024 1:01 AM EST Emergency [facility] Emergency [address] [place] [address] Fall from bed, initial encounter [...] 12:47 AM EST Thank you for choosing [facility]'s Emergency Department for your care today. Thankfully [...] for recurrent bleeding. Please also follow-up with [facility] regarding your recent visit which may be [...] a primary care physician, please call the [facility] at [phone] toestablish a new primary care physician. Please return to the emergency department if you develop a sudden severe change in your symptoms, afever over 100.4,, or severe or recurrent vomiting, or if you experience any other new or worseningsymptoms or concerns. * Attachments The following attachments cannot be sent through Care Everywhere. * Contusion (Rwandan) documented in this encounter Discharge Disposition Disposition [...] Procedure Abnormality Status --------- ------ CBC auto differential[[id number]] Abnormal Final result Please view results for [...] or recurrent syncope/fall. The patient reports today healso developed some associated chest pain prompting ED evaluation. The patient arrived to the ED req uesting pain management prior to complying with imaging or laboratory evaluation, patient did eventually allow laboratory evaluation prior to pain management, at this time laboratory evaluation reveals leukocytosis of 15.1, with mildly supratherapeutic INR at 4.7, but otherwise without electrolyte d eficiency, SUZANNE, anemia, or elevated troponin. The patient's [...] the pain management. ED Course as of 04/26/24 0050 e Apr 26, 202431 The patient's CT head, neck, [...] [facility] and had [facility] exam and police [...] 00:20:07 Narrative 04/26/2024 12:20 AM EST INDICATION: Otgug-maxcjfv-lfjgnx trauma, blunt CT Chest W Contrast COMPARISON: None FINDINGS: Detail limited by artifacts. No pulmonary consolidation or mass. Mild bilateral bronchial wall thickening. No pleural effusion. No pneumothorax. No cardiomegaly. No pericardial effusion. No pathologically enlarged lymph nodes. No thoracic aortic aneurysm. No acute fracture. Status post median sternotomy. Procedure Note Jelly Wlaker MD - 04/26/2024 INDICATION: Qobwj-nbzotpe-uvelrb trauma, blunt CT Chest W Contrast COMPARISON: [...] This document has been electronically signed by: Jlely Walker MD on 04/26/2024 00:07:15 Narrative 04/26/2024 [...] I high sensitivity (04/25/2024 10:23 PM EST) [facility] High Sensitivity Troponin I 9 <=79 ng/L LAB CHEMISTRY METHOD 04/25/2024 10:55 PM EST [facility] Blood Venous blood specimen / Unknown Venipuncture / Unknown 04/25/2024 10:23 PM EST 04/25/2024 10:29 PM EST Narrative [facility] - 04/25/2024 10:55 PM EST High levels of biotin in samples may falsely decrease hsTroponin values. ??Use caution when interpreting hsTroponin results in patients taking biotin who exhibit renal impairment (eGFR <60) or in patients taking more than 20 mg/day of biotin. Walter Gomez MD LAB BLOOD ORDERABLES Final Result [facility] [address] [place] [address], * (ABNORMAL) CBC auto differential (04/25/2024 8:59 PM EST) [facility] WBC 15.1(H) 4.8 - 10.8 K/[facility] LAB HEMETOLOGY METHOD 04/25/2024 9:33 PM EST [facility] RBC 3.90(L) 4.50 - 5.50 M/[facility] LAB HEMETOLOGY METHOD 04/25/2024 9:33 PM EST [facility] Hemoglobin 11.8(L) 13.5 - 17.5 g/dL LAB HEMETOLOGY METHOD 04/25/2024 9:33 PM [facility] Hematocrit 36.3(L) 42.0 - 54.0 % LAB HEMETOLOGY METHOD 04/25/2024 9:33 PM [facility] MCV 94.0 79.0 - 98.0 FL LAB HEMETOLOGY METHOD 04/25/2024 9:33 PM [facility] MCH 30.6 27.0 - 32.0 pcg LAB HEMETOLOGY METHOD 04/25/2024 9:33 PM [facility] MCHC 32.5 32.0 - 37.0 g/dL LAB HEMETOLOGY METHOD 04/25/2024 9:33 PM [facility] RDW 18.0(H) 11.0 - 15.0 % LAB HEMETOLOGY METHOD 04/25/2024 9:33 PM [facility] Platelets 478(H) 130 - 400 K/mcL LAB HEMETOLOGY METHOD 04/25/2024 9:33 PM [facility] MPV 10.6 7.0 - 11.0 FL LAB HEMETOLOGY METHOD 04/25/2024 9:33 PM [facility] NRBC 0.3 <1.0 % LAB HEMETOLOGY METHOD 04/25/2024 9:33 PM [facility] NRBC Absolute 0.04 <0.10 K/mcL LAB HEMETOLOGY METHOD 04/25/2024 9:33 PM [facility] Neutrophils Relative 67.1 % LAB HEMETOLOGY METHOD 04/25/2024 9:33 PM [facility] Lymphocytes Relative 19.9 % LAB HEMETOLOGY METHOD 04/25/2024 9:33 PM [facility] Monocytes Relative 9.2 % LAB HEMETOLOGY METHOD 04/25/2024 9:33 PM [facility] Eosinophils Relative 1.5 % LAB HEMETOLOGY METHOD 04/25/2024 9:33 PM [facility] Basophils Relative 0.5 % LAB HEMETOLOGY METHOD 04/25/2024 9:33 PM [facility] Immature Granulocytes Relative 1.8 % LAB HEMETOLOGY METHOD 04/25/2024 9:33 PM [facility] Neutrophils Absolute 10.11(H) 1.50 - 7.00 K/mcL LAB HEMETOLOGY METHOD 04/25/2024 9:33 PM [facility] Lymphocytes Absolute 3.00 1.00 - 5.00 K/mcL LAB HEMETOLOGY METHOD 04/25/2024 9:33 PM [facility] Monocytes Absolute 1.39(H) 0.20 - 1.00 K/mcL LAB HEMETOLOGY METHOD 04/25/2024 9:33 PM EST [facility] Eosinophils Absolute 0.23 0.00 - 0.50 K/mcL LAB HEMETOLOGY METHOD 04/25/2024 9:33 PM [facility] Basophils Absolute 0.08 0.00 - 0.20 K/mcL LAB HEMETOLOGY METHOD 04/25/2024 9:33 PM [facility] Immature Granulocytes Absolute 0.27(H) 0.00 - 0.03 K/mcL LAB HEMETOLOGY METHOD 04/25/2024 9:33 PM [facility] Blood Venous blood specimen / Unknown Venipuncture / Unknown 04/25/2024 8:59 PM EST 04/25/2024 9:19 PM EST us Walter Gomez MD LAB BLOOD ORDERABLES Final Result [facility] [address] [place] [address], * (ABNORMAL) Protime-INR (04/25/2024 8:59 PM EST) Pathologist [facility] Protime 57.0(H) 10.6 - 13.9 sec LAB COAGULATION METHOD 04/25/2024 9:32 PM EST [facility] INR 4.7 LAB COAGULATION METHOD 04/25/2024 9:32 PM EST [facility] Blood Venous blood specimen / Unknown Venipuncture / Unknown 04/25/2024 8:59 PM EST 04/25/2024 9:18 PM EST Walter Gomez MD LAB BLOOD ORDERABLES Final Result [facility] [address] [place] [address], [place] [phone] * B-type natriuretic peptide (04/25/2024 8:59 PM EST) [facility] BNP 16 <=100 pcg/mL LAB CHEMISTRY METHOD 04/25/2024 9:52 PM EST [facility] Blood Venous blood specimen / Unknown Venipuncture / Unknown 04/25/2024 8:59 PM EST 04/25/2024 9:19 PM EST Walter Gomez MD LAB BLOOD ORDERABLES Final Result [facility] [address] [place] [address], [place] [phone] * Magnesium (04/25/2024 8:59 PM EST) Pathologist [facility] Magnesium 1.9 1.9 - 2.6 mg/dL LAB CHEMISTRY METHOD 04/25/2024 9:46 PM EST [facility] Blood Venous blood specimen / Unknown Venipuncture / Unknown 04/25/2024 8:59 PM EST 04/25/2024 9:19 PM EST Walter Gomez MD LAB BLOOD ORDERABLES Final Result Performing Organization Address [facility]/ZIP Co de Phone Number [facility] [address] [place] [address], [place] [phone] * Lipase (04/25/2024 8:59 PM EST) Lipase 65 13 - 75 unit/L LAB CHEMISTRY METHOD 04/25/2024 9:46 PM [facility] Blood Venous blood specimen / Unknown Venipuncture / Unknown 04/25/2024 8:59 PM EST 04/25/2024 9:19 PM EST Walter Gomez MD LAB BLOOD ORDERABLES Final Result Performing Organization Address [facility] de Phone Number [facility] [address] [place] [address], [place] [phone] * (ABNORMAL) Comprehensive metabolic panel (04/25/2024 8:59 PM EST) [facility] Sodium 139 133 - 145 mmol/L LAB CHEMISTRY METHOD 04/25/2024 9:52 PM [facility] Potassium 4.2 3.5 - 5.5 mmol/L LAB CHEMISTRY METHOD 04/25/2024 9:52 PM [facility] Chloride 105 96 - 110 mmol/L LAB CHEMISTRY METHOD 04/25/2024 9:52 PM [facility] CO2 28 21 - 32 mmol/L LAB CHEMISTRY METHOD 04/25/2024 9:52 PM [facility] Anion Gap 6 3 - 11 LAB CHEMISTRY METHOD 04/25/2024 9:52 PM [facility] Glucose 125(H) 70 - 100 mg/dL LAB CHEMISTRY METHOD 04/25/2024 9:52 PM [facility] BUN 12 5 - 25 mg/dL LAB CHEMISTRY METHOD 04/25/2024 9:52 PM [facility] Creatinine 0.86 0.70 - 1.30 mg/dL LAB CHEMISTRY METHOD 04/25/2024 9:52 PM [facility] eGFR 109 >=60 mL/min/1. 73m2 LAB CHEMISTRY METHOD 04/25/2024 9:52 PM [facility] Comment:Calculation based on the??Chronic Kidney Disease Epidemiology Collaboration (CKD-EPI) equation refit??without adjustment for race. BUN/Creatinine Ratio 14.0 LAB CHEMISTRY METHOD 04/25/2024 9:52 PM [facility] Calcium 9.2 8.5 - 10.5 mg/dL LAB CHEMISTRY METHOD 04/25/2024 9:52 PM [facility] AST (SGOT) 46(H) 10 - 42 unit/L LAB CHEMISTRY METHOD 04/25/2024 9:52 PM [facility] ALT (SGPT) 43 10 - 60 unit/L LAB CHEMISTRY METHOD 04/25/2024 9:52 PM [facility] Alkaline Phosphatase 113 42 - 121 unit/L LAB CHEMISTRY METHOD 04/25/2024 9:52 PM [facility] Total Protein 6.6 6.0 - 8.0 g/dL LAB CHEMISTRY METHOD 04/25/2024 9:52 PM [facility] Albumin 2.9(L) 3.2 - 5.0 g/dL LAB CHEMISTRY METHOD 04/25/2024 9:52 PM [facility] Total Bilirubin 0.4 0.0 - 1.4 mg/dL LAB CHEMISTRY METHOD 04/25/2024 9:52 PM [facility] Blood Venous blood specimen / Unknown Venipuncture / Unknown 04/25/2024 8:59 PM EST 04/25/2024 9:19 PM EST us Walter Gomez MD LAB BLOOD ORDERABLES Final Result [facility] [address] [place] [address], * Troponin I high sensitivity (04/25/2024 8:59 PM EST) [facility] High Sensitivity Troponin I 10 <=79 ng/L LAB CHEMISTRY METHOD 04/25/2024 9:45 PM EST [facility] Blood Venous blood specimen / Unknown Venipuncture / Unknown 04/25/2024 8:59 PM EST 04/25/2024 9:19 PM EST Narrative [facility] - 04/25/2024 9:45 PM EST High levels of biotin in samples may falsely decrease hsTroponin values. ??Use caution when interpreting hsTroponin results in patients taking biotin who exhibit renal impairment (eGFR <60) or in patients taking more than 20 mg/day of biotin. Walter Gomez MD LAB BLOOD ORDERABLES Final Result Performing Organization Address [facility] de Phone Number [facility] [address] [place] [address], * ECG 12 lead (04/25/2024 7:48 PM EST) [facility] Ventricular Rate ECG 112 BPM GEMUSE Atrial Rate 112 BPM GEMUSE P-R Interval 148 ms GEMUSE QRS Duration 136 ms GEMUSE Q-T Interval 368 ms GEMUSE QTc 502 ms GEMUSE P [place] 55 degrees GEMUSE R Island -15 degrees GEMUSE T Island 114 degrees GEMUSE ECG Interpretation Poor data [...] On Thu04/25/24 at 2223, For 1 dose 223 (Given - Provider: Daniela Back RN) iopamidoL [...] Thu04/25/24 at 2223, For 1 dose 2237 (New Bag - Provider: Daniela Back RN) 3 (Stopped - Provider: Daniela Back RN) sodium chloride 0.9 % flush 10 mL (COMPLETED) 10 mL, intravenous, Once, On Thu04/25/24 at 2253, For 1 dose 2252 (Given - Provider: Sekou Sapp) documented in this encounter Care Teams Prescription Clerk Relationship Specialty Start Date End Date Tomas Jordan MD [address] [place] [address], [address] [address] PCP - General Internal Medicine 02/27/24 documented as of this encounter
--- OUTSIDE RECORDS SUMMARY | 2024-05-22 14:10 | XMS_ITS | Encounter Summary ---
[facility] Address [address] [place] [address] Care Team Providers Care Galley Stripper Name Role Phone Tomas Jordan MD Primary Care Provider Reason for Visit * Reason Comments Back Pain Lower right back Dizziness Encounter Details Date Type Department Care Team (Late st Contact Info) Description 04/26/2024 3:20 PM EST - 04/26/2024 6:00 PM EST Emergency [facility] Emergency [address] [place] [address] Baldemar Shah MD [address] [place] [address] Acute head injury without loss of consciousness, [...] his at 1708 according to security in [employer] pod. Rickey Mayers RN 04/26/24 1715 * Brianna Rodriguez RN - 04/26/2024 5:07 PM EST Delayed documentation secondary to patient care; this RN approached by [facility] Clinician secondary to conversation with patient; pt reported to clinician (Alissa) I will be back tonight with my [place] section 12 . Per clinician, pt expressed HI with planned intent. Upon discussion with clinician, this RN contacted primary RN and ER MD Shah with plan to transition patient to aqua pod for continued evaluation and psychiatric evaluation. hosiery pairer aware of plan and returned to pt stretcher, finding patient eloped from ER without notification to hospital staff. MD Shah aware. Security staff aware pending return of patient to ER. [facility] Clinician contacted patient via phone with attempt [...] Procedure Abnormality Status --------- ------ CBC auto differential[[id number]] Please view results for these tests on [...] Signed Date: 04/26/2024 16:42 ET Workstation ID: [id number] Transcribed By: Self Edit Transcribed Date: 04/26/2024 [...] took to try and relocate him from [facility] the patient eloped from the department. [...] Signed Date: 04/26/2024 16:42 ET Workstation ID: [id number] Transcribed By: Self Edit Transcribed Date: 04/26/2024 [...] Signed Date: 04/26/2024 16:42 ET Workstation ID: [id number] Transcribed By: Self Edit Transcribed Date: 04/26/2024 16:34 ET us Baldemar Shah MD IMG CT PROCEDURES Final Result * Salicylate level (04/25/2024 8:59 PM EST) Salicylate Level 2.2 2.0 - 29.0 mg/dL LAB CHEMISTRY METHOD 04/26/2024 5:[address] [facility] Blood Venous blood specimen / Unknown Venipuncture / Unknown 04/25/2024 8:59 PM EST 04/25/2024 9:19 PM EST us Baldemar Shah MD LAB BLOOD ORDERABLES Final Resu lt [facility] [address] [place] [address], [place] [phone] * (ABNORMAL) Acetaminophen level (04/25/2024 8:59 PM EST) Acetaminophen Level <2.0(L) 10.0 - 30.0 mcg/mL LAB CHEMISTRY METHOD 04/26/2024 5:[address] [facility] Blood Venous blood specimen / Unknown Venipuncture / Unknown 04/25/2024 8:59 PM EST 04/25/2024 9:19 PM EST us Baldemar Shah MD LAB BLOOD ORDERABLES Final Resu lt [facility] [address] [place] [address], [place] [phone] * Ethanol (04/25/2024 8:59 PM EST) Ethanol Level 9 0 - 10 mg/dL LAB CHEMISTRY METHOD 04/26/2024 5:[address] [facility] Blood Venous blood specimen / Unknown Venipuncture / Unknown 04/25/2024 8:59 PM EST 04/25/2024 9:19 PM EST us Baldemar Shah MD LAB BLOOD ORDERABLES Final Resu lt [facility] [address] [place] [address], documented in this encounter Visit Diagnoses Diagnosis Acute head injury without loss of consciousness, initial encounter- Primary Lumbar strain, initial encounter Homicidal ideation documented in this encounter Care Teams Galley Stripper Relationship Specialty Start Date End Date Tomas Jordan MD [address] [place] [address], [address] [place] [address] PCP - General Internal Medicine 02/27/24 documented as of this encounter
[2024-05-22 14:29] LABS: Basophils Absolute Auto 0.1 X10*3/uL (0.0-0.2); Basophils Percent Auto 0.8 % (0-2); Eosinophils Absolute Auto 0.1 X10*3/uL (0.0-0.4); Eosinophils Percent Auto 1.2 % (0-4); Hematocrit 38.5 % (42.0-52.0); Hemoglobin 13.4 g/dl (14.0-18.0); Imm Gran Abs Auto 0.06 X10*3/uL (0.00-0.03); Imm Gran Pct Auto 0.7 % (0.0-0.4); Lymphocytes Absolute Auto 2.9 X10*3/uL (1.2-4.9); Lymphocytes Percent Auto 34.9 % (20-40); MANUAL DIFF FLAG NO; Mean Corpuscular HGB Conc 34.8 g/dl (31.0-36.0); Mean Corpuscular Hemoglobin 31.7 pg (27.0-33.0); Monocytes Absolute Auto 0.8 X10*3/uL (0.1-1.2); Monocytes Percent Auto 9.6 % (2-11); NRBC Pct Auto 0.7 /100WBC (0.0-0.2); Neutrophils Absolute Auto 4.4 x10*3/uL (2.0-8.3); Neutrophils Percent Auto 52.8 % (45-73); Platelet Count 375 X10*3/uL (160-400); Red Blood Count 4.23 X10*6/uL (4.60-5.80); Red Cell Distribution Width 18.2 % (11.0-16.0); White Blood Count 8.3 X10*3/uL (4.8-10.8)
[2024-05-22 14:37] LABS: INTERNATIONAL NORM RATIO 1.3 (0.9-1.1); Prothrombin Time 14.7 SEC (10.9-12.4)
[2024-05-22 14:40] LABS: Partial Thromboplastin Time 30.2 SEC (26.0-36.8)
[2024-05-22 14:49] LABS: B Type Natriuretic Peptide 19 pg/mL (<100)
[2024-05-22 14:50] LABS: Troponin-I High Sensitivity 2.9 ng/L (<3.5-35.0)
[2024-05-22 14:51] LABS: Alanine Aminotransferase 64 U/L (0-40); Albumin Level 3.5 g/dL (3.5-5.0); Alkaline Phosphatase 92 U/L (39-117); Anion Gap 14 (12-20); Aspartate Amino Transferase 81 U/L (5-37); Bilirubin Total 0.2 mg/dL (0.0-1.0); Blood Urea Nitrogen 8 mg/dL (9-16); Calcium 8.9 mg/dL (8.4-10.2); Carbon Dioxide 20 mmol/L (22-29); Chloride 108 mmol/L (96-108); Creatinine Clr Calc Pharmacy 152.6; Estimated Glomerular Filt Rate > 60; Glucose Random 102 mg/dL (60-115); Potassium 3.9 mmol/L (3.3-5.1); Sodium 138 mmol/L (135-145); Total Protein 7.6 g/dL (6.5-8.0)
== END 2024-05-22 20:31 | disposition left against medical advice (07) ==
PROVIDERS: Physician Assistant; Emergency Provider Emergency Medicine; PCP Internal Medicine
DX: R07.89 Other chest pain (principal); I44.7 Left bundle-branch block, unspecified; R06.02 Shortness of breath; F17.210 Nicotine dependence, cigarettes, uncomplicated; Z79.899 Other long term (current) drug therapy
CPT/HCPCS: 36415; 71045; 80053; 83880; 84484; 85025; 85610; 85730; 93005; 99283

== ENCOUNTER → 2024-05-22 14:00 | Outpatient (BNV) | payer MEDICAID, SELFPAY | PROVIDERS: PCP Internal Medicine; Visit Provider Radiology Diagnostic Radiology | DX: R07.9 Chest pain, unspecified (principal) | CPT/HCPCS: 71045 ==

== ENCOUNTER → 2024-05-22 14:00 | Outpatient (BNV) | payer MEDICAID, SELFPAY | PROVIDERS: Emergency Provider Emergency Medicine; PCP Internal Medicine; Visit Provider Internal Medicine | DX: R07.9 Chest pain, unspecified (principal); I44.7 Left bundle-branch block, unspecified; R94.31 Abnormal electrocardiogram [ECG] [EKG] | CPT/HCPCS: 93010 ==

== ENCOUNTER 2024-05-29 10:40 | Emergency (ER) | payer MEDICAID, SELFPAY ==
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
[2024-05-29 10:41] VITALS: BP 131/89; PULSE 84; RESP 16; TEMP 36.6; O2SAT 97; BMI 34.1
--- NOTE | 2024-05-29 10:53 | PC.NURSE ---
pt ambulates to the ED room. He declines putting on hospital attire.
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
--- NOTE | 2024-05-29 11:56 | MHC.EDTECH ---
EKG delay due to PT refusal, MD Haley webber.
[2024-05-29 12:07] LABS: MANUAL DIFF FLAG NO
[2024-05-29 12:09] LABS: Basophils Absolute Auto 0.1 X10*3/uL (0.0-0.2); Basophils Percent Auto 0.6 % (0-2); Eosinophils Absolute Auto 0.2 X10*3/uL (0.0-0.4); Eosinophils Percent Auto 1.8 % (0-4); Hematocrit 38.5 % (42.0-52.0); Hemoglobin 13.3 g/dl (14.0-18.0); Imm Gran Abs Auto 0.07 X10*3/uL (0.00-0.03); Imm Gran Pct Auto 0.6 % (0.0-0.4); Lymphocytes Absolute Auto 2.6 X10*3/uL (1.2-4.9); Mean Corpuscular HGB Conc 34.5 g/dl (31.0-36.0); Mean Corpuscular Hemoglobin 31.3 pg (27.0-33.0); Mean Corpuscular Volume 90.6 fL (80.0-98.0); Mean Platelet Volume 10.1 fL (9.4-12.4); Monocytes Percent Auto 8.8 % (2-11); NRBC Pct Auto 0.2 /100WBC (0.0-0.2); Neutrophils Absolute Auto 7.4 x10*3/uL (2.0-8.3); Neutrophils Percent Auto 65.2 % (45-73); Platelet Count 363 X10*3/uL (160-400); Red Blood Count 4.25 X10*6/uL (4.60-5.80); Red Cell Distribution Width 17.8 % (11.0-16.0); White Blood Count 11.3 X10*3/uL (4.8-10.8)
[2024-05-29 12:13] LABS: INTERNATIONAL NORM RATIO 2.3 (0.9-1.1); Prothrombin Time 26.7 SEC (10.9-12.4)
[2024-05-29] MEDS: diphenhydrAMINE HCL 25 MG CAPSULE PO (12:19)
[2024-05-29 12:22] LABS: Alanine Aminotransferase 41 U/L (0-40); Albumin Level 3.6 g/dL (3.5-5.0); Alkaline Phosphatase 99 U/L (39-117); Anion Gap 13 (12-20); Aspartate Amino Transferase 40 U/L (5-37); Bilirubin Direct 0.1 mg/dL (0.0-0.5); Bilirubin Total 0.4 mg/dL (0.0-1.0); Blood Urea Nitrogen 9 mg/dL (9-16); Calcium 8.7 mg/dL (8.4-10.2); Carbon Dioxide 20 mmol/L (22-29); Chloride 110 mmol/L (96-108); Creatinine Clr Calc Pharmacy 137.1; Estimated Glomerular Filt Rate > 60; Glucose Random 100 mg/dL (60-115); Magnesium 1.8 mg/dL (1.6-2.6); Potassium 3.6 mmol/L (3.3-5.1); Sodium 139 mmol/L (135-145); Total Protein 7.5 g/dL (6.5-8.0)
--- NOTE | 2024-05-29 13:28 | PC.NURSE ---
patient stated he wanted to leave, ED provider made aware, patient states he does not want to stay for remainder of eval. refuse vitals, refused to sign papers. patient ambulated off of unit with steady gait.
== END 2024-05-29 13:29 | disposition left against medical advice (07) ==
PROVIDERS: Emergency Provider Emergency Medicine; PCP Internal Medicine
DX: F10.230 Alcohol dependence with withdrawal, uncomplicated (principal); Y90.9 Presence of alcohol in blood, level not specified; R51.9 Headache, unspecified; B37.0 Candidal stomatitis; Z95.2 Presence of prosthetic heart valve; F17.210 Nicotine dependence, cigarettes, uncomplicated; F12.90 Cannabis use, unspecified, uncomplicated; Z79.01 Long term (current) use of anticoagulants; Z79.899 Other long term (current) drug therapy
CPT/HCPCS: 36415; 70450; 80048; 80076; 83735; 85025; 85610; 99282; 99284

== ENCOUNTER → 2024-05-29 11:41 | Outpatient (BNV) | payer MEDICAID, SELFPAY | PROVIDERS: Emergency Provider Emergency Medicine; PCP Internal Medicine; Visit Provider Radiology Diagnostic Radiology | DX: S09.90XA Unspecified injury of head, initial encounter (principal); R42 Dizziness and giddiness | CPT/HCPCS: 70450 ==

== ENCOUNTER 2024-05-29 20:49 | Emergency (ER) | payer MEDICAID, SELFPAY ==
[2024-05-29 21:05] VITALS: BP 145/73; PULSE 100; RESP 18; TEMP 36.4; O2SAT 98; BMI 33.5
--- NOTE | 2024-05-29 22:15 | ED_ITS ---
HPI - General Adult General Chief complaint: Seizure Stated complaint: ?Seizures Time Seen by Provider: 05/29/24 22:00 Source: patient, family (patient's ) and RN notes reviewed Mode of arrival: ambulatory Limitations: no limitations History of Present Illness ED Provider: Estevan HPI narrative: 43-year-old male past medical history significant for endocarditis, aortic valve replacement on warfarin, history of DVTs presents for evaluation seizures Patient was discharge from this facility about 2 hours prior to the presentation He was seen here for possible seizures and alcohol abuse. The patient's describes nonepileptic seizure activity The patient is not postictal afterwards. The patient reports that upon being discharged home he took a nap He reports ?I woke up a little foggy and I assumed I had another seizure. He reports that he is cutting back on his alcohol intake that is why he is having seizures. He does not take any medication to help prevent seizures He denies any pain including headaches, chest pain, shortness of breath Not interested in detox currently. He reports that his step mom works at a psychiatric facility and he believes she may be able to help him get into detox if he decides to go The patient does not want repeat labs Related Data Home Medications ?Medication ?Instructions ?Recorded ?Confirmed clonidine 0.2 mg/24 hr weekly 2 patch transdermal TU@0900 02/28/24 04/17/24 transdermal patch metoprolol tartrate 50 mg tablet 100 mg PO BID 02/28/24 04/17/24 pantoprazole 40 mg tablet,delayed 40 mg PO DAILY@0630 02/28/24 04/17/24 release warfarin 5 mg tablet 2 - 7 mg PO DAILY 02/28/24 04/17/24 clonazepam 1 mg tablet 1 mg PO TID PRN Anxiety 04/17/24 04/17/24 clonidine HCl 0.2 mg tablet 0.1 mg PO TID PRN Blood Pressure 04/17/24 04/17/24 dolutegravir 50 mg tablet (Tivicay) 50 mg PO DAILY 05/12/24 emtricitabine 200 mg-tenofovir 1 tab PO DAILY 05/12/24 disoproxil fumarate 300 mg tablet lamotrigine 25 mg tablet 37.5 mg PO DAILY 05/12/24 Previous Rx's ?Medication ?Instructions ?Recorded nystatin 100,000 unit/mL oral 100,000 unit buccal DAILY #60 mL 05/09/24 suspension Allergies Allergy/AdvReac Type Severity Reaction Status Date / Time phenytoin [From DILANTIN] Allergy Unknown GAVE PT A Verified 05/29/24 21:06 TOXIC LEVEL fluoxetine [From Prozac] Allergy Unknown Verified 05/29/24 21:06 lidocaine Allergy Unknown Verified 05/29/24 21:06 tramadol Allergy Anaphylaxis Verified 05/29/24 21:06 trazodone Allergy Unknown Verified 05/29/24 21:06 gabapentin [From Neurontin] AdvReac Unknown Verified 05/29/24 21:06 morphine AdvReac Unknown Verified 05/29/24 21:06 Review of Systems Constitutional: Constitutional: Denies body ache(s), Denies chills, Denies fever(s) and Denies headache(s) Eyes: Eyes: Denies blurry vision and Denies exophthalmos ENT: Denies dysphagia, Denies vertigo, Denies dizziness and Denies headache(s) Cardiovascular: Cardiovascular: Denies chest pain, Denies syncope and Denies dyspnea Respiratory: Respiratory: Denies cough and Denies dyspnea Gastrointestinal: Gastrointestinal: Denies abdominal pain, Denies dysphagia, Denies nausea and Denies vomiting Musculoskeletal: Musculoskeletal: Denies back pain and Denies tingling Integumentary/Breasts: Skin/Breast: Denies rash Neurologic: Denies vertigo, Denies dizziness, Denies syncope, Denies headache(s), Reports convulsions, Reports seizure-like activity, Denies tingling and Denies paresthesias Psychiatric: Psychiatric: Denies anxiety PMFSH Past Medical History Medical History Bilateral pulmonary embolism Noncompliance with medications Alcohol dependence Endocarditis Surgical History Aortic valve replaced Social History Social History Household Members: Spouse Housing: House Do you presently have visiting nurse or other home services: No Unable to assess alcohol history related to: Unknown Alcohol intake: former Comment: Pt refuses fall risk measures, explained protocol/ safety measures Patient Tobacco Use Status: Current everyday Tobacco user Tobacco use type: Cigarette Cigarettes Per Day: 10 e-Cigarette/Vaping Use: Never Used Second Hand Smoke Exposure: No Substance Use Type: Marijuana Advance Directives: No Advance Directives Information Provided: No Do you have a plan to hurt others: No Plan Physical Exam ED Vital Signs: Vital Signs - 24 hr 05/29/24 21:05 05/29/24 22:21 Temperature 97.5 F 97.5 F Pulse Rate 100 100 Respiratory Rate 18 18 Blood Pressure 145/73 H 145/73 H Pulse Oximetry 98 98 Oxygen Delivery Method Room Air Room Air BMI result Body Mass Index 33.5 Const General: healthy appearing, comfortable, no acute distress, alert and awake Nutritional Appearance: well nourished Orientation/consciousness: patient oriented x3 HENMT Head: Yes normocephalic and Yes atraumatic Throat: Yes posterior oropharynx normal Eyes Eyelids: Yes eyelids normal Conjunctivae: conjunctivae normal Sclerae: sclerae normal Corneas: corneas normal Pupils: Equal, round and reactive pupils present EOM: EOMs intact bilaterally Neck Neck: Yes full ROM Resp Effort & Inspection: normal respiratory effort, able to speak in complete sentences and not labored Cardio Rate: regular rate Rhythm: regular rhythm GI Inspection: No distended Palpation (GI): Soft to palpation, not firm, nontender, no guarding and not rigid Auscultation: normoactive bowel sounds Skin General skin exam: no rashes or lesions noted and elasticity normal Neuro General: patient oriented x3 Cranial nerves: Yes CN's II-XII intact bilaterally, Yes Equal, round and reactive pupils present and Yes Bilaterally intact EOM present Cognition (Neuro): normal cognition Extrem Other: Moving all extremities well without any obvious deformities Medical Decision Making Medical Decision Making MDM Narrative: And read the patient's recent workup from a few hours prior. He had a CT scan of his brain, labs. The patient declines repeat labs currently. He has no focal neurologic deficits, he does not appear to be in active alcohol withdrawal. It was not clear that the patient is having true epileptic seizures if he had a seizure prior to presentation as he was asleep at the time and there were no witnesses around. I discussed repeating labs, I do not see any indication to repeat CT scan of the brain as the patient reports he was lying down and did not fall. He declines repeat labs. I offered the patient salt and to attempt to get him into detox and the patient declines. He will be discharged and he was provided with outpatient resources Differential Diagnosis Differential Diagnoses: The differential diagnosis associated with the presentation includes Alcohol abuse Alcohol intoxication Alcohol withdrawal Seizure disorder Nonepileptic seizure Discharge Plan Discharge Clinical Impression: Alcohol abuse Patient Disposition: Home, Self-Care Instructions: Abuse of Alcohol (ED) Additional Instructions: It was not safe to detox from alcohol on your own at home You were provided with a list of detox resources You may use Imodium short-term for diarrhea Follow-up with your primary doctor, return for new or worsening symptoms Prescriptions: No Action clonidine 0.2 mg/24 hr patch weekly 2 patch transdermal TU@0900 pantoprazole 40 mg tablet,delayed release (DR/EC) 40 mg PO DAILY@0630 metoprolol tartrate 50 mg tablet 100 mg PO BID warfarin 5 mg tablet 2 - 7 mg PO DAILY nystatin 100,000 unit/mL suspension 100,000 unit buccal DAILY Qty: 60 0RF Rx Instructions: administer 1/2 of dose in each side of the mouth clonazepam 1 mg tablet 1 mg PO TID PRN (Reason: Anxiety) clonidine HCl 0.2 mg Tablet 0.1 mg PO TID PRN (Reason: Blood Pressure) lamotrigine 25 mg tablet 37.5 mg PO DAILY emtricitabine-tenofovir (TDF) 200-300 mg tablet 1 tab PO DAILY Tivicay 50 mg tablet 50 mg PO DAILY Interventions: ED Discharge Assessment Last Done: 05/29/24 22:21 Discharge Date/Time: 05/29/24 22:22 Print Language: [place]
[2024-05-29 22:21] VITALS: BP 145/73; PULSE 100; RESP 18; TEMP 36.4; O2SAT 98
== END 2024-05-29 22:22 | disposition home or self-care (01) ==
PROVIDERS: Emergency Provider Emergency Medicine; PCP Internal Medicine
DX: F10.10 Alcohol abuse, uncomplicated (principal); Y90.9 Presence of alcohol in blood, level not specified
CPT/HCPCS: 99282

== ENCOUNTER 2024-05-31 20:40 | Emergency (ER) | payer MEDICAID, SELFPAY ==
--- NOTE | ~2024-05-31 | CT_ITS ---
CLINICAL HISTORY: seizure, head injury CT head without contrast Comparison: Head CT from 05/29/2024 Findings: No acute intracranial hemorrhage. 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 No large arterial territorial infarction. Mild volume loss is generalized and greater than expected for age. No midline shift or hydrocephalus. No acute skull fracture. Imaged paranasal sinuses and imaged mastoid air cells remain well-aerated. IMPRESSION: 1. No acute intracranial hemorrhage. 2. No significant change compared to 2 days prior. This document has been electronically signed by: Godwin Oquendo MD on 06/01/2024 00:07:39
[2024-05-31 21:27] VITALS: BP 132/90; PULSE 110; RESP 16; TEMP 36.8; O2SAT 97; BMI 34.4
--- NOTE | 2024-05-31 21:42 | ECG_ITS ---
Test Reason : ALCOHOL WITHDRAWAL SEIZURES Blood Pressure : */* mmHG Vent. Rate : 108 BPM Atrial Rate : 108 BPM P-R Int : 144 ms QRS Dur : 140 ms QT Int : 386 ms P-R-T Axes : 35 -30 110 degrees QTcB Int : 517 ms Sinus tachycardia Left axis deviation Left bundle branch block Abnormal ECG When compared with ECG of 22-May-2024 14:04, QRS axis Shifted left Referred By: Generic ED Physician Electronically Signed By: Nicholas Hinojosa
--- NOTE | 2024-05-31 21:51 | MHC.EDTECH ---
PT REFUSED BLOOD WORK AT THIS TIME, MADE AWARE
--- NOTE | 2024-05-31 22:18 | MHC.EDTECH ---
Patient refused to put on the gown on and was rude with staff stating that 'we are wasting our time buttoning the gown because he isn't going to wear it.'
--- NOTE | 2024-05-31 22:52 | ED.SEIZURE ---
HPI - Seizure General Chief Complaint: Seizure Stated Complaint: alcohol withdrawal seizures Time Seen by Provider: 05/31/24 22:36 Source: patient and family ( spouse) Mode of arrival: ambulatory Limitations: no limitations History of Present Illness ED Provider: DR. Jones HPI Narrative: 43-year-old male with chronic alcohol use disorder, seizure due to alcohol withdrawal patient has been cutting alcohol been experiencing multiple seizure over the 3-4 days, patient was evaluated recently at [facility] for withdrawal seizure, had 1 seizure witnessed by his spouse, +head injury, spouse brought the patient in for further evaluation, patient had 1 shot of alcohol before coming to prevent a seizure, patient is seeking detox at the moment. patient with history of pulmonary embolism on Coumadin last dose was last night, did not take his does today. No headache, no blurry vision, dizziness. Related Data Home Medications ?Medication ?Instructions ?Recorded ?Confirmed clonidine 0.2 mg/24 hr weekly 2 patch transdermal TU@0900 02/28/24 04/17/24 transdermal patch metoprolol tartrate 50 mg tablet 100 mg PO BID 02/28/24 04/17/24 pantoprazole 40 mg tablet,delayed 40 mg PO DAILY@0630 02/28/24 04/17/24 release warfarin 5 mg tablet 2 - 7 mg PO DAILY 02/28/24 04/17/24 clonazepam 1 mg tablet 1 mg PO TID PRN Anxiety 04/17/24 04/17/24 clonidine HCl 0.2 mg tablet 0.1 mg PO TID PRN Blood Pressure 04/17/24 04/17/24 dolutegravir 50 mg tablet (Tivicay) 50 mg PO DAILY 05/12/24 emtricitabine 200 mg-tenofovir 1 tab PO DAILY 05/12/24 disoproxil fumarate 300 mg tablet lamotrigine 25 mg tablet 37.5 mg PO DAILY 05/12/24 Previous Rx's ?Medication ?Instructions ?Recorded nystatin 100,000 unit/mL oral 100,000 unit buccal DAILY #60 mL 05/09/24 suspension Allergies Allergy/AdvReac Type Severity Reaction Status Date / Time phenytoin [From DILANTIN] Allergy Unknown GAVE PT A Verified 05/31/24 21:28 TOXIC LEVEL fluoxetine [From Prozac] Allergy Unknown Verified 05/31/24 21:28 lidocaine Allergy Unknown Verified 05/31/24 21:28 tramadol Allergy Anaphylaxis Verified 05/31/24 21:28 trazodone Allergy Unknown Verified 05/31/24 21:28 gabapentin [From Neurontin] AdvReac Unknown Verified 05/31/24 21:28 morphine AdvReac Unknown Verified 05/31/24 21:28 Review of Systems Review of Systems: All other systems are reviewed and are negative Constitutional: Reports as per HPI and Reports no additional constitutional complaints Eyes: Reports as per HPI and Reports no additional eye complaints Reports system reviewed and no additional complaints, except as documented Cardiovascular: Reports as per HPI and Reports no additional cardiovascular complaints Respiratory: Reports as per HPI and Reports no additional respiratory complaints Gastrointestinal: Reports as per HPI and Reports no additional gastrointestinal complaints Genitourinary: Reports no additional female genitourinary complaints Musculoskeletal: Reports no additional musculoskeletal complaints Skin/Breast: Reports system reviewed and no additional complaints, except as docu Psychiatric: Reports no additional psychiatric complaints Endocrine: Reports no additional endocrine complaints Hematologic/Lymphatic: Reports no additional hematologic/lymphatic complaints Allergic/Immunologic: Reports no additional allergic/immunologic complaints Reports system reviewed and no additional complaints, except as documented and Reports Abnormal speech present [facility] Past Medical History Medical History Bilateral pulmonary embolism Noncompliance with medications Alcohol dependence Endocarditis Surgical History Aortic valve replaced Social History Social History Household Members: Spouse Housing: House Do you presently have visiting nurse or other home services: No Unable to assess alcohol history related to: Unknown Alcohol intake: former Comment: Pt refuses fall risk measures, explained protocol/ safety measures Patient Tobacco Use Status: Current everyday Tobacco user Tobacco use type: Cigarette Cigarettes Per Day: 10 e-Cigarette/Vaping Use: Never Used Second Hand Smoke Exposure: No Substance Use Type: Marijuana Advance Directives: No Advance Directives Information Provided: Yes Do you have a plan to hurt others: No Plan Physical Exam Vital Signs: Vital Signs: Last Vital Signs Temp 98.2 F 05/31/24 21:27 Pulse 110 H 05/31/24 21:27 Resp 16 05/31/24 21:27 BP 132/90 H 05/31/24 21:27 Pulse Ox 97 05/31/24 21:27 O2 Del Method Room Air 05/31/24 21:27 BMI result Body Mass Index 34.4 Vital signs have been reviewed and appear to be correct. Blood pressure elevated. Heart rate normal. Respiratory rate normal. Temperature normal. Oxygen saturation normal. Appearance: Alert. Oriented X3. No acute distress. Head: Normal external exam. Normocephalic. Atraumatic. No Oliver signs noted. No raccoon eyes noted Eyes: PERRLA. EOMI. Conjunctiva and sclera normal. Eyelids normal. ENT: TM's Normal. Pharynx normal. Uvula midline. Moist mucous membranes. No trismus noted. No drooling noted. No muffled voice noted. Neck: Normal inspection. Neck supple. FROM. No adenopathy. Thyroid Normal. No meningeal signs. No neck mass noted. CVS: Normal heart rate and rhythm. Heart sound normal. No murmurs noted. Pulses normal throughout. Respiratory: No respiratory distress. Painless inspiration. Breath sounds normal. No wheezes/rales/rhonchi noted. Chest nontender. No accessory muscle usage noted or decreased air movement noted. Abdomen: Soft and nontender. Bowel sounds normal in all 4 quadrants. No distention noted. No organomegaly noted. No visible injury noted. Back: No CVA tenderness. Full range of motion noted. Skin: Skin warm and dry. Normal skin color. Normal skin turgor. No rashes/lesions/lacerations noted. Extremities: No lower extremity edema. Extremities exhibit normal range of motion. Extremities nontender. Neuro: GCS of 15, Oriented X 3. Cranial nerve exam: II-XII are grossly intact No motor deficit. No sensory deficit. Reflexes normal. Course Reevaluation(s) Reevaluation #1: patient is x3, GCS of 15, normal neuro exam, head CT is unremarkable, no seizure activity while in the ED, patient has very difficult IV access, IV was placed using ultrasound, patient now is refusing to follow hospital protocol for phenobarb for p.o./ IM patient is requesting IV only, patient got mad using offending language toward Nursing staff, pulled out the IV access himself and walked out of the ER Which is a typical behavior for this patient. Time: 00:34 Medications Administered Discontinued Medications Generic Name Dose Route Start Last Admin Trade Name Freq PRN Reason Stop Dose Admin Phenobarbital Sodium 264 mg 05/31/24 23:00 06/01/24 00:33 Phenobarbital Sodium 130 Mg/Ml Im Once IM 05/31/24 23:01 Not Given ONCE ONE Medical Decision Making Differential Diagnosis Differential Diagnoses: The differential diagnosis associated with the presentation includes ( alcohol withdrawal, electrolyte derangement, severe anemia, intracranial bleed.) Admission/Observation Consideration of admission/observation: Escalation of care including admission/observation considered Lab Data MDM Lab Attestation statement: I reviewed the patient's lab results. 06/01/24 00:03 06/01/24 00:03 Labs: Lab Results 06/01/24 Range/Units 00:03 WBC 12.3 H (4.8-10.8) X10*3/uL RBC 4.13 L (4.60-5.80) X10*6/uL Hgb 12.9 L (14.0-18.0) g/dl Hct 37.3 L (42.0-52.0) % MCV 90.3 (80.0-98.0) fL MCH 31.2 (27.0-33.0) pg MCHC 34.6 (31.0-36.0) g/dl RDW 17.2 H (11.0-16.0) % Plt Count 397 (160-400) X10*3/uL MPV 10.4 (9.4-12.4) fL Immature Gran % (Auto) 0.4 (0.0-0.4) % Neut % (Auto) 59.9 (45-73) % Lymph % (Auto) 26.7 (20-40) % [place] % (Auto) 10.8 (2-11) % Eos % (Auto) 1.7 (0-4) % Baso % (Auto) 0.5 (0-2) % Lymph # (Auto) 3.3 (1.2-4.9) X10*3/uL [place] # (Auto) 1.3 H (0.1-1.2) X10*3/uL Eos # (Auto) 0.2 (0.0-0.4) X10*3/uL Baso # (Auto) 0.1 (0.0-0.2) X10*3/uL Abs Immat Gran (auto) 0.05 H (0.00-0.03) X10*3/uL Absolute Neuts (auto) 7.4 (2.0-8.3) x10*3/uL Absolute Nucleated RBC 0.000 (0.0-0.012) X10*3/uL Nucleated RBC % (auto) 0.0 (0.0-0.2) /100WBC PT 36.8 H D (10.9-12.4) SEC INR 3.2 H (0.9-1.1) Sodium 141 (135-145) mmol/L Potassium 3.6 (3.3-5.1) mmol/L Chloride 107 (96-108) mmol/L Carbon Dioxide 25 (22-29) mmol/L Anion Gap 13 (12-20) BUN 3 L (9-16) mg/dL Creatinine 0.67 (0.5-1.4) mg/dL Estim Creat Clear Calc 158.2 Estimated GFR > 60 Random Glucose 99 (60-115) mg/dL Calcium 8.8 (8.4-10.2) mg/dL Total Bilirubin 0.3 (0.0-1.0) mg/dL AST 44 H (5-37) U/L ALT 31 (0-40) U/L Alkaline Phosphatase 103 (39-117) U/L Troponin I High Sens 3.9 (<3.5-35.0) ng/L Total Protein 7.3 (6.5-8.0) g/dL Albumin 3.4 L (3.5-5.0) g/dL Urine Opiates Screen Not Detected (Not Detect) Ur Buprenorphine Scrn Not Detected (Not Detect) ng/mL Ur Oxycodone Screen Not Detected (Not Detect) ng/mL Urine Methadone Screen Not Detected (Not Detect) ng/mL Urine Fentanyl Screen Not Detected (Not Detect) Ur Barbiturates Screen POSITIVE H (Not Detect) Ur Phencyclidine Scrn Not Detected (Not Detect) Ur Amphetamines Screen Not Detected (Not Detect) U Benzodiazepines Scrn POSITIVE H (Not Detect) Urine Cocaine Screen Not Detected (Not Detect) U Marijuana (THC) Screen Not Detected (Not Detect) Ethyl Alcohol < 10 mg/dL Independent Interpretation I performed an independent interpretation of an: CT Scan ( Head CT: No acute intracranial pathology.) Radiology Impression Discussion of test interpretation with radiology: I have reviewed the radiologist's reading. Discharge Plan Discharge Clinical Impression: Alcohol withdrawal seizure Patient Disposition: Elopement Prescriptions: No Action clonidine 0.2 mg/24 hr patch weekly 2 patch transdermal TU@0900 pantoprazole 40 mg tablet,delayed release (DR/EC) 40 mg PO DAILY@0630 metoprolol tartrate 50 mg tablet 100 mg PO BID warfarin 5 mg tablet 2 - 7 mg PO DAILY nystatin 100,000 unit/mL suspension 100,000 unit buccal DAILY Qty: 60 0RF Rx Instructions: administer 1/2 of dose in each side of the mouth clonazepam 1 mg tablet 1 mg PO TID PRN (Reason: Anxiety) clonidine HCl 0.2 mg Tablet 0.1 mg PO TID PRN (Reason: Blood Pressure) lamotrigine 25 mg tablet 37.5 mg PO DAILY emtricitabine-tenofovir (TDF) 200-300 mg tablet 1 tab PO DAILY Tivicay 50 mg tablet 50 mg PO DAILY Print Language: Kuwaiti
[2024-06-01 00:09] LABS: Hematocrit 37.3 % (42.0-52.0); Hemoglobin 12.9 g/dl (14.0-18.0); MANUAL DIFF FLAG NO; Red Blood Count 4.13 X10*6/uL (4.60-5.80); White Blood Count 12.3 X10*3/uL (4.8-10.8)
[2024-06-01 00:10] LABS: Basophils Absolute Auto 0.1 X10*3/uL (0.0-0.2); Basophils Percent Auto 0.5 % (0-2); Eosinophils Absolute Auto 0.2 X10*3/uL (0.0-0.4); Eosinophils Percent Auto 1.7 % (0-4); Imm Gran Abs Auto 0.05 X10*3/uL (0.00-0.03); Imm Gran Pct Auto 0.4 % (0.0-0.4); Lymphocytes Absolute Auto 3.3 X10*3/uL (1.2-4.9); Lymphocytes Percent Auto 26.7 % (20-40); Mean Corpuscular HGB Conc 34.6 g/dl (31.0-36.0); Mean Corpuscular Hemoglobin 31.2 pg (27.0-33.0); Mean Corpuscular Volume 90.3 fL (80.0-98.0); Mean Platelet Volume 10.4 fL (9.4-12.4); Monocytes Absolute Auto 1.3 X10*3/uL (0.1-1.2); Monocytes Percent Auto 10.8 % (2-11); Neutrophils Absolute Auto 7.4 x10*3/uL (2.0-8.3); Neutrophils Percent Auto 59.9 % (45-73); Platelet Count 397 X10*3/uL (160-400); Red Cell Distribution Width 17.2 % (11.0-16.0)
[2024-06-01 00:20] LABS: Amphetamine Screen Urine Not Detected (Not Detect); Barbiturates, Urine POSITIVE (Not Detect); Benzodiazepines Screen Urine POSITIVE (Not Detect); Buprenorphine Scr Not Detected (Not Detect); Cannabinoid Screen Urine Not Detected (Not Detect); Cocaine Screen Urine Not Detected (Not Detect); Fentanyl, urine Not Detected (Not Detect); Methadone Screen, Urine Not Detected (Not Detect); Opiate Screen Urine Not Detected (Not Detect); Oxycodone Screen Urine Not Detected (Not Detect); Phencyclidine Screen Urine Not Detected (Not Detect)
[2024-06-01 00:21] LABS: INTERNATIONAL NORM RATIO 3.2 (0.9-1.1); Prothrombin Time 36.8 SEC (10.9-12.4)
[2024-06-01 00:29] LABS: Troponin-I High Sensitivity 3.9 ng/L (<3.5-35.0)
[2024-06-01 00:31] LABS: Alanine Aminotransferase 31 U/L (0-40); Albumin Level 3.4 g/dL (3.5-5.0); Alkaline Phosphatase 103 U/L (39-117); Anion Gap 13 (12-20); Aspartate Amino Transferase 44 U/L (5-37); Bilirubin Total 0.3 mg/dL (0.0-1.0); Blood Urea Nitrogen 3 mg/dL (9-16); Calcium 8.8 mg/dL (8.4-10.2); Carbon Dioxide 25 mmol/L (22-29); Chloride 107 mmol/L (96-108); Creatinine Clr Calc Pharmacy 158.2; Estimated Glomerular Filt Rate > 60; Ethanol < 10 mg/dL; Glucose Random 99 mg/dL (60-115); Potassium 3.6 mmol/L (3.3-5.1); Sodium 141 mmol/L (135-145); Total Protein 7.3 g/dL (6.5-8.0)
--- NOTE | 2024-06-01 00:31 | PC.NURSE ---
attempted to medicated patient after explaining medication, pt pulled away and attempted to grab my arm, after I told him, I was giving him Im injection, provider [place] into discuss plan of care, pt refused Pulled IV out and stated he was going to [facility]. pt eloped
[2024-06-01 00:35] LABS: Lactic Acid 1.8 mmol/L (0.5-2.0)
== END 2024-06-01 00:34 | disposition left against medical advice (07) ==
PROVIDERS: Emergency Provider Emergency Medicine; PCP Internal Medicine
DX: F10.231 Alcohol dependence with withdrawal delirium (principal); Z87.828 Personal history of other (healed) physical injury and trauma
CPT/HCPCS: 36415; 70450; 80053; 80307; 83605; 84484; 85025; 85610; 93005; 96372; 99283; 99284; J2560

== ENCOUNTER → 2024-05-31 21:42 | Outpatient (BNV) | payer MEDICAID, SELFPAY | PROVIDERS: Emergency Provider Emergency Medicine; PCP Internal Medicine; Visit Provider Internal Medicine Cardiovascular Disease | DX: R00.0 Tachycardia, unspecified (principal); I44.7 Left bundle-branch block, unspecified | CPT/HCPCS: 93010 ==

== ENCOUNTER → 2024-05-31 22:50 | Outpatient (BNV) | payer MEDICAID, SELFPAY | PROVIDERS: Emergency Provider Emergency Medicine; PCP Internal Medicine; Visit Provider Radiology Neuroradiology | DX: S09.90XA Unspecified injury of head, initial encounter (principal); R56.9 Unspecified convulsions | CPT/HCPCS: 70450 ==

== ENCOUNTER 2024-06-04 04:19 | Emergency (ER) | payer MEDICAID, SELFPAY ==
[2024-06-04 04:31] VITALS: BP 120/83; PULSE 90; RESP 15; O2SAT 99
[2024-06-04 04:33] VITALS: BP 120/83; BP 140/82; PULSE 90; PULSE 94; RESP 15; O2SAT 98; O2SAT 99; BMI 38.3
--- NOTE | 2024-06-04 07:53 | ED_ITS ---
HPI - General Adult General Chief complaint: General Medical Stated complaint: Slurred speech after mixing alcohol w/ medication Time Seen by Provider: 06/04/24 07:20 Source: patient and family Mode of arrival: ambulatory Limitations: no limitations History of Present Illness ED Provider: ARYA Zavala HPI narrative: This is a 43-year-old male history of endocarditis, pulmonary embolisms, HIV,, alcohol dependence, medication noncompliance who presents to the emergency department with slurred speech after returning home from [facility] yesterday at approximately 13:00. He reports that at around 15:00 he noticed his speech was getting worse however he was also drinking alcohol. He reported to me he only had 1 drink of vodka however reported to nursing he had 1-2 shots of vodka. He reports that now he is feeling better. Last known well time is 13:00 yesterday. He denies any headaches, vision changes, chest pain, shortness of breath, nausea, vomiting, abdominal pain, falls or trauma. Related Data Home Medications ?Medication ?Instructions ?Recorded ?Confirmed clonidine 0.2 mg/24 hr weekly 2 patch transdermal TU@0900 02/28/24 04/17/24 transdermal patch metoprolol tartrate 50 mg tablet 100 mg PO BID 02/28/24 04/17/24 pantoprazole 40 mg tablet,delayed 40 mg PO DAILY@0630 02/28/24 04/17/24 release warfarin 5 mg tablet 2 - 7 mg PO DAILY 02/28/24 04/17/24 clonazepam 1 mg tablet 1 mg PO TID PRN Anxiety 04/17/24 04/17/24 clonidine HCl 0.2 mg tablet 0.1 mg PO TID PRN Blood Pressure 04/17/24 04/17/24 dolutegravir 50 mg tablet (Tivicay) 50 mg PO DAILY 05/12/24 emtricitabine 200 mg-tenofovir 1 tab PO DAILY 05/12/24 disoproxil fumarate 300 mg tablet lamotrigine 25 mg tablet 37.5 mg PO DAILY 05/12/24 Previous Rx's ?Medication ?Instructions ?Recorded nystatin 100,000 unit/mL oral 100,000 unit buccal DAILY #60 mL 05/09/24 suspension Allergies Allergy/AdvReac Type Severity Reaction Status Date / Time phenytoin [From DILANTIN] Allergy Unknown GAVE PT A Verified 06/04/24 04:37 TOXIC LEVEL fluoxetine [From Prozac] Allergy Unknown Verified 06/04/24 04:37 lidocaine Allergy Unknown Verified 06/04/24 04:37 tramadol Allergy Anaphylaxis Verified 06/04/24 04:37 trazodone Allergy Unknown Verified 06/04/24 04:37 gabapentin [From Neurontin] AdvReac Unknown Verified 06/04/24 04:37 morphine AdvReac Unknown Verified 06/04/24 04:37 Review of Systems Review of Systems: Yes all other systems are reviewed and are negative [facility] Past Medical History Attestation statement: The following information was validated with the patient. Source: old records reviewed and nursing notes reviewed Medical History Bilateral pulmonary embolism Noncompliance with medications Alcohol dependence Endocarditis Surgical History Aortic valve replaced Social History Social History Household Members: Spouse Housing: House Do you presently have visiting nurse or other home services: No Unable to assess alcohol history related to: Unknown Alcohol intake: former Comment: Pt refuses fall risk measures, explained protocol/ safety measures Patient Tobacco Use Status: Current everyday Tobacco user Tobacco use type: Cigarette Cigarettes Per Day: 10 e-Cigarette/Vaping Use: Never Used Second Hand Smoke Exposure: No Substance Use Type: Marijuana Advance Directives: Yes Advance Directives Information Provided: Yes Advance Directives on File: No Physical Exam ED Vital Signs: Vital Signs - 24 hr 06/04/24 04:31 06/04/24 04:33 Pulse Rate 90 90 Respiratory Rate 15 15 Blood Pressure 120/83 120/83 Pulse Oximetry 99 99 Oxygen Delivery Method Room Air Room Air BMI result Body Mass Index 38.3 vss Appearance: Alert.? Oriented X3.? No acute distress.?No noticeable slurred speech Head: Normocephalic, atraumatic, no step-offs or deformities Eyes: Pupils equal, round and reactive to light.? Neck: Normal inspection.? Neck supple.? CVS: Normal heart rate and rhythm.? Pulses normal.? Respiratory: No respiratory distress.? Breath sounds normal.? Abdomen: Soft and nontender.? Skin: Skin warm and dry.? Normal skin color.? Normal skin turgor.? Extremities: No lower extremity edema.? No calf ttp. 5/5 strength to bilateral upper and lower extremities Neuro: Oriented X 3.? No motor deficit.? No sensory deficit. CN 2-12 intact . Ambulating w/ steady gait normal coordination. Normal finger to nose. Course Reevaluation(s) Reevaluation #1: When I saw patient he was agreeable to a workup including labs and imaging. However moments later he got up from the bed and said everything was taking too long so he was going to leave. I explained to him that this is not a good idea. I explained risks of leaving including , misdiagnosis. This is the worse hospital around, I am leaving . Patient left he gave no time to sign AMA paperwork. He is angry upon departure from the department. At time patient le ft the department he is ambulating with steady gait normal speech, no focal neurological deficits. A&O X4 Time: 08:04 Medical Decision Making Medical Decision Making [facility] Narrative: 08 43 year old male present with slurred speech after drinking alcohol and being discharged from the hospital. After further questioning and when speaking to the he says that he was given 2 mg of Ativan at [facility] prior to his discharge at approximately 13:00. And then he started drinking. Physical exam benign. Ambulating with steady gait normal coordination. No slurred speech. Normal [id number]. NIH stroke scale 0 Patient out of stroke window no indication for stroke protocol. History and physical exam concerning for slurred speech secondary to alcohol consumption and medication use. Unlikely stroke, posterior stroke, intracranial hemorrhage, ruptured aneurysm. Plan labs, imaging. Differential Diagnosis Differential Diagnoses: The differential diagnosis associated with the presentation includes (History and physical exam concerning for slurred speech secondary to alcohol consumption and medication use. Unlikely stroke, posterior stroke, intracranial hemorrhage, ruptured aneurysm.) Admission/Observation Consideration of admission/observation: Escalation of care including admission/observation considered Independent Historian Clinical information obtained from an independent historian. History obtained from or confirmed by: Spouse External Record Review External record reviewed: Inpatient record, Office record, Outpatient record, Prior outpatient labs, Prior outpatient radiology, Primary care record and Outside ED record Chronic Conditions Patient?s care impacted by: Other (see hpi) Social Determinants Patient?s care significantly limited by Social Determinants of Health including: Inadequate housing, Low income, Alcoholism and drug addiction in family, Problems related to primary support group, Unemployment, Problems related to employment and Other Social Determinant of Health Discharge Plan Discharge Clinical Impression: Alcohol use disorder, Left against medical advice Patient Disposition: Left W/O Completing Treatment Additional Instructions: Take your medications as prescribed. If you were prescribed antibiotics today, it is important that you take your medication to their entirety, do not skip any doses, do not finish them early. Follow-up with your primary care provider this week. Return to the emergency department with new or worsening symptoms. Such as fevers, chills, chest pain, shortness of breath, nausea, vomiting, dizziness, headache, vision changes, lethargy In case of emergency call 911 Return if you change your mind. Risks of leaving include , misdiagnosis, stroke, respiratory depression, permanent disability. Prescriptions: No Action clonidine 0.2 mg/24 hr patch weekly 2 patch transdermal TU@0900 pantoprazole 40 mg tablet,delayed release (DR/EC) 40 mg PO DAILY@0630 metoprolol tartrate 50 mg tablet 100 mg PO BID warfarin 5 mg tablet 2 - 7 mg PO DAILY nystatin 100,000 unit/mL suspension 100,000 unit buccal DAILY Qty: 60 0RF Rx Instructions: administer 1/2 of dose in each side of the mouth clonazepam 1 mg tablet 1 mg PO TID PRN (Reason: Anxiety) clonidine HCl 0.2 mg Tablet 0.1 mg PO TID PRN (Reason: Blood Pressure) lamotrigine 25 mg tablet 37.5 mg PO DAILY emtricitabine-tenofovir (TDF) 200-300 mg tablet 1 tab PO DAILY Tivicay 50 mg tablet 50 mg PO DAILY Print Language: Frisian
--- NOTE | 2024-06-04 08:24 | PC.NURSE ---
Addendum entered by Eve Ahuja RN 06/04/24 08:26: Pt without IV access at time of walk out. Original Note: Care of Pt assumed at 0700 at change of shift. Pt observed resting quietly on stretcher with significant other at bedside. ED provider to bedside for eval at approx. [phone]. This RN alerted at approx. 0750 by MERY Santamaria that Pt had walked out of the ED. Per provider notes, Pt left without completing Tx.
== END 2024-06-04 08:00 | disposition left against medical advice (07) ==
PROVIDERS: Emergency Provider Emergency Medicine; PCP Internal Medicine
DX: F10.29 Alcohol dependence with unspecified alcohol-induced disorder (principal); Y90.9 Presence of alcohol in blood, level not specified; R47.81 Slurred speech; B20 Human immunodeficiency virus [HIV] disease; Z53.29 Procedure and treatment not carried out because of patient's decision for other reasons
CPT/HCPCS: 99282; 99284

== ENCOUNTER 2024-06-11 17:05 | Emergency (ER) | payer MEDICAID, SELFPAY ==
[2024-06-11 17:24] VITALS: BP 119/92; PULSE 135; RESP 20; TEMP 36.8; O2SAT 98; BMI 34.1
--- NOTE | 2024-06-11 17:24 | ED_ITS ---
HPI - General Adult General Chief complaint: ETOH/Substance Use Stated complaint: fell 06/11 lower back pain Time Seen by Provider: 06/11/24 18:06 Source: patient Limitations: no limitations History of Present Illness ED Provider: Ruthy Castillo PA-C HPI narrative: 43-year-old male presents with back and coccyx pain along left side after report of ?25 falls today?. Related Data Home Medications ?Medication ?Instructions ?Recorded ?Confirmed clonidine 0.2 mg/24 hr weekly 2 patch transdermal TU@0900 02/28/24 04/17/24 transdermal patch metoprolol tartrate 50 mg tablet 100 mg PO BID 02/28/24 04/17/24 pantoprazole 40 mg tablet,delayed 40 mg PO DAILY@0630 02/28/24 04/17/24 release warfarin 5 mg tablet 2 - 7 mg PO DAILY 02/28/24 04/17/24 clonazepam 1 mg tablet 1 mg PO TID PRN Anxiety 04/17/24 04/17/24 clonidine HCl 0.2 mg tablet 0.1 mg PO TID PRN Blood Pressure 04/17/24 04/17/24 dolutegravir 50 mg tablet (Tivicay) 50 mg PO DAILY 05/12/24 emtricitabine 200 mg-tenofovir 1 tab PO DAILY 05/12/24 disoproxil fumarate 300 mg tablet lamotrigine 25 mg tablet 37.5 mg PO DAILY 05/12/24 Previous Rx's ?Medication ?Instructions ?Recorded nystatin 100,000 unit/mL oral 100,000 unit buccal DAILY #60 mL 05/09/24 suspension Allergies Allergy/AdvReac Type Severity Reaction Status Date / Time phenytoin [From DILANTIN] Allergy Unknown GAVE PT A Verified 06/11/24 17:28 TOXIC LEVEL fluoxetine [From Prozac] Allergy Unknown Verified 06/11/24 17:28 lidocaine Allergy Unknown Verified 06/11/24 17:28 tramadol Allergy Anaphylaxis Verified 06/11/24 17:28 trazodone Allergy Unknown Verified 06/11/24 17:28 gabapentin [From Neurontin] AdvReac Unknown Verified 06/11/24 17:28 morphine AdvReac Unknown Verified 06/11/24 17:28 [facility] Past Medical History Medical History Bilateral pulmonary embolism Noncompliance with medications Alcohol dependence Endocarditis Surgical History Aortic valve replaced Social History Social History Household Members: Spouse Housing: House Do you presently have visiting nurse or other home services: No Unable to assess alcohol history related to: Unknown Alcohol intake: former Comment: Pt refuses fall risk measures, explained protocol/ safety measures Patient Tobacco Use Status: Current everyday Tobacco user Tobacco use type: Cigarette Cigarettes Per Day: 10 e-Cigarette/Vaping Use: Never Used Second Hand Smoke Exposure: No Substance Use Type: Marijuana Advance Directives: No Advance Directives Information Provided: No Physical Exam ED Vital Signs: Vital Signs - 24 hr 06/11/24 17:24 Temperature 98.2 F Pulse Rate 135 H Respiratory Rate 20 Blood Pressure 119/92 H Pulse Oximetry 98 Oxygen Delivery Method Room Air BMI result Body Mass Index 34.1 Course Course Course Narrative: Medical screening exam performed. Please refer to detailed history, exam, evaluation, and management by primary provider. Extensive medical history. Recent hospital visits. In the process of detoxing from alcohol on his own. Refusing formal detox. Last drink approximately 1 hour ago. Reports repeated falls, most recent today. Possible syncope. Tachycardic 130 at triage. Blood pressure is 119/92. Labs and imaging ordered. Reevaluation(s) Reevaluation #1: left AMA, the patient continues to insist that ?certain providers are not to be near me, you're not allowed in my room?. Patient has ?fired me?, multiple times when he presents to the emergency room. He has ?fired? multiple providers. He refused to sign the AMA paperwork. Time: 18:41 Medical Decision Making Lab Data 06/11/24 18:18 06/11/24 18:18 Labs: Lab Results 06/11/24 Range/Units 18:18 WBC 12.6 H (4.8-10.8) X10*3/uL RBC 3.98 L (4.60-5.80) X10*6/uL Hgb 12.4 L (14.0-18.0) g/dl Hct 36.2 L (42.0-52.0) % MCV 91.0 (80.0-98.0) fL MCH 31.2 (27.0-33.0) pg MCHC 34.3 (31.0-36.0) g/dl RDW 17.2 H (11.0-16.0) % Plt Count 396 (160-400) X10*3/uL MPV 10.2 (9.4-12.4) fL Immature Gran % (Auto) 0.7 H (0.0-0.4) % Neut % (Auto) 60.9 (45-73) % Lymph % (Auto) 26.0 (20-40) % [place] % (Auto) 10.4 (2-11) % Eos % (Auto) 1.4 (0-4) % Baso % (Auto) 0.6 (0-2) % Lymph # (Auto) 3.3 (1.2-4.9) X10*3/uL [place] # (Auto) 1.3 H (0.1-1.2) X10*3/uL Eos # (Auto) 0.2 (0.0-0.4) X10*3/uL Baso # (Auto) 0.1 (0.0-0.2) X10*3/uL Abs Immat Gran (auto) 0.09 H (0.00-0.03) X10*3/uL Absolute Neuts (auto) 7.7 (2.0-8.3) x10*3/uL Absolute Nucleated RBC 0.000 (0.0-0.012) X10*3/uL Nucleated RBC % (auto) 0.0 (0.0-0.2) /100WBC Discharge Plan Discharge Clinical Impression: Diagnosis unknown Patient Disposition: Left Against Medical Advice Prescriptions: No Action clonidine 0.2 mg/24 hr patch weekly 2 patch transdermal TU@0900 pantoprazole 40 mg tablet,delayed release (DR/EC) 40 mg PO DAILY@0630 metoprolol tartrate 50 mg tablet 100 mg PO BID warfarin 5 mg tablet 2 - 7 mg PO DAILY nystatin 100,000 unit/mL suspension 100,000 unit buccal DAILY Qty: 60 0RF Rx Instructions: administer 1/2 of dose in each side of the mouth clonazepam 1 mg tablet 1 mg PO TID PRN (Reason: Anxiety) clonidine HCl 0.2 mg Tablet 0.1 mg PO TID PRN (Reason: Blood Pressure) lamotrigine 25 mg tablet 37.5 mg PO DAILY emtricitabine-tenofovir (TDF) 200-300 mg tablet 1 tab PO DAILY Tivicay 50 mg tablet 50 mg PO DAILY Stand Alone Forms: Against Medical Advice Print Language: [place]
--- NOTE | 2024-06-11 17:27 | ECG_ITS ---
Test Reason : WEAKNESS Blood Pressure : */* mmHG Vent. Rate : 120 BPM Atrial Rate : 120 BPM P-R Int : 146 ms QRS Dur : 134 ms QT Int : 364 ms P-R-T Axes : 41 13 125 degrees QTcB Int : 514 ms Sinus tachycardia Left bundle branch block Abnormal ECG When compared with ECG of 31-May-2024 21:45, QRS axis Shifted right Referred By: Phi Sanders Electronically Signed By: JL BUSBY MD
--- NOTE | 2024-06-11 17:31 | MHC.EDTECH ---
Patient stated he can not sit or lay down for EKG. Satinder ORDONEZ aware.
[2024-06-11 18:23] LABS: MANUAL DIFF FLAG NO
[2024-06-11 18:25] LABS: Basophils Absolute Auto 0.1 X10*3/uL (0.0-0.2); Basophils Percent Auto 0.6 % (0-2); Eosinophils Absolute Auto 0.2 X10*3/uL (0.0-0.4); Eosinophils Percent Auto 1.4 % (0-4); Hematocrit 36.2 % (42.0-52.0); Hemoglobin 12.4 g/dl (14.0-18.0); Imm Gran Abs Auto 0.09 X10*3/uL (0.00-0.03); Imm Gran Pct Auto 0.7 % (0.0-0.4); Lymphocytes Absolute Auto 3.3 X10*3/uL (1.2-4.9); Mean Corpuscular HGB Conc 34.3 g/dl (31.0-36.0); Mean Corpuscular Hemoglobin 31.2 pg (27.0-33.0); Mean Platelet Volume 10.2 fL (9.4-12.4); Monocytes Absolute Auto 1.3 X10*3/uL (0.1-1.2); Monocytes Percent Auto 10.4 % (2-11); Neutrophils Absolute Auto 7.7 x10*3/uL (2.0-8.3); Neutrophils Percent Auto 60.9 % (45-73); Platelet Count 396 X10*3/uL (160-400); Red Blood Count 3.98 X10*6/uL (4.60-5.80); Red Cell Distribution Width 17.2 % (11.0-16.0); White Blood Count 12.6 X10*3/uL (4.8-10.8)
[2024-06-11 18:45] LABS: Alanine Aminotransferase 33 U/L (0-40); Albumin Level 3.8 g/dL (3.5-5.0); Alkaline Phosphatase 110 U/L (39-117); Anion Gap 10 (12-20); Aspartate Amino Transferase 37 U/L (5-37); Bilirubin Total 0.3 mg/dL (0.0-1.0); Blood Urea Nitrogen 7 mg/dL (9-16); Calcium 9.4 mg/dL (8.4-10.2); Carbon Dioxide 27 mmol/L (22-29); Chloride 106 mmol/L (96-108); Creatinine Clr Calc Pharmacy 138.9; Estimated Glomerular Filt Rate > 60; Ethanol 41 mg/dL; Glucose Random 104 mg/dL (60-115); Lipase 49 U/L (8-78); Sodium 139 mmol/L (135-145); Total Protein 7.6 g/dL (6.5-8.0)
== END 2024-06-11 19:03 | disposition left against medical advice (07) ==
PROVIDERS: Physician Assistant; Emergency Provider Emergency Medicine; PCP Internal Medicine
DX: M54.50 Low back pain, unspecified (principal); R00.0 Tachycardia, unspecified; I44.7 Left bundle-branch block, unspecified; F17.210 Nicotine dependence, cigarettes, uncomplicated; Z79.899 Other long term (current) drug therapy; Z51.81 Encounter for therapeutic drug level monitoring
CPT/HCPCS: 36415; 80053; 80307; 83690; 83735; 84484; 85025; 93005; 99283

== ENCOUNTER → 2024-06-11 17:27 | Outpatient (BNV) | payer MEDICAID, SELFPAY | PROVIDERS: Emergency Provider Emergency Medicine; PCP Internal Medicine; Visit Provider Internal Medicine Cardiovascular Disease | DX: I44.7 Left bundle-branch block, unspecified (principal); R00.0 Tachycardia, unspecified | CPT/HCPCS: 93010 ==

== ENCOUNTER 2024-06-26 07:26 | Inpatient (IN) | payer MEDICAID, SELFPAY ==
[2024-06-26 07:33] VITALS: BP 151/105; PULSE 109; RESP 18; O2SAT 98; BMI 33.5
--- OUTSIDE RECORDS SUMMARY | 2024-06-26 07:44 | XMS_ITS | Encounter Summary ---
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 volume of compatible solution; Rate of administration should NOT exceed 2 mg/min. 1850 (Given - Provid er: Michaela Pak RN) PHENobarbital injection 218.4 mg 218.4 mg (rounded from 218.13 mg = 3.3 mg/kg ? 66.1 kg Shohola weight), intramuscular, Every 3 hours, First dose on Adri 06/23/24 at 1818, For 3 doses 184 (Not Given - Pr ovider: Michaela Pak RN - Reason: Patient/Resident/Agent refused - education provided ) sodium chloride 0.9 % bolus 1,000 mL (COMPLETED) 1,000 mL, intravenous, at 1,000 mL/hr, Administer over 1 Hours, Once, On Adri 06/23/24 at 181, For 1 dose 184 (New Bag - Prov ider: Michaela Pak RN)190 (Stopped - Provider: Michaela Pak RN) thiamine (VITAMIN B-1) injection 100 mg (COMPLETED) 100 mg, intravenous, Once, On Adri 06/23/24 at 181, For 1 dose 185 (Given - Provid er: Michaela Pak RN) documented in this encounter Orders Medications Ordered That Bran ht Not Have Been Administered Count Last Ordered Date First Ordered Date LORazepam (ATIVAN) injection 1 mg 1 025 PHENobarbital injection 218.4 mg 1 06/24/19 documented in this encounter Care Teams Intermediate Project Manager Relationship Specialty Start Date End Date Tomas Jordan MD [address] [place] [address], [address] [place], [place] [id number] PCP - General Internal Medicine 02/27/24 documented as of this encounter
--- OUTSIDE RECORDS SUMMARY | 2024-06-26 07:44 | XMS_ITS | Clinical Summary ---
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 05/22/2024 11:36 PM EDT [facility] Blood Venous blood specimen / Unknown Venipuncture / Unknown 05/22/2024 11:06 PM EDT 05/22/2024 11:11 PM EDT Narrative [facility] - 05/22/2024 11:36 PM EDT High levels of biotin in samples may falsely decrease hsTroponin values. ??Use caution when interpreting hsTroponin results in patients taking biotin who exhibit renal impairment (eGFR <60) or in patients taking more than 20 mg/day of biotin. Denae Rivas DO LAB BLOOD ORDERABLES Simin l Result Performing Organization Address [facility] Co de Phone Number [facility] [address] [place] [address], [place] [phone] * B-type natriuretic peptide (05/22/2024 11:06 PM EDT) Only the most recent of2 resultswithin the time period is included. [facility] BNP 18 <=100 pcg/mL LAB CHEMISTRY METHOD 05/22/2024 11:44 PM EDT [facility] Blood Venous blood specimen / Unknown Venipuncture / Unknown 05/22/2024 11:06 PM EDT 05/22/2024 11:10 PM EDT Denae Rivas DO LAB BLOOD ORDERABLES Simin l Result Performing Organization Address [facility] de Phone Number [facility] [address] [place] [address], [place] [phone] * (ABNORMAL) Manual differential (05/10/2024 8:28 PM EST) Only the most recent of2 resultswithin the time period is included. Pathologist [facility] Neutrophils % 81.0 % LAB HEMETOLOGY METHOD 05/10/2024 9:26 PM EST [facility] Lymphocytes % 10.0 % LAB HEMETOLOGY METHOD 05/10/2024 9:26 PM EST [facility] Monocytes % 9.0 % LAB HEMETOLOGY METHOD 05/10/2024 9:26 PM EST [facility] Eosinophils % 0.0 % LAB HEMETOLOGY METHOD 05/10/2024 9:26 PM [facility] Basophils % 0.0 % LAB HEMETOLOGY METHOD 05/10/2024 9:26 PM [facility] Neutrophils Absolute Manual 24.22(H) 1.50 - 7.00 K/mcL LAB HEMETOLOGY METHOD 05/10/2024 9:26 PM [facility] Lymphocytes Absolute 2.99 1.00 - 5.00 K/mcL LAB HEMETOLOGY METHOD 05/10/2024 9:26 PM [facility] Monocytes Absolute Manual 2.69(H) 0.20 - 1.00 K/mcL LAB HEMETOLOGY METHOD 05/10/2024 9:26 PM [facility] Eosinophils Absolute Manual 0.00 0.00 - 0.50 K/mcL LAB HEMETOLOGY METHOD 05/10/2024 9:26 PM [facility] Basophils Absolute Manual 0.00 0.00 - 0.20 K/mcL LAB HEMETOLOGY METHOD 05/10/2024 9:26 PM [facility] Rbc Morphology Present( A) Consistent with indices, Normal for [place] LAB HEMETOLOGY METHOD 05/10/2024 9:26 PM [facility] Comment:RBC: Morphology agre es with CBC Platelet Morphology - WAM See Note(A) Normal LAB HEMETOLOGY METHOD 05/10/2024 9:26 PM [facility] Comment:PLT: Normal [place] Bodies Present Present( A) (none) LAB HEMETOLOGY METHOD 05/10/2024 9:26 PM [facility] Schistocytes Present < 5%(A) (none) LAB HEMETOLOGY METHOD 05/10/2024 9:26 PM [facility] Target Cells Present 5 - 10%(A) (none) LAB HEMETOLOGY METHOD 05/10/2024 9:26 PM EST [facility] Blood Venous blood specimen / Unknown Venipuncture / Unknown 05/10/2024 8:28 PM EST 05/10/2024 8:55 PM EST Tangela KOENIG LAB BLOOD ORDERABLES F inal Result [facility] ([facility]) [facility] [address] [place] [address], * CT Head wo Contrast (04/26/2024 4:28 [...] Signed Date: 04/26/2024 16:42 ET Workstation ID: [id number] Transcribed By: Self Edit Transcribed Date: 04/26/2024 [...] Signed Date: 04/26/2024 16:42 ET Workstation ID: [id number] Transcribed By: Self Edit Transcribed Date: 04/26/2024 [...] 00:20:07 Narrative 04/26/2024 12:20 AM EST INDICATION: Ksxhf-kmebdil-rceykp trauma, blunt CT Chest W Contrast COMPARISON: None FINDINGS: Detail limited by artifacts. No pulmonary consolidation or mass. Mild bilateral bronchial wall thickening. No pleural effusion. No pneumothorax. No cardiomegaly. No pericardial effusion. No pathologically enlarged lymph nodes. No thoracic aortic aneurysm. No acute fracture. Status post median sternotomy. Procedure Note Ambrosio Walker MD - 04/26/2024 INDICATION: [id number] trauma, blunt CT Chest W Contrast COMPARISON: [...] Walker MD on 04/26/2024 00:20:[address] PROCEDURES Final Result * CT Cervical [...] Walker MD on 04/26/2024 00:10:[address] PROCEDURES Final Result * (ABNORMAL) Protime-INR (04/25/2024 8:59 PM EST) Protime 57.0(H) 10.6 - 13.9 sec LAB COAGULATION METHOD 04/25/2024 9:32 PM EST [facility] INR 4.7 LAB COAGULATION METHOD 04/25/2024 9:32 PM EST [facility] Blood Venous blood specimen / Unknown Venipuncture / Unknown 04/25/2024 8:59 PM EST 04/25/2024 9:18 PM EST Walter Gomez MD LAB BLOOD ORDERABLES Final Result [facility] [address] [place] [address], * (ABNORMAL) Acetaminophen level (04/25/2024 8:59 PM EST) Acetaminophen Level <2.0(L) 10.0 - 30.0 mcg/mL LAB CHEMISTRY METHOD 04/26/2024 5:52 PM EST [facility] Blood Venous blood specimen / Unknown Venipuncture / Unknown 04/25/2024 8:59 PM EST 04/25/2024 9:19 PM EST Baldemar Shah MD LAB BLOOD ORDERABLES Final Resu lt Performing Organization Address City/[facility]/ZIP Co de Phone Number [facility] [address] [place] [address], [place] [phone] * Salicylate level (04/25/2024 8:59 PM EST) Salicylate Level 2.2 2.0 - 29.0 mg/dL LAB CHEMISTRY METHOD 04/26/2024 5:52 PM EST [facility] Blood Venous blood specimen / Unknown Venipuncture / Unknown 04/25/2024 8:59 PM EST 04/25/2024 9:19 PM EST Baldemar Shah MD LAB BLOOD ORDERABLES Final Resu lt [facility] [address] [place] [address], [place] [phone] from Last 3 Months Insurance [facility] Advance Directives * Full Code - Default (Latest Code Status on File) Date Activated Date Inactivated Comments 06/15/2024 11:31 PM 06/16/2024 10:27 AM This is orde r is used when code status has not been discussed with the patient, or code status is otherwise unknown/unconfirmed To update the patient's code status, place a code status order. Do not modify or discontinue any currently active code status orders. Care Teams Fan Engine Engineer Relationship Specialty Start Date End Date Tomas Jordan MD [address] [place] [address], [address] [place] [address] PCP - General Internal Medicine 02/27/24
--- OUTSIDE RECORDS SUMMARY | 2024-06-26 07:44 | XMS_ITS | Encounter Summary ---
Author Organization [facility] Address [address] [place] [address] Care Team Providers Care Airconditioning Plant Operator Name Role Phone Tomas Jordan MD Primary Care Provider [phone] Reason for Visit * Reason Comments Alcohol Problem Attempting to detox from alcohol on his own. States seizures at home. Encounter Details Date Type Department Care Team ([facility] st Contact Info) Description 06/25/2024 8:17 AM EDT - 06/25/2024 9:50 AM EDT Emergency [facility] Emergency [address] [place] [address] Alcohol withdrawal syndrome with complication [...] Mass Index 33.67 06/25/2024 7:52 AM EDT documented in this encounter Functional Status [...] documented in this encounter Discharge Instructions * Attachments The following attachments cannot be sent through Care Everywhere. * Alcohol Withdrawal: General Info (Khmer) documented in this encounter Medications at Time of Discharge clonazePAM (KlonoPIN) 1 mg tablet TAKE ONE (1) TABLET BY MOUTH THREE TIMES A DAY, NEEDED FOR SEVERE ANXIETY/PANIC . USE SPARINGLY. documented as of this encounter Discharge Disposition Disposition Code Departure Means Destination Comment s Left Against Medical Advice Pt refusing treatment, states he's leaving department. IV removed, pt refuses to sign AMA paperwork. Pt and partner ambulated out of department. ARYA Amaro as witness to AMA. documented in this encounter Progress Notes * Effie Carver - 06/25/2024 9:23 AM EDT Pt refusing giving a urine sample said he would rather piss himself than give a sample. PT also states he will most likely be leaving soon. Effie Carver 06/25/24 0924 * Juana Taylor RN - 06/25/2024 9:20 AM EDT Pt stating he will refuse rest of phenobarb. ARYA Amaro made aware * Juana Taylor RN - 06/25/2024 8:46 AM EDT Pt refusing seizure pads- changes mind and said no pads but can line bed with pillows if insisting.Pt reports last sz was last night, unwitnessed. * Effie Carver - 06/25/2024 8:44 AM EDT Patient refusing EKG Effie Carver 06/25/24 0844 * Juana Taylor RN - 06/25/2024 8:43 AM EDT Pt refused EKG * Sophia Ronquillo RN - 06/25/2024 7:53 AM EDT Pt to [facility] with etoh problem. Came but left. Last drink 1 hr ago. Drinks 6-8 nips per day for last month. Before that drinking 24 double nips a day. +tremors, hallucinations of seeing things and shadows that are not there. +nausea, no vomitting documented in this encounter Plan of Treatment Scheduled Orders Name Type Priority Associated Diagnoses Orde r Schedule ECG 12 lead ECG STAT Once for 1 Oc currences starting 06/25/2024 until 06/25/2024 documented as of this encounter Procedures Procedure Name Priority Date/Time Associated Diagnosis Comments CBC WITH AUTO DIFFERENTIAL STAT 06/25/2024 9:04 AM EDT CBC AND DIFFERENTIAL STAT 06/25/2024 9:04 AM EDT MAGNESIUM STAT 06/25/2024 9:04 AM EDT LIPASE STAT 06/25/2024 9:04 AM EDT ETHANOL STAT 06/25/2024 9:04 AM EDT COMPREHENSIVE METABOLIC PANEL STAT 06/25/2024 9:04 AM EDT documented in this encounter Results * (ABNORMAL) CBC auto differential (06/25/2024 9:04 AM EDT) WBC 11.5(H) 4.8 - 10.8 K/mcL LAB HEMETOLOGY METHOD 06/25/2024 9:22 AM EDT [facility] RBC 4.10(L) 4.50 - 5.50 M/mcL LAB [facility]EMETOLOG[facility] Hemoglobin 12.6(L) 13.5 - 17.5 g/dL LAB HEMETOLOGY METHOD 06/25/2024 9:22 AM EDT [facility] Hematocrit 37.7(L) 42.0 - 54.0 % LAB HEMETOLOGY METHOD 06/25/2024 9:22 AM EDT [facility] MCV 91.7 79.0 - 98.0 FL LAB HEMETOLOGY METHOD 06/25/2024 9:[address] [facility] MCH 30.7 27.0 - 32.0 pcg LAB HEMETOLOGY METHOD 06/25/2024 9:[address] [facility] MCHC 33.4 32.0 - 37.0 g/dL LAB HEMETOLOGY METHOD 06/25/2024 9:[address] [facility] RDW 17.2(H) 11.0 - 15.0 % LAB HEMETOLOGY METHOD 06/25/2024 9:[address] [facility] Platelets 431(H) 130 - 400 K/mcL LAB HEMETOLOGY METHOD 06/25/2024 9:[address] [facility] MPV 10.6 7.0 - 11.0 FL LAB HEMETOLOGY METHOD 06/25/2024 9:[address] [facility] NRBC 0.0 <1.0 % LAB HEMETOLOGY METHOD 06/25/2024 9:[address] [facility] NRBC Absolute 0.00 <0.10 K/mcL LAB HEMETOLOGY METHOD 06/25/2024 9:[address] [facility] Neutrophils Relative 65.8 % LAB HEMETOLOGY METHOD 06/25/2024 9:[address] [facility] Lymphocytes Relative 20.9 % LAB HEMETOLOGY METHOD 06/25/2024 9:[address] [facility] Monocytes Relative 11.3 % LAB HEMETOLOGY METHOD 06/25/2024 9:[address] [facility] Eosinophils Relative 1.0 % LAB HEMETOLOGY METHOD 06/25/2024 9:[address] [facility] Basophils Relative 0.6 % LAB HEMETOLOGY METHOD 06/25/2024 9:[address] [facility] Immature Granulocytes Relative 0.4 % LAB HEMETOLOGY METHOD 06/25/2024 9:[address] [facility] Neutrophils Absolute 7.53(H) 1.50 - 7.00 K/mcL LAB HEMETOLOGY METHOD 06/25/2024 9:22 AM EDT [facility] Lymphocytes Absolute 2.39 1.00 - 5.00 K/[facility] LAB HEMETOLOGY METHOD 06/25/2024 9:22 AM EDT [facility] Monocytes Absolute 1.30(H) 0.20 - 1.00 K/mcL LAB HEMETOLOGY METHOD 06/25/2024 9:22 AM EDT [facility] Eosinophils Absolute 0.12 0.00 - 0.50 K/[facility] LAB HEMETOLOGY METHOD 06/25/2024 9:22 AM EDT [facility] Basophils Absolute 0.07 0.00 - 0.20 K/[facility] LAB HEMETOLOGY METHOD 06/25/2024 9:[address] [facility] Immature Granulocytes Absolute 0.05(H) 0.00 - 0.03 K/[facility] LAB HEMETOLOGY METHOD 06/25/2024 9:22 AM T [facility] Blood Venous blood specimen / Unknown Venipuncture / Unknown 06/25/2024 9:04 AM EDT 06/25/2024 9:14 AM EDT us Jostin Rothman MD LAB BLOOD ORDERABLES Final Resu lt [facility] [address] [place] [address], * (ABNORMAL) Comprehensive metabolic panel (06/25/2024 9:04 AM EDT) Sodium 135 133 - 145 mmol/L LAB CHEMISTRY METHOD 06/25/2024 10:31 AM EDT [facility] Potassium 4.0 3.5 - 5.5 mmol/L LAB CHEMISTRY METHOD 06/25/2024 10:31 AM EDT [facility] Comment:Hemolysis present Chloride 104 96 - 110 mmol/L LAB CHEMISTRY METHOD 06/25/2024 10:[address] [facility] CO2 25 21 - 32 mmol/L LAB CHEMISTRY METHOD 06/25/2024 10:[address] [facility] Anion Gap 6 3 - 11 LAB CHEMISTRY METHOD 06/25/2024 10:[address] [facility] Glucose 107(H) 70 - 100 mg/dL LAB CHEMISTRY METHOD 06/25/2024 10:[address] [facility] BUN 10 5 - 25 mg/dL LAB CHEMISTRY METHOD 06/25/2024 10:[address] [facility] Creatinine 0.80 0.70 - 1.30 mg/dL LAB CHEMISTRY METHOD 06/25/2024 10:[address] [facility] eGFR 112 >=60 mL/min/1. 73m2 LAB CHEMISTRY METHOD 06/25/2024 10:[address] [facility] Comment:Calculation based on the??Chronic Kidney Disease Epidemiology Collaboration (CKD-EPI) equation refit??without adjustment for race. BUN/Creatinine Ratio 12.5 LAB CHEMISTRY METHOD 06/25/2024 10:[address] [facility] Calcium 9.1 8.5 - 10.5 mg/dL LAB CHEMISTRY METHOD 06/25/2024 10:[address] [facility] AST (SGOT) 60(H) 10 - 42 unit/L LAB CHEMISTRY METHOD 06/25/2024 10:[address] [facility] Comment:Hemolysis present ALT (SGPT) 54 10 - 60 unit/L LAB CHEMISTRY METHOD 06/25/2024 10:[address] [facility] Alkaline Phosphatase 130(H) 42 - 121 unit/L LAB CHEMISTRY METHOD 06/25/2024 10:[address] [facility] Total Protein 7.3 6.0 - 8.0 g/dL LAB CHEMISTRY METHOD 06/25/2024 10:[address] [facility] Albumin 3.2 3.2 - 5.0 g/dL LAB CHEMISTRY METHOD 06/25/2024 10:31 AM EDT [facility] Total Bilirubin 0.2 0.0 - 1.4 mg/dL LAB CHEMISTRY METHOD 06/25/2024 10:31 AM EDT [facility] Blood Venous blood specimen / Unknown Venipuncture / Unknown 06/25/2024 9:04 AM EDT 06/25/2024 9:14 AM EDT [facility] Debi Rothman MD LAB BLOOD ORDERABLES Final Resu lt [facility] [address] [place] [address], * Lipase (06/25/2024 9:04 AM EDT) Lipase 35 13 - 75 unit/L LAB CHEMISTRY METHOD 06/25/2024 10:31 AM EDT [facility] Blood Venous blood specimen / Unknown Venipuncture / Unknown 06/25/2024 9:04 AM EDT 06/25/2024 9:14 AM EDT Jostin Rothman MD LAB BLOOD ORDERABLES Final Resu lt [facility] [address] [place] [address], [place] [phone] * Magnesium (06/25/2024 9:04 AM EDT) Magnesium 2.0 1.9 - 2.6 mg/dL LAB CHEMISTRY METHOD 06/25/2024 10:31 AM EDT [facility] Comment:Hemolysis present Blood Venous blood specimen / Unknown Venipuncture / Unknown 06/25/2024 9:04 AM EDT 06/25/2024 9:14 AM EDT Jostin Rothman MD LAB BLOOD ORDERABLES Final Resu lt Performing Organization Address City/[facility]/ZIP Co de Phone Number [facility] [address] [place] [address], [place] [phone] * Ethanol (06/25/2024 9:04 AM EDT) Ethanol Level <3 0 - 10 mg/dL LAB CHEMISTRY METHOD 06/25/2024 10:31 AM EDT [facility] Blood Venous blood specimen / Unknown Venipuncture / Unknown 06/25/2024 9:04 AM EDT 06/25/2024 9:14 AM EDT Jostin Rothman MD LAB BLOOD ORDERABLES Final Resu lt Performing Organization Address [facility] Co de Phone Number [facility] [address] [place] [address], [place] [phone] documented in this encounter Visit Diagnoses Diagnosis Alcohol withdrawal syndrome with complication (CMS/HCC V24, CMS/HCC V28)- Primary documented in this encounter Administered Medications Inactive Administered Medications - up to 3 most recent administrations Medication Order MAR Action Action Date Dose Rate Site ondansetron (PF) (ZOFRAN) injection 4 mg 4 mg, intravenous, Once, On 06/25/24 at 0837, For 1 dose Given 06/25/2024 9:14 AM EDT 4 mg PHENobarbital injection 218.4 mg 218.4 mg (rounded from 218.13 mg = 3.3 mg/kg ? 66.1 kg [place] weight), intramuscular, Every 3 hours, First dose on 06/25/24 at 0850, For 3 doses Given 06/25/2024 9:10 AM EDT 218.4 mg Left Deltoid sodium chloride 0.9 % bolus 1,000 mL 1,000 mL, intravenous, at 2,000 mL/hr, Administer over 30 Minutes, Once, On 06/25/24 at 0837, For 1 dose New Bag 06/25/2024 9:18 AM EDT 1,000 mL 2000 mL/hr documented in this encounter Active and Recently Administered Medications Times are shown in EDT. Scheduled Medication Order 06/23/2024 06/24/2024 06/25/2024 clonazePAM (KlonoPIN) tablet 1 mg 1 mg, oral, Once, On 06/25/24 at 0934, For 1 dose, HAZARDOUS Drug Precautions - Low Risk (Category A/NIOSH Group 3) Reproductive Risk Only: - Single pair of ASTM standard D6978 certified chemotherapy gloves - Eye protection (goggles or face shield) required only with a potential for facial contact (i.e. concern for spitting or vomiting of the dose during or after administration) - Staff at reproductive risk (actively trying to conceive, or may be become , and ): chemo certified gown and an N95 respirator required when crushing meds (crushing of tabs allowed only in closed pouches) or opening of capsules only for allowable dosage forms 0934 (Canceled Entry - Provider: Automatic Discharge Provider - Comment: Automatically canceled at discontinue of medication order) ondansetron (PF) (ZOFRAN) injection 4 mg (COMPLETED) 4 mg, intravenous, Once, On 06/25/24 at 0837, For 1 dose 0914 (Given - Provid er: Juana Taylor RN) PHENobarbital injection 218.4 mg 218.4 mg (rounded from 218.13 mg = 3.3 mg/kg ? 66.1 kg [place] weight), intramuscular, Every 3 hours, First dose on 06/25/24 at 0850, For 3 doses 0910 (Given - Provid er: Juana Taylor RN)1150 (Canceled Entry - Provider: Automatic Discharge Provider - Comment: Automatically canceled at discontinue of medication order) sodium chloride 0.9 % bolus 1,000 mL (COMPLETED) 1,000 mL, intravenous, at 2,000 mL/hr, Administer over 30 Minutes, Once, On 06/25/24 at 0837, For 1 dose 0918 (New Bag - Prov ider: Juana Taylor RN)0952 (Stopped - Provider: Juana Taylor RN) documented in this encounter Orders Medications Ordered That Bran ht Not Have Been Administered Count Last Ordered Date First Ordered Date clonazePAM (KlonoPIN) tablet 1 mg 1 025 documented in this encounter Care Teams Airconditioning Plant Operator Relationship Specialty Start Date End Date Tomas Jordan MD [address] [place] [address], [address] [place] [address] PCP - General Internal Medicine 02/27/24 documented as of this encounter
--- NOTE | 2024-06-26 08:11 | ED_ITS ---
HPI - General Adult General Chief complaint: Seizure Stated complaint: seizure Time Seen by Provider: 06/26/24 08:01 History of Present Illness ED Provider: Beata SMITH narrative: The patient is a 43-year-old male with a history of multiple medical problems including previous cardiac surgery with a mechanical valve. He is also an alcoholic. He comes to the emergency room today claiming that he has been trying to cut back on alcohol and that this has led to seizures. He says that he feels he had for alcohol withdrawal seizures this morning. He therefore came to the emergency room. Related Data Home Medications ?Medication ?Instructions ?Recorded ?Confirmed clonidine 0.2 mg/24 hr weekly 2 patch transdermal TU@0900 02/28/24 04/17/24 transdermal patch metoprolol tartrate 50 mg tablet 100 mg PO BID 02/28/24 04/17/24 pantoprazole 40 mg tablet,delayed 40 mg PO DAILY@0630 02/28/24 04/17/24 release warfarin 5 mg tablet 2 - 7 mg PO DAILY 02/28/24 04/17/24 clonazepam 1 mg tablet 1 mg PO TID PRN Anxiety 04/17/24 04/17/24 clonidine HCl 0.2 mg tablet 0.1 mg PO TID PRN Blood Pressure 04/17/24 04/17/24 dolutegravir 50 mg tablet (Tivicay) 50 mg PO DAILY 05/12/24 emtricitabine 200 mg-tenofovir 1 tab PO DAILY 05/12/24 disoproxil fumarate 300 mg tablet lamotrigine 25 mg tablet 37.5 mg PO DAILY 05/12/24 Previous Rx's ?Medication ?Instructions ?Recorded nystatin 100,000 unit/mL oral 100,000 unit buccal DAILY #60 mL 05/09/24 suspension Allergies Allergy/AdvReac Type Severity Reaction Status Date / Time phenytoin [From DILANTIN] Allergy Unknown GAVE PT A Verified 06/26/24 07:36 TOXIC LEVEL fluoxetine [From Prozac] Allergy Unknown Verified 06/26/24 07:36 lidocaine Allergy Unknown Verified 06/26/24 07:36 tramadol Allergy Anaphylaxis Verified 06/26/24 07:36 trazodone Allergy Unknown Verified 06/26/24 07:36 gabapentin [From Neurontin] AdvReac Unknown Verified 06/26/24 07:36 morphine AdvReac Unknown Verified 06/26/24 07:36 Review of Systems 2 Review of Systems: Yes all other systems are reviewed and are negative [facility] Past Medical History Medical History Bilateral pulmonary embolism Noncompliance with medications Alcohol dependence Endocarditis Surgical History Aortic valve replaced Social History Social History Household Members: Spouse Housing: House Do you presently have visiting nurse or other home services: No Unable to assess alcohol history related to: Unknown Alcohol intake: former Comment: Pt refuses fall risk measures, explained protocol/ safety measures Patient Tobacco Use Status: Current everyday Tobacco user Tobacco use type: Cigarette Cigarettes Per Day: 10 e-Cigarette/Vaping Use: Never Used Second Hand Smoke Exposure: No Substance Use Type: Marijuana Advance Directives: No Advance Directives Information Provided: Yes Physical Exam ED Vital Signs: Vital Signs - 24 hr 06/26/24 07:33 06/26/24 08:14 06/26/24 09:53 Temperature 98.2 F Pulse Rate 109 H 94 95 Respiratory Rate 18 16 18 Blood Pressure 151/105 H 141/103 H 141/96 H Pulse Oximetry 98 97 98 Oxygen Delivery Method Room Air Room Air 06/26/24 10:22 Temperature Pulse Rate 92 Respiratory Rate 18 Blood Pressure 141/98 H Pulse Oximetry 96 Oxygen Delivery Method Room Air BMI result Body Mass Index 33.5 Const Other: The patient is a chronically ill-appearing 43-year-old male. He is unkempt in somewhat disheveled. He does not appear in obvious acute distress. Mental status seems clear. HENMT Other: The patient is edentulous. Face is symmetrical. Mucous membranes moist. Eyes General: appearance normal, both eyes and all related structures Conjunctivae: conjunctivae normal Sclerae: sclerae normal Pupils: Equal, round and reactive pupils present EOM: EOMs intact bilaterally Neck Other: No obvious JVD, neck is supple Resp Auscultation: clear to auscultation bilaterally Cardio Rate: regular rate Rhythm: regular rhythm Heart sounds: S1 normal heart sound present, S2 normal heart sound present and Clicking heart sound present GI Other: The patient has a full abdomen which is somewhat protuberant but soft and nontender. Skin Other: Skin is pale and dry Neuro Other: The patient is awake and alert with a normal mental status. Cranial nerves are grossly intact. He moves extremities symmetrically. No focal neurological deficit. No gross tremor. Cranial nerves: Yes Equal, round and reactive pupils present Extrem Other: There is some ankle edema. No asymmetry. Medications Administered Generic Name Dose Route Start Last Admin Trade Name Freq PRN Reason Stop Dose Admin Enoxaparin Sodium 40 mg 06/26/24 11:45 06/26/24 12:52 Enoxaparin Sodium 40 Mg/0.4 Ml Syringe SUBCUT Not Given Q12H [facility] Thiamine HCl 100 mg/ Sodium 101 mls @ 202 mls/hr 06/26/24 12:00 06/26/24 12:52 Chloride IV Not Given DAILY [facility] Folic Acid 1 mg/ Sodium 50.2 mls @ 100.4 mls/hr 06/26/24 12:00 06/26/24 12:52 Chloride IV Not Given DAILY SHAN Phenobarbital Sodium 198 mg 06/26/24 14:00 06/26/24 13:37 Phenobarbital Sodium 130 Mg/Ml Vial Im Q3hx2 IM 06/26/24 17:01 198 mg Q3H SHAN Administration Discontinued Medications Generic Name Dose Route Start Last Admin Trade Name Freq PRN Reason Stop Dose Admin Clonazepam 1 mg 06/26/24 09:17 06/26/24 09:28 Clonazepam 1 Mg Tablet PO 06/26/24 09:18 1 mg ONCE ONE Administration Clonazepam 2 mg 06/26/24 09:39 06/26/24 09:49 Clonazepam 1 Mg Tablet PO 06/26/24 09:40 2 mg ONCE ONE Administration Phenobarbital Sodium 265 mg 06/26/24 11:00 06/26/24 10:44 Phenobarbital Sodium 130 Mg/Ml Im Once IM 06/26/24 11:01 265 mg ONCE ONE Administration Medical Decision Making Medical Decision Making MDM Narrative: The patient is a 43-year-old male with a history of a mechanical aortic valve on warfarin who was also an alcoholic. He presents today stating that he had had alcohol withdrawal seizures this morning because he is trying to wean himself from alcohol. The patient is initial heart rate was somewhat elevated and his blood pressure was also somewhat elevated. He may be mildly tremulous but not severely so. His laboratory evaluation shows an undetectable ethanol level. He is subtherapeutic with his warfarin. Other labs are unremarkable. As the patient has stated that he had alcohol withdrawal seizures this morning and since he has a complex medical history including anticoagulation on warfarin I think hospitalization for alcohol withdrawal symptoms is not unreasonable. He was started on the phenobarbital protocol. He was admitted to the hospitalist service. Lab Data 06/26/24 09:05 06/26/24 09:05 Labs: Lab Results 06/26/24 06/26/24 Range/Units 09:05 09:09 WBC 13.4 H (4.8-10.8) X10*3/uL RBC 4.12 L (4.60-5.80) X10*6/uL Hgb 12.5 L (14.0-18.0) g/dl Hct 37.0 L (42.0-52.0) % MCV 89.8 (80.0-98.0) fL MCH 30.3 (27.0-33.0) pg MCHC 33.8 (31.0-36.0) g/dl RDW 16.8 H (11.0-16.0) % Plt Count 398 (160-400) X10*3/uL MPV 10.0 (9.4-12.4) fL Immature Gran % (Auto) 0.3 (0.0-0.4) % Neut % (Auto) 74.0 H (45-73) % Lymph % (Auto) 15.0 L (20-40) % [place] % (Auto) 9.1 (2-11) % Eos % (Auto) 1.1 (0-4) % Baso % (Auto) 0.5 (0-2) % Lymph # (Auto) 2.0 (1.2-4.9) X10*3/uL [place] # (Auto) 1.2 (0.1-1.2) X10*3/uL Eos # (Auto) 0.2 (0.0-0.4) X10*3/uL Baso # (Auto) 0.1 (0.0-0.2) X10*3/uL Abs Immat Gran (auto) 0.04 H (0.00-0.03) X10*3/uL Absolute Neuts (auto) 9.9 H (2.0-8.3) x10*3/uL Absolute Nucleated RBC 0.000 (0.0-0.012) X10*3/uL Nucleated RBC % (auto) 0.0 (0.0-0.2) /100WBC PT 16.4 H D (10.9-12.4) SEC INR 1.4 H (0.9-1.1) VBG pH 7.41 (7.32-7.43) VBG pCO2 45 mmHg VBG pO2 32 mmHg VBG HCO3 29 H (22-26) mmol/L VBG O2 Saturation 54.0 % VBG Base Excess 4.1 mmol/L Sodium 140 (135-145) mmol/L Potassium 4.0 (3.3-5.1) mmol/L Chloride 106 (96-108) mmol/L Carbon Dioxide 25 (22-29) mmol/L Anion Gap 13 (12-20) BUN 7 L (9-16) mg/dL Creatinine 0.73 (0.5-1.4) mg/dL Estim Creat Clear Calc 143.3 Estimated GFR > 60 Random Glucose 115 (60-115) mg/dL Calcium 8.4 D (8.4-10.2) mg/dL Magnesium 1.9 (1.6-2.6) mg/dL Total Bilirubin 0.3 (0.0-1.0) mg/dL Direct Bilirubin 0.1 (0.0-0.5) mg/dL AST 38 H (5-37) U/L ALT 36 (0-40) U/L Alkaline Phosphatase 112 (39-117) U/L C-Reactive Protein 1.08 H (< or = 0.50) mg/dL Total Protein 6.9 (6.5-8.0) g/dL Albumin 3.4 L (3.5-5.0) g/dL Ethyl Alcohol < 10 mg/dL Discharge Plan Discharge Clinical Impression: Alcohol withdrawal Patient Disposition: Admitted As Inpatient
[2024-06-26 08:14] VITALS: BP 141/103; PULSE 94; RESP 16; TEMP 36.8; O2SAT 97
--- NOTE | 2024-06-26 08:14 | ECG_ITS ---
Test Reason : SEIZURE Blood Pressure : */* mmHG Vent. Rate : 88 BPM Atrial Rate : 88 BPM P-R Int : 172 ms QRS Dur : 142 ms QT Int : 426 ms P-R-T Axes : 20 -3 60 degrees QTcB Int : 515 ms Normal sinus rhythm Left bundle branch block Abnormal ECG When compared with ECG of 11-Jun-2024 18:21, No significant change was found Referred By: Bryant Cota Electronically Signed By: Nicholas Hinojosa
--- NOTE | 2024-06-26 08:18 | MHC.EDTECH ---
Patient agrees to EKG but not labs. RN aware.
[2024-06-26 09:09] LABS: MANUAL DIFF FLAG NO
[2024-06-26 09:11] LABS: Basophils Absolute Auto 0.1 X10*3/uL (0.0-0.2); Basophils Percent Auto 0.5 % (0-2); Eosinophils Absolute Auto 0.2 X10*3/uL (0.0-0.4); Eosinophils Percent Auto 1.1 % (0-4); Hemoglobin 12.5 g/dl (14.0-18.0); Imm Gran Abs Auto 0.04 X10*3/uL (0.00-0.03); Imm Gran Pct Auto 0.3 % (0.0-0.4); Mean Corpuscular HGB Conc 33.8 g/dl (31.0-36.0); Mean Corpuscular Hemoglobin 30.3 pg (27.0-33.0); Mean Corpuscular Volume 89.8 fL (80.0-98.0); Monocytes Absolute Auto 1.2 X10*3/uL (0.1-1.2); Monocytes Percent Auto 9.1 % (2-11); Neutrophils Absolute Auto 9.9 x10*3/uL (2.0-8.3); Platelet Count 398 X10*3/uL (160-400); Red Blood Count 4.12 X10*6/uL (4.60-5.80); Red Cell Distribution Width 16.8 % (11.0-16.0); White Blood Count 13.4 X10*3/uL (4.8-10.8)
[2024-06-26 09:15] LABS: VBG Base Excess 4.1 mmol/L; VBG HCO3 29 mmol/L (22-26); VBG pCO2 45 mmHg; VBG pH 7.41 (7.32-7.43); VBG pO2 32 mmHg
[2024-06-26 09:16] LABS: Venous Blood Gas Refer to POC result
[2024-06-26 09:17] LABS: INTERNATIONAL NORM RATIO 1.4 (0.9-1.1); Prothrombin Time 16.4 SEC (10.9-12.4)
[2024-06-26] MEDS: clonazePAM 1 MG TABLET PO (09:28)
[2024-06-26 09:45] LABS: Alanine Aminotransferase 36 U/L (0-40); Albumin Level 3.4 g/dL (3.5-5.0); Alkaline Phosphatase 112 U/L (39-117); Anion Gap 13 (12-20); Aspartate Amino Transferase 38 U/L (5-37); Bilirubin Direct 0.1 mg/dL (0.0-0.5); Bilirubin Total 0.3 mg/dL (0.0-1.0); Blood Urea Nitrogen 7 mg/dL (9-16); C Reactive Protein 1.08 mg/dL (< or = 0.50); Calcium 8.4 mg/dL (8.4-10.2); Carbon Dioxide 25 mmol/L (22-29); Chloride 106 mmol/L (96-108); Creatinine Clr Calc Pharmacy 143.3; Estimated Glomerular Filt Rate > 60; Ethanol < 10 mg/dL; Glucose Random 115 mg/dL (60-115); Magnesium 1.9 mg/dL (1.6-2.6); Sodium 140 mmol/L (135-145); Total Protein 6.9 g/dL (6.5-8.0)
[2024-06-26] MEDS: clonazePAM 1 MG TABLET 2 MG PO (09:49)
[2024-06-26 09:53] VITALS: BP 141/96; PULSE 95; RESP 18; O2SAT 98
--- NOTE | 2024-06-26 10:11 | PC.NURSE ---
patient medicated per the MAR, answering questions appropriately. IV in left AC. ciwa of 7. complaining of headache. provider made aware.
[2024-06-26 10:22] VITALS: BP 141/98; PULSE 92; RESP 18; O2SAT 96
[2024-06-26] MEDS: PHENobarbitaL sodium 130 MG/ML IM ONCE 265 MG IM (10:44)
--- NOTE | 2024-06-26 10:48 | PC.NURSE ---
patient medicated per May, 7. patient is awake, alert and oriented x4. patient is ambulatory. patient noted to be in normal sinus rhythm.
--- NOTE | 2024-06-26 11:02 | PC.NURSE ---
patient falling on floor in ED bathroom, patient denies hitting head, states he hit his hip. patient educated that he needs to alert staff before he gets up since he is on seizure precautions, patient given urinal. patient states this is against his rights and he is calling the nursing tire building supervisor on this RN. patient educated on safety with seizures/falls/withdrawals. patient asked this RN to leave so he can call warehouse delivery manager. ED charge nurse made aware.
--- NOTE | 2024-06-26 11:08 | PC.NURSE ---
attempted to speak with pt regarding safety precautions in the ED as pt was found on floor in bathroom after not alerting staff of his need to use bathroom. Educated pt on using call jerez, pt stated i'm not going to use that , YURIDIA Whitley gave pt a urinal to which he threw on the floor stating he was not going to use that either because its nasty . Informed pt that staff could place a camera on him for safety that will notify us if he wants to get up given his unwillingness to use the call jerez, pt stated I dont need to speak with you I want nothing to do with this ER department, you can leave . This RN Further attempt to educate pt on safety of getting up from the bed without assistance d/t further risk of injury. pt asked this RN to leave his room that he will only be speaking with the nursing shipping supervisor [facility].
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
--- NOTE | 2024-06-26 11:14 | PC.NURSE ---
Addendum entered by Rashmi Oropeza RN 06/26/24 11:55: informed MD Cota of pts fall and c/o R hip pain Original Note: [facility] nursing sup down to see pt
--- NOTE | 2024-06-26 11:54 | PC.NURSE ---
MD Pang down to see pt for admission, pt stated I don't want you
--- NOTE | 2024-06-26 12:08 | PC.NURSE ---
patient rang call jerez requesting nurse, this RN went to patients room. patient states he is calling the nursing harvest crew supervisor to assist him.
--- NOTE | 2024-06-26 12:52 | PC.NURSE ---
offered pt his lovenox injection, folic acid and thiamine - pt refused all three stating I dont need any of that, those meds aren't going to help me, whats going to help me is getting me out of the ER and upstairs . Informed pt medical benefits to assist with withdrawal symptoms as well as safety of DVT prophylaxis of lovenox. pt stated the dr was down an hour ago and said he was going to put meds in that would really help me....when are those coming . Further education provided of admittance meds that include folic acid, thiamine and his phenobarbital protocol. pt continued to refuse meds at this time.
--- NOTE | 2024-06-26 13:06 | PC.NURSE ---
Lilli turpin to see pt regarding medication refusal. pt continues to refuse meds. pt stating that he does not want the lovenox injection because he takes coumadin at home. explained extensively that he was sub-therapeutic and that he requires the lovenox to refrain from getting a blood clot. pt stated well when my gets here with my Coumadin I'll just take that . Educated pt of hospital policy from taking outside medications without them coming from [facility]. pt stated hes going to do it any way . pt continues to unplug himself from cardiac monitoring when educating against doing so.
[2024-06-26] MEDS: PHENobarbitaL sodium 130 MG/ML VIAL IM Q3Hx2 198 MG IM (13:37)
[2024-06-26] MEDS: Folic Acid 1 MG in 0.9 % Sodium Chloride 50 ML 100 MG IV (13:45)
[2024-06-26 13:49] VITALS: BP 132/89; PULSE 98; RESP 16; O2SAT 96
--- NOTE | 2024-06-26 13:58 | PC.NURSE ---
pt medicated with Pheno IM and now is willing to take thiamine and folic acid, I was able to scan the folic acid and give it but it did not show up on the main MAR screen.
[2024-06-26] MEDS: Thiamine HCL 100 MG in 0.9 % Sodium Chloride 100 ML 202 MG IV (14:41)
--- NOTE | 2024-06-26 14:50 | PHA.MEDREC ---
Addendum entered by Asuncion Nails RPh 06/26/24 15:09: [facility] rec reviewed by [facility]...will notify provider of discrepancy between claims and patient history on zolpidem Original Note: Pharmacy Consult ? Medication Reconciliation Pharmacy has completed the medication reconciliation. Spoke with patient to confirm. He has been using 1 clonidine patch instead of 2. He puts them on every Thursday and put one on around midnight last night. He says he uses the clonidine tablets prn for blood pressure but says he rarely has to use it, not on claims. He takes 3 tabs of clonazepam at bedtime instead of TID prn. Patient reports he does not take lamotrigine, mirtazepine, or keppra. He uses both fluconazole and nystatin suspensions daily. His current dose of warfarin is 5 mg, last taken on Thursday. He reports using zolpidem every night, claims show 7 DS 06/06/24. He does use duonebs prn, says it makes him shake.
--- NOTE | 2024-06-26 16:28 | PC.NURSE ---
1600 - pt requesting to be moved upstairs. informed pt that he will be going up shortly. pt stated If I don't go upstairs right now I'm ripping this IV out, I'm going to go home and I'm going to get drunk . pt repeatedly stated that he doesn't care and just wanted to go home to drink. This RN informed Lilli KOENIG of pts statements to leave AMA. this RN went to talk to pt and explained that he would be going upstairs in 20 min, pt at that time pulled his IV out. pt stated and I don't want to talk to anyone about it, I'm not signing no AMA forms, that hospitalist was mean to me I don't even want to see her . this RN explained AMA to pt including risk of further injury, decreased quality of life and . pt AMA prior to Lilli KOENIG being able to discuss AMA standing with pt.
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
== END 2024-06-26 16:43 | disposition left against medical advice (07) | DRG 770 ==
LOC: HO.ED 10:30 → HO.EDOVER 12:27 → HO.IMC 15:36
PROVIDERS: Admitting Provider Physician Assistant; Emergency Provider Emergency Medicine; PCP Internal Medicine; Visit Provider Physician Assistant
DX: F10.939 Alcohol use, unspecified with withdrawal, unspecified (principal); F39 Unspecified mood [affective] disorder; I10 Essential (primary) hypertension; K21.9 Gastro-esophageal reflux disease without esophagitis; R79.1 Abnormal coagulation profile; Z71.41 Alcohol abuse counseling and surveillance of alcoholic; Z86.718 Personal history of other venous thrombosis and embolism; Z95.2 Presence of prosthetic heart valve; Z79.01 Long term (current) use of anticoagulants; Z79.899 Other long term (current) drug therapy
CPT/HCPCS: 36415; 80048; 80076; 80307; 82803; 83735; 85025; 85610; 86140; 93005; 99285; J2560; J3411

== ENCOUNTER → 2024-06-26 08:14 | Outpatient (BNV) | payer MEDICAID, SELFPAY | PROVIDERS: Admitting Provider Physician Assistant; Emergency Provider Emergency Medicine; PCP Internal Medicine; Visit Provider Internal Medicine Cardiovascular Disease | DX: I44.7 Left bundle-branch block, unspecified (principal) | CPT/HCPCS: 93010 ==

== ENCOUNTER → 2024-06-26 11:41 | Outpatient (BNV) | payer MEDICAID, SELFPAY | PROVIDERS: Admitting Provider Physician Assistant; Emergency Provider Emergency Medicine; PCP Internal Medicine; Visit Provider Physician Assistant | DX: F10.939 Alcohol use, unspecified with withdrawal, unspecified (principal); R79.1 Abnormal coagulation profile | CPT/HCPCS: 99222; 99499 ==

== ENCOUNTER 2024-07-26 20:43 | Emergency (ER) | payer MEDICAID, SELFPAY ==
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
[2024-07-26 20:53] VITALS: BP 140/93; PULSE 113; RESP 20; TEMP 37; O2SAT 98; BMI 32.9
--- NOTE | 2024-07-26 21:06 | MHC.EDTECH ---
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
== END 2024-07-26 23:48 | disposition left against medical advice (07) ==
PROVIDERS: Emergency Provider Emergency Medicine; PCP Internal Medicine
DX: R21 Rash and other nonspecific skin eruption (principal)
CPT/HCPCS: 99281

== ENCOUNTER 2024-07-29 20:17 | Emergency (ER) | payer MEDICAID, SELFPAY ==
[2024-07-29 20:38] VITALS: BP 138/95; PULSE 96; RESP 18; TEMP 36.9; O2SAT 97; BMI 32.9
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
[2024-07-29 20:52] VITALS: BP 138/95; PULSE 96; RESP 18; TEMP 36.9; O2SAT 97
== END 2024-07-29 20:53 | disposition home or self-care (01) ==
PROVIDERS: Emergency Provider Emergency Medicine; PCP Internal Medicine
DX: L73.8 Other specified follicular disorders (principal); R68.84 Jaw pain; Z79.899 Other long term (current) drug therapy
CPT/HCPCS: 99282; 99283

== ENCOUNTER 2024-08-12 18:13 | Emergency (ER) | payer MEDICAID, SELFPAY ==
--- NOTE | 2024-08-12 18:15 | ECG_ITS ---
Test Reason : CP Blood Pressure : */* mmHG Vent. Rate : 93 BPM Atrial Rate : 93 BPM P-R Int : 170 ms QRS Dur : 144 ms QT Int : 410 ms P-R-T Axes : 13 -13 102 degrees QTcB Int : 509 ms Normal sinus rhythm Left bundle branch block Abnormal ECG When compared with ECG of 26-Jun-2024 08:28, No significant change was found Referred By: Maciej Moser Electronically Signed By: JL BUSBY MD
[2024-08-12 18:37] VITALS: BP 136/91; PULSE 86; RESP 18; TEMP 36.6; O2SAT 97; BMI 34.3
--- NOTE | 2024-08-12 18:42 | ED.CHESTPAIN ---
HPI - Chest Pain General Chief Complaint: Chest Pain Stated Complaint: cp Time Seen by Provider: 08/12/24 20:13 Source: patient Mode of arrival: ambulatory Limitations: no limitations History of Present Illness ED Provider: ashu negrete np HPI narrative: patient is a 43 old male who presents emergency department for evaluation. He states that in 2017 he had aortic valve replacement, he frequently experiences chest pain described as a central pressure. However last night while sitting in bed he began experiencing left anterior chest pain described as a shooting/electrical pain intermittent lasting a few sec before self-resolving but occurring every 5-10 minutes. pain is also felt in the left upper quadrant of the abdomen with associated nausea but no vomiting, chronic diarrhea over the past 2 years unchanged from baseline Reports that he presented to [facility] given patient last night, he had an EKG and chest x-ray done, was told that everything was fine and he left afterwards as they were unable to get blood work from him. Pain has persisted throughout today and in fact he feels was somewhat worse which prompted his concern for re-evaluation this evening. He does report that he had a recent supratherapeutic INR 3 days ago 08/09/2024, has not taken warfarin dosing for 3 days now, he is supposed to check his INR this evening and if low he will take a dose tomorrow morning. states he is on I would only due to his valve replacement by history of lower extremity DVT / PE. He admits that he does have baseline shortness of breath but since last night does feel that this has increased from his usual. He typically experiences bilateral lower extremity swelling but over the past 3-4 days he has felt as though he is having swelling to his face and hands as well. He denies any recent fevers, chills, trauma/injury, headache, neck pain, numbness or tingling of the extremities, constipation, hematochezia, melena, urogenital symptoms. Related Data Home Medications ?Medication ?Instructions ?Recorded ?Confirmed clonidine 0.2 mg/24 hr weekly 2 patch transdermal DICKEY 02/28/24 06/26/24 transdermal patch metoprolol tartrate 50 mg tablet 100 mg PO BID 02/28/24 06/26/24 pantoprazole 40 mg tablet,delayed 40 mg PO DAILY@0630 02/28/24 06/26/24 release warfarin 5 mg tablet 5 mg PO DAILY 02/28/24 06/26/24 clonazepam 1 mg tablet 3 mg PO BEDTIME Anxiety 04/17/24 06/26/24 clonidine HCl 0.2 mg tablet 0.1 mg PO DAILY PRN Blood Pressure 04/17/24 06/26/24 acetaminophen 160 mg/5 mL oral 1,000 mg PO QID PRN Pain 06/26/24 06/26/24 liquid fluconazole 40 mg/mL oral 320 mg PO DAILY 06/26/24 06/26/24 suspension ipratropium 0.5 mg-albuterol 3 mg 3 ml inhalation QID PRN Shortness 06/26/24 06/26/24 (2.5 mg base)/3 mL nebulization Of Breath Or Wheezing soln loperamide 1 mg/7.5 mL oral liquid 2 mg PO Q2-4H PRN Loose Stool 06/26/24 06/26/24 (Imodium A-D) zolpidem 5 mg tablet 5 mg PO BEDTIME PRN Insomnia 06/26/24 06/26/24 Previous Rx's ?Medication ?Instructions ?Recorded nystatin 100,000 unit/mL oral 100,000 unit buccal DAILY #60 mL 05/09/24 suspension cephalexin 500 mg capsule 500 mg PO QID 7 days #28 caps 07/29/24 doxycycline hyclate 100 mg tablet 100 mg PO BID 7 days #14 tabs 07/29/24 mupirocin 2 % topical ointment 1 appl topical TID 7 days #15 grams 07/29/24 Allergies Allergy/AdvReac Type Severity Reaction Status Date / Time phenytoin [From DILANTIN] Allergy Unknown GAVE PT A Verified 07/29/24 20:40 TOXIC LEVEL fluoxetine [From Prozac] Allergy Unknown Verified 07/29/24 20:40 lidocaine Allergy Unknown Verified 07/29/24 20:40 tramadol Allergy Anaphylaxis Verified 07/29/24 20:40 trazodone Allergy Unknown Verified 07/29/24 20:40 gabapentin [From Neurontin] AdvReac Unknown Verified 07/29/24 20:40 morphine AdvReac Agitated Verified 08/12/24 18:41 Review of Systems Review of Systems: Yes all other systems are reviewed and are negative PMFSH Past Medical History Attestation statement: The following information was validated with the patient. Source: old records reviewed Medical History Bilateral pulmonary embolism Noncompliance with medications Alcohol dependence Endocarditis Surgical History Aortic valve replaced Social History Social History Household Members: Spouse Housing: House Do you presently have visiting nurse or other home services: No Unable to assess alcohol history related to: Unknown Alcohol intake: current Alcohol intake frequency: 3 or more drinks per day Alcohol type: hard liquor Comment: Pt refuses fall risk measures, explained protocol/ safety measures Patient Tobacco Use Status: Tobacco use Unknown Tobacco use type: Cigarette Cigarettes Per Day: 10 e-Cigarette/Vaping Use: Never Used Second Hand Smoke Exposure: No Substance Use Type: Marijuana Advance Directives: No Advance Directives Information Provided: No Do you have a plan to hurt others: No Plan Physical Exam Vital Signs: Vital Signs: Last Vital Signs Temp 98.4 F 08/12/24 20:17 Pulse 89 08/12/24 20:17 Resp 20 08/12/24 20:17 BP 119/84 08/12/24 20:17 Pulse Ox 97 08/12/24 20:17 O2 Del Method Room Air 08/12/24 20:17 BMI result Body Mass Index 34.3 Appearance: Alert.?Oriented to person, place and time. No acute distress.?Normal affect. Eyes: Pupils equal, round and reactive to light.? ENT: Pharynx normal.?? Neck: Normal inspection.? Neck supple.?? CVS: Heart sounds normal. Normal heart rate and rhythm.? Pulses normal.?? Respiratory: No respiratory distress.? Lung sounds clear to auscultation bilaterally?? Abdomen: Soft With left upper quadrant tenderness upon palpation. Normoactive bowel sounds. Skin: Skin warm and dry.? Normal skin color.? Extremities: 1+ bilateral lower extremity edema.? No calf ttp? Neuro: Moves all extremities spontaneously. Sensation intact bilaterally. No focal neuro deficits. Ambulates with normal steady gait. Course Course Course Narrative: RME: 43-year-old male presents to ED for left-sided abdominal pain pain began since yesterday with nausea shortness of breath. Patient was seen at [facility] yesterday this had a EKG and was informed it was normal and was discharged. Labs EKG ordered Reevaluation(s) Reevaluation #1: nursing staff was unable to obtain IV access. Patient adamantly declines any further attempt for IV insertion. Serum labs were able to be obtained, delta troponin is negative. INR subtherapeutic at 1.2, D- dimer is not elevated. his primary concern at this time as the pain in the left upper portion of his abdomen, states that he has not experienced the pain in his chest for a few hours at this point. He is amenable to trialing something orally for his stomach pain, as mentioned in MDM given his alcohol usage he may have underlying pancreatitis, but states I am too hungry I am not going to not eat anything he is consuming his dinner and drinking solange raoul at bedside. He is not vomiting. Is not endorsing any severe worsening pain. He would like something to help with his pain at this time, this may additionally be gastritis. Will trial GI cocktail, Maalox, Pepcid review this with him and he is amenable Time: 22:48 Reevaluation #2: nursing staff have advised me that he is declining oral medication at this time, reporting that he takes medication at home for acid reflux and that he will be leaving the department, walked out prior to me speaking with him / re-evluation Time: 23:19 Medications Administered Discontinued Medications Generic Name Dose Route Start Last Admin Trade Name Freq PRN Reason Stop Dose Admin Al Hydroxide/Mg Hydroxide 30 ml 08/12/24 22:47 08/12/24 23:19 Magnesium Hydrox/Alum Hydrox 30 Ml Oral.Susp PO 08/12/24 22:48 Not Given ONCE ONE Famotidine 20 mg 08/12/24 22:47 08/12/24 23:19 Famotidine 20 Mg Tablet PO 08/12/24 22:48 Not Given ONCE ONE Sodium Chloride 1,000 mls @ 999 mls/hr 08/12/24 22:00 08/12/24 23:20 Ns IV 08/12/24 23:00 Not Given .Q1H1M SHAN Potassium Chloride 40 meq 08/12/24 21:49 08/12/24 23:20 Potassium Chloride Packet 20 Meq Packet PO 08/12/24 21:50 40 meq ONCE ONE Administration Medical Decision Making Medical Decision Making [facility] Narrative: patient is a 43 year old male with past medical history of endocarditis s/p mechanical AVR in 2017 by patient's account secondary to complications from underlying dental infection, alcohol use disorder, pulmonary embolism presenting for evaluation of chest pain and left upper quadrant abdominal pain as per HPI. at the time my evaluation he is overall well-appearing, nontoxic, afebrile. No respiratory distress, LS CTA no tachypnea or hypoxia. He is speaking clear full sentences. He does have tenderness in the left upper quadrant on examination, he admits to alcohol consumption but states he has recently cut back quite a bit, this coupled with his nausea I have concern for pancreatitis. However, given his recent supratherapeutic INR and has not taken dosing for the past 3 days in his associated pain in the left anterior test and shortness of breath, will obtain CT angio of the chest as well as CT of the abdomen and pelvis for further evaluation. He has no hypotension at this time. No rigidity or guarding of the abdomen. Will obtain CBC to evaluate for leukocytosis/ anemia, CMP and lipase to evaluate for abnormal electrolytes /abnormal renal function/ abnormal hepatic/biliary function, EKG and troponin to evaluate for ischemia/ACS. Chest x-ray to evaluate for consolidation/ infiltrate/ mass/ pulmonary congestion and Urinalysis. Differential Diagnosis Differential Diagnoses: The differential diagnosis associated with the presentation includes (See narrative above) Admission/Observation Consideration of admission/observation: Escalation of care including admission/observation considered (See narrative above ) Lab Data MDM Lab Attestation statement: I reviewed the patient's lab results. CBC reveals mild leukocytosis of 11,900 with no left shift, mild normocytic anemia not meeting transfusion criteria, no thrombocytopenia. Mild hypokalemia of 3.2 for which I will replace orally with 40 mEq use, otherwise no significant electrolyte derangement. No SUZANNE. LFTs are normal. High sensitive troponin below detectable limits 08/12/24 18:53 08/12/24 18:53 Labs: Lab Results 08/12/24 08/12/24 Range/Units 18:53 21:49 WBC 11.9 H (4.8-10.8) X10*3/uL RBC 4.27 L (4.60-5.80) X10*6/uL Hgb 12.8 L (14.0-18.0) g/dl Hct 37.3 L (42.0-52.0) % MCV 87.4 (80.0-98.0) fL MCH 30.0 (27.0-33.0) pg MCHC 34.3 (31.0-36.0) g/dl RDW 19.5 H (11.0-16.0) % Plt Count 379 (160-400) X10*3/uL MPV 11.0 (9.4-12.4) fL Immature Gran % (Auto) 0.3 (0.0-0.4) % Neut % (Auto) 61.7 (45-73) % Lymph % (Auto) 25.6 (20-40) % Hernando % (Auto) 10.5 (2-11) % Eos % (Auto) 1.3 (0-4) % Baso % (Auto) 0.6 (0-2) % Lymph # (Auto) 3.1 (1.2-4.9) X10*3/uL Hernando # (Auto) 1.3 H (0.1-1.2) X10*3/uL Eos # (Auto) 0.2 (0.0-0.4) X10*3/uL Baso # (Auto) 0.1 (0.0-0.2) X10*3/uL Abs Immat Gran (auto) 0.04 H (0.00-0.03) X10*3/uL Absolute Neuts (auto) 7.4 (2.0-8.3) x10*3/uL Absolute Nucleated RBC 0.040 H (0.0-0.012) X10*3/uL Nucleated RBC % (auto) 0.3 H (0.0-0.2) /100WBC ESR 7 (0-15) MM/HR PT 14.1 H (10.9-12.4) SEC INR 1.2 H (0.9-1.1) D-Dimer High Sensitivty < 150 NG/ML Sodium 141 (135-145) mmol/L Potassium 3.2 L (3.3-5.1) mmol/L Chloride 109 H (96-108) mmol/L Carbon Dioxide 22 (22-29) mmol/L Anion Gap 13 (12-20) BUN 5 L (9-16) mg/dL Creatinine 0.75 (0.5-1.4) mg/dL Estim Creat Clear Calc 141.1 Estimated GFR > 60 Random Glucose 104 (60-115) mg/dL Calcium 9.2 D (8.4-10.2) mg/dL Magnesium 2.2 (1.6-2.6) mg/dL Total Bilirubin 0.4 (0.0-1.0) mg/dL AST 32 (5-37) U/L ALT 24 (0-40) U/L Alkaline Phosphatase 97 (39-117) U/L Troponin I High Sens < 2.7 D < 2.7 (<3.5-35.0) ng/L C-Reactive Protein 1.04 H (< or = 0.50) mg/dL B-Natriuretic Peptide 48 (<100) pg/mL Total Protein 7.3 (6.5-8.0) g/dL Albumin 3.8 (3.5-5.0) g/dL Lipase 21 (8-78) U/L Radiology Impression Discussion of test interpretation with radiology: I have reviewed the radiologist's reading. Independent Historian Clinical information obtained from an independent historian. History obtained from or confirmed by: Spouse External Record Review External record reviewed: Outpatient record Discharge Plan Discharge Clinical Impression: Chest pain, Abdominal pain Patient Disposition: Left W/O Completing Treatment Prescriptions: No Action clonidine 0.2 mg/24 hr patch weekly 2 patch transdermal DICKEY pantoprazole 40 mg tablet,delayed release (DR/EC) 40 mg PO DAILY@0630 metoprolol tartrate 50 mg tablet 100 mg PO BID warfarin 5 mg tablet 5 mg PO DAILY nystatin 100,000 unit/mL suspension 100,000 unit buccal DAILY Qty: 60 0RF Rx Instructions: administer 1/2 of dose in each side of the mouth clonazepam 1 mg tablet 3 mg PO BEDTIME clonidine HCl 0.2 mg Tablet 0.1 mg PO DAILY PRN (Reason: Blood Pressure) ipratropium-albuterol 0.5 mg-3 mg(2.5 mg base)/3 mL solution for nebulization 3 ml inhalation QID PRN (Reason: Shortness Of Breath Or Wheezing) acetaminophen 160 mg/5 mL Liquid 1,000 mg PO QID PRN (Reason: Pain) zolpidem 5 mg tablet 5 mg PO BEDTIME PRN (Reason: Insomnia) fluconazole 40 mg/mL suspension for reconstitution 320 mg PO DAILY loperamide [Imodium A-D] 1 mg/7.5 mL Liquid 2 mg PO Q2-4H PRN (Reason: Loose Stool) Rx Instructions: administer after each loose stool until symptoms controlled; do not exceed 16 mg per 24 hrs cephalexin 500 mg capsule 500 mg PO QID 7 Days Qty: 28 0RF doxycycline hyclate 100 mg tablet 100 mg PO BID 7 Days Qty: 14 0RF mupirocin 2 % ointment 1 appl topical TID 7 Days Qty: 15 0RF Discharge Date/Time: 08/13/24 00:05
[2024-08-12 19:08] LABS: MANUAL DIFF FLAG NO
[2024-08-12 19:24] LABS: Alanine Aminotransferase 24 U/L (0-40); Albumin Level 3.8 g/dL (3.5-5.0); Alkaline Phosphatase 97 U/L (39-117); Anion Gap 13 (12-20); Aspartate Amino Transferase 32 U/L (5-37); Bilirubin Total 0.4 mg/dL (0.0-1.0); Blood Urea Nitrogen 5 mg/dL (9-16); Calcium 9.2 mg/dL (8.4-10.2); Carbon Dioxide 22 mmol/L (22-29); Chloride 109 mmol/L (96-108); Creatinine Clr Calc Pharmacy 141.1; Estimated Glomerular Filt Rate > 60; Glucose Random 104 mg/dL (60-115); Potassium 3.2 mmol/L (3.3-5.1); Sodium 141 mmol/L (135-145); Total Protein 7.3 g/dL (6.5-8.0)
[2024-08-12 19:30] LABS: B Type Natriuretic Peptide 48 pg/mL (<100)
[2024-08-12 19:31] LABS: Basophils Absolute Auto 0.1 X10*3/uL (0.0-0.2); Basophils Percent Auto 0.6 % (0-2); Eosinophils Absolute Auto 0.2 X10*3/uL (0.0-0.4); Eosinophils Percent Auto 1.3 % (0-4); Hematocrit 37.3 % (42.0-52.0); Hemoglobin 12.8 g/dl (14.0-18.0); Imm Gran Abs Auto 0.04 X10*3/uL (0.00-0.03); Imm Gran Pct Auto 0.3 % (0.0-0.4); Lymphocytes Absolute Auto 3.1 X10*3/uL (1.2-4.9); Lymphocytes Percent Auto 25.6 % (20-40); Mean Corpuscular HGB Conc 34.3 g/dl (31.0-36.0); Mean Corpuscular Volume 87.4 fL (80.0-98.0); Monocytes Absolute Auto 1.3 X10*3/uL (0.1-1.2); Monocytes Percent Auto 10.5 % (2-11); NRBC Pct Auto 0.3 /100WBC (0.0-0.2); Neutrophils Absolute Auto 7.4 x10*3/uL (2.0-8.3); Neutrophils Percent Auto 61.7 % (45-73); Platelet Count 379 X10*3/uL (160-400); Red Blood Count 4.27 X10*6/uL (4.60-5.80); Red Cell Distribution Width 19.5 % (11.0-16.0); White Blood Count 11.9 X10*3/uL (4.8-10.8)
[2024-08-12 19:33] LABS: Troponin-I High Sensitivity < 2.7 ng/L (<3.5-35.0)
[2024-08-12 20:17] VITALS: BP 119/84; PULSE 89; RESP 20; TEMP 36.9; O2SAT 97
--- OUTSIDE RECORDS SUMMARY | 2024-08-12 20:45 | XMS_ITS | Clinical Summary ---
Author Organization [facility] Address [address] [place] [address] Phone Care Team Providers Care Senior Quality Manager Name Role Phone Tomas Jordan MD Primary Care Provider [phone] Allergies Active Allergy Reactions Criticality Noted Date [...] closes my throat . Nutritional Supplements 03/07/2024 [place] 04/30/2024 Trazodone 03/07/2024 Elongated erection. Do you [...] EDT - 06/25/2024 9:[address] [facility] Emergency [address] [place] [address] Alcohol withdrawal syndrome with complication (CMS/HCC V24, CMS/HCC V28) (Primary Dx) Discharge Disposition: Left Against Medical Advice 06/23/2024 5:50 PM EDT - 06/23/2024 7:[address] [facility] Emergency [address] [place] [address] Alcohol withdrawal syndrome without complication (CMS/[facility] V24, CMS/[facility] V28) (Primary Dx) Discharge Disposition: Left Against Medical Advice 06/20/2024 9:33 PM EDT - 06/20/2024 10:03 PM EDT [facility] Emergency [address] [place] [phone] Discharge Disposition: Left Against Medical Advice 06/15/2024 7:48 PM EDT - 06/16/2024 12:27 AM EDT Hospital Encounter [facility] Emergency [address] [place] [phone] Jossue Arvizu MD Surendran, Anupama, MD Alcohol use disorder (Primary Dx) Discharge Disposition: Left Against Medical Advice 06/01/2024 7:19 PM EDT - 06/01/2024 9:45 PM EDT [facility] Emergency [address] [place] [phone] Jostin Rothman MD Seizure ([facility] V24, [facility] V28) (Primary Dx) Discharge Disposition: Left Against Medical Advice 05/28/2024 1:00 AM EDT - 05/28/2024 2:14 AM EDT [facility] Emergency [address] [place] [phone] Discharge Disposition: Home or Self Care 05/22/2024 10:30 PM EDT - 05/23/2024 2:00 AM EDT [facility] Emergency [address] [place] [phone] Discharge Disposition: Home or Self Care from [...] HIGH SENSITIVITY STAT 05/22/2024 11:06 PM EDT from Last 3 Months Results * (ABNORMAL) CBC auto differential (06/25/2024 9:04 AM EDT) Only the most recent of4 resultswithin the time period is included. WBC 11.5(H) 4.8 - 10.8 K/mcL LAB HEMETOLOGY METHOD 06/25/2024 9:22 AM EDT [facility] RBC 4.10(L) 4.50 - 5.50 M/mcL LAB HEMETOLOGY METHOD 06/25/2024 9:22 AM EDT [facility] Hemoglobin 12.6(L) 13.5 - 17.5 g/dL LAB HEMETOLOGY METHOD 06/25/2024 9:22 AM EDT [facility] Hematocrit 37.7(L) 42.0 - 54.0 % LAB HEMETOLOGY METHOD 06/25/2024 9:22 AM [facility] MCV 91.7 79.0 - 98.0 FL LAB HEMETOLOGY METHOD 06/25/2024 9:22 AM [facility] MCH 30.7 27.0 - 32.0 pcg LAB HEMETOLOGY METHOD 06/25/2024 9:22 AM [facility] MCHC 33.4 32.0 - 37.0 g/dL LAB HEMETOLOGY METHOD 06/25/2024 9:22 AM [facility] RDW 17.2(H) 11.0 - 15.0 % LAB HEMETOLOGY METHOD 06/25/2024 9:22 AM [facility] Platelets 431(H) 130 - 400 K/mcL LAB HEMETOLOGY METHOD 06/25/2024 9:22 AM [facility] MPV 10.6 7.0 - 11.0 FL LAB HEMETOLOGY METHOD 06/25/2024 9:22 AM [facility] NRBC 0.0 <1.0 % LAB HEMETOLOGY METHOD 06/25/2024 9:22 AM [facility] NRBC Absolute 0.00 <0.10 K/mcL LAB HEMETOLOGY METHOD 06/25/2024 9:22 AM [facility] Neutrophils Relative 65.8 % LAB HEMETOLOGY METHOD 06/25/2024 9:22 AM [facility] Lymphocytes Relative 20.9 % LAB HEMETOLOGY METHOD 06/25/2024 9:22 AM [facility] Monocytes Relative 11.3 % LAB HEMETOLOGY METHOD 06/25/2024 9:22 AM [facility] Eosinophils Relative 1.0 % LAB HEMETOLOGY METHOD 06/25/2024 9:22 AM [facility] Basophils Relative 0.6 % LAB HEMETOLOGY METHOD 06/25/2024 9:22 AM EDT [facility] Immature Granulocytes Relative 0.4 % LAB HEMETOLOGY METHOD 06/25/2024 9:22 AM EDT [facility] Neutrophils Absolute 7.53(H) 1.50 - 7.00 K/mcL LAB HEMETOLOGY METHOD 06/25/2024 9:22 AM EDT [facility] Lymphocytes Absolute 2.39 1.00 - 5.00 K/mcL LAB HEMETOLOGY METHOD 06/25/2024 9:22 AM EDT [facility] Monocytes Absolute 1.30(H) 0.20 - 1.00 K/mcL LAB HEMETOLOGY METHOD 06/25/2024 9:22 AM EDT [facility] Eosinophils Absolute 0.12 0.00 - 0.50 K/mcL LAB HEMETOLOGY METHOD 06/25/2024 9:22 AM EDT [facility] Basophils Absolute 0.07 0.00 - 0.20 K/mcL LAB HEMETOLOGY METHOD 06/25/2024 9:22 AM EDT [facility] Immature Granulocytes Absolute 0.05(H) 0.00 - 0.03 K/mcL LAB HEMETOLOGY [facility] Blood Venous blood specimen / Unknown Venipuncture / Unknown 06/25/2024 9:04 AM EDT 06/25/2024 9:14 AM EDT us Jostinflip Rothman MD LAB BLOOD ORDERABLES Final Resu lt [facility] [address] [place] [address], * Magnesium (06/25/2024 9:04 AM EDT) Only the most recent of4 resultswithin the time period is included. Magnesium 2.0 1.9 - 2.6 mg/dL LAB CHEMISTRY METHOD 06/25/2024 10:31 AM EDT [facility] Comment:Hemolysis present Blood Venous blood specimen / Unknown Venipuncture / Unknown 06/25/2024 9:04 AM EDT 06/25/2024 9:14 AM EDT Jostin Rothman MD LAB BLOOD ORDERABLES Final Resu lt Performing Organization Address City/[facility]/ZIP Co de Phone Number [facility] [address] [place] [address], [place] [phone] * Lipase (06/25/2024 9:04 AM EDT) Only the most recent of3 resultswithin the time period is included. Lipase 35 13 - 75 unit/L LAB CHEMISTRY METHOD 06/25/2024 10:31 AM EDT [facility] Blood Venous blood specimen / Unknown Venipuncture / Unknown 06/25/2024 9:04 AM EDT 06/25/2024 9:14 AM EDT Jostin Rothman MD LAB BLOOD ORDERABLES Final Resu lt Performing Organization Address [facility]/ZIP Co de Phone Number [facility] [address] [place] [address], [place] [phone] * Ethanol (06/25/2024 9:04 AM EDT) Only the most recent of3 resultswithin the time period is included. Ethanol Level <3 0 - 10 mg/dL LAB CHEMISTRY METHOD 06/25/2024 10:31 AM EDT [facility] Blood Venous blood specimen / Unknown Venipuncture / Unknown 06/25/2024 9:04 AM EDT 06/25/2024 9:14 AM EDT us Jostin Aguilarel MD LAB BLOOD ORDERABLES Final Resu lt [facility] [address] [place] [address], * (ABNORMAL) Comprehensive metabolic panel (06/25/2024 9:04 AM EDT) Only the most recent of3 resultswithin the time period is included. Sodium 135 133 - 145 mmol/L LAB CHEMISTRY METHOD 06/25/2024 10:31 AM [facility] Potassium 4.0 3.5 - 5.5 mmol/L LAB CHEMISTRY METHOD 06/25/2024 10:31 AM [facility] Comment:Hemolysis present Chloride 104 96 - 110 mmol/L LAB CHEMISTRY METHOD 06/25/2024 10:31 AM [facility] CO2 25 21 - 32 mmol/L LAB CHEMISTRY METHOD 06/25/2024 10:31 AM [facility] Anion Gap 6 3 - 11 LAB CHEMISTRY METHOD 06/25/2024 10:31 AM [facility] Glucose 107(H) 70 - 100 mg/dL LAB CHEMISTRY METHOD 06/25/2024 10:31 AM [facility] BUN 10 5 - 25 mg/dL LAB CHEMISTRY METHOD 06/25/2024 10:31 AM [facility] Creatinine 0.80 0.70 - 1.30 mg/dL LAB CHEMISTRY METHOD 06/25/2024 10:31 AM [facility] eGFR 112 >=60 mL/min/1. 73m2 LAB CHEMISTRY METHOD 06/25/2024 10:31 AM [facility] Comment:Calculation based on the??Chronic Kidney Disease Epidemiology Collaboration (CKD-EPI) equation refit??without adjustment for race. BUN/Creatinine Ratio 12.5 LAB CHEMISTRY METHOD 06/25/2024 10:31 AM [facility] Calcium 9.1 8.5 - 10.5 mg/dL LAB CHEMISTRY METHOD 06/25/2024 10:31 AM [facility] AST (SGOT) 60(H) 10 - 42 unit/L LAB CHEMISTRY METHOD 06/25/2024 10:31 AM T [facility] Comment:Hemolysis present ALT (SGPT) 54 10 - 60 unit/L LAB CHEMISTRY METHOD 06/25/2024 10:31 AM EDT [facility] Alkaline Phosphatase 130(H) 42 - 121 unit/L LAB CHEMISTRY METHOD 06/25/2024 10:31 AM [facility] Total Protein 7.3 6.0 - 8.0 g/dL LAB CHEMISTRY METHOD 06/25/2024 10:31 AM [facility] Albumin 3.2 3.2 - 5.0 g/dL LAB CHEMISTRY METHOD 06/25/2024 10:31 AM [facility] Total Bilirubin 0.2 0.0 - 1.4 mg/dL LAB CHEMISTRY METHOD 06/25/2024 10:31 AM [facility] Blood Venous blood specimen / Unknown Venipuncture / Unknown 06/25/2024 9:04 AM EDT 06/25/2024 9:14 AM EDT Jostin Rothman MD LAB BLOOD ORDERABLES Final Resu lt [facility] [address] [place] [address], * ECG-Annotated (06/24/2024) Only the most recent of5 resultswithin the time period is included. us Provider Onbase ECG ORDERABLES Final Result * [...] tolerated well. ??Images uploaded electronically. Virgilio KOENIG US BEDSIDE PROCEDURES Fin al Result * (ABNORMAL) Drug abuse screen 8a panel, urine (06/23/2024 6:22 PM EDT) Only the most recent of2 resultswithin the time period is included. [facility] Amphetamine Screen, Ur Negative Negative LAB CHEMISTRY METHOD 5 7:03 PM [facility] Comment:Certain OTC medicati ons containing ephedrine, phenylephrine, pseudoephedrine and phenylpropanolamine can cause false positive results. Barbiturate Screen, Ur Positive(A ) Negative LAB CHEMISTRY METHOD 5 7:03 PM [facility] Benzodiazepine Screen, Ur Positive(A ) Negative LAB CHEMISTRY METHOD 5 7:03 PM [facility] Cocaine Screen, Ur Negative Negative LAB CHEMISTRY METHOD 5 7:03 PM [facility] Opiate Screen, Ur Positive(A ) Negative LAB CHEMISTRY METHOD 5 7:03 PM [facility] Cannabinoid (THC) Screen, Ur Negative Negative LAB CHEMISTRY METHOD 5 7:03 PM [facility] Comment:Specimens from patie nts taking pantoprazole sodium (Protonix) have been shown to produce false positive results. Oxycodone Screen, Ur Negative Negative LAB CHEMISTRY METHOD 7:03 PM EDT [facility] Fentanyl, Ur Negative Negative LAB CHEMISTRY METHOD 7:03 PM EDT [facility] Urine Urine specimen obtained by clean catch procedure / Unknown Non-blood Collection / Unknown 06/23/2024 6:22 PM EDT 06/23/2024 6:34 PM EDT Narrative [facility] - 06/23/2024 7:03 PM EDT [...] DO LAB URINE ORDERABLES Simin l Result [facility] [address] [place] [address], * Buprenorphine screen, urine (06/23/2024 6:22 PM EDT) Buprenorphine Screen Urine Negative Negative LAB CHEMISTRY METHOD 06/23/2024 7:03 PM EDT [facility] Urine Urine specimen obtained by clean catch procedure / Unknown Non-blood Collection / Unknown 06/23/2024 6:22 PM EDT 06/23/2024 6:34 PM EDT Narrative [facility] - 06/23/2024 7:03 PM EDT Assay cutoff 5 ng/mL Semi-quantitative assay for screening purposes only. Unconfirmed screening result should not be used for non-medical purposes. *ALTERNATE METHOD CONFIRMATION DONE UPON REQUEST ONLY* Denae Rivas LAB URINE ORDERABLES Simin l Result Performing Organization Address [facility] de Phone Number [facility] [address] [place] [address], [place] [phone] * Methadone, urine (06/23/2024 6:22 PM EDT) Methadone Screen, Urine Negative Negative LAB CHEMISTRY METHOD 06/23/2024 7:03 PM EDT [facility] Comment: Assay cutoff 300 ng/mL Semi-quantitative assay for screening purposes only. Unconfirmed screening result should not be used for non-medical purposes. *ALTERNATE METHOD CONFIRMATION DONE UPON REQUEST ONLY* Urine Urine specimen obtained by clean catch procedure / Unknown Non-blood Collection / Unknown 06/23/2024 6:22 PM EDT 06/23/2024 6:34 PM EDT Denae Fern[facility]dez [facility] LAB URINE ORDERABLES Simin l Result Performing Organization Address [facility] Co de Phone Number [facility] [address] [place] [address], [place] [phone] * Phencyclidine, urine (06/23/2024 6:22 PM EDT) PCP Scrn, Ur Negative Negative LAB CHEMISTRY METHOD 06/23/2024 7:03 PM EDT [facility] Comment: Assay cutoff 25 ng/mL Semi-quantitative assay for screening purposes only. Unconfirmed screening result should not be used for non-medical purposes. *ALTERNATE METHOD CONFIRMATION DONE UPON REQUEST ONLY* Urine Urine specimen obtained by clean catch procedure / Unknown Non-blood Collection / Unknown 06/23/2024 6:22 PM EDT 06/23/2024 6:34 PM EDT Denae Rivas DO LAB URINE ORDERABLES Simin l Result Performing Organization Address [facility] Co de Phone Number [facility] [address] [place] [address], [place] [phone] * ECG 12 lead (06/23/2024 6:09 PM EDT) Only the most recent of4 resultswithin the time period is included. Ventricular Rate ECG 124 BPM GEMUSE Atrial Rate 124 BPM GEMUSE P-R Interval 118 ms GEMUSE QRS Duration 140 ms GEMUSE Q-T Interval 388 ms GEMUSE QTc 557 ms GEMUSE P Wave [facility] 45 degrees GEMUSE R [facility] -3 degrees GEMUSE T [facility] 104 degrees GEMUSE ECG Interpretation Sinus tachycardia Left bundle branch block Abnormal ECG When compared with ECG of 20-JUN-2024 21:40, No significant change was found Confirmed by KOBE CLARK ([id number]) on 06/25/2024 8:55:21 AM GEMUSE 06/23/2024 6:09 PM EDT 06/25/2024 8:55 AM EDT Denae Rivas DO ECG ORDERABLES Final Res ult Performing Organization Address [facility] de Phone Number GEMUSE * Prolactin (06/15/2024 10:11 PM EDT) Pathologist [facility] Prolactin 7.30 2.50 - 17.40 ng/mL LAB CHEMISTRY METHOD 06/15/2024 11:13 PM EDT [facility] Blood Venous blood specimen / Unknown Venipuncture / Unknown 06/15/2024 10:11 PM EDT 06/15/2024 10:18 PM EDT Jossue Arvizu MD LAB BLOOD ORDERABLES Simin l Result Performing Organization Address [facility] Co de Phone Number [facility] [address] [place] [address], * Basic metabolic panel (06/15/2024 10:11 PM EDT) Sodium 137 133 - 145 mmol/L LAB CHEMISTRY METHOD 06/15/2024 11:13 PM [facility] Potassium 4.2 3.5 - 5.5 mmol/L LAB CHEMISTRY METHOD 06/15/2024 11:13 PM [facility] Chloride 104 96 - 110 mmol/L LAB CHEMISTRY METHOD 06/15/2024 11:13 PM [facility] CO2 24 21 - 32 mmol/L LAB CHEMISTRY METHOD 06/15/2024 11:13 PM [facility] Anion Gap 9 3 - 11 LAB CHEMISTRY METHOD 06/15/2024 11:13 PM [facility] Glucose 100 70 - 100 mg/dL LAB CHEMISTRY METHOD 06/15/2024 11:13 PM [facility] BUN 11 5 - 25 mg/dL LAB CHEMISTRY METHOD 06/15/2024 11:13 PM [facility] Creatinine 0.90 0.70 - 1.30 mg/dL LAB CHEMISTRY METHOD 06/15/2024 11:13 PM [facility] eGFR 108 >=60 mL/min/1. 73m2 LAB CHEMISTRY METHOD 06/15/2024 11:13 PM [facility] Comment:Calculation based on the??Chronic Kidney Disease Epidemiology Collaboration (CKD-EPI) equation refit??without adjustment for race. BUN/Creatinine Ratio 12.2 LAB CHEMISTRY METHOD 06/15/2024 11:13 PM [facility] Calcium 9.3 8.5 - 10.5 mg/dL LAB CHEMISTRY METHOD 06/15/2024 11:13 PM [facility] Blood Venous blood specimen / Unknown Venipuncture / Unknown 06/15/2024 10:11 PM EDT 06/15/2024 10:18 PM EDT us Jossue Arvizu MD LAB BLOOD ORDERABLES Simin hernández Result [facility] [address] [place] [address], [place] [phone] * (ABNORMAL) Urinalysis with reflex microscopic and culture (06/15/2024 9:59 PM EDT) Specific [place] Urine 1.022 1.003 - 1.030 LAB URINALYSIS - AUTOMATED METHOD 06/15/2024 10:17 PM EDT [facility] pH, Urine 6.5 5.0 - 8.0 pH LAB URINALYSIS - AUTOMATED METHOD 06/15/2024 10:17 PM [facility] Leukocytes, Urine Negative Negative LAB URINALYSIS - AUTOMATED METHOD 06/15/2024 10:17 PM [facility] Nitrite, Urine Negative Negative LAB URINALYSIS - AUTOMATED METHOD 06/15/2024 10:17 PM [facility] Protein, Urine Trace <=Trace mg/dL LAB URINALYSIS - AUTOMATED METHOD 06/15/2024 10:17 PM [facility] Glucose, Urine Negative Negative mg/dL LAB URINALYSIS - AUTOMATED METHOD 06/15/2024 10:17 PM [facility] Ketones, Urine Trace(A) Negative mg/dL LAB URINALYSIS - AUTOMATED METHOD 06/15/2024 10:17 PM [facility] Urobilinogen, Urine 1.0 0.2 - 1.0 mg/dL LAB URINALYSIS - AUTOMATED METHOD 06/15/2024 10:17 PM [facility] Bilirubin, Urine Negative Negative LAB URINALYSIS - AUTOMATED METHOD 06/15/2024 10:17 PM [facility] Blood, Urine Negative Negative LAB URINALYSIS - AUTOMATED METHOD 06/15/2024 10:17 PM EDT [facility] Urine Urine specimen obtained by clean catch procedure / Unknown Non-blood Collection / Unknown 06/15/2024 9:59 PM EDT 06/15/2024 10:08 PM EDT Lilli KOENIG LAB URINE ORDERABLES Fin al Result Performing Organization Address [facility] de Phone Number [facility] [address] [place] [address], [place] [phone] * Zaman urine culture tube (06/15/2024 9:59 PM EDT) Extra Tube Hold for add-ons. 06/16/2024 12:02 AM EDT [facility] Comment:Auto resulted. Urine Urine specimen obtained by clean catch procedure / Unknown Non-blood Collection / Unknown 06/15/2024 9:59 PM EDT 06/15/2024 10:08 PM EDT Lilli KOENIG LAB URINE ORDERABLES Fin al Result Performing Organization Address [facility] de Phone Number [facility] [address] [place] [address], [place] [phone] * Embedded Foreign Body Removal (06/15/2024 9:20 PM EDT) Narrative Jostin Rothman MD - 06/15/2024 9:20 PM EDT Jostin Rothman MD ? 06/20/2024 11:01 PM Embedded Foreign Body Removal Date/Time: 06/15/2024 9:20 PM Performed by: ARYA Flower Authorized by: ARYA Flower ?? Consent: ??Consent obtained: ??Verbal ??Consent given by: ??Patient ??Risks discussed: ??Bleeding, infection, nerve damage and incomplete removal ??Alternatives discussed: ??Observation Harvey protocol: ??Patient identity confirmed: ??Verbally with patient Location: ??Location: ??Finger ??Finger location: ??L index finger ??Depth: ??Intradermal Anesthesia: ??Anesthesia method: ??None Post-procedure details: ??Neurovascular status: intact ?Confirmation: ??No additional foreign bodies on visualization Comments: ?? Pressure applied distally and tweezers used to remove small dark foreign body Lilli KOENIG IN CLINIC/BEDSIDE ORDERA BLES Final Result * Troponin I high sensitivity (05/22/2024 11:06 PM EDT) High Sensitivity Troponin I 10 <=79 ng/L LAB CHEMISTRY METHOD 05/22/2024 11:36 PM EDT [facility] Blood Venous blood specimen / Unknown Venipuncture / Unknown 05/22/2024 11:06 PM EDT 05/22/2024 11:11 PM EDT Narrative [facility] - 05/22/2024 11:36 PM EDT High levels of biotin in samples may falsely decrease hsTroponin values. ??Use caution when interpreting hsTroponin results in patients taking biotin who exhibit renal impairment (eGFR <60) or in patients taking more than 20 mg/day of biotin. Denae Rivas DO LAB BLOOD ORDERABLES Simin l Result [facility] [address] [place] [address], * B-type natriuretic peptide (05/22/2024 11:06 PM EDT) Pathologist [facility] BNP 18 <=100 pcg/mL LAB CHEMISTRY METHOD 05/22/2024 11:44 PM EDT [facility] Blood Venous blood specimen / Unknown Venipuncture / Unknown 05/22/2024 11:06 PM EDT 05/22/2024 11:10 PM EDT Denae Rivas DO LAB BLOOD ORDERABLES Simin hernández Result [facility] [address] [place] [address], from Last 3 Months Insurance [facility] Advance Directives * Full Code - Default [...] currently active code status orders. Care Teams Senior Quality Manager Relationship Specialty Start Date End Date Tomsa Jordan MD [address] [place] [address], [address] [place] [address] PCP - General Internal Medicine 02/27/24
[2024-08-12 22:02] LABS: INTERNATIONAL NORM RATIO 1.2 (0.9-1.1); Prothrombin Time 14.1 SEC (10.9-12.4)
[2024-08-12 22:07] LABS: C Reactive Protein 1.04 mg/dL (< or = 0.50)
[2024-08-12 22:11] LABS: D Dimer High Sensitivity < 150 NG/ML
[2024-08-12 22:19] LABS: Troponin-I High Sensitivity < 2.7 ng/L (<3.5-35.0)
[2024-08-12 22:23] LABS: Lipase 21 U/L (8-78); Magnesium 2.2 mg/dL (1.6-2.6)
[2024-08-12 22:40] LABS: Erythrocyte Sedimentation Rate 7 MM/HR (0-15)
[2024-08-12] MEDS: Potassium Chloride Packet 20 MEQ PACKET 40 MEQ PO (23:20)
--- NOTE | 2024-08-12 23:23 | PC.NURSE ---
pt refused IV access, refused PO medication. provider aware
== END 2024-08-13 00:05 | disposition left against medical advice (07) ==
PROVIDERS: Nurse Practitioner Family; Physician Assistant; Emergency Provider Emergency Medicine; PCP Internal Medicine
DX: R07.9 Chest pain, unspecified (principal); R10.12 Left upper quadrant pain
CPT/HCPCS: 36415; 80053; 83690; 83735; 83880; 84484; 85025; 85379; 85610; 85652; 86140; 93005; 99283; 99284

== ENCOUNTER → 2024-08-12 18:15 | Outpatient (BNV) | payer MEDICAID, SELFPAY | PROVIDERS: Emergency Provider Emergency Medicine; PCP Internal Medicine; Visit Provider Internal Medicine Cardiovascular Disease | DX: I44.7 Left bundle-branch block, unspecified (principal) | CPT/HCPCS: 93010 ==

== ENCOUNTER 2024-08-19 20:34 | Emergency (ER) | payer MEDICAID, SELFPAY ==
--- NOTE | ~2024-08-19 | XR_ITS ---
CLINICAL HISTORY: lac just distal to L knee 2 view left tibia-fibula Comparison: None Findings No fractures or dislocations. No joint effusion. No significant arthritic change. No radiopaque foreign body. IMPRESSION: 1. Normal left tibia-fibula This document has been electronically signed by: Kit Mccloud MD on 08/19/2024 21:20:10
[2024-08-19 20:47] VITALS: BP 139/101; PULSE 126; RESP 16; TEMP 36.8; O2SAT 96; BMI 34.4
--- NOTE | 2024-08-19 20:49 | ED_ITS ---
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 now its puffy irritated Related Data Home Medications ?Medication ?Instructions ?Recorded ?Confirmed clonidine 0.2 mg/24 hr weekly 2 patch transdermal DICKEY 02/28/24 06/26/24 transdermal patch metoprolol tartrate 50 mg tablet 100 mg PO BID 02/28/24 06/26/24 pantoprazole 40 mg tablet,delayed 40 mg PO DAILY@0630 02/28/24 06/26/24 release warfarin 5 mg tablet 5 mg PO DAILY 02/28/24 06/26/24 clonazepam 1 mg tablet 3 mg PO BEDTIME Anxiety 04/17/24 06/26/24 clonidine HCl 0.2 mg tablet 0.1 mg PO DAILY PRN Blood Pressure 04/17/24 06/26/24 acetaminophen 160 mg/5 mL oral 1,000 mg PO QID PRN Pain 06/26/24 06/26/24 liquid fluconazole 40 mg/mL oral 320 mg PO DAILY 06/26/24 06/26/24 suspension ipratropium 0.5 mg-albuterol 3 mg 3 ml inhalation QID PRN Shortness 06/26/24 06/26/24 (2.5 mg base)/3 mL nebulization Of Breath Or Wheezing soln loperamide 1 mg/7.5 mL oral liquid 2 mg PO Q2-4H PRN Loose Stool 06/26/24 06/26/24 (Imodium A-D) zolpidem 5 mg tablet 5 mg PO BEDTIME PRN Insomnia 06/26/24 06/26/24 Previous Rx's ?Medication ?Instructions ?Recorded nystatin 100,000 unit/mL oral 100,000 unit buccal DAILY #60 mL 05/09/24 suspension cephalexin 500 mg capsule 500 mg PO QID 7 days #28 caps 07/29/24 doxycycline hyclate 100 mg tablet 100 mg PO BID 7 days #14 tabs 07/29/24 mupirocin 2 % topical ointment 1 appl topical TID 7 days #15 grams 07/29/24 Allergies Allergy/AdvReac Type Severity Reaction Status Date / Time phenytoin [From DILANTIN] Allergy Unknown GAVE PT A Verified 08/19/24 20:50 TOXIC LEVEL fluoxetine [From Prozac] Allergy Unknown Verified 08/19/24 20:50 lidocaine Allergy Unknown Verified 08/19/24 20:50 tramadol Allergy Anaphylaxis Verified 08/19/24 20:50 trazodone Allergy Unknown Verified 08/19/24 20:50 gabapentin [From Neurontin] AdvReac Unknown Verified 08/19/24 20:50 morphine AdvReac Agitated Verified 08/19/24 20:50 PMFSH Past Medical History Medical History Bilateral pulmonary embolism Noncompliance with medications Alcohol dependence Endocarditis Surgical History Aortic valve replaced Social History Social History Household Members: Spouse Housing: House Do you presently have visiting nurse or other home services: No Unable to assess alcohol history related to: Unknown Alcohol intake: current Alcohol intake frequency: 3 or more drinks per day Alcohol type: hard liquor Comment: Pt refuses fall risk measures, explained protocol/ safety measures Patient Tobacco Use Status: Tobacco use Unknown Tobacco use type: Cigarette Cigarettes Per Day: 10 e-Cigarette/Vaping Use: Never Used Second Hand Smoke Exposure: No Substance Use Type: Marijuana Advance Directives: No Do you have a plan to hurt others: No Plan Physical Exam 2 Vital Signs: Vital Signs: Last Vital Signs Temp 98.2 F 08/19/24 20:47 Pulse 126 H 08/19/24 20:47 Resp 16 08/19/24 20:47 BP 139/101 H 08/19/24 20:47 Pulse Ox 96 08/19/24 20:47 O2 Del Method Room Air 08/19/24 20:47 BMI result Body Mass Index 34.4 Course Course Course Narrative: 08/19/242048 ARYA Davila This is a Rapid Medical Examination (RME) performed by Frantz Adames PA-C in triage. Full HPI, ROS, assessment and treatment plan per primary provider in the Main ED. 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 states the laceration is deep. believes there are retained materials in the laceration. reports redness/swelling around the lac, appears infected. tetanus UTD 2 months ago. PE/vitals: area not visualized in triage d/t clothing Plan: labs xrs Reevaluation(s) Reevaluation #1: Patient left the emergency department before myself or any of the other clinicians could review or explain physical exam findings, test results, need or lack there of for additional testing, treatment options, or a treatment plan. Medical Decision Making Lab Data 08/19/24 21:09 08/19/24 21:09 Labs: Lab Results 08/19/24 Range/Units 21:09 WBC 12.5 H (4.8-10.8) X10*3/uL RBC 4.41 L (4.60-5.80) X10*6/uL Hgb 13.2 L (14.0-18.0) g/dl Hct 38.1 L (42.0-52.0) % MCV 86.4 (80.0-98.0) fL MCH 29.9 (27.0-33.0) pg MCHC 34.6 (31.0-36.0) g/dl RDW 20.6 H (11.0-16.0) % Plt Count 349 (160-400) X10*3/uL MPV 10.4 (9.4-12.4) fL Immature Gran % (Auto) 0.6 H (0.0-0.4) % Neut % (Auto) 58.8 (45-73) % Lymph % (Auto) 28.3 (20-40) % [place] % (Auto) 10.0 (2-11) % Eos % (Auto) 1.6 (0-4) % Baso % (Auto) 0.7 (0-2) % Lymph # (Auto) 3.5 (1.2-4.9) X10*3/uL [place] # (Auto) 1.2 (0.1-1.2) X10*3/uL Eos # (Auto) 0.2 (0.0-0.4) X10*3/uL Baso # (Auto) 0.1 (0.0-0.2) X10*3/uL Abs Immat Gran (auto) 0.07 H (0.00-0.03) X10*3/uL Absolute Neuts (auto) 7.3 (2.0-8.3) x10*3/uL Absolute Nucleated RBC 0.070 H (0.0-0.012) X10*3/uL Nucleated RBC % (auto) 0.6 H (0.0-0.2) /100WBC Sodium 141 (135-145) mmol/L Potassium 3.8 (3.3-5.1) mmol/L Chloride 107 (96-108) mmol/L Carbon Dioxide 23 (22-29) mmol/L Anion Gap 15 (12-20) BUN 11 (9-16) mg/dL Creatinine 0.91 (0.5-1.4) mg/dL Estim Creat Clear Calc 116.5 Estimated GFR > 60 Random Glucose 106 (60-115) mg/dL Calcium 9.6 (8.4-10.2) mg/dL Total Bilirubin 0.4 (0.0-1.0) mg/dL AST 59 H (5-37) U/L ALT 130 H (0-40) U/L Alkaline Phosphatase 122 H (39-117) U/L Total Protein 7.9 (6.5-8.0) g/dL Albumin 4.1 (3.5-5.0) g/dL Discharge Plan Discharge Clinical Impression: Laceration Patient Disposition: Left W/O Completing Treatment Prescriptions: No Action clonidine 0.2 mg/24 hr patch weekly 2 patch transdermal DICKEY pantoprazole 40 mg tablet,delayed release (DR/EC) 40 mg PO DAILY@0630 metoprolol tartrate 50 mg tablet 100 mg PO BID warfarin 5 mg tablet 5 mg PO DAILY nystatin 100,000 unit/mL suspension 100,000 unit buccal DAILY Qty: 60 0RF Rx Instructions: administer 1/2 of dose in each side of the mouth clonazepam 1 mg tablet 3 mg PO BEDTIME clonidine HCl 0.2 mg Tablet 0.1 mg PO DAILY PRN (Reason: Blood Pressure) ipratropium-albuterol 0.5 mg-3 mg(2.5 mg base)/3 mL solution for nebulization 3 ml inhalation QID PRN (Reason: Shortness Of Breath Or Wheezing) acetaminophen 160 mg/5 mL Liquid 1,000 mg PO QID PRN (Reason: Pain) zolpidem 5 mg tablet 5 mg PO BEDTIME PRN (Reason: Insomnia) fluconazole 40 mg/mL suspension for reconstitution 320 mg PO DAILY loperamide [Imodium A-D] 1 mg/7.5 mL Liquid 2 mg PO Q2-4H PRN (Reason: Loose Stool) Rx Instructions: administer after each loose stool until symptoms controlled; do not exceed 16 mg per 24 hrs cephalexin 500 mg capsule 500 mg PO QID 7 Days Qty: 28 0RF doxycycline hyclate 100 mg tablet 100 mg PO BID 7 Days Qty: 14 0RF mupirocin 2 % ointment 1 appl topical TID 7 Days Qty: 15 0RF Discharge Date/Time: 08/20/24 00:55
[2024-08-19 21:13] LABS: MANUAL DIFF FLAG NO
[2024-08-19 21:14] LABS: Basophils Absolute Auto 0.1 X10*3/uL (0.0-0.2); Basophils Percent Auto 0.7 % (0-2); Eosinophils Absolute Auto 0.2 X10*3/uL (0.0-0.4); Eosinophils Percent Auto 1.6 % (0-4); Hematocrit 38.1 % (42.0-52.0); Hemoglobin 13.2 g/dl (14.0-18.0); Imm Gran Abs Auto 0.07 X10*3/uL (0.00-0.03); Imm Gran Pct Auto 0.6 % (0.0-0.4); Lymphocytes Absolute Auto 3.5 X10*3/uL (1.2-4.9); Lymphocytes Percent Auto 28.3 % (20-40); Mean Corpuscular HGB Conc 34.6 g/dl (31.0-36.0); Mean Corpuscular Hemoglobin 29.9 pg (27.0-33.0); Mean Corpuscular Volume 86.4 fL (80.0-98.0); Mean Platelet Volume 10.4 fL (9.4-12.4); Monocytes Absolute Auto 1.2 X10*3/uL (0.1-1.2); NRBC Pct Auto 0.6 /100WBC (0.0-0.2); Neutrophils Absolute Auto 7.3 x10*3/uL (2.0-8.3); Neutrophils Percent Auto 58.8 % (45-73); Platelet Count 349 X10*3/uL (160-400); Red Blood Count 4.41 X10*6/uL (4.60-5.80); Red Cell Distribution Width 20.6 % (11.0-16.0); White Blood Count 12.5 X10*3/uL (4.8-10.8)
[2024-08-19 21:31] LABS: Alanine Aminotransferase 130 U/L (0-40); Albumin Level 4.1 g/dL (3.5-5.0); Alkaline Phosphatase 122 U/L (39-117); Anion Gap 15 (12-20); Aspartate Amino Transferase 59 U/L (5-37); Bilirubin Total 0.4 mg/dL (0.0-1.0); Blood Urea Nitrogen 11 mg/dL (9-16); Calcium 9.6 mg/dL (8.4-10.2); Carbon Dioxide 23 mmol/L (22-29); Chloride 107 mmol/L (96-108); Creatinine Clr Calc Pharmacy 116.5; Estimated Glomerular Filt Rate > 60; Glucose Random 106 mg/dL (60-115); Potassium 3.8 mmol/L (3.3-5.1); Sodium 141 mmol/L (135-145); Total Protein 7.9 g/dL (6.5-8.0)
== END 2024-08-20 00:55 | disposition left against medical advice (07) ==
PROVIDERS: Physician Assistant Medical; Emergency Provider Emergency Medicine; PCP Internal Medicine
DX: S81.812A Laceration without foreign body, left lower leg, initial encounter (principal); W26.9XXA Contact with unspecified sharp object(s), initial encounter; Y93.9 Activity, unspecified; Y92.9 Unspecified place or not applicable; Y99.9 Unspecified external cause status; Z53.21 Procedure and treatment not carried out due to patient leaving prior to being seen by health care provider
CPT/HCPCS: 36415; 73590; 80053; 85025; 99281; 99283

== ENCOUNTER → 2024-08-19 20:48 | Outpatient (BNV) | payer MEDICAID, SELFPAY | PROVIDERS: PCP Internal Medicine; Visit Provider Radiology Diagnostic Radiology | DX: S81.012A Laceration without foreign body, left knee, initial encounter (principal) | CPT/HCPCS: 73590 ==

== ENCOUNTER 2024-10-23 21:34 | Emergency (ER) | payer MEDICAID, SELFPAY ==
--- NOTE | ~2024-10-23 | XR_ITS ---
CLINICAL HISTORY: dyspnea 1 view chest x-ray Comparison: None provided Findings: No consolidation or effusion. Normal size heart. No acute fracture. IMPRESSION: 1. No acute findings. This document has been electronically signed by: Leydi Lea MD on 10/23/2024 22:35:44
[2024-10-23 21:35] VITALS: BP 124/87; PULSE 98; RESP 22; TEMP 35.8; O2SAT 98; BMI 34.5
--- NOTE | 2024-10-23 21:42 | ECG_ITS ---
Test Reason : DYSNEA Blood Pressure : */* mmHG Vent. Rate : 101 BPM Atrial Rate : 101 BPM P-R Int : 162 ms QRS Dur : 142 ms QT Int : 398 ms P-R-T Axes : 13 -34 106 degrees QTcB Int : 516 ms Sinus tachycardia Left axis deviation Left bundle branch block Abnormal ECG When compared with ECG of 12-Aug-2024 18:16, No significant change was found Referred By: Generic ED Physician Electronically Signed By: Nicholas Hinojosa
[2024-10-23 22:12] LABS: MANUAL DIFF FLAG NO
[2024-10-23 22:15] LABS: Hematocrit 36.3 % (42.0-52.0); Hemoglobin 12.4 g/dl (14.0-18.0); Imm Gran Abs Auto 0.11 X10*3/uL (0.00-0.03); Imm Gran Pct Auto 0.8 % (0.0-0.4); Lymphocytes Absolute Auto 3.9 X10*3/uL (1.2-4.9); Mean Corpuscular HGB Conc 34.2 g/dl (31.0-36.0); Mean Corpuscular Hemoglobin 30.3 pg (27.0-33.0); Mean Corpuscular Volume 88.8 fL (80.0-98.0); NRBC Abs Auto 0.070 X10*3/uL (0.0-0.012); NRBC Pct Auto 0.5 /100WBC (0.0-0.2); Platelet Count 348 X10*3/uL (160-400); Red Blood Count 4.09 X10*6/uL (4.60-5.80); White Blood Count 13.4 X10*3/uL (4.8-10.8)
[2024-10-23 22:26] LABS: Anion Gap 18 (12-20); Blood Urea Nitrogen 15 mg/dL (9-16); Calcium 8.9 mg/dL (8.4-10.2); Carbon Dioxide 19 mmol/L (22-29); Chloride 108 mmol/L (96-108); Creatinine Clr Calc Pharmacy 141.4; Estimated Glomerular Filt Rate > 60; Potassium 3.6 mmol/L (3.3-5.1); Sodium 141 mmol/L (135-145)
[2024-10-23 22:34] LABS: B Type Natriuretic Peptide 24 pg/mL (<100); Troponin-I High Sensitivity 4.3 ng/L (<3.5-35.0)
--- NOTE | 2024-10-24 03:54 | PC.NURSE ---
Attempted to get patient on the monitor, patient refused. Pt stating he gives the doctor 10 minutes before he walks out.
--- NOTE | 2024-10-24 06:48 | PC.NURSE ---
pt left w/out being seen. refusing vitals, states has to go to work
== END 2024-10-24 06:52 | disposition left against medical advice (07) ==
PROVIDERS: Emergency Medicine; Emergency Provider Emergency Medicine; PCP Internal Medicine
DX: M79.89 Other specified soft tissue disorders (principal); R60.9 Edema, unspecified; R06.02 Shortness of breath; Z53.21 Procedure and treatment not carried out due to patient leaving prior to being seen by health care provider
CPT/HCPCS: 36415; 71045; 80048; 83880; 84484; 85025; 93005; 99281; 99284

== ENCOUNTER → 2024-10-23 21:42 | Outpatient (BNV) | payer MEDICAID, SELFPAY | PROVIDERS: Emergency Provider Emergency Medicine; PCP Internal Medicine; Visit Provider Internal Medicine Cardiovascular Disease | DX: R00.0 Tachycardia, unspecified (principal); I44.7 Left bundle-branch block, unspecified | CPT/HCPCS: 93010 ==

== ENCOUNTER → 2024-10-23 21:43 | Outpatient (BNV) | payer MEDICAID, SELFPAY | PROVIDERS: PCP Internal Medicine; Visit Provider Student in an Organized Health Care Education/Training Program | DX: R06.00 Dyspnea, unspecified (principal) | CPT/HCPCS: 71045 ==

== ENCOUNTER 2024-11-07 08:45 | Emergency (ER) | payer MEDICAID, SELFPAY ==
--- NOTE | ~2024-11-07 | XR_ITS ---
EXAMINATION: XR CHEST 1 VIEW HISTORY: Chest pain COMPARISON: Comparison is made with the prior examination dated 1024. FINDINGS: A single AP portable view of the chest performed at 9:36 AM is submitted. The lungs are expanded and clear. There is no pleural effusion, pneumothorax, or pulmonary vascular congestion. The heart is normal in size. The patient is status post median sternotomy. The bones are intact. XR/XR chest 1V IMPRESSION: No acute cardiopulmonary abnormality. Electronically signed by: Virgilio Ann MD 11/07/2024 09:51 AM EDT
[2024-11-07 08:46] VITALS: BP 154/87; PULSE 78; RESP 16; TEMP 36.9; O2SAT 98; BMI 35.2
--- NOTE | 2024-11-07 09:05 | ECG_ITS ---
Test Reason : cp Blood Pressure : */* mmHG Vent. Rate : 79 BPM Atrial Rate : 79 BPM P-R Int : 152 ms QRS Dur : 146 ms QT Int : 440 ms P-R-T Axes : 20 -14 48 degrees QTcB Int : 504 ms Normal sinus rhythm Left bundle branch block Abnormal ECG When compared with ECG of 23-Oct-2024 21:53, Nonspecific T wave abnormality now evident in Inferior leads Nonspecific T wave abnormality has replaced inverted T waves in Lateral leads Referred By: Linda Jones Electronically Signed By: EMILY ORTEGA
[2024-11-07 09:07] VITALS: PULSE 76
--- NOTE | 2024-11-07 09:11 | PC.NURSE ---
Pt A&O X4 VSS BBB on monitor as at baseline. States CP left chest sine last night. Pt with extensive cardiac hx o he is concerned. No other symptoms.
[2024-11-07 09:13] VITALS: BP 123/83; PULSE 76; RESP 17; O2SAT 97
--- NOTE | 2024-11-07 09:18 | ED_ITS ---
HPI - Chest Pain General Chief Complaint: Chest Pain Stated Complaint: chest pain Time Seen by Provider: 11/07/24 08:55 Source: patient and family Mode of arrival: ambulatory Limitations: no limitations History of Present Illness ED Provider: DR. Jones HPI narrative: 43-year-old male history of anxiety who claimed that his anxiety pills was missing and he did not take it for the past 2 days, patient started to have chest pain described as mid chest pain with no radiation associated with slight shortness of breath, no diaphoresis, associated with tremors and feeling anxious. Patient drinks alcohol every day, no history of alcohol withdrawal, do not think his symptoms is related to alcohol use. Related Data Home Medications ?Medication ?Instructions ?Recorded ?Confirmed clonidine 0.2 mg/24 hr weekly 2 patch transdermal DICKEY 1 04/30/23 06/26/24 transdermal patch metoprolol tartrate 50 mg tablet 100 mg PO BID 4 06/26/24 pantoprazole 40 mg tablet,delayed 40 mg PO DAILY@0630 02/28/24 06/26/24 release warfarin 5 mg tablet 5 mg PO DAILY 02/28/2406/26 clonazepam 1 mg tablet 3 mg PO BEDTIME Anxiety 02/0 05/1006/26/24 clonidine HCl 0.2 mg tablet 0.1 mg PO DAILY PRN Blood Pressure 04/17/24 06/26/24 acetaminophen 160 mg/5 mL oral 1,000 mg PO QID PRN Abdirahman n 06/26/24 06/26/24 liquid fluconazole 40 mg/mL oral 320 mg PO DAILY 06/26/24 suspension ipratropium 0.5 mg-albuterol 3 mg 3 ml inhalation QID PRN Shortness 06/26/24 06/26/24 (2.5 mg base)/3 mL nebulization Of Breath Or Wheezing soln loperamide 1 mg/7.5 mL oral liquid 2 mg PO Q2-4H PRN L oose Stool 06/26/24 06/26/24 (Imodium A-D) zolpidem 5 mg tablet 5 mg PO BEDTIME PRN Insomnia 06/26/24 06/26/24 Previous Rx's ?Medication ?Instructions ?Recorded nystatin 100,000 unit/mL oral 100,000 unit buccal NOMI Y #60 mL 05/09/24 suspension cephalexin 500 mg capsule 500 mg PO QID 7 days #28 cap s 07/29/24 doxycycline hyclate 100 mg tablet 100 mg PO BID 7 days #14 tabs 07/29/24 mupirocin 2 % topical ointment 1 appl topical TID 7 da ys #15 grams 07/29/24 Allergies Allergy/AdvReac Type Severity Reaction Status Date / Time phenytoin (From DILANTIN) Allergy Unknown GAVE PT A Verified 11/07/24 08:48 TOXIC LEVEL fluoxetine (From Prozac) Allergy Unknown Verified 11/07/24 08:48 lidocaine Allergy Unknown Verified 11/07/24 08:48 tramadol Allergy Anaphylaxis Verified 11/07/24 08:48 trazodone Allergy Unknown Verified 11/07/24 08:48 gabapentin (From Neurontin) AdvReac Unknown Verified 11/07/24 08:48 morphine AdvReac Agitated Verified 11/07/24 08:48 Review of Systems 2 Review of Systems: All other systems are reviewed and are negative Constitutional: Reports as per HPI and Reports no additional constitutional complaints Eyes: Reports as per HPI and Reports no additional eye complaints Reports system reviewed and no additional complaints, except as documented Cardiovascular: Reports as per HPI and Reports no additional cardiovascular complaints Respiratory: Reports as per HPI and Reports no additional respiratory complaints Gastrointestinal: Reports as per HPI and Reports no additional gastrointestinal complaints Genitourinary: Reports no additional female genitourinary complaints Musculoskeletal: Reports no additional musculoskeletal complaints Skin/Breast: Reports system reviewed and no additional complaints, except as docu Psychiatric: Reports no additional psychiatric complaints Endocrine: Reports no additional endocrine complaints Hematologic/Lymphatic: Reports no additional hematologic/lymphatic complaints Allergic/Immunologic: Reports no additional allergic/immunologic complaints Reports system reviewed and no additional complaints, except as documented and Reports Abnormal speech present [facility] Past Medical History Medical History Bilateral pulmonary embolism Noncompliance with medications Alcohol dependence Endocarditis Surgical History Aortic valve replaced Social History Social History Household Members: Spouse Housing: House Do you presently have visiting nurse or other home services: No Unable to assess alcohol history related to: Refusing to respond Alcohol intake: current Alcohol intake frequency: 0-2 drinks per day Alcohol type: hard liquor Comment: Pt refuses fall risk measures, explained protocol/ safety measures Patient Tobacco Use Status: Tobacco use Unknown Tobacco use type: Cigarette Cigarettes Per Day: 10 e-Cigarette/Vaping Use: Never Used Second Hand Smoke Exposure: No Substance Use Type: Marijuana Physical Exam 2 Vital Signs: Vital Signs: Last Vital Signs Temp 98 F 11/07/24 10:00 Pulse 72 11/07/24 11:34 Resp 16 11/07/24 11:34 BP 112/73 11/07/24 11:34 Pulse Ox 98 11/07/24 11:34 O2 Del Method Room Air 11/07/24 10:00 BMI result Body Mass Index 35.2 Vital signs have been reviewed and appear to be correct. Blood pressure elevated. Heart rate normal. Respiratory rate normal. Temperature normal. Oxygen saturation normal. Appearance: Alert. Oriented X3. No acute distress. Head: Normal external exam. Normocephalic. Atraumatic. No Oliver signs noted. No raccoon eyes noted Eyes: PERRLA. EOMI. Conjunctiva and sclera normal. Eyelids normal. ENT: TM's Normal. Pharynx normal. Uvula midline. Moist mucous membranes. No trismus noted. No drooling noted. No muffled voice noted. Neck: Normal inspection. Neck supple. FROM. No adenopathy. Thyroid Normal. No meningeal signs. No neck mass noted. CVS: Normal heart rate and rhythm. Heart sound normal. No murmurs noted. Pulses normal throughout. Respiratory: No respiratory distress. Painless inspiration. Breath sounds normal. No wheezes/rales/rhonchi noted. Chest nontender. No accessory muscle usage noted or decreased air movement noted. Abdomen: Soft and nontender. Bowel sounds normal in all 4 quadrants. No distention noted. No organomegaly noted. No visible injury noted. Back: No CVA tenderness. Full range of motion noted. Skin: Skin warm and dry. Normal skin color. Normal skin turgor. No rashes/lesions/lacerations noted. Extremities: No lower extremity edema. Extremities exhibit normal range of motion. Extremities nontender. Neuro: Oriented X 3. Cranial nerve exam: II-XII are grossly intact No motor deficit. No sensory deficit. Reflexes normal. Course Reevaluation(s) Reevaluation #1: Claimed that his anxiety medicine was stolen and he has not taking his anxiety medicine at home for few days, came in for anxiety and chest pain, initial workup was unremarkable, patient declined having 2nd troponin to be drawn, patient is AAO x3, aware of risk of missing heart attack, patient still insists to leave against medical advice pain. No SI, no HI, no hallucination. Time: 11:41 Medications Administered Discontinued Medications Generic Name Dose Route Start Last Admin Trade Name Lazaro PRN Reason Stop Dose Admin Clonazepam 1 mg 11/07/24 11:22 11/07/24 11:28 Clonazepam 1 Mg Tablet PO 11/07/24 11:23 1 mg ONCE ONE Administration Medical Decision Making Differential Diagnosis Differential Diagnoses: The differential diagnosis associated with the presentation includes (Anxiety, ACS, electrolyte derangement, severe anemia,) Admission/Observation Consideration of admission/observation: Escalation of care including admission/observation considered Lab Data MDM Lab Attestation statement: I reviewed the patient's lab results. 11/07/24 09:22 11/07/24 09:22 Labs: Lab Results 11/07/24 Range/Units 09:22 WBC 13.4 H (4.8-10.8) X10*3/uL RBC 4.00 L (4.60-5.80) X10*6/uL Hgb 12.2 L (14.0-18.0) g/dl Hct 35.9 L (42.0-52.0) % MCV 89.8 (80.0-98.0) fL MCH 30.5 (27.0-33.0) pg MCHC 34.0 (31.0-36.0) g/dl RDW 20.5 H (11.0-16.0) % Plt Count 363 (160-400) X10*3/uL MPV 11.9 (9.4-12.4) fL Immature Gran % (Auto) 0.6 H (0.0-0.4) % Neut % (Auto) 70.7 (45-73) % Lymph % (Auto) 18.2 L (20-40) % [place] % (Auto) 9.3 (2-11) % Eos % (Auto) 0.7 (0-4) % Baso % (Auto) 0.5 (0-2) % Lymph # (Auto) 2.4 (1.2-4.9) X10*3/uL [place] # (Auto) 1.3 H (0.1-1.2) X10*3/uL Eos # (Auto) 0.1 (0.0-0.4) X10*3/uL Baso # (Auto) 0.1 (0.0-0.2) X10*3/uL Abs Immat Gran (auto) 0.08 H (0.00-0.03) X10*3/uL Absolute Neuts (auto) 9.5 H (2.0-8.3) x10*3/uL Absolute Nucleated RBC 0.000 (0.0-0.012) X10*3/uL Nucleated RBC % (auto) 0.0 (0.0-0.2) /100WBC Sodium 138 (135-145) mmol/L Potassium 3.7 (3.3-5.1) mmol/L Chloride 106 (96-108) mmol/L Carbon Dioxide 24 (22-29) mmol/L Anion Gap 12 (12-20) BUN 8 L (9-16) mg/dL Creatinine 0.71 (0.5-1.4) mg/dL Estim Creat Clear Calc 151.1 Estimated GFR > 60 Random Glucose 111 (60-115) mg/dL Calcium 8.5 (8.4-10.2) mg/dL Troponin I High Sens 3.1 (<3.5-35.0) ng/L Lipase 22 (8-78) U/L Independent Interpretation I performed an independent interpretation of an: EKG (Normal sinus rhythm, left axis deviation, LBBB, no change from prior EKG.) Radiology Impression Discussion of test interpretation with radiology: I have reviewed the radiologist's reading. Discharge Plan Discharge Clinical Impression: Anxiety, Chest pain Patient Disposition: Left Against Medical Advice Prescriptions: No Action clonidine 0.2 mg/24 hr patch weekly 2 patch transdermal DICKEY pantoprazole 40 mg tablet,delayed release (DR/EC) 40 mg PO DAILY@0630 metoprolol tartrate 50 mg tablet 100 mg PO BID warfarin 5 mg tablet 5 mg PO DAILY nystatin 100,000 unit/mL suspension 100,000 unit buccal DAILY Qty: 60 0RF Rx Instructions: administer 1/2 of dose in each side of the mouth clonazepam 1 mg tablet 3 mg PO BEDTIME clonidine HCl 0.2 mg Tablet 0.1 mg PO DAILY PRN (Reason: Blood Pressure) ipratropium-albuterol 0.5 mg-3 mg(2.5 mg base)/3 mL solution for nebulization 3 ml inhalation QID PRN (Reason: Shortness Of Breath Or Wheezing) acetaminophen 160 mg/5 mL Liquid 1,000 mg PO QID PRN (Reason: Pain) zolpidem 5 mg tablet 5 mg PO BEDTIME PRN (Reason: Insomnia) fluconazole 40 mg/mL suspension for reconstitution 320 mg PO DAILY loperamide [Imodium A-D] 1 mg/7.5 mL Liquid 2 mg PO Q2-4H PRN (Reason: Loose Stool) Rx Instructions: administer after each loose stool until symptoms controlled; do not exceed 16 mg per 24 hrs cephalexin 500 mg capsule 500 mg PO QID 7 Days Qty: 28 0RF doxycycline hyclate 100 mg tablet 100 mg PO BID 7 Days Qty: 14 0RF mupirocin 2 % ointment 1 appl topical TID 7 Days Qty: 15 0RF Stand Alone Forms: Against Medical Advice Print Language: Kinyarwanda
--- OUTSIDE RECORDS SUMMARY | 2024-11-07 09:30 | XMS_ITS | Clinical Summary ---
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 Nutritional Supplements 03/07/2024 Neon 04/30/2024 Trazodone 03/07/2024 Elongated erection. Do you know why trazadone was originally made for? . Medications clonazePAM (KlonoPIN) 1 mg tablet TAKE ONE (1) TABLET BY MOUTH THREE TIMES A DAY, NEEDED FOR SEVERE ANXIETY/MALHOTRA IC. USE SPARINGLY. Active Active Problems Problem Noted Date Diagnosed Date Alcohol use disorder 06/15/2024 Surgical History Surgery Date Site/Laterality Comments CARDIAC [...] 118 06/25/2024 7:53 AM EDT Temperature 36.6 C (97.9 F) 06/25/2024 7:53 AM EDT Respiratory Rate 18 06/25/2024 7:53 AM EDT [...] 5 Years) and At-Risk Patients (6 to 49 Years) (2 of 2 - PCV) 05/06/2015 05/06/2014 COVID-19 Vaccine (1 - season) 2023 Cholesterol Screening (Lipid Panel) 02/27/2024 HIV Screening 02/27/2024 Hepatitis C Screening 02/27/2024 Social Influencers of Health Screening 02/27/2024 Depression Screening 03/16/2024 Hepatitis B Vaccines (2 of 3 - 19+ 3-dose series) 04/30/2024 04/02/2024 Influenza Vaccine (#1) 2024 Hypertension/CHF/CAD Annual BMP Blood Test 06/25/2025 [...] Procedure Name Priority Date/Time Associated Diagnosis Comments COMPREHENSIVE METABOLIC PANEL STAT 06/25/2024 9:04 AM EDT from Last 3 Months or Most Recently Relevant to Health Maintenance Results * (ABNORMAL) Comprehensive metabolic panel (06/25/2024 9:04 AM EDT) Sodium 135 133 - 145 mmol/L LAB CHEMISTRY METHOD 06/25/2024 10:31 AM [facility] Potassium 4.0 3.5 - 5.5 mmol/L LAB CHEMISTRY METHOD 06/25/2024 10:31 AM [facility] Comment:Hemolysis present Chloride 104 96 - 110 mmol/L LAB CHEMISTRY METHOD 06/25/2024 10:31 AM [facility] CO2 25 21 - 32 mmol/L LAB CHEMISTRY METHOD 06/25/2024 10:31 AM [facility] Anion Gap 6 3 - 11 LAB CHEMISTRY METHOD 06/25/2024 10:31 AM [facility] Glucose 107(H) 70 - 100 mg/dL LAB CHEMISTRY METHOD 06/25/2024 10:31 AM [facility] BUN 10 5 - 25 mg/dL LAB CHEMISTRY METHOD 06/25/2024 10:31 AM [facility] Creatinine 0.80 0.70 - 1.30 mg/dL LAB CHEMISTRY METHOD 06/25/2024 10:31 AM [facility] eGFR 112 >=60 mL/min/1. 73m2 LAB CHEMISTRY METHOD 06/25/2024 10:31 AM [facility] Comment:Calculation based on the Chronic Kidney Disease Epidemiology Collaboration (CKD-EPI) equation refit without adjustment for race. BUN/Creatinine Ratio 12.5 LAB CHEMISTRY METHOD 06/25/2024 10:31 AM [facility] Calcium 9.1 8.5 - 10.5 mg/dL LAB CHEMISTRY METHOD 06/25/2024 10:31 AM [facility] AST (SGOT) 60(H) 10 - 42 unit/L LAB CHEMISTRY METHOD 06/25/2024 10:31 AM [facility] Comment:Hemolysis present ALT (SGPT) 54 10 - 60 unit/L LAB CHEMISTRY METHOD 06/25/2024 10:31 AM [facility] Alkaline Phosphatase 130(H) 42 - 121 unit/L LAB CHEMISTRY METHOD 06/25/2024 10:31 AM [facility] Total Protein 7.3 6.0 - 8.0 g/dL LAB CHEMISTRY METHOD 06/25/2024 10:31 AM [facility] Albumin 3.2 3.2 - 5.0 g/dL LAB CHEMISTRY METHOD 06/25/2024 10:31 AM [facility] Total Bilirubin 0.2 0.0 - 1.4 mg/dL LAB CHEMISTRY METHOD 06/25/2024 10:31 AM [facility] Blood Venous blood specimen / Unknown Venipuncture / Unknown 06/25/2024 9:04 AM EDT 06/25/2024 9:14 AM EDT us Jostin Rothman MD LAB BLOOD ORDERABLES Final Resu lt [facility] [address] [place] [address], from Last 3 Months or Most Recently Relevant to Health Maintenance Insurance [facility] Advance Directives * Full Code - Default [...] currently active code status orders. Care Teams Aluminum Molding Machine Operator Relationship Specialty Start Date End Date Tomas Jordan MD [address] [place] [address], [address] [place], [place] [phone] PCP - General Internal Medicine 02/27/24
[2024-11-07 10:00] VITALS: BP 110/65; PULSE 73; RESP 23; TEMP 36.6; O2SAT 98
[2024-11-07 10:17] LABS: MANUAL DIFF FLAG NO
[2024-11-07 10:21] LABS: Hematocrit 35.9 % (42.0-52.0); Hemoglobin 12.2 g/dl (14.0-18.0); Imm Gran Abs Auto 0.08 X10*3/uL (0.00-0.03); Imm Gran Pct Auto 0.6 % (0.0-0.4); Lymphocytes Absolute Auto 2.4 X10*3/uL (1.2-4.9); Mean Corpuscular HGB Conc 34.0 g/dl (31.0-36.0); Mean Corpuscular Hemoglobin 30.5 pg (27.0-33.0); Mean Corpuscular Volume 89.8 fL (80.0-98.0); NRBC Abs Auto 0.000 X10*3/uL (0.0-0.012); NRBC Pct Auto 0.0 /100WBC (0.0-0.2); Platelet Count 363 X10*3/uL (160-400); Red Blood Count 4.00 X10*6/uL (4.60-5.80); White Blood Count 13.4 X10*3/uL (4.8-10.8)
[2024-11-07 10:36] LABS: Anion Gap 12 (12-20); Blood Urea Nitrogen 8 mg/dL (9-16); Calcium 8.5 mg/dL (8.4-10.2); Carbon Dioxide 24 mmol/L (22-29); Chloride 106 mmol/L (96-108); Creatinine Clr Calc Pharmacy 151.1; Estimated Glomerular Filt Rate > 60; Lipase 22 U/L (8-78); Potassium 3.7 mmol/L (3.3-5.1); Sodium 138 mmol/L (135-145)
[2024-11-07 11:10] LABS: Troponin-I High Sensitivity 3.1 ng/L (<3.5-35.0)
--- NOTE | 2024-11-07 11:30 | PC.NURSE ---
Pt A&O X4 Denies complaints at this time except anxiety for which he requested Clonazepam. Provider aware and ordered. Pt refusing repeat Trop. States I want to be discharged and go to [facility] for my anxiety-that's all that's wrong . Provider aware. NSR on monitor with BBB as before.
[2024-11-07 11:34] VITALS: BP 112/73; PULSE 72; RESP 16; O2SAT 98
--- NOTE | 2024-11-07 11:40 | PC.NURSE ---
Pt seen by provider who explained pt needs to stay for evl- pt refused and states and I'm not signing anything when asked to sign AMA. Pt walked out of dept with and his child.
== END 2024-11-07 11:41 | disposition left against medical advice (07) ==
PROVIDERS: Emergency Provider Emergency Medicine; PCP Internal Medicine
DX: F41.9 Anxiety disorder, unspecified (principal); I44.7 Left bundle-branch block, unspecified; R07.89 Other chest pain; Z79.899 Other long term (current) drug therapy
CPT/HCPCS: 36415; 71045; 80048; 83690; 84484; 85025; 93005; 99283; 99284

== ENCOUNTER → 2024-11-07 09:05 | Outpatient (BNV) | payer MEDICAID, SELFPAY | PROVIDERS: Emergency Provider Emergency Medicine; PCP Internal Medicine; Visit Provider Radiology Diagnostic Radiology | DX: R07.9 Chest pain, unspecified (principal) | CPT/HCPCS: 71045 ==

== ENCOUNTER → 2024-11-07 09:05 | Outpatient (BNV) | payer MEDICAID, SELFPAY | PROVIDERS: Emergency Provider Emergency Medicine; PCP Internal Medicine; Visit Provider Internal Medicine | DX: I44.7 Left bundle-branch block, unspecified (principal) | CPT/HCPCS: 93010 ==

== ENCOUNTER 2024-12-01 20:41 | Emergency (ER) | payer MEDICAID, SELFPAY ==
--- NOTE | ~2024-12-01 | CT_ITS ---
CLINICAL HISTORY: leg swelling after trauma on coumadin --- Additional Notes or Special Instructions: Knee down to toes Exam: CT right tibia and right fibula with intravenous contrast. Comparison: X-rays of the right ankle from 04/14/2024. Findings: Metal and medial soft tissues of the favored to represent surgical clips about imaged remaining veins of the medial soft tissues. No well-defined or wall enhancing drainable abscess by CT. Focus of fluid may represent phlegmonous change or hematoma anterior to the tip of the superficial soft tissues measuring 1.9 cm (imaged 235 of series 3), at junction of the proximal 3rd and middle 3rd of the tibia. Imaged mild adjacent fluid and stranding with a accentuated to skin surface. Dermal thickening noted as can be seen with overlying cellulitis. Small skin ulcerations also considered. No ulceration extending to bone to confirm osteomyelitis by CT. No bony destructive changes of the imaged tibia or imaged fibula, accounting for motion artifacts. Small effusion of the knee with mild osteoarthritis and without dislocation. Subchondral cystic change of the medial tibial plateau with the adjacent vessel channel. No acute displaced fracture of the imaged tibia or imaged fibula. Proximal bone island noted in the tibia. Small old deformity of the lateral malleolus with mild osteoarthritis of the ankle. Impression: 1. 1.9 cm focus of the dens fluid is likely due to hematoma anterior to the tibia. No underlying acute tibial fracture. 2. Degenerative changes of the imaged knee and imaged ankle. 3. No ulceration extending to bone or bony destructive changes of the acute osteomyelitis by CT at this time. This document has been electronically signed by: Godwin Oquendo MD on 12/02/2024 02:52:08
--- NOTE | ~2024-12-01 | XR_ITS ---
CLINICAL HISTORY: toe injury 3 view right foot Comparison: X-rays of the right foot from 04/14/2024 Findings: Acute and new intra-articular fracture of the proximal phalanx of the great toe accentuated of the interphalangeal joint by radiographs. Soft tissue swelling noted, including imaged forefoot. Mild osteoarthritis, including partially imaged midfoot. No dislocation. Small old fracture suggested of the imaged lateral malleolus. No retained metallic foreign body. IMPRESSION: 1. Acute fracture of the proximal phalanx of the great toe. 2. No dislocation of the imaged foot This document has been electronically signed by: Godwin Oquendo MD on 12/02/2024 02:52:05
[2024-12-01 21:22] VITALS: BP 143/95; PULSE 125; RESP 14; TEMP 36.7; O2SAT 95; BMI 33.7
--- NOTE | 2024-12-01 21:45 | ECG_ITS ---
Test Reason : TACHYCARDIA Blood Pressure : */* mmHG Vent. Rate : 119 BPM Atrial Rate : 119 BPM P-R Int : 146 ms QRS Dur : 140 ms QT Int : 384 ms P-R-T Axes : 49 -9 132 degrees QTcB Int : 540 ms Sinus tachycardia Possible Left atrial enlargement Left bundle branch block Abnormal ECG When compared with ECG of 07-Nov-2024 08:51, Vent. rate has increased by 40 bpm Referred By: Erma Dimas Electronically Signed By: EMILY ORTEGA
[2024-12-01 22:18] LABS: MANUAL DIFF FLAG NO
--- OUTSIDE RECORDS SUMMARY | 2024-12-01 22:18 | XMS_ITS | Clinical Summary ---
Author Organization [facility] Address [address] [place] [address] Phone Care Team Providers Care Tradeshow Worker Name Role Phone Tomas Jordan MD Primary Care Provider [phone] Allergies Active Allergy Reactions Criticality Noted Date [...] closes my throat . Nutritional Supplements 03/07/2024 [place] 04/30/2024 Trazodone 03/07/2024 Elongated erection. Do you [...] (2 of 2 - PCV) 05/06/2015 05/06/2014 Cholesterol Screening (Lipid Panel) 02/27/2024 HIV Screening 02/27/2024 Hepatitis C Screening 02/27/2024 Social Influencers of Health Screening 02/27/2024 Depression Screening 03/16/2024 Hepatitis B Vaccines (2 of 3 - 19+ 3-dose series) 04/30/2024 04/02/2024 COVID-19 Vaccine ( - season) 2024 Influenza Vaccine (#1) 2024 Hypertension/CHF/CAD Annual BMP [...] mmol/L LAB CHEMISTRY METHOD 06/25/2024 10:31 AM [facility] Potassium 4.0 3.5 - 5.5 mmol/L LAB CHEMISTRY METHOD 06/25/2024 10:31 AM [facility] Comment:Hemolysis present Chloride 104 96 - 110 mmol/L LAB CHEMISTRY METHOD 06/25/2024 10:31 AM [facility] CO2 25 21 - 32 mmol/L LAB CHEMISTRY METHOD 06/25/2024 10:31 AM [facility] Anion Gap 6 3 - 11 LAB CHEMISTRY METHOD 06/25/2024 10:31 AM [facility] Glucose 107(H) 70 - 100 mg/dL LAB CHEMISTRY METHOD 06/25/2024 10:31 AM [facility] BUN 10 5 - 25 mg/dL LAB CHEMISTRY METHOD 06/25/2024 10:31 AM [facility] Creatinine 0.80 0.70 - 1.30 mg/dL LAB CHEMISTRY METHOD 06/25/2024 10:31 AM [facility] eGFR 112 >=60 mL/min/1. 73m2 LAB CHEMISTRY METHOD 06/25/2024 10:31 AM [facility] Comment:Calculation based on the Chronic Kidney Disease Epidemiology Collaboration (CKD-EPI) equation refit without adjustment for race. BUN/Creatinine Ratio 12.5 LAB CHEMISTRY METHOD 06/25/2024 10:31 AM [facility] Calcium 9.1 8.5 - 10.5 mg/dL LAB CHEMISTRY METHOD 06/25/2024 10:31 AM [facility] AST (SGOT) 60(H) 10 - 42 unit/L LAB CHEMISTRY METHOD 06/25/2024 10:31 AM [facility] Comment:Hemolysis present ALT (SGPT) 54 10 - 60 unit/L LAB CHEMISTRY METHOD 06/25/2024 10:31 AM [facility] Alkaline Phosphatase 130(H) 42 - 121 unit/L LAB CHEMISTRY METHOD 06/25/2024 10:31 AM [facility] Total Protein 7.3 6.0 - 8.0 g/dL LAB CHEMISTRY METHOD 06/25/2024 10:31 AM [facility] Albumin 3.2 3.2 - 5.0 g/dL LAB CHEMISTRY METHOD 06/25/2024 10:31 AM [facility] Total Bilirubin 0.2 0.0 - 1.4 mg/dL LAB CHEMISTRY METHOD 06/25/2024 10:31 AM [facility] Blood Venous blood specimen / Unknown Venipuncture / Unknown 06/25/2024 9:04 AM EDT 06/25/2024 9:14 AM EDT us Jostin Rothman MD LAB BLOOD ORDERABLES Final Resu lt [facility] [address] [place] [address], from Last 3 Months or Most Recently Relevant to Health Maintenance Insurance [facility] Advance Directives * Full Code - Default [...] currently active code status orders. Care Teams Tradeshow Worker Relationship Specialty Start Date End Date Tomas Jordan MD [address] [place] [address], [address] [place], [place] [id number] PCP - General Internal Medicine 02/27/24
[2024-12-01 22:21] LABS: Hematocrit 35.6 % (42.0-52.0); Hemoglobin 12.3 g/dl (14.0-18.0); Imm Gran Abs Auto 0.14 X10*3/uL (0.00-0.03); Imm Gran Pct Auto 1.0 % (0.0-0.4); Lymphocytes Absolute Auto 3.2 X10*3/uL (1.2-4.9); Mean Corpuscular HGB Conc 34.6 g/dl (31.0-36.0); Mean Corpuscular Hemoglobin 30.8 pg (27.0-33.0); Mean Corpuscular Volume 89.0 fL (80.0-98.0); NRBC Abs Auto 0.130 X10*3/uL (0.0-0.012); NRBC Pct Auto 0.9 /100WBC (0.0-0.2); Platelet Count 377 X10*3/uL (160-400); Red Blood Count 4.00 X10*6/uL (4.60-5.80); White Blood Count 14.0 X10*3/uL (4.8-10.8)
[2024-12-01 22:25] LABS: INTERNATIONAL NORM RATIO 1.7 (0.9-1.1); Prothrombin Time 19.1 SEC (10.9-12.4)
--- NOTE | 2024-12-01 22:31 | ED_ITS ---
HPI - General Adult General Chief complaint: Extremity Injury, Lower Stated complaint: right leg pain fell 11/27 Time Seen by Provider: 12/01/24 22:17 Source: patient Mode of arrival: ambulatory Limitations: no limitations History of Present Illness ED Provider: Dr. Rivas [facility] narrative: This is a 43-year-old male presented hospital today for right lower extremity pain patient has a history of endocarditis, valve replacement on Coumadin, alcohol use disorder tobacco use presented hospital today for evaluation of right lower extremity pain fall 4 days ago. Patient stated that he tripped on a step going into his bedroom. He landed on his right lower extremity. He went to [facility] where he was evaluated and discharged. No imaging was performed. Patient has been able to ambulate however noticed that his right lower extremity is getting more swollen. He does have history of compartment syndrome in the past where he received fasciotomy in the right lower extremity. Related Data Home Medications ?Medication ?Instructions ?Recorded ?Confirmed clonidine 0.2 mg/24 hr weekly 2 patch transdermal DICKEY 1 04/30/23 06/26/24 transdermal patch metoprolol tartrate 50 mg tablet 100 mg PO BID 4 06/26/24 pantoprazole 40 mg tablet,delayed 40 mg PO DAILY@0630 02/28/24 06/26/24 release warfarin 5 mg tablet 5 mg PO DAILY 02/28/2406/26 clonazepam 1 mg tablet 3 mg PO BEDTIME Anxiety 02/0 05/1006/26/24 clonidine HCl 0.2 mg tablet 0.1 mg PO DAILY PRN Blood Pressure 04/17/24 06/26/24 acetaminophen 160 mg/5 mL oral 1,000 mg PO QID PRN Abdirahman n 06/26/24 06/26/24 liquid fluconazole 40 mg/mL oral 320 mg PO DAILY 06/26/24 suspension ipratropium 0.5 mg-albuterol 3 mg 3 ml inhalation QID PRN Shortness 06/26/24 06/26/24 (2.5 mg base)/3 mL nebulization Of Breath Or Wheezing soln loperamide 1 mg/7.5 mL oral liquid 2 mg PO Q2-4H PRN L oose Stool 06/26/24 06/26/24 (Imodium A-D) zolpidem 5 mg tablet 5 mg PO BEDTIME PRN Insomnia 06/26/24 06/26/24 Previous Rx's ?Medication ?Instructions ?Recorded nystatin 100,000 unit/mL oral 100,000 unit buccal NOMI Y #60 mL 05/09/24 suspension cephalexin 500 mg capsule 500 mg PO QID 7 days #28 cap s 07/29/24 doxycycline hyclate 100 mg tablet 100 mg PO BID 7 days #14 tabs 07/29/24 mupirocin 2 % topical ointment 1 appl topical TID 7 da ys #15 grams 07/29/24 Allergies Allergy/AdvReac Type Severity Reaction Status Date / Time phenytoin (From DILANTIN) Allergy Unknown GAVE PT A Verified 12/01/24 21:32 TOXIC LEVEL fluoxetine (From Prozac) Allergy Unknown Verified 12/01/24 21:32 lidocaine Allergy Unknown Verified 12/01/24 21:32 tramadol Allergy Anaphylaxis Verified 12/01/24 21:32 trazodone Allergy Unknown Verified 12/01/24 21:32 gabapentin (From Neurontin) AdvReac Unknown Verified 12/01/24 21:32 morphine AdvReac Agitated Verified 12/01/24 21:32 Review of Systems 2 Review of Systems: Pertinent review of systems as mentioned in HPI. All other system otherwise negative. [facility] Past Medical History [facility] Narrative: Medical history as mentioned in HPI Medical History Bilateral pulmonary embolism Noncompliance with medications Alcohol dependence Endocarditis Surgical History Aortic valve replaced Social History Social History Household Members: Spouse Housing: House Do you presently have visiting nurse or other home services: No Unable to assess alcohol history related to: Refusing to respond Alcohol intake: current Alcohol intake frequency: 0-2 drinks per day Alcohol type: hard liquor Comment: Pt refuses fall risk measures, explained protocol/ safety measures Patient Tobacco Use Status: Tobacco use Unknown Tobacco use type: Cigarette Cigarettes Per Day: 10 Smoked in Last 30 Days: Yes e-Cigarette/Vaping Use: Never Used Second Hand Smoke Exposure: No Use of substances other than those prescribed or required for medical reasons: No Substance Use Type: Marijuana Advance Directives: No Advance Directives Information Provided: No Physical Exam ED Exam Exam: General: Pleasant, no distress, interacting appropriately Head: Normacephalic, atraumatic ENT: oral mucosa moist, neck supple, no tracheal deviation Cardiovascular: regular rate, regular rhythm Respiratory: CTAB, no wheeze, rales, rhonchi Extremities: Hematoma appreciated on the right calf, right toe tenderness on palpation, tenderness on calf palpation Neurological: Awake and alert, no facial droop noted Skin: Warm and dry Psychiatric: Appropriate mood and thoughts Vital Signs: Vital Signs - 24 hr 12/01/24 21:22 12/02/24 00:51 12/02/24 02:15 Temperature 98.1 F 98.3 F 98.3 F Pulse Rate 125 H 113 H 113 H Respiratory Rate 14 16 16 Blood Pressure 143/95 H 143/95 H 143/95 H Pulse Oximetry 95 96 96 Oxygen Delivery Method Room Air Room Air Room Air BMI result Body Mass Index 33.7 Medications Administered Discontinued Medications Generic Name Dose Route Start Last Admin Trade Name Freq PRN Reason Stop Dose Admin Hydromorphone HCl 0.5 mg 12/01/24 23:53 12/02/24 00:07 Hydromorphone Hcl 0.5 Mg/0.5 Ml Syringe IVPUSH 12/01/24 23:54 0.5 mg ONCE ONE Administration Protocol Sodium Chloride 500 mls @ 500 mls/hr 12/02/24 01:45 12/02/24 02:07 Ns IV 12/02/24 02:44 Not Given .Q1H SHAN Iohexol 85 ml 12/02/24 01:48 12/02/24 01:49 Iohexol 350 Mg/Ml 100 Ml Infus..Btl IV 12/02/24 01:49 85 ml ONCE ONE Administration Oxycodone HCl 5 mg 12/01/24 22:40 12/01/24 22:46 Oxycodone Hcl Immed Release 5 Mg Tablet PO 12/01/24 22:41 5 mg ONCE ONE Administration Procedures Procedure Narrative Procedure Narrative: Ultrasound-guided IV 20 gauge 1-3/4 inch IV placed in left upper extremity, adequate blood return, flushes well secured with Tegaderm. Performed by Ruthy Castillo PA-C Medical Decision Making Medical Decision Making MDM Narrative: 43-year-old male history of heart valve replacement, endocarditis on Coumadin presented hospital today for right lower extremity injury. Patient's right calf and right anterior compartment does appear to be slightly swollen. He has no pain on proportion on exam. He does have history of fasciotomy. Does make compartment syndrome less likely however he does have some ligamentous swelling. We will obtain CT imaging of his right lower extremity to see if there was any active bleed. He is on Coumadin at this time we will check his INR. We will check his hemoglobin level as well. Oxycodone will be provided for pain control. Right foot x-ray did show a fracture of the right toe, it is nondisplaced in nature. Patient does have a Doppler we will pulse in the right lower extremity. I do not think he has compartment syndrome. Patient was given oxycodone p.o. for pain control and IV Dilaudid. Patient informed nursing staff he does not want to wait here any longer he wants to go home. Patient will be discharged. He does not want to wait for his CAT scan results. Return precautions provided to the patient. He agrees and understands this plan all questions were addressed. Differential Diagnosis Differential Diagnoses: The differential diagnosis associated with the presentation includes Compartment syndrome, hematoma, fracture Lab Data MDM Lab Attestation statement: I reviewed the patient's lab results. 12/01/24 22:09 12/01/24 22:09 Labs: Lab Results 12/01/24 Range/Units 22:09 WBC 14.0 H (4.8-10.8) X10*3/uL RBC 4.00 L (4.60-5.80) X10*6/uL Hgb 12.3 L (14.0-18.0) g/dl Hct 35.6 L (42.0-52.0) % MCV 89.0 (80.0-98.0) fL MCH 30.8 (27.0-33.0) pg MCHC 34.6 (31.0-36.0) g/dl RDW 20.4 H (11.0-16.0) % Plt Count 377 (160-400) X10*3/uL MPV 10.1 (9.4-12.4) fL Immature Gran % (Auto) 1.0 H (0.0-0.4) % Neut % (Auto) 66.6 (45-73) % Lymph % (Auto) 23.2 (20-40) % Meeker % (Auto) 7.2 (2-11) % Eos % (Auto) 1.4 (0-4) % Baso % (Auto) 0.6 (0-2) % Lymph # (Auto) 3.2 (1.2-4.9) X10*3/uL Meeker # (Auto) 1.0 (0.1-1.2) X10*3/uL Eos # (Auto) 0.2 (0.0-0.4) X10*3/uL Baso # (Auto) 0.1 (0.0-0.2) X10*3/uL Abs Immat Gran (auto) 0.14 H (0.00-0.03) X10*3/uL Absolute Neuts (auto) 9.3 H (2.0-8.3) x10*3/uL Absolute Nucleated RBC 0.130 H (0.0-0.012) X10*3/uL Nucleated RBC % (auto) 0.9 H (0.0-0.2) /100WBC PT 19.1 H D (10.9-12.4) SEC INR 1.7 H (0.9-1.1) Sodium 140 (135-145) mmol/L Potassium 3.5 (3.3-5.1) mmol/L Chloride 107 (96-108) mmol/L Carbon Dioxide 25 (22-29) mmol/L Anion Gap 12 (12-20) BUN 10 (9-16) mg/dL Creatinine 0.75 (0.5-1.4) mg/dL Estim Creat Clear Calc 139.8 Estimated GFR > 60 Random Glucose 134 H (60-115) mg/dL Calcium 8.9 (8.4-10.2) mg/dL Total Bilirubin 0.4 (0.0-1.0) mg/dL AST 58 H (5-37) U/L ALT 43 H (0-40) U/L Alkaline Phosphatase 141 H (39-117) U/L Total Protein 7.5 (6.5-8.0) g/dL Albumin 3.9 (3.5-5.0) g/dL Independent Interpretation I performed an independent interpretation of an: Plain X-Ray and CT Scan Discharge Plan Discharge Clinical Impression: Hematoma of lower leg Fracture of toe Qualifiers: Encounter type: initial encounter Toe: great toe Fracture type: closed Phalanx: unspecified phalanx Fracture alignment: nondisplaced Laterality: right Qualified Code(s): S92.404A - Nondisplaced unspecified fracture of right great toe, initial encounter for closed fracture Patient Disposition: Home, Self-Care Instructions: Toe Fracture (ED) Prescriptions: No Action clonidine 0.2 mg/24 hr patch weekly 2 patch transdermal DICKEY pantoprazole 40 mg tablet,delayed release (DR/EC) 40 mg PO DAILY@0630 metoprolol tartrate 50 mg tablet 100 mg PO BID warfarin 5 mg tablet 5 mg PO DAILY nystatin 100,000 unit/mL suspension 100,000 unit buccal DAILY Qty: 60 0RF Rx Instructions: administer 1/2 of dose in each side of the mouth clonazepam 1 mg tablet 3 mg PO BEDTIME clonidine HCl 0.2 mg Tablet 0.1 mg PO DAILY PRN (Reason: Blood Pressure) ipratropium-albuterol 0.5 mg-3 mg(2.5 mg base)/3 mL solution for nebulization 3 ml inhalation QID PRN (Reason: Shortness Of Breath Or Wheezing) acetaminophen 160 mg/5 mL Liquid 1,000 mg PO QID PRN (Reason: Pain) zolpidem 5 mg tablet 5 mg PO BEDTIME PRN (Reason: Insomnia) fluconazole 40 mg/mL suspension for reconstitution 320 mg PO DAILY loperamide [Imodium A-D] 1 mg/7.5 mL Liquid 2 mg PO Q2-4H PRN (Reason: Loose Stool) Rx Instructions: administer after each loose stool until symptoms controlled; do not exceed 16 mg per 24 hrs cephalexin 500 mg capsule 500 mg PO QID 7 Days Qty: 28 0RF doxycycline hyclate 100 mg tablet 100 mg PO BID 7 Days Qty: 14 0RF mupirocin 2 % ointment 1 appl topical TID 7 Days Qty: 15 0RF Interventions: ED Discharge Assessment Last Done: 12/02/24 02:15 Discharge Date/Time: 12/02/24 02:16 Print Language: Emirati
[2024-12-01 22:35] LABS: Alanine Aminotransferase 43 U/L (0-40); Albumin Level 3.9 g/dL (3.5-5.0); Alkaline Phosphatase 141 U/L (39-117); Anion Gap 12 (12-20); Aspartate Amino Transferase 58 U/L (5-37); Blood Urea Nitrogen 10 mg/dL (9-16); Calcium 8.9 mg/dL (8.4-10.2); Carbon Dioxide 25 mmol/L (22-29); Chloride 107 mmol/L (96-108); Creatinine Clr Calc Pharmacy 139.8; Estimated Glomerular Filt Rate > 60; Potassium 3.5 mmol/L (3.3-5.1); Sodium 140 mmol/L (135-145); Total Protein 7.5 g/dL (6.5-8.0)
[2024-12-01] MEDS: oxyCODONE HCl Immed Release 5 MG TABLET PO (22:46)
--- NOTE | 2024-12-01 23:59 | PC.NURSE ---
Took over care at 23:00 from MERY De La Vega, Ultra sound Iv placed, positive pedal pulses by doppler
[2024-12-02 00:51] VITALS: BP 143/95; PULSE 113; RESP 16; TEMP 36.8; O2SAT 96
--- NOTE | 2024-12-02 01:13 | PC.NURSE ---
positive pedal pulse by dopper to right leg, area marked, x-ray taken of toe, awaiting results, pt given a pillow and repositioned for comfort
[2024-12-02] MEDS: iohexoL 350 MG/ML 100 ML INFUS..BTL 85 ML IV (01:49)
--- NOTE | 2024-12-02 02:14 | PC.NURSE ---
pt refused fluids, reviewed discharge instruction with pt. pt verbalized understanding, no sign of distress. pt wheel out to truck by this RN.
[2024-12-02 02:15] VITALS: BP 143/95; PULSE 113; RESP 16; TEMP 36.8; O2SAT 96
--- NOTE | 2024-12-02 02:16 | PC.NURSE ---
provider aware of bp and heart rate.
== END 2024-12-02 02:16 | disposition home or self-care (01) ==
PROVIDERS: Emergency Provider Student in an Organized Health Care Education/Training Program; PCP Internal Medicine
DX: S80.11XA Contusion of right lower leg, initial encounter (principal); S92.404A Nondisplaced unspecified fracture of right great toe, initial encounter for closed fracture; W01.0XXA Fall on same level from slipping, tripping and stumbling without subsequent striking against object, initial encounter; Y93.89 Activity, other specified; Y92.092 Bedroom in other non-institutional residence as the place of occurrence of the external cause; Y99.8 Other external cause status; Z79.01 Long term (current) use of anticoagulants; Z79.899 Other long term (current) drug therapy
CPT/HCPCS: 36415; 73620; 73701; 80053; 85025; 85610; 93005; 96374; 99284; 99285; J1171; Q9967

== ENCOUNTER → 2024-12-01 21:45 | Outpatient (BNV) | payer MEDICAID, SELFPAY | PROVIDERS: Emergency Provider Student in an Organized Health Care Education/Training Program; PCP Internal Medicine; Visit Provider Internal Medicine | DX: R00.0 Tachycardia, unspecified (principal); I44.7 Left bundle-branch block, unspecified | CPT/HCPCS: 93010 ==

== ENCOUNTER → 2024-12-02 00:01 | Outpatient (BNV) | payer MEDICAID, SELFPAY | PROVIDERS: Emergency Provider Student in an Organized Health Care Education/Training Program; PCP Internal Medicine; Visit Provider Radiology Neuroradiology | DX: M17.11 Unilateral primary osteoarthritis, right knee (principal); M19.071 Primary osteoarthritis, right ankle and foot; S92.411A Displaced fracture of proximal phalanx of right great toe, initial encounter for closed fracture | CPT/HCPCS: 73620; 73701 ==

== ENCOUNTER 2024-12-06 19:26 | Emergency (ER) | payer MEDICAID, SELFPAY ==
[2024-12-06 19:18] VITALS: BP 127/78; PULSE 96; RESP 20; O2SAT 97; BMI 33.7
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
[2024-12-06 19:46] LABS: MANUAL DIFF FLAG NO
[2024-12-06 19:48] LABS: Hematocrit 34.4 % (42.0-52.0); Hemoglobin 11.4 g/dl (14.0-18.0); Imm Gran Abs Auto 0.08 X10*3/uL (0.00-0.03); Imm Gran Pct Auto 0.6 % (0.0-0.4); Lymphocytes Absolute Auto 3.3 X10*3/uL (1.2-4.9); Mean Corpuscular HGB Conc 33.1 g/dl (31.0-36.0); Mean Corpuscular Hemoglobin 29.9 pg (27.0-33.0); Mean Corpuscular Volume 90.3 fL (80.0-98.0); NRBC Abs Auto 0.030 X10*3/uL (0.0-0.012); NRBC Pct Auto 0.2 /100WBC (0.0-0.2); Platelet Count 395 X10*3/uL (160-400); Red Blood Count 3.81 X10*6/uL (4.60-5.80); White Blood Count 13.1 X10*3/uL (4.8-10.8)
--- OUTSIDE RECORDS SUMMARY | 2024-12-06 19:49 | XMS_ITS | Clinical Summary ---
Author Organization [facility] Address [address] [place] [address] Phone Care Team Providers Care Conveyor Belt Operator Name Role Phone Tomas Jordan MD Primary Care Provider [phone] Allergies Active Allergy Reactions Criticality Noted Date [...] closes my throat . Nutritional Supplements 03/07/2024 [place] 04/30/2024 Trazodone 03/07/2024 Elongated erection. Do you [...] mmol/L LAB CHEMISTRY METHOD 06/25/2024 10:31 AM [facility] Potassium 4.0 3.5 - 5.5 mmol/L LAB CHEMISTRY METHOD 06/25/2024 10:31 AM [facility] Comment:Hemolysis present Chloride 104 96 - 110 mmol/L LAB CHEMISTRY METHOD 06/25/2024 10:31 AM [facility] CO2 25 21 - 32 mmol/L LAB CHEMISTRY METHOD 06/25/2024 10:31 AM [facility] Anion Gap 6 3 - 11 LAB CHEMISTRY METHOD 06/25/2024 10:31 AM [facility] Glucose 107(H) 70 - 100 mg/dL LAB CHEMISTRY METHOD 06/25/2024 10:31 AM [facility] BUN 10 5 - 25 mg/dL LAB CHEMISTRY METHOD 06/25/2024 10:31 AM [facility] Creatinine 0.80 0.70 - 1.30 mg/dL LAB CHEMISTRY METHOD 06/25/2024 10:31 AM [facility] eGFR 112 >=60 mL/min/1. 73m2 LAB CHEMISTRY METHOD 06/25/2024 10:31 AM [facility] Comment:Calculation based on the Chronic Kidney Disease Epidemiology Collaboration (CKD-EPI) equation refit without adjustment for race. BUN/Creatinine Ratio 12.5 LAB CHEMISTRY METHOD 06/25/2024 10:31 AM [facility] Calcium 9.1 8.5 - 10.5 mg/dL LAB CHEMISTRY METHOD 06/25/2024 10:31 AM [facility] AST (SGOT) 60(H) 10 - 42 unit/L LAB CHEMISTRY METHOD 06/25/2024 10:31 AM [facility] Comment:Hemolysis present ALT (SGPT) 54 10 - 60 unit/L LAB CHEMISTRY METHOD 06/25/2024 10:31 AM [facility] Alkaline Phosphatase 130(H) 42 - 121 unit/L LAB CHEMISTRY METHOD 06/25/2024 10:31 AM [facility] Total Protein 7.3 6.0 - 8.0 g/dL LAB CHEMISTRY METHOD 06/25/2024 10:31 AM [facility] Albumin 3.2 3.2 - 5.0 g/dL LAB CHEMISTRY METHOD 06/25/2024 10:31 AM [facility] Total Bilirubin 0.2 0.0 - 1.4 mg/dL LAB CHEMISTRY METHOD 06/25/2024 10:31 AM [facility] Blood Venous blood specimen / Unknown Venipuncture / Unknown 06/25/2024 9:04 AM EDT 06/25/2024 9:14 AM EDT us Jostin Rothman MD LAB BLOOD ORDERABLES Final Resu lt [facility] [address] [place] [address], from Last 3 Months or Most Recently Relevant to Health Maintenance Insurance [facility] Advance Directives * Full Code - Default [...] currently active code status orders. Care Teams Conveyor Belt Operator Relationship Specialty Start Date End Date Tomas Jordan MD [address] [place] [address], [address] [place], [place] [phone] PCP - General Internal Medicine 02/27/24
[2024-12-06 20:07] VITALS: TEMP 37
[2024-12-06 20:08] LABS: Alanine Aminotransferase 27 U/L (0-40); Albumin Level 3.7 g/dL (3.5-5.0); Alkaline Phosphatase 105 U/L (39-117); Anion Gap 15 (12-20); Aspartate Amino Transferase 38 U/L (5-37); Blood Urea Nitrogen 9 mg/dL (9-16); Calcium 9.1 mg/dL (8.4-10.2); Carbon Dioxide 22 mmol/L (22-29); Chloride 108 mmol/L (96-108); Creatinine Clr Calc Pharmacy 166.4; Estimated Glomerular Filt Rate > 60; Lipase 35 U/L (8-78); Magnesium 1.9 mg/dL (1.6-2.6); Potassium 3.9 mmol/L (3.3-5.1); Sodium 141 mmol/L (135-145); Total Protein 7.1 g/dL (6.5-8.0)
--- NOTE | 2024-12-06 21:05 | PC.NURSE ---
nanotechnician alerted RN that pt eloped after refusing US. CN and aware.
== END 2024-12-06 21:05 | disposition left against medical advice (07) ==
PROVIDERS: Physician Assistant Medical; Emergency Provider Emergency Medicine; PCP Internal Medicine
DX: R22.41 Localized swelling, mass and lump, right lower limb (principal); M79.604 Pain in right leg; F10.20 Alcohol dependence, uncomplicated; I38 Endocarditis, valve unspecified; F17.210 Nicotine dependence, cigarettes, uncomplicated; F12.90 Cannabis use, unspecified, uncomplicated; Z86.711 Personal history of pulmonary embolism; Z95.2 Presence of prosthetic heart valve
CPT/HCPCS: 36415; 80053; 82550; 83690; 83735; 85025; 99284

== ENCOUNTER 2024-12-28 22:10 | Emergency (ER) | payer MEDICAID, SELFPAY ==
--- NOTE | ~2024-12-28 | CT_ITS ---
CLINICAL HISTORY: fall, seizure CT head without contrast Comparison: CT head 05/31/2024 Findings: No intra-axial mass, midline shift, hydrocephalus, or acute hemorrhage. No significant atrophy-like change or white matter disease. Stable appearance of small focus of left frontal region post infarct encephalomalacia. The visualized paranasal sinuses and mastoid air cells are normal. The orbits are within normal limits. There is no acute fracture. IMPRESSION: 1. No acute intracranial findings. 2. Stable chronic/nonacute findings as above. This document has been electronically signed by: Tariq Johnson MD on 12/29/2024 01:44:03
--- NOTE | 2024-12-28 22:16 | ECG_ITS ---
Test Reason : cp/seizures Blood Pressure : */* mmHG Vent. Rate : 131 BPM Atrial Rate : 131 BPM P-R Int : 116 ms QRS Dur : 138 ms QT Int : 360 ms P-R-T Axes : 3 -29 123 degrees QTcB Int : 531 ms Sinus tachycardia Possible Left atrial enlargement Left bundle branch block Abnormal ECG When compared with ECG of 01-Dec-2024 21:54, No significant change was found Referred By: Generic ED Physician Electronically Signed By: Nicholas Hinojosa
[2024-12-28 22:32] VITALS: BP 155/104; PULSE 135; RESP 20; TEMP 36.5; O2SAT 96; BMI 25.1
--- OUTSIDE RECORDS SUMMARY | 2024-12-28 22:42 | XMS_ITS | Clinical Summary ---
Author Organization [facility] Address [address] [place] [address] Phone Care Team Providers Care Oil Filters Inspector Name Role Phone Tomas Jordan MD Primary [...] closes my throat . Nutritional Supplements 03/07/2024 [place] 04/30/2024 Trazodone 03/07/2024 Elongated erection. Do you [...] Health Maintenance Due Date Last Done Comments Colorectal Cancer Screening: Colonoscopy 1979 DTaP,Tdap,and Td Vaccines (1 - Tdap) 12/20/1998 Hepatitis A Vaccines (1 of 2 - Risk 2-dose series) 12/20/1998 HPV Vaccines (1 - 3-dose SCD M series) 12/20/2006 Pneumococcal Vaccine: Pediat rics (0 to 5 Years) and At-Risk Patients (6 to 49 Years) (2 of 2 - PCV) 05/06/2015 05/06/2014 Cholesterol Screening (Lipid Panel) 02/27/2024 HIV Screening 02/27/2024 Hepatitis C Screening 02/27/2024 Social Influencers of Health Screening 02/27/2024 Depression Screening 03/16/2024 Hepatitis B Vaccines (2 of 3 - 19+ 3-dose series) 04/30/2024 04/02/2024 COVID-19 Vaccine ( - 2023-2 5 season) 2024 Influenza Vaccine (#1) 2024 RSV Immunization Adult Patie nts (1 - 1-dose 75+ series) 12/20/2054 HIB Vaccines Aged Out No longer eligi [...] on patient's age to complete this topic Insurance [facility] Advance Directives * Full Code - [...] currently active code status orders. Care Teams Oil Filters Inspector Relationship Specialty Start Date End Date Tomas Jordan MD [address] [place] [address], [address] [place], [place] [id number] PCP - General Internal Medicine 02/27/24
[2024-12-28 22:44] LABS: Hematocrit 40.0 % (42.0-52.0); Hemoglobin 13.2 g/dl (14.0-18.0); Mean Corpuscular HGB Conc 33.0 g/dl (31.0-36.0); Mean Corpuscular Hemoglobin 28.8 pg (27.0-33.0); Mean Corpuscular Volume 87.1 fL (80.0-98.0); NRBC Abs Auto 0.020 X10*3/uL (0.0-0.012); NRBC Pct Auto 0.1 /100WBC (0.0-0.2); Platelet Count 450 X10*3/uL (160-400); Red Blood Count 4.59 X10*6/uL (4.60-5.80); White Blood Count 17.9 X10*3/uL (4.8-10.8)
[2024-12-28 23:01] LABS: Alanine Aminotransferase 31 U/L (0-40); Albumin Level 4.1 g/dL (3.5-5.0); Alkaline Phosphatase 121 U/L (39-117); Anion Gap 15 (12-20); Aspartate Amino Transferase 43 U/L (5-37); Blood Urea Nitrogen 8 mg/dL (9-16); Calcium 9.6 mg/dL (8.4-10.2); Carbon Dioxide 19 mmol/L (22-29); Chloride 109 mmol/L (96-108); Creatinine Clr Calc Pharmacy 114.2; Estimated Glomerular Filt Rate > 60; Magnesium 1.9 mg/dL (1.6-2.6); Potassium 3.2 mmol/L (3.3-5.1); Sodium 140 mmol/L (135-145); Total Protein 7.7 g/dL (6.5-8.0)
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
[2024-12-28 23:07] LABS: Troponin-I High Sensitivity 7.6 ng/L (<3.5-35.0)
[2024-12-28 23:14] LABS: Lymphocytes Absolute Manual 3.4 X10*3/uL (1.2-4.9); Lymphocytes Percent Manual 19 % (20-40); Monocytes Absolute Manual 1.4 X10*3/uL (0.1-1.2); Monocytes Percent Manual 8 % (2-11); Neutrophils Percent Manual 73 % (45-73)
[2024-12-28 23:15] LABS: Band Neutrophils Percent 0 % (3-5); Neutrophils Absolute Manual 13.1 X10*3/uL (2.0-8.3)
[2024-12-28 23:16] LABS: Schistocytes 1+ (0-2) /OIF; Spherocytes 1+ (0-2) /OIF; Target Cells 1+ (5-14) /OIF
[2024-12-28 23:17] LABS: RBC Morphology NOTED
[2024-12-29 00:36] LABS: INTERNATIONAL NORM RATIO 4.8 (0.9-1.1); Prothrombin Time 55.4 SEC (10.9-12.4)
[2024-12-29 00:56] VITALS: BMI 32.5
[2024-12-29 01:06] VITALS: BP 136/93; PULSE 108; RESP 18; TEMP 36.7; O2SAT 97
[2024-12-29 01:32] LABS: Appearance Urine Clear; Glucose Urine UA Negative (Negative); PH 5.5 (5.0-9.0); Specific Gravity - Urine >= 1.030 (1.005-1.025); UMIC TRIGGER UACC YES
[2024-12-29] MEDS: diazePAM 10 MG/2 ML CARTRIDGE 5 MG IM (01:49)
--- NOTE | 2024-12-29 03:18 | MHC.EDTECH ---
Attempted to do belongings list and safety search due to pt having alcohol on him and sending it home with family , T/W was not present for that. patient declined at this time. T/W explained that all admitted pts have to have a belongings list done, was initially agreeable to have T/W and seasonal package handler Tiana to complete belongings list/safety check pt didn't want security at bedside. Patient started getting agitated and stated is it because I'm black? security at this point came in and searched his belongings, pt had a large knife, screwdriver, long drill bit, cigarettes and multiple lighters and controlled medications, security secured weapons and MERY Santamaria took medication to secure with pharmacy. Patient's belongings list completed and patient signed.
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
[2024-12-29 04:47] LABS: Cannabinoid Screen Urine Not Detected (Not Detect)
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
== END 2024-12-29 05:10 | disposition left against medical advice (07) ==
LOC: HO.ED 23:04 → HO.EDOVER 12-29 03:33
PROVIDERS: Emergency Medicine Emergency Medical Services; Nurse Practitioner Family; Emergency Provider Emergency Medicine
DX: F10.939 Alcohol use, unspecified with withdrawal, unspecified (principal); Y90.0 Blood alcohol level of less than 20 mg/100 ml; E87.6 Hypokalemia; R07.89 Other chest pain; R00.0 Tachycardia, unspecified; R56.9 Unspecified convulsions; F41.9 Anxiety disorder, unspecified; Z79.899 Other long term (current) drug therapy; Z51.81 Encounter for therapeutic drug level monitoring
CPT/HCPCS: 36415; 70450; 80053; 80307; 81001; 83735; 84484; 85007; 85025; 85027; 85610; 93005; 96372; 99284; 99285; J2560; J3360

== ENCOUNTER → 2024-12-28 22:16 | Outpatient (BNV) | payer MEDICAID, SELFPAY | PROVIDERS: Emergency Provider Emergency Medicine; Visit Provider Internal Medicine Cardiovascular Disease | DX: I44.7 Left bundle-branch block, unspecified (principal); R00.0 Tachycardia, unspecified | CPT/HCPCS: 93010 ==

== ENCOUNTER → 2024-12-29 00:01 | Outpatient (BNV) | payer MEDICAID, SELFPAY | PROVIDERS: Emergency Provider Emergency Medicine; Visit Provider Radiology Diagnostic Radiology | DX: R56.9 Unspecified convulsions (principal) | CPT/HCPCS: 70450 ==

== ENCOUNTER 2024-12-30 19:22 | Inpatient (IN) | payer MEDICAID, SELFPAY ==
[2024-12-30 19:31] VITALS: BP 126/82; PULSE 127; RESP 20; TEMP 36.7; O2SAT 96; BMI 32.9
--- OUTSIDE RECORDS SUMMARY | 2024-12-30 20:21 | XMS_ITS | Clinical Summary ---
Author Organization [facility] Address [address] [place] [address] Phone Care Team Providers Care Flight Engineer Inspector Name Role Phone Tomas Jordan MD Primary Care Provider [phone] Allergies Active Allergy Reactions Criticality Noted Date [...] closes my throat . Nutritional Supplements 03/07/2024 [place] 04/30/2024 Trazodone 03/07/2024 Elongated erection. Do you [...] patient's age to complete this topic Insurance [facility] Advance Directives * Full Code - [...] currently active code status orders. Care Teams Flight Engineer Inspector Relationship Specialty Start Date End Date Tomas Jordan MD [address] [place] [address], [address] [place], [place] [id number] PCP - General Internal Medicine 02/27/24
[2024-12-30 20:43] LABS: MANUAL DIFF FLAG NO
[2024-12-30 20:44] LABS: Hematocrit 37.3 % (42.0-52.0); Hemoglobin 12.3 g/dl (14.0-18.0); Imm Gran Abs Auto 0.08 X10*3/uL (0.00-0.03); Imm Gran Pct Auto 0.5 % (0.0-0.4); Lymphocytes Absolute Auto 3.6 X10*3/uL (1.2-4.9); Mean Corpuscular HGB Conc 33.0 g/dl (31.0-36.0); Mean Corpuscular Hemoglobin 28.9 pg (27.0-33.0); Mean Corpuscular Volume 87.6 fL (80.0-98.0); NRBC Abs Auto 0.030 X10*3/uL (0.0-0.012); NRBC Pct Auto 0.2 /100WBC (0.0-0.2); Platelet Count 379 X10*3/uL (160-400); Red Blood Count 4.26 X10*6/uL (4.60-5.80); White Blood Count 16.4 X10*3/uL (4.8-10.8)
[2024-12-30 21:08] LABS: Alanine Aminotransferase 30 U/L (0-40); Albumin Level 4.1 g/dL (3.5-5.0); Alkaline Phosphatase 115 U/L (39-117); Anion Gap 15 (12-20); Aspartate Amino Transferase 44 U/L (5-37); Blood Urea Nitrogen 6 mg/dL (9-16); Calcium 9.1 mg/dL (8.4-10.2); Carbon Dioxide 19 mmol/L (22-29); Chloride 108 mmol/L (96-108); Creatinine Clr Calc Pharmacy 144.5; Estimated Glomerular Filt Rate > 60; Magnesium 2.0 mg/dL (1.6-2.6); Potassium 3.3 mmol/L (3.3-5.1); Sodium 139 mmol/L (135-145); Total Protein 7.7 g/dL (6.5-8.0)
--- NOTE | 2024-12-30 21:52 | ED.GENADULT ---
HPI - General Adult General Chief complaint: General Medical Stated complaint: seizures Time Seen by Provider: 12/30/24 19:50 Source: patient Mode of arrival: ambulatory Limitations: no limitations History of Present Illness HPI narrative: THIS IS 44 YEARS OLD PATIENT WHO PRESENTED TO THE EMERGENCY DEPARTMENT WITH A CHIEF COMPLAINT OF SEIZURE. HE IS AN ALCOHOLIC AND CONTINUED TO DRINK. THE PATIENT IS A FREQUENT UTILIZER OF THE EMERGENCY DEPARTMENT HE WAS SEEN HERE ON DECEMBER 28 SIGNED OUT AGAINST MEDICAL ADVICE. HE HAS A HISTORY OF ENDOCARDITIS VALVE REPLACEMENT ANTICOAGULATED WITH THE WARFARIN Onset (ago): day(s) Radiation: non-radiation Relieving factors: none Exacerbating factors: none Related Data Home Medications ?Medication ?Instructions ?Recorded ?Confirmed clonidine 0.2 mg/24 hr weekly 2 patch transdermal DICKEY 02/28/24 06/26/24 transdermal patch metoprolol tartrate 50 mg tablet 100 mg PO BID 02/28/24 06/26/24 pantoprazole 40 mg tablet,delayed 40 mg PO DAILY@0630 02/28/24 06/26/24 release warfarin 5 mg tablet 5 mg PO DAILY 02/28/24 06/26/24 clonazepam 1 mg tablet 3 mg PO BEDTIME Anxiety 04/17/24 06/26/24 clonidine HCl 0.2 mg tablet 0.1 mg PO DAILY PRN Blood Pressure 04/17/24 06/26/24 acetaminophen 160 mg/5 mL oral 1,000 mg PO QID PRN Pain 06/26/24 06/26/24 liquid ipratropium 0.5 mg-albuterol 3 mg 3 ml inhalation QID PRN Shortness 06/26/24 06/26/24 (2.5 mg base)/3 mL nebulization Of Breath Or Wheezing soln loperamide 1 mg/7.5 mL oral liquid 2 mg PO Q2-4H PRN Loose Stool 06/26/24 06/26/24 (Imodium A-D) zolpidem 5 mg tablet 5 mg PO BEDTIME PRN Insomnia 06/26/24 06/26/24 albuterol sulfate 90 mcg/actuation 2 puff inhalation Q4H PRN dyspnea 12/29/24 aerosol inhaler (Ventolin HFA) cetirizine 10 mg tablet 10 mg PO DAILY 12/29/24 fluconazole 100 mg tablet 200 mg PO DAILY 12/29/24 levetiracetam 500 mg tablet 500 mg PO BID 12/29/24 mirtazapine 15 mg tablet 15 mg PO BEDTIME 12/29/24 warfarin 1 mg tablet 1 - 2 mg PO DAILY 12/29/24 warfarin 2 mg tablet 2 mg PO DAILY 12/29/24 Previous Rx's ?Medication ?Instructions ?Recorded nystatin 100,000 unit/mL oral 100,000 unit buccal DAILY #60 mL 05/09/24 suspension cephalexin 500 mg capsule 500 mg PO QID 7 days #28 caps 07/29/24 doxycycline hyclate 100 mg tablet 100 mg PO BID 7 days #14 tabs 07/29/24 mupirocin 2 % topical ointment 1 appl topical TID 7 days #15 grams 07/29/24 Allergies Allergy/AdvReac Type Severity Reaction Status Date / Time phenytoin (From DILANTIN) Allergy Unknown GAVE PT A Verified 12/30/24 19:32 TOXIC LEVEL fluoxetine (From Prozac) Allergy Unknown Verified 12/30/24 19:32 lidocaine Allergy Unknown Verified 12/30/24 19:32 tramadol Allergy Anaphylaxis Verified 12/30/24 19:32 trazodone Allergy Unknown Verified 12/30/24 19:32 gabapentin (From Neurontin) AdvReac Unknown Verified 12/30/24 19:32 morphine AdvReac Agitated Verified 12/30/24 19:32 Review of Systems Constitutional: Constitutional: Reports no additional constitutional complaints ENT: Reports system reviewed and no additional complaints, except as documented [facility] Past Medical History [facility] Narrative: ALCOHOL ABUSE AORTIC VALVE REPLACEMENT Medical History Bilateral pulmonary embolism Noncompliance with medications Alcohol dependence Endocarditis Surgical History Aortic valve replaced Social History Social History Household Members: Spouse Housing: House Do you presently have visiting nurse or other home services: No Alcohol intake: current Alcohol intake frequency: 0-2 drinks per day Alcohol type: hard liquor Comment: Pt refuses fall risk measures, explained protocol/ safety measures Patient Tobacco Use Status: Tobacco use Unknown Tobacco use type: Cigarette Cigarettes Per Day: 10 e-Cigarette/Vaping Use: Never Used Second Hand Smoke Exposure: No Substance Use Type: Marijuana Advance Directives: No Advance Directives Information Provided: Yes Physical Exam ED Exam Exam: NO DISTRESS Vital Signs: Vital Signs - 24 hr 12/30/24 19:31 Temperature 98.0 F Pulse Rate 127 H Respiratory Rate 20 Blood Pressure 126/82 Pulse Oximetry 96 Oxygen Delivery Method Room Air BMI result Body Mass Index 32.9 Const General: cooperative Nutritional Appearance: average body habitus Orientation/consciousness: oriented to time and patient oriented x3 Limitations: no limitations HENMT General nose exam: Normal external nose present Face and sinus: Yes normal facial exam Mouth: Normal oral and palatal mucosa present Throat: Yes posterior oropharynx normal Neck Neck: Yes normal visual inspection Chest Chest palpation & inspection: normal inspection of the chest Resp Effort & Inspection: normal respiratory effort Auscultation: clear to auscultation bilaterally Cardio Jugular venous distension: no JVD Rate: regular rate Rhythm: regular rhythm GI Inspection: Yes normal to inspection Palpation (GI): Soft to palpation Auscultation: normal bowel sounds Skin General skin exam: no rashes or lesions noted and elasticity normal Lesions: no lesions Rashes: no rashes Wounds: no wounds Neuro General: oriented to time and patient oriented x3 Course Reevaluation(s) Reevaluation #1: Very difficult IV access I cannulated the right EJ with 20 gauge catheter good flash good blood return IV was secured Time: 22:25 Medications Administered Generic Name Dose Route Start Last Admin Trade Name Freq PRN Reason Stop Dose Admin Sodium Chloride 1,000 mls @ 100 mls/hr 12/30/24 22:00 12/30/24 22:37 Ns IVCONT 100 mls/hr .Q10H SHAN Administration Thiamine HCl 100 mg/ Sodium 101 mls @ 202 mls/hr 12/30/24 23:30 12/31/24 01:07 Chloride IV Not Given DAILY SHAN Dextrose/Sodium Chloride 1,000 mls @ 80 mls/hr 12/30/24 23:45 12/31/24 01:08 D51/2ns IVCONT 12/31/24 12:14 Not Given .[id number] SHAN Pantoprazole Sodium 40 mg 12/30/24 23:45 12/31/24 01:08 Pantoprazole Sodium 40 Mg/10 Ml Vial IVPUSH Not Given DAILY@0630 SHAN Discontinued Medications Generic Name Dose Route Start Last Admin Trade Name Freq PRN Reason Stop Dose Admin Diazepam 5 mg 12/30/24 21:35 12/30/24 23:28 Diazepam 5 Mg Tablet PO 12/30/24 21:36 Not Given ONCE ONE Diazepam 5 mg 12/30/24 22:25 12/30/24 22:51 Diazepam 10 Mg/2 Ml Cartridge IVPUSH 12/30/24 22:26 5 mg STAT STA Administration Metoprolol Tartrate 75 mg 12/30/24 23:30 12/31/24 01:07 Metoprolol Tartrate 25 Mg Tablet PO 12/30/24 23:31 Not Given ONCE STA Protocol Phenobarbital Sodium 264 mg 12/30/24 22:30 12/30/24 22:51 Phenobarbital Sodium 130 Mg/Ml Im Once IM 12/30/24 22:31 264 mg ONCE ONE Administration Procedures EJ/Peripheral Line Neck R: Time Out Performed: Yes Skin Cleansed in Sterile Fashion: Yes Size (gauge): 20 IV Secured and Dressing Applied: Yes Patient Tolerated Procedure: well (Difficult IV access I was able to place right IJ labs obtain fluids infusing) Medical Decision Making Medical Decision Making [facility] Narrative: PATIENT IS HERE COMPLAINING OF SEIZURE HE CONTINUES TO DRINK ALCOHOL. The clinical picture is more consistent with a alcohol withdrawal syndrome we will administer IV fluids benzodiazepine and phenobarbital Differential Diagnosis Differential Diagnoses: The differential diagnosis associated with the presentation includes ALCOHOL WITHDRAWAL/DEHYDRATION Admission/Observation Consideration of admission/observation: Escalation of care including admission/observation considered Consult Healthcare Provider Management of the patient was discussed with: Hospitalist Lab Data [facility] Lab Attestation statement: I reviewed the patient's lab results. 12/30/24 20:27 12/30/24 20:27 Labs: Lab Results 12/30/24 12/30/24 Range/Units 20:27 22:58 WBC 16.4 H (4.8-10.8) X10*3/uL RBC 4.26 L (4.60-5.80) X10*6/uL Hgb 12.3 L (14.0-18.0) g/dl Hct 37.3 L (42.0-52.0) % MCV 87.6 (80.0-98.0) fL MCH 28.9 (27.0-33.0) pg MCHC 33.0 (31.0-36.0) g/dl RDW 19.2 H (11.0-16.0) % Plt Count 379 (160-400) X10*3/uL MPV 10.7 (9.4-12.4) fL Immature Gran % (Auto) 0.5 H (0.0-0.4) % Neut % (Auto) 68.4 (45-73) % Lymph % (Auto) 21.7 (20-40) % [place] % (Auto) 7.1 (2-11) % Eos % (Auto) 1.8 (0-4) % Baso % (Auto) 0.5 (0-2) % Lymph # (Auto) 3.6 (1.2-4.9) X10*3/uL [place] # (Auto) 1.2 (0.1-1.2) X10*3/uL Eos # (Auto) 0.3 (0.0-0.4) X10*3/uL Baso # (Auto) 0.1 (0.0-0.2) X10*3/uL Abs Immat Gran (auto) 0.08 H (0.00-0.03) X10*3/uL Absolute Neuts (auto) 11.2 H (2.0-8.3) x10*3/uL Absolute Nucleated RBC 0.030 H (0.0-0.012) X10*3/uL Nucleated RBC % (auto) 0.2 (0.0-0.2) /100WBC PT 87.2 H D (10.9-12.4) SEC INR 7.6 H* D (0.9-1.1) Sodium 139 (135-145) mmol/L Potassium 3.3 (3.3-5.1) mmol/L Chloride 108 (96-108) mmol/L Carbon Dioxide 19 L (22-29) mmol/L Anion Gap 15 (12-20) BUN 6 L (9-16) mg/dL Creatinine 0.71 (0.5-1.4) mg/dL Estim Creat Clear Calc 144.5 Estimated GFR > 60 Random Glucose 99 (60-115) mg/dL Calcium 9.1 (8.4-10.2) mg/dL Magnesium 2.0 (1.6-2.6) mg/dL Total Bilirubin 0.3 (0.0-1.0) mg/dL AST 44 H (5-37) U/L ALT 30 (0-40) U/L Alkaline Phosphatase 115 (39-117) U/L Total Protein 7.7 (6.5-8.0) g/dL Albumin 4.1 (3.5-5.0) g/dL TSH 1.56 (0.32-4.0) uIU/mL Ethyl Alcohol 21 mg/dL Independent Interpretation I performed an independent interpretation of an: EKG (EKG was reviewed interpreted by me as sinus tachycardia rate 111 intraventricular conduction delayed/left bundle-branch block) External Record Review External record reviewed: Inpatient record Chronic Conditions Patient?s care impacted by: Other (AVR ,alcoholism) Critical Care Time Critical Care Time Critical Care Time: Yes Total Critical Care Time: 60 Attestation: Alcohol withdrawal requiring phenobarbital and IV diazepam Discharge Plan Discharge Clinical Impression: Supratherapeutic INR, Metabolic acidosis, Hypokalemia Alcohol withdrawal Qualifiers: Complication of substance-induced condition: uncomplicated Qualified Code(s): F10.930 - Alcohol use, unspecified with withdrawal, uncomplicated Patient Disposition: Admitted As Inpatient
[2024-12-30] MEDS: diazePAM 10 MG/2 ML CARTRIDGE 5 MG IVPUSH (22:51)
[2024-12-30] MEDS: PHENobarbitaL sodium 130 MG/ML IM ONCE 264 MG IM (22:51)
--- NOTE | 2024-12-30 23:03 | ECG_ITS ---
Test Reason : CP Blood Pressure : */* mmHG Vent. Rate : 111 BPM Atrial Rate : 111 BPM P-R Int : 126 ms QRS Dur : 142 ms QT Int : 398 ms P-R-T Axes : 32 -14 122 degrees QTcB Int : 541 ms Sinus tachycardia Left bundle branch block Abnormal ECG When compared with ECG of 28-Dec-2024 22:21, No significant change was found Referred By: Arnulfo Cordero Electronically Signed By: Nicholas Hinojosa
[2024-12-30 23:15] LABS: Prothrombin Time 87.2 SEC (10.9-12.4)
[2024-12-30 23:21] LABS: INTERNATIONAL NORM RATIO 7.6 (0.9-1.1)
--- NOTE | 2024-12-30 23:40 | PC.NURSE ---
RN assumed care of this pt at 2300- RN to medicate pt per mar and continue to monitor during shift.
--- NOTE | 2024-12-30 23:42 | P.HPHOSP_ITS ---
History of Present Illness Date of Service: 12/30/24 Attending physician on admission: Paulo Wall Chief Complaint: Seizures Ok Zapata is a 44 years old man with a past medical history significant for alcohol abuse (drinks 20 nips of whiskey daily), alcohol withdrawal seizure, bilateral PE, 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 He is not a vague historian. According to ED notes patient visited the ED 2 days ago with similar symptoms. At that time he fell down and hit his head. It seems like the patient's has been witnessing patient's seizures and describing postictal confusion. The patient also complained of nausea but denied vomiting. Denied abdominal pain. He has a been having poor appetite. Also complained of on and off chest discomfort and constant shortness on breath. He is complaining of right leg pain. Last found he underwent a right leg CT scan that showed a hematoma anterior to the tibia. Last time he drank alcohol was today at 4 p.m.. He was very adamant that he is not an alcoholic and denied history of cirrhosis. He denied illicit drug use or tobacco smoking. He mentioned that he has not been taking his medication and that the last time he took the warfarin was 4 days ago. In the ED today, he was found to have stable vital signs except for tachycardia consistent with rapid AFib. Blood workup showed leukocytosis of 16.4, hemoglobin 12.3 and platelets 379. INR is 7.6. There are no significant electrolyte imbalances, but CO2 is 19. BUN is 6 and creatinine 0.71. LFTs remarkable for elevated AST, 44. Albumin is 4.1. UA yesterday showed elevated specific gravity, protein 1+ and trace leukocyte esterase. RBCs and WBCs are within normal limits. Head CT scan (12/29/2024) showed no acute intracranial abnormalities. ECG is consistent with sinus tachycardia, there is a left bundle branch block (old). ED tx: Valium 5 mg p.o., Valium 5 mg IV, phenobarbital 264 mg IM Review of Systems 2 Review of Systems: All 12 systems were reviewed and normal except as noted in HPI. [facility] Medical History Bilateral pulmonary embolism Noncompliance with medications Alcohol dependence Endocarditis Surgical History Aortic valve replaced Social History Household Members: Spouse Housing: House Do you presently have visiting nurse or other home services: No Alcohol intake: current Alcohol intake frequency: 0-2 drinks per day Alcohol type: hard liquor Comment: Pt refuses fall risk measures, explained protocol/ safety measures Patient Tobacco Use Status: Tobacco use Unknown Tobacco use type: Cigarette Cigarettes Per Day: 10 e-Cigarette/Vaping Use: Never Used Second Hand Smoke Exposure: No Substance Use Type: Marijuana Advance Directives: No Advance Directives Information Provided: Yes Meds Allergies Allergy/AdvReac Type Severity Reaction Status Date / Time phenytoin (From DILANTIN) Allergy Unknown GAVE PT A Verified 12/30/24 19:32 TOXIC LEVEL fluoxetine (From Prozac) Allergy Unknown Verified 12/30/24 19:32 lidocaine Allergy Unknown Verified 12/30/24 19:32 tramadol Allergy Anaphylaxis Verified 12/30/24 19:32 trazodone Allergy Unknown Verified 12/30/24 19:32 gabapentin (From Neurontin) AdvReac Unknown Verified 12/30/24 19:32 morphine AdvReac Agitated Verified 12/30/24 19:32 Active Medications: Current Medications Acetaminophen (Acetaminophen 325 Mg Tablet) 650 mg PO Q6H PRN PRN Reason: Pain, Mild 1-3,fever,headache Calcium Carbonate (Calcium Carbonate 750 Mg Tab.Chew) 750 mg PO Q4H PRN PRN Reason: Heartburn Diazepam (Diazepam 10 Mg/2 Ml Cartridge) 5 mg IVPUSH Q4H PRN PRN Reason: Alcohol Withdrawal Sodium Chloride (Ns) 1,000 mls @ 100 mls/hr IVCONT .Q10H SHAN Last Admin: 12/30/24 22:37 Dose: 100 mls/hr Thiamine HCl 100 mg/ Sodium (Chloride) 101 mls @ 202 mls/hr IV DAILY SHAN Dextrose/Sodium Chloride (D51/2ns) 1,000 mls @ 80 mls/hr IVCONT .[id number] SHAN Stop: 12/31/24 12:14 Magnesium Hydroxide (Milk Of Magnesia 30 Ml Oral.Susp) 30 ml PO DAILY PRN PRN Reason: Constipation Melatonin (Melatonin 3 Mg Tablet) 6 mg PO BEDTIME PRN PRN Reason: Insomnia Pantoprazole Sodium (Pantoprazole Sodium 40 Mg/10 Ml Vial) 40 mg IVPUSH DAILY@0630 [facility] Pharmacy Consult (Consult Rx Etoh Phenob Im/Po) 1 each MISCELLANE ONCE PRN; Protocol PRN Reason: Consult order Phenobarbital (Phenobarbital 15 Mg Tablet) 45 mg PO BID [facility] Stop: 01/01/25 21:01 Phenobarbital (Phenobarbital 30 Mg Tablet) 30 mg PO BID [facility] Stop: 01/03/25 21:01 Phenobarbital (Phenobarbital 15 Mg Tablet) 15 mg PO DAILY [facility] Stop: 01/05/25 09:01 Phenobarbital Sodium (Phenobarbital Sodium 130 Mg/Ml Vial Im Q3hx2) 198 mg IM Q3H [facility] Stop: 12/31/24 05:01 Prochlorperazine Edisylate (Prochlorperazine Edisylate 10 Mg/2 Ml Vial) 5 mg IVPUSH Q4H PRN PRN Reason: Nausea and Vomiting Sodium Chloride (0.9 % Sodium Chloride Flush 3 Ml Syringe) 3 ml IVFLUSH QSHIFT [facility] Home Medications ?Medication ?Instructions ?Recorded ?Confirmed ?Last Taken ?Type clonidine 0.2 mg/24 hr weekly 2 patch transdermal DICKEY 1 04/30/23 06/26/24 06/26/24 00:00 History transdermal patch metoprolol tartrate 50 mg tablet 100 mg PO BID 4 06/26/24 04/16/24 History 100 mg pantoprazole 40 mg tablet,delayed 40 mg PO DAILY@0630 02/28/24 06/26/24 04/16/24 History release warfarin 5 mg tablet 5 mg PO DAILY 02/28/2406/2606/24/24 History clonazepam 1 mg tablet 3 mg PO BEDTIME Anxiety 05/1006/26/24 04/16/24 History 1 mg clonidine HCl 0.2 mg tablet 0.1 mg PO DAILY PRN Blood Pressure 04/17/24 06/26/24 Unknown History acetaminophen 160 mg/5 mL oral 1,000 mg PO QID PRN Abdirahman n 06/26/24 06/26/24 Unknown History liquid ipratropium 0.5 mg-albuterol 3 mg 3 ml inhalation QID PRN Shortness 06/26/24 06/26/24 Unknown History (2.5 mg base)/3 mL nebulization Of Breath Or Wheezing soln loperamide 1 mg/7.5 mL oral liquid 2 mg PO Q2-4H PRN L oose Stool 06/26/24 06/26/24 Unknown History (Imodium A-D) zolpidem 5 mg tablet 5 mg PO BEDTIME PRN Insomnia 06/26/24 06/26/24 Unknown History albuterol sulfate 90 mcg/actuation 2 puff inhalation Q 4H PRN dyspnea 12/29/24 Unknown History aerosol inhaler (Ventolin HFA) cetirizine 10 mg tablet 10 mg PO DAILY 12/29/24 Unk nown History fluconazole 100 mg tablet 200 mg PO DAILY 12/29/24 Un known History levetiracetam 500 mg tablet 500 mg PO BID 12/29/24 Un known History mirtazapine 15 mg tablet 15 mg PO BEDTIME 12/29/24 U nknown History warfarin 1 mg tablet 1 - 2 mg PO DAILY 12/29/24 Unknown History warfarin 2 mg tablet 2 mg PO DAILY 12/29/24 Unkn own History Physical Exam 2 Vital Signs and Narrative: Vital Signs: Last Vital Signs Temp 98.0 F 12/30/24 19:31 Pulse 127 H 12/30/24 19:31 Resp 20 12/30/24 19:31 BP 126/82 12/30/24 19:31 Pulse Ox 96 12/30/24 19:31 O2 Del Method Room Air 12/30/24 19:31 BMI result Body Mass Index 32.9 General: Alert, oriented, in no acute distress. Well nourished and cooperative. Afebrile. Looks intoxicated. HEENT: Head normocephalic, atraumatic. PER, EOMI. Sclerae anicteric, conjunctiva clear. Oropharynx without erythema or exudate. Dry oral mucosa. Neck: Supple. Heart: Tachycardic, regular rhythm. Murmur. Lungs: Clear to auscultation bilaterally. No wheezes, rales, or rhonchi. Normal respiratory effort. Abdomen: Soft, non tenderness, nondistended, normoactive bowel sounds. No hepatosplenomegaly, masses or masses. Extremities: Bilateral lower extremity edema. Right leg: Tenderness to palpation over the anterior aspect. No wounds of hematomas grossly noted. Musculoskeletal: Full range of motion. No joint swelling, deformity, or tenderness. Normal muscle tone and strength. Skin: Warm/Dry. No pallor. No jaundice. Neurologic: Alert & oriented x4. Moving all extremities spontaneously. CN Slurred speech. Psychological: Depressed mood and affect. Thought process coherent. Poor insight. Results Labs 12/30/24 20:27 12/30/24 20:27 Labs: Laboratory Results - last 24 hr 12/30/24 12/30/24 20:27 22:58 MCV 87.6 MCH 28.9 MCHC 33.0 RDW 19.2 H Plt Count 379 MPV 10.7 Immature Gran % (Auto) 0.5 H Neut % (Auto) 68.4 Lymph % (Auto) 21.7 [place] % (Auto) 7.1 Eos % (Auto) 1.8 Baso % (Auto) 0.5 Lymph # (Auto) 3.6 [place] # (Auto) 1.2 Eos # (Auto) 0.3 Baso # (Auto) 0.1 Abs Immat Gran (auto) 0.08 H Absolute Neuts (auto) 11.2 H Absolute Nucleated RBC 0.030 H Nucleated RBC % (auto) 0.2 PT 87.2 H D INR 7.6 H* D Anion Gap 15 Estim Creat Clear Calc 144.5 Estimated GFR > 60 Random Glucose 99 Calcium 9.1 Magnesium 2.0 Total Bilirubin 0.3 AST 44 H ALT 30 Alkaline Phosphatase 115 Total Protein 7.7 Albumin 4.1 Ethyl Alcohol 21 Assessment and Plan (1) Alcohol withdrawal seizure: Qualifiers: Complication of substance-induced condition: with unspecified complication Qualified Code(s): F10.939 - Alcohol use, unspecified with withdrawal, unspecified; R56.9 - Unspecified convulsions Status: Acute (2) Right leg pain: Status: Inactive Plan Ok Zapata is a 44 y/o man with a PMHx significant for alcohol abuse (drinks 20 nips of whiskey daily) presents with: Alcohol withdrawal seizures. Telemetry. Fall and seizure precautions. Absolute bedrest. Continue phenobarbital protocol. Valium IV as needed. Thiamine 100 mg IV now then daily. IV fluids with D5. Folic acid and multivitamins. CIWA. Encouraged to abstain for alcohol intake. Social work and additional medicine consult. Sinus tachycardia, underlying old LBBB, likely due to alcohol withdrawal and/or dehydration. Telemetry. Check CXR. Obtain TTE. Continue metoprolol. Supratherapeutic INR. Hold warfarin and restart when INR 2.5 - 3.5. Continue to monitor INR daily. Bilateral lower extremity edema + right leg pain. Recent LE ultrasound showed hematoma anterior tibia. Recheck CT scan and obtain bilateral ultrasound of the lower extremities to assess for ongoing DVT (per Radiology patient has refused these). History of mechanical valve replacement -history of endocarditis. Continue warfarin when goal INR. Essential hypertension. Continue metoprolol. GERD. Continue Protonix IV. Hx of VTE. On warfarin -currently on hold due showed up to the supratherapeutic INR. Code status: Full DVT prophylaxis: Continue heparin when able, INR currently supratherapeutic. GI prophylaxis. Protonix IV Patient will need hospitalization for at least 2 midnights for alcohol withdrawal seizures treatment and evaluation with phenobarbital IM, continuous CIWA monitoring and vital signs. Quality Stroke Does the patient have a stroke diagnosis?: No VTE Prior VTE?: No VTE Risk Level:: Medical - moderate - high VTE Device Contraindication: N/A - Device Ordered VTE Drug Contraindication: N/A - Med Ordered
[2024-12-31 00:33] VITALS: BP 115/75; PULSE 109
--- NOTE | 2024-12-31 00:38 | PC.NURSE ---
Addendum entered by Aviva Lopez RN 12/31/24 00:58: RN informed MD that pt wants to talk to her in regards in sleeping meds- MD placed an order of ambien- pt refused. MD made aware. Original Note: pt refused all meds that were due per mar- stated hes not a fucking kid i don't want melatonin to sleep. Let that [facility] hospitalist know I need to talk to her or I'm leaving. RN sent message to . meds were returned and wasted.
[2024-12-31 00:49] LABS: Thyroid Stimulating Hormone 1.56 uIU/mL (0.32-4.0)
[2024-12-31] MEDS: diazePAM 10 MG/2 ML CARTRIDGE 7.5 MG IVPUSH (01:43)
[2024-12-31] MEDS: PHENobarbitaL sodium 130 MG/ML VIAL IM Q3Hx2 198 MG IM ×2 (02:10→05:26)
[2024-12-31 02:12] VITALS: BP 116/67; PULSE 99; O2SAT 93
[2024-12-31 05:40] VITALS: BP 145/88; PULSE 96; RESP 24; TEMP 36.6; O2SAT 99
--- NOTE | 2024-12-31 07:20 | PC.NURSE ---
Pt has been non-compliant with night nursing staff, pt kept disconnecting his IV fluids and was refusing medications. Pt reportedly wanted to leave AMA, is now saying he doesn't, requesting valium for anxiety and seems agitated. RR even and unlabored, pt is ambulatory but a little unsteady on his feet. Pt refusing assistance. Pt requesting doctor to look at his legs. Dr. Benton Dash notified.
[2024-12-31 07:37] VITALS: BP 144/93; PULSE 94; RESP 18; O2SAT 96
[2024-12-31] MEDS: diazePAM 10 MG/2 ML CARTRIDGE 5 MG IVPUSH (07:38)
--- NOTE | 2024-12-31 08:21 | PC.NURSE ---
Pt is hear, pt sts he is going to leave.pt ripped out iv and said he is leaving. Doctor here to talk to him.
--- NOTE | 2024-12-31 08:24 | PC.NURSE ---
IV site checked after pt ripped out IV. Bleeding is controlled. IV catheter disposed.
[2024-12-31 08:34] VITALS: BP 144/93; PULSE 94; RESP 18; TEMP -17.7; TEMP 0; O2SAT 96
--- NOTE | 2024-12-31 08:42 | MHC.RECOVRN ---
Consult received for AUD. Unable to perform recovery/BH assessment due to pt self directed discharge.
--- NOTE | 2024-12-31 09:46 | PM.DS ---
DS: Providers Provider Date of Service: 12/31/24 Date of admission: 12/30/24 23:31 Date of discharge: 12/31/24 Primary care physician: Tomas Jordan MD Consults: 12/31/24 00:13 Addiction Medicine Provider Routine Consulting Provider: Addiction Covering Reason for consultation: Alcohol abuse Has provider been notified: No DS: Diagnosis Discharge Diagnosis (1) Alcohol withdrawal seizure: Status: Acute (2) Right leg pain: Status: Inactive (3) Alcohol withdrawal: Status: Acute DS: Summary Hospital Course Hospital Course: Admission note HPI a 44 years old man with a past medical history significant for alcohol abuse (drinks 20 nips of whiskey daily), alcohol withdrawal seizure, bilateral PE, 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 He is not a vague historian. According to ED notes patient visited the ED 2 days ago with similar symptoms. At that time he fell down and hit his head. It seems like the patient's has been witnessing patient's seizures and describing postictal confusion. The patient also complained of nausea but denied vomiting. Denied abdominal pain. He has a been having poor appetite. Also complained of on and off chest discomfort and constant shortness on breath. He is complaining of right leg pain. Last found he underwent a right leg CT scan that showed a hematoma anterior to the tibia. Last time he drank alcohol was today at 4 p.m.. He was very adamant that he is not an alcoholic and denied history of cirrhosis. He denied illicit drug use or tobacco smoking. He mentioned that he has not been taking his medication and that the last time he took the warfarin was 4 days ago. In the ED today, he was found to have stable vital signs except for tachycardia consistent with rapid AFib. Blood workup showed leukocytosis of 16.4, hemoglobin 12.3 and platelets 379. INR is 7.6. There are no significant electrolyte imbalances, but CO2 is 19. BUN is 6 and creatinine 0.71. LFTs remarkable for elevated AST, 44. Albumin is 4.1. UA yesterday showed elevated specific gravity, protein 1+ and trace leukocyte esterase. RBCs and WBCs are within normal limits. Head CT scan (12/29/2024) showed no acute intracranial abnormalities. ECG is consistent with sinus tachycardia, there is a left bundle branch block (old). Hospital course. The patient was started on Phenobarbital protocol and received doses of Diazepam on top of that with reported improving in his symptoms and CIWA but he refused to stay in the hospital to finish his medical treatment. I went to ED and spoke to him explaining the risks of leaving the hospital without finishing treatment including worsening withdrawal symptoms, risk of seizures and possible respiratory distress and failure. He understood but insisted on leaving. He refused to sign AMA papers to my knowledge as well. Time Attestation Discharge Coordination Time (in mins): 34 Quality: Safe Use of Opioids Does Pt have an Active Cancer Diagnosis on the Problem List?: No Quality: Stroke Does the patient have a stroke diagnosis?: No Physical Exam Exam: Exam: AMA Vital Signs: Vital Signs: Last Vital Signs Temp 0 F L 12/31/24 08:34 Pulse 94 12/31/24 08:34 Resp 18 12/31/24 08:34 BP 144/93 H 12/31/24 08:34 Pulse Ox 96 12/31/24 08:34 O2 Del Method Room Air 12/31/24 08:34 BMI result Body Mass Index 32.9 DS: Data Data Completed and Pending Completed studies during hospitalization [Text1]: Procedures Detox[facility] for Substance Abuse Treatment (06/26/24) Labs on day of discharge: Laboratory Results - last 24 hr 12/30/24 12/30/24 20:27 22:58 WBC 16.4 H RBC 4.26 L Hgb 12.3 L Hct 37.3 L MCV 87.6 MCH 28.9 MCHC 33.0 RDW 19.2 H Plt Count 379 MPV 10.7 Immature Gran % (Auto) 0.5 H Neut % (Auto) 68.4 Lymph % (Auto) 21.7 [place] % (Auto) 7.1 Eos % (Auto) 1.8 Baso % (Auto) 0.5 Lymph # (Auto) 3.6 [place] # (Auto) 1.2 Eos # (Auto) 0.3 Baso # (Auto) 0.1 Abs Immat Gran (auto) 0.08 H Absolute Neuts (auto) 11.2 H Absolute Nucleated RBC 0.030 H Nucleated RBC % (auto) 0.2 PT 87.2 H D INR 7.6 H* D Sodium 139 Potassium 3.3 Chloride 108 Carbon Dioxide 19 L Anion Gap 15 BUN 6 L Creatinine 0.71 Estim Creat Clear Calc 144.5 Estimated GFR > 60 Random Glucose 99 Calcium 9.1 Magnesium 2.0 Total Bilirubin 0.3 AST 44 H ALT 30 Alkaline Phosphatase 115 Total Protein 7.7 Albumin 4.1 TSH 1.56 Ethyl Alcohol 21 Discharge Plan Discharge Anticipated Discharge Date/Time: 12/31/24 09:57 Patient Disposition: Left Against Medical Advice Discharge Diagnosis: AMA Referrals: Tomas Jordan MD [Primary Care Provider, Medical] - 1 Week Discharge Medications: No Action clonidine 0.2 mg/24 hr patch weekly 2 patch transdermal DICKEY pantoprazole 40 mg tablet,delayed release (DR/EC) 40 mg PO DAILY@0630 metoprolol tartrate 50 mg tablet 100 mg PO BID warfarin 5 mg tablet 5 mg PO DAILY nystatin 100,000 unit/mL suspension 100,000 unit buccal DAILY Qty: 60 0RF Rx Instructions: administer 1/2 of dose in each side of the mouth fluconazole 100 mg tablet 200 mg PO DAILY cetirizine 10 mg tablet 10 mg PO DAILY levetiracetam 500 mg tablet 500 mg PO BID warfarin 2 mg tablet 2 mg PO DAILY mirtazapine 15 mg tablet 15 mg PO BEDTIME warfarin 1 mg tablet 1 - 2 mg PO DAILY albuterol sulfate [Ventolin HFA] 90 mcg/actuation HFA aerosol inhaler 2 puff inhalation Q4H PRN (Reason: dyspnea) clonazepam 1 mg tablet 3 mg PO BEDTIME clonidine HCl 0.2 mg Tablet 0.1 mg PO DAILY PRN (Reason: Blood Pressure) ipratropium-albuterol 0.5 mg-3 mg(2.5 mg base)/3 mL solution for nebulization 3 ml inhalation QID PRN (Reason: Shortness Of Breath Or Wheezing) acetaminophen 160 mg/5 mL Liquid 1,000 mg PO QID PRN (Reason: Pain) zolpidem 5 mg tablet 5 mg PO BEDTIME PRN (Reason: Insomnia) loperamide [Imodium A-D] 1 mg/7.5 mL Liquid 2 mg PO Q2-4H PRN (Reason: Loose Stool) Rx Instructions: administer after each loose stool until symptoms controlled; do not exceed 16 mg per 24 hrs cephalexin 500 mg capsule 500 mg PO QID 7 Days Qty: 28 0RF doxycycline hyclate 100 mg tablet 100 mg PO BID 7 Days Qty: 14 0RF mupirocin 2 % ointment 1 appl topical TID 7 Days Qty: 15 0RF Discharge Orders: Discharge Order (Routine); Ordered 12/31/24 Ordered By: Benton Dash Print Language: [place] Care Plan Goals: . Health Concerns: . Plan of Treatment: . Assessment: . Discharge Date/Time: 12/31/24 08:34
[2025-01-04 11:28] LABS: Levetiracetam Keppra 6.5 mcg/mL (6.0-46.0)
== END 2024-12-31 08:34 | disposition left against medical advice (07) | DRG 770 ==
LOC: HO.ED 23:23 → HO.EDOVER 23:33
PROVIDERS: Admitting Provider Internal Medicine; Emergency Provider Emergency Medicine; PCP Internal Medicine; Visit Provider Student in an Organized Health Care Education/Training Program
DX: F10.239 Alcohol dependence with withdrawal, unspecified (principal); R56.9 Unspecified convulsions; E86.0 Dehydration; Y90.1 Blood alcohol level of 20-39 mg/100 ml; I10 Essential (primary) hypertension; K21.9 Gastro-esophageal reflux disease without esophagitis; Z95.2 Presence of prosthetic heart valve; Z86.711 Personal history of pulmonary embolism; Z79.01 Long term (current) use of anticoagulants; Z79.899 Other long term (current) drug therapy
CPT/HCPCS: 36415; 80053; 80177; 80307; 83735; 84443; 85025; 85610; 93005; 99285; J2560; J3360

== ENCOUNTER → 2024-12-30 23:03 | Outpatient (BNV) | payer MEDICAID, SELFPAY | PROVIDERS: Admitting Provider Internal Medicine; Emergency Provider Emergency Medicine; PCP Internal Medicine; Visit Provider Internal Medicine Cardiovascular Disease | DX: R00.0 Tachycardia, unspecified (principal); I44.7 Left bundle-branch block, unspecified | CPT/HCPCS: 93010 ==

== ENCOUNTER → 2024-12-30 23:31 | Outpatient (BNV) | payer MEDICAID, SELFPAY | PROVIDERS: Admitting Provider Internal Medicine; Emergency Provider Emergency Medicine; Visit Provider Internal Medicine | DX: F10.939 Alcohol use, unspecified with withdrawal, unspecified (principal); R56.9 Unspecified convulsions; M79.604 Pain in right leg | CPT/HCPCS: 99223; 99239 ==

== ENCOUNTER 2024-12-31 19:25 | Emergency (ER) | payer MEDICAID, SELFPAY ==
[2024-12-31 19:28] VITALS: BP 156/98; PULSE 126; RESP 28; O2SAT 97; BMI 32.9
--- NOTE | 2024-12-31 19:28 | ED.GENADULT ---
HPI - General Adult General Chief complaint: Seizure Stated complaint: seizures Time Seen by Provider: 12/31/24 21:01 Source: patient Mode of arrival: ambulatory Limitations: no limitations History of Present Illness ED Provider: Dr. Rivas HPI narrative: 44-year-old male history of seizure disorder on Keppra, alcohol use disorder presented hospital today for a seizure-like activity. Patient stated that he was at another hospital however the wait time was long therefore he presents to the ER here. Patient stated he had a seizure activity. He has not taking his Keppra medicine as his sister still his medication. He stated that he had seizure likely to trying to quit alcohol. However his last drink was prior to arrival here. Related Data Home Medications ?Medication ?Instructions ?Recorded ?Confirmed clonidine 0.2 mg/24 hr weekly 2 patch transdermal DICKEY 02/28/24 06/26/24 transdermal patch metoprolol tartrate 50 mg tablet 100 mg PO BID 02/28/24 06/26/24 pantoprazole 40 mg tablet,delayed 40 mg PO DAILY@0630 02/28/24 06/26/24 release warfarin 5 mg tablet 5 mg PO DAILY 02/28/24 06/26/24 clonazepam 1 mg tablet 3 mg PO BEDTIME Anxiety 04/17/24 06/26/24 clonidine HCl 0.2 mg tablet 0.1 mg PO DAILY PRN Blood Pressure 04/17/24 06/26/24 acetaminophen 160 mg/5 mL oral 1,000 mg PO QID PRN Pain 06/26/24 06/26/24 liquid ipratropium 0.5 mg-albuterol 3 mg 3 ml inhalation QID PRN Shortness 06/26/24 06/26/24 (2.5 mg base)/3 mL nebulization Of Breath Or Wheezing soln loperamide 1 mg/7.5 mL oral liquid 2 mg PO Q2-4H PRN Loose Stool 06/26/24 06/26/24 (Imodium A-D) zolpidem 5 mg tablet 5 mg PO BEDTIME PRN Insomnia 06/26/24 06/26/24 albuterol sulfate 90 mcg/actuation 2 puff inhalation Q4H PRN dyspnea 12/29/24 aerosol inhaler (Ventolin HFA) cetirizine 10 mg tablet 10 mg PO DAILY 12/29/24 fluconazole 100 mg tablet 200 mg PO DAILY 12/29/24 levetiracetam 500 mg tablet 500 mg PO BID 12/29/24 mirtazapine 15 mg tablet 15 mg PO BEDTIME 12/29/24 warfarin 1 mg tablet 1 - 2 mg PO DAILY 12/29/24 warfarin 2 mg tablet 2 mg PO DAILY 12/29/24 Previous Rx's ?Medication ?Instructions ?Recorded nystatin 100,000 unit/mL oral 100,000 unit buccal DAILY #60 mL 05/09/24 suspension cephalexin 500 mg capsule 500 mg PO QID 7 days #28 caps 07/29/24 doxycycline hyclate 100 mg tablet 100 mg PO BID 7 days #14 tabs 07/29/24 mupirocin 2 % topical ointment 1 appl topical TID 7 days #15 grams 07/29/24 Allergies Allergy/AdvReac Type Severity Reaction Status Date / Time phenytoin (From DILANTIN) Allergy Unknown GAVE PT A Verified 12/31/24 19:33 TOXIC LEVEL fluoxetine (From Prozac) Allergy Unknown Verified 12/31/24 19:33 lidocaine Allergy Unknown Verified 12/31/24 19:33 tramadol Allergy Anaphylaxis Verified 12/31/24 19:33 trazodone Allergy Unknown Verified 12/31/24 19:33 gabapentin (From Neurontin) AdvReac Unknown Verified 12/31/24 19:33 morphine AdvReac Agitated Verified 12/31/24 19:33 peppers Allergy Unknown Uncoded 12/31/24 07:11 Review of Systems Review of Systems: Pertinent review of systems as mentioned in HPI. All other system otherwise negative. [facility] Past Medical History [facility] Narrative: Medical history as mentioned in HPI Medical History Bilateral pulmonary embolism Noncompliance with medications Alcohol dependence Endocarditis Surgical History Aortic valve replaced Social History Social History Household Members: Spouse Housing: House Do you presently have visiting nurse or other home services: No Alcohol intake: current Alcohol intake frequency: 0-2 drinks per day Alcohol type: hard liquor Comment: Pt refuses fall risk measures, explained protocol/ safety measures Patient Tobacco Use Status: Tobacco use Unknown Tobacco use type: Cigarette Cigarettes Per Day: 10 e-Cigarette/Vaping Use: Never Used Second Hand Smoke Exposure: No Substance Use Type: Marijuana Advance Directives: No Advance Directives Information Provided: No Do you have a plan to hurt others: No Plan Physical Exam ED Exam Exam: General: Pleasant, no distress, interacting appropriately Head: Normacephalic, atraumatic ENT: oral mucosa dry, neck supple, no tracheal deviation Cardiovascular: Tachycardic regular rhythm, no murmurs, rubbing, gallops Respiratory: CTAB, no wheeze, rales, rhonchi Gastrointestinal: Soft, non distended, non tender, non guarding Extremities: Ecchymosis from previous IV attempts in the upper extremities bilaterally Neurological: Awake and alert, no facial droop noted, no focal neurological deficits Skin: Warm and dry Psychiatric: Appropriate mood and thoughts Vital Signs: Vital Signs - 24 hr 12/31/24 19:28 Pulse Rate 126 H Respiratory Rate 28 H Blood Pressure 156/98 H Pulse Oximetry 97 Oxygen Delivery Method Room Air BMI result Body Mass Index 32.9 Course Course Course Narrative: This is a rapid medical exam performed by Марина Ingram NP: Additional HPI, ROS, PE not included below will be deferred to primary provider. Patient is a 44y/o M with pmhx ETOH dependence, endocarditis, PE presenting with report of seizure immediately prior to arrival. States he was here yesterday but left AMA. Reports last alcohol intake was on his way here, before that was after leaving AMA this morning. Drinking 25 nips/day. Plan: EKG, labs Medications Administered Discontinued Medications Generic Name Dose Route Start Last Admin Trade Name Freq PRN Reason Stop Dose Admin Sodium Chloride 1,000 mls @ 999 mls/hr 12/31/24 21:00 12/31/24 21:48 Ns IV 12/31/24 22:00 999 mls/hr .Q1H1M SHAN Administration Levetiracetam 1,000 mg in 100 mls @ 400 mls/hr 12/31/24 21:49 12/31/24 21:54 Keppra IV 12/31/24 22:03 400 mls/hr ONCE ONE Administration Medical Decision Making Medical Decision Making [facility] Narrative: 44-year-old male history of seizure disorder on Keppra, alcohol use disorder presented hospital today for evaluation of seizure-like activity. Started IV fluid, IV magnesium, was going to plan to load the patient with IV Keppra. Difficulty IV access. Ultrasound IV was placed and the patient's right arm. I placed a 18 gauge needle. All of a sudden the patient become irritable at the nurse and requests to leave AMA. The patient is using foul languages at a nursing staff. Calls the nurse a bitch and that she is incompetent. Patient is clinically sober on my evaluation. Ambulate without any issues. He understands the risk of leaving. Patient is leaving the ER at this time. Differential Diagnosis Differential Diagnoses: The differential diagnosis associated with the presentation includes seizure like activity, seizure like activity, med non compliance Lab Data MDM Lab Attestation statement: I reviewed the patient's lab results. 12/31/24 20:26 12/31/24 20: Labs: Lab Results 12/31/24 12/31/24 Range/Units 20: 20:26 WBC 15.4 H (4.8-10.8) X10*3/uL RBC 3.91 L (4.60-5.80) X10*6/uL Hgb 11.2 L (14.0-18.0) g/dl Hct 34.3 L (42.0-52.0) % MCV 87.7 (80.0-98.0) fL MCH 28.6 (27.0-33.0) pg MCHC 32.7 (31.0-36.0) g/dl RDW 19.2 H (11.0-16.0) % Plt Count 390 (160-400) X10*3/uL MPV 10.6 (9.4-12.4) fL Immature Gran % (Auto) 0.4 (0.0-0.4) % Neut % (Auto) 66.1 (45-73) % Lymph % (Auto) 21.3 (20-40) % [place] % (Auto) 9.6 (2-11) % Eos % (Auto) 1.9 (0-4) % Baso % (Auto) 0.7 (0-2) % Lymph # (Auto) 3.3 (1.2-4.9) X10*3/uL [place] # (Auto) 1.5 H (0.1-1.2) X10*3/uL Eos # (Auto) 0.3 (0.0-0.4) X10*3/uL Baso # (Auto) 0.1 (0.0-0.2) X10*3/uL Abs Immat Gran (auto) 0.06 H (0.00-0.03) X10*3/uL Absolute Neuts (auto) 10.2 H (2.0-8.3) x10*3/uL Absolute Nucleated RBC 0.030 H (0.0-0.012) X10*3/uL Nucleated RBC % (auto) 0.2 (0.0-0.2) /100WBC Sodium 141 (135-145) mmol/L Potassium 3.1 L (3.3-5.1) mmol/L Chloride 108 (96-108) mmol/L Carbon Dioxide 21 L (22-29) mmol/L Anion Gap 15 (12-20) BUN 5 L (9-16) mg/dL Creatinine 0.69 (0.5-1.4) mg/dL Estim Creat Clear Calc 148.6 Estimated GFR > 60 Random Glucose 90 (60-115) mg/dL Lactic Acid 3.3 H* (0.5-2.0) mmol/L Calcium 8.5 D (8.4-10.2) mg/dL Magnesium 1.9 (1.6-2.6) mg/dL Total Bilirubin 0.3 (0.0-1.0) mg/dL AST 39 H (5-37) U/L ALT 26 (0-40) U/L Alkaline Phosphatase 98 (39-117) U/L NT-Pro-B Natriuret Pep 200.6 (<300) pg/mL Total Protein 6.6 (6.5-8.0) g/dL Albumin 3.5 (3.5-5.0) g/dL Urine Color Yellow Urine Appearance Clear Urine pH 7.0 (5.0-9.0) Ur Specific Manson <= 1.005 (1.005-1.025) Urine Protein Negative (Neg-Trace) mg/dL Urine Glucose (UA) Negative (Negative) mg/dL Urine Ketones Negative (Negative) mg/dL Urine Blood Negative (Negative) Urine Nitrite Negative (Negative) Ur Leukocyte Esterase Negative (Negative) Urine Opiates Screen Not Detected (Not Detect) Ur Buprenorphine Scrn Not Detected (Not Detect) ng/mL Ur Oxycodone Screen Not Detected (Not Detect) ng/mL Urine Methadone Screen Not Detected (Not Detect) ng/mL Urine Fentanyl Screen Not Detected (Not Detect) Ur Barbiturates Screen POSITIVE H (Not Detect) Ur Phencyclidine Scrn Not Detected (Not Detect) Ur Amphetamines Screen Not Detected (Not Detect) U Benzodiazepines Scrn Not Detected (Not Detect) Urine Cocaine Screen Not Detected (Not Detect) U Marijuana (THC) Screen Not Detected (Not Detect) Ethyl Alcohol 10 mg/dL COVID-19 (MILES) Negative (Negative) COVID-19 Clin Com See Note Influenza Type A (LINCOLN) Negative (Negative) Influenza Type B ([place]) Negative (Negative) Influenza A & B Note See Note Discharge Plan Discharge Clinical Impression: Seizure-like activity Patient Disposition: Left Against Medical Advice Prescriptions: No Action clonidine 0.2 mg/24 hr patch weekly 2 patch transdermal DICKEY pantoprazole 40 mg tablet,delayed release (DR/EC) 40 mg PO DAILY@0630 metoprolol tartrate 50 mg tablet 100 mg PO BID warfarin 5 mg tablet 5 mg PO DAILY nystatin 100,000 unit/mL suspension 100,000 unit buccal DAILY Qty: 60 0RF Rx Instructions: administer 1/2 of dose in each side of the mouth fluconazole 100 mg tablet 200 mg PO DAILY cetirizine 10 mg tablet 10 mg PO DAILY levetiracetam 500 mg tablet 500 mg PO BID warfarin 2 mg tablet 2 mg PO DAILY mirtazapine 15 mg tablet 15 mg PO BEDTIME warfarin 1 mg tablet 1 - 2 mg PO DAILY albuterol sulfate [Ventolin HFA] 90 mcg/actuation HFA aerosol inhaler 2 puff inhalation Q4H PRN (Reason: dyspnea) clonazepam 1 mg tablet 3 mg PO BEDTIME clonidine HCl 0.2 mg Tablet 0.1 mg PO DAILY PRN (Reason: Blood Pressure) ipratropium-albuterol 0.5 mg-3 mg(2.5 mg base)/3 mL solution for nebulization 3 ml inhalation QID PRN (Reason: Shortness Of Breath Or Wheezing) acetaminophen 160 mg/5 mL Liquid 1,000 mg PO QID PRN (Reason: Pain) zolpidem 5 mg tablet 5 mg PO BEDTIME PRN (Reason: Insomnia) loperamide [Imodium A-D] 1 mg/7.5 mL Liquid 2 mg PO Q2-4H PRN (Reason: Loose Stool) Rx Instructions: administer after each loose stool until symptoms controlled; do not exceed 16 mg per 24 hrs cephalexin 500 mg capsule 500 mg PO QID 7 Days Qty: 28 0RF doxycycline hyclate 100 mg tablet 100 mg PO BID 7 Days Qty: 14 0RF mupirocin 2 % ointment 1 appl topical TID 7 Days Qty: 15 0RF Stand Alone Forms: Against Medical Advice Print Language: Lao
--- NOTE | 2024-12-31 19:30 | ECG_ITS ---
Test Reason : SEIZURE Blood Pressure : */* mmHG Vent. Rate : 127 BPM Atrial Rate : 127 BPM P-R Int : 112 ms QRS Dur : 152 ms QT Int : 326 ms P-R-T Axes : 38 -13 135 degrees QTcB Int : 473 ms Sinus tachycardia Left bundle branch block Abnormal ECG When compared with ECG of 30-Dec-2024 23:17, No significant change was found Referred By: Hayde Ingram Electronically Signed By: Nicholas Hinojosa
--- OUTSIDE RECORDS SUMMARY | 2024-12-31 20:03 | XMS_ITS | Clinical Summary ---
Author Organization [facility] Address [address] [place] [address] Phone Care Team Providers Care Pack Out Operator Name Role Phone Tomas Jordan MD Primary Care Provider [phone] Allergies Active Allergy Reactions Criticality Noted Date [...] closes my throat . Nutritional Supplements 03/07/2024 [place] 04/30/2024 Trazodone 03/07/2024 Elongated erection. Do you [...] patient's age to complete this topic Insurance [facility] Advance Directives * Full Code [...] currently active code status orders. Care Teams Pack Out Operator Relationship Specialty Start Date End Date Tomas Jordan MD [address] [place] [address], [id number] [place], [place] [id number] PCP - General Internal Medicine 02/27/24
[2024-12-31 20:34] LABS: Appearance Urine Clear; Glucose Urine UA Negative (Negative); PH 7.0 (5.0-9.0); Specific Gravity - Urine <= 1.005 (1.005-1.025)
[2024-12-31 20:34] LABS: Hematocrit 34.3 % (42.0-52.0); Hemoglobin 11.2 g/dl (14.0-18.0); Imm Gran Abs Auto 0.06 X10*3/uL (0.00-0.03); Imm Gran Pct Auto 0.4 % (0.0-0.4); Lymphocytes Absolute Auto 3.3 X10*3/uL (1.2-4.9); MANUAL DIFF FLAG NO; Mean Corpuscular HGB Conc 32.7 g/dl (31.0-36.0); Mean Corpuscular Hemoglobin 28.6 pg (27.0-33.0); Mean Corpuscular Volume 87.7 fL (80.0-98.0); NRBC Abs Auto 0.030 X10*3/uL (0.0-0.012); NRBC Pct Auto 0.2 /100WBC (0.0-0.2); Platelet Count 390 X10*3/uL (160-400); Red Blood Count 3.91 X10*6/uL (4.60-5.80); White Blood Count 15.4 X10*3/uL (4.8-10.8)
[2024-12-31 20:44] LABS: Cannabinoid Screen Urine Not Detected (Not Detect)
[2024-12-31 20:48] LABS: Alanine Aminotransferase 26 U/L (0-40); Albumin Level 3.5 g/dL (3.5-5.0); Alkaline Phosphatase 98 U/L (39-117); Anion Gap 15 (12-20); Aspartate Amino Transferase 39 U/L (5-37); Blood Urea Nitrogen 5 mg/dL (9-16); Calcium 8.5 mg/dL (8.4-10.2); Carbon Dioxide 21 mmol/L (22-29); Chloride 108 mmol/L (96-108); Creatinine Clr Calc Pharmacy 148.6; Estimated Glomerular Filt Rate > 60; Magnesium 1.9 mg/dL (1.6-2.6); Potassium 3.1 mmol/L (3.3-5.1); Sodium 141 mmol/L (135-145); Total Protein 6.6 g/dL (6.5-8.0)
[2024-12-31 20:54] LABS: NT Pro B Type Natriuretic Pept 200.6 pg/mL (<300)
[2024-12-31 20:56] LABS: IDNOW Serial# 58CA691E; Influenza B2 Negative (Negative)
[2024-12-31 20:56] LABS: COVID-19 Test Negative (Negative); IDNOW Serial# 55D5AD1C
--- NOTE | 2024-12-31 21:45 | PC.NURSE ---
took pt GREGORY guerrero into room, pt now refuses to take and wants to speak to the MD before doing anything further- MD not at desk will located and give information
[2024-12-31] MEDS: levETIRAcetam in NaCl (iso-os) 1,000 MG/100 ML PIGGYBACK 400 MG IV (21:54)
--- NOTE | 2024-12-31 21:55 | PC.NURSE ---
pt standing up in room saying he wishes to leave. explained i was waiting to have the MD come speak with him. pt refuses and begins to curse at me saying i am a bitch and incompetent . stated I will be reporting you to administration tomorrow . assured patient he has every right to do what he feels is best. Pt refusing to allow me to remove his IV and pulled it out at this time. MD now present at pt bedside. Pt continues to yell about his medication he requested (phenobarbitol and benadryl). MD speaking with patient but patient said he wished to leave. All risks of leaving AMA were discussed in front of this nurse prior to patient leaving facility. Patient also refuses to sign the AMA form I offered. Stated I am not signing a fucking thing for you . At that time patient walked out of department without any assistance or s/s of deficits.
[2024-12-31 22:31] LABS: Reflex Lactate? Lactic Acid Added
== END 2024-12-31 22:15 | disposition left against medical advice (07) ==
PROVIDERS: Registered Nurse Emergency; Emergency Provider Student in an Organized Health Care Education/Training Program; PCP Internal Medicine
DX: R56.9 Unspecified convulsions (principal); Z79.899 Other long term (current) drug therapy; F10.90 Alcohol use, unspecified, uncomplicated
CPT/HCPCS: 36415; 80053; 80307; 81003; 83605; 83735; 83880; 85025; 87502; 87635; 93005; 96374; 99284; 99285; J1953

== ENCOUNTER → 2024-12-31 19:30 | Outpatient (BNV) | payer MEDICAID, SELFPAY | PROVIDERS: Emergency Provider Student in an Organized Health Care Education/Training Program; PCP Internal Medicine; Visit Provider Internal Medicine Cardiovascular Disease | DX: I44.7 Left bundle-branch block, unspecified (principal); R00.0 Tachycardia, unspecified | CPT/HCPCS: 93010 ==

== ENCOUNTER 2025-01-04 19:14 | Emergency (ER) | payer MEDICAID, SELFPAY ==
[2025-01-04 19:16] VITALS: BP 137/97; PULSE 132; RESP 20; TEMP 36.6; O2SAT 94; BMI 32.3
--- NOTE | 2025-01-04 19:16 | ED_ITS ---
HPI - General Adult General Chief complaint: Seizure Stated complaint: ETOH,seizure Time Seen by Provider: 01/04/25 21:00 History of Present Illness ED Provider: Richie Hopper MD HPI narrative: This is a 44-year-old male with complex medical and social history including alcohol use disorder, seizure disorder, chronic anticoagulation due to metallic heart valve. In brief summary he was not [facility] yesterday where he left AMA. Documentation there reports that he was there for seizure secondary to alcohol withdrawal, he does acknowledge this and reports a recent deescalation of alcohol use from 25 nips per day about 2-3 days ago to about 1 or 2 per day over the past 24 hours. He reports a seizure just before he got here today and says ?my girlfriend wants me to come and take care of this ?. Also says he has been worked up was initially getting antibiotics for the possibility of an infection of the left arm. Tells me that after attempts at placing an IV with ultrasound in the left upper arm he developed protuberance there and either an ultrasound or CT was performed at [facility] showing phlegmon versus hematoma in the left arm. He does not feel febrile but does have significant pain of the left volar upper arm area. There was some bruising of the bilateral forearms he says this is from IV attempts denies abdominal pain, chest pain, headache. Denies shaking but does feel he is withdrawing. He tells me during my initial evaluation he is amenable to come in for monitoring and for treatment for presumed alcohol withdrawal seizure Related Data Home Medications ?Medication ?Instructions ?Recorded ?Confirmed clonidine 0.2 mg/24 hr weekly 2 patch transdermal DICKEY 1 04/30/23 06/26/24 transdermal patch metoprolol tartrate 50 mg tablet 100 mg PO BID 4 06/26/24 pantoprazole 40 mg tablet,delayed 40 mg PO DAILY@0630 02/28/24 06/26/24 release warfarin 5 mg tablet 5 mg PO DAILY 02/28/2406/26 clonazepam 1 mg tablet 3 mg PO BEDTIME Anxiety 02/05/1006/26/24 clonidine HCl 0.2 mg tablet 0.1 mg PO DAILY PRN Blood Pressure 04/17/24 06/26/24 acetaminophen 160 mg/5 mL oral 1,000 mg PO QID PRN Abdirahman n 06/26/24 06/26/24 liquid ipratropium 0.5 mg-albuterol 3 mg 3 ml inhalation QID PRN Shortness 06/26/24 06/26/24 (2.5 mg base)/3 mL nebulization Of Breath Or Wheezing soln loperamide 1 mg/7.5 mL oral liquid 2 mg PO Q2-4H PRN L oose Stool 06/26/24 06/26/24 (Imodium A-D) zolpidem 5 mg tablet 5 mg PO BEDTIME PRN Insomnia 06/26/24 06/26/24 albuterol sulfate 90 mcg/actuation 2 puff inhalation Q 4H PRN dyspnea 12/29/24 aerosol inhaler (Ventolin HFA) cetirizine 10 mg tablet 10 mg PO DAILY 12/29/24 fluconazole 100 mg tablet 200 mg PO DAILY 12/29/24 levetiracetam 500 mg tablet 500 mg PO BID 12/29/24 mirtazapine 15 mg tablet 15 mg PO BEDTIME 12/29/24 warfarin 1 mg tablet 1 - 2 mg PO DAILY 12/29/24 warfarin 2 mg tablet 2 mg PO DAILY 12/29/24 Previous Rx's ?Medication ?Instructions ?Recorded nystatin 100,000 unit/mL oral 100,000 unit buccal NOMI Y #60 mL 05/09/24 suspension cephalexin 500 mg capsule 500 mg PO QID 7 days #28 cap s 07/29/24 doxycycline hyclate 100 mg tablet 100 mg PO BID 7 days #14 tabs 07/29/24 mupirocin 2 % topical ointment 1 appl topical TID 7 da ys #15 grams 07/29/24 Allergies Allergy/AdvReac Type Severity Reaction Status Date / Time phenytoin (From DILANTIN) Allergy Unknown GAVE PT A Verified 01/04/25 19:17 TOXIC LEVEL fluoxetine (From Prozac) Allergy Unknown Verified 01/04/25 19:17 lidocaine Allergy Unknown Verified 01/04/25 19:17 tramadol Allergy Anaphylaxis Verified 01/04/25 19:17 trazodone Allergy Unknown Verified 01/04/25 19:17 gabapentin (From Neurontin) AdvReac Unknown Verified 01/04/25 19:17 morphine AdvReac Agitated Verified 01/04/25 19:17 peppers Allergy Unknown Uncoded 12/31/24 07:11 [facility], [facility] Past Medical History Medical History Bilateral pulmonary embolism Noncompliance with medications Alcohol dependence Endocarditis Surgical History Aortic valve replaced Social History Social History Household Members: Spouse Housing: House Do you presently have visiting nurse or other home services: No Alcohol intake: current Alcohol intake frequency: 0-2 drinks per day Alcohol type: hard liquor Comment: Pt refuses fall risk measures, explained protocol/ safety measures Patient Tobacco Use Status: Tobacco use Unknown Tobacco use type: Cigarette Cigarettes Per Day: 10 Smoked in Last 30 Days: No e-Cigarette/Vaping Use: Never Used Second Hand Smoke Exposure: No Use of substances other than those prescribed or required for medical reasons: No Substance Use Type: Marijuana Advance Directives: No Advance Directives Information Provided: Yes Physical Exam ED Exam Exam: EXAM: Gen: Alert, awake, well appearing, well hydrated. Head: Atraumatic Eyes: Anicteric, Normal conjunctiva. ENT: Moist mucosa, no pallor. ? Neck: Supple. Skin: ?No observable rash or bruising on exposed or examined skin Respiratory: Breathing comfortably, No distress.Clear to auscultation bilaterally, symmetric chest expansion, No wheeze, rales, ronchi. Cardiovascular: Regular rate and rhythm. Click murmur. Well perfused periphery, warm extremities. No edema. ?Some bruising but nonpitting edema of the forearms bilaterally neurovascularly intact hands. Abdominal: No focal tenderness. Soft, no objective distension. No palpable masses or obvious organomegaly. ?No guarding, no rebound tenderness or other peritoneal findings. : No flank tenderness. Neuro: Alert. Gross movement of all extremities intact. ?No tremor. No tongue fasciculation Psych: Calm. Cooperative. MSK: No grossly visible deformity. Full range of motion of the wrist, elbow, shoulder. Ecchymosis as described above patient attributes this to IV access attempts. Left upper arm volar aspect about 8 cm from the axilla with about a 2 x 2 cm non erythematous non warm swelling tender region. Non fluctuant. Vital signs: See flowsheet Vital Signs: Vital Signs - 24 hr 01/04/25 19:16 01/04/25 19:48 01/04/25 21:35 Temperature 97.8 F Pulse Rate 132 H 123 H 110 H Respiratory Rate 20 20 20 Blood Pressure 137/97 H 146/90 H 122/102 H Pulse Oximetry 94 94 Oxygen Delivery Method Room Air 01/04/25 23:07 01/04/25 23:37 01/04/25 23:37 Temperature 98.4 F Pulse Rate 105 H 101 H 100 Respiratory Rate 20 15 Blood Pressure 146/107 H 120/77 120/77 Pulse Oximetry 93 Oxygen Delivery Method Room Air BMI result Body Mass Index 32.3 Course Course Course Narrative: This is a Rapid Medical Examination (RME) performed by Frantz Adames PA-C in triage. Full HPI, ROS, assessment and treatment plan per primary provider in the Main ED. Hx: 44 yo M hx of etoh abuse, seizure disorder on keppra her for eval of seizure like activity. admits to two seizures today, last one just [employer] in ED. admits to one etoh drink today Plan: labs, ekg Reevaluation(s) Reevaluation #1: Throughout the ED course I explained the patient's treatment plan which was monitoring for subsequent seizures, continued phenobarbital and alcohol withdrawal treatment as needed and intravenous fluid. At approximately 00:02 the patient decided to leave. He and I had a lengthy shared decision-making discussion we have sent blood cultures and cultures of the intramuscular left arm collection which is likely hematoma and unlikely to be infected. I will not discharge him on antibiotics. Strict return precautions were given at anytime he was instructed he can return and he understood this. He is not intoxicated at this time does not have a severe signs of severe alcohol withdrawal and I think he has reasonable judgment at this time. He has the capacity to make this decision. AMA Of note patient's heart rate has improved to 100 you remains afebrile and normotensive Midline catheter right upper extremity removed by nursing staff Medications Administered Generic Name Dose Route Start Last Admin Trade Name Freq PRN Reason Stop Dose Admin Thiamine HCl 500 mg/ Sodium 105 mls @ 210 mls/hr 01/04/25 23:00 01/04/25 23:35 Chloride IV Not Given Q12H SHAN Discontinued Medications Generic Name Dose Route Start Last Admin Trade Name Freq PRN Reason Stop Dose Admin Lactated Ringer's 2,721.54 mls @ 2,721.54 mls/hr 01/04/25 22:58 01/05/25 00:15 Lr 30 ml/kg infuse over 1 hr (2721.54 ml) 01/04/25 23:57 Infused IV Infusion .Q1H ONE Levetiracetam 1,000 mg 01/04/25 21:12 01/04/25 21:40 Levetiracetam 1,000 Mg Tablet PO 01/04/25 21:13 Not Given ONCE ONE Phenobarbital Sodium 255 mg 01/04/25 21:30 01/04/25 21:39 Phenobarbital Sodium 130 Mg/Ml Im Once IM 01/04/25 21:31 255 mg ONCE ONE Administration Procedures Procedure Narrative Procedure Narrative: Ultrasound Guided Peripheral Intravenous Catheter Placement Indication: Intravenous Access Location: Right ??Vascular Location of Catheter Tip: Proximal brachial Provider: Self I was approached by nursing staff and informed that multiple unsuccessful attempts had been made to establish IV access in the patient. The patients arm was surveyed with the ultrasound for verification of vessel collapsibility, patency, depth and caliber, as well as identification of nearby structures. The target area was prepped with chlorhexidine. A tourniquet was placed proximally on the extremity. Under real-time ultrasound guidance, an ?20 G 10cm BARD Powerglide Midline Non Tunnelled Catheter was advanced into the target vein. Dark blood was visualized in the flash chamber. The catheter was easily advanced into the vein. The catheter was evacuated of air and flushed with sterile saline. The catheter was secured in place with a tegaderm. The patient tolerated the procedure well and there were no complications. Estimated Blood Loss: 1mL Total Time for Procedure: 5min Images Stored CPT: 11541; 69293 Medical Decision Making Medical Decision Making MDM Narrative: Medical Decision Makin-year-old male comes in for alcohol withdrawal seizure presumed. You had 1 seizure prior to arrival several seizures of the past few days was seen at [facility] left A from an admission. He also had attempts at IV access in the left upper arm and was felt to either have an abscess/phlegmon versus hematoma in the arm and was started on antibiotics at the hospital before he left [facility]. Denies fever or chills there is no redness of the upper arm. Culture sent of what looks like an intramuscular hematoma in the left upper arm patient tachycardic but maybe secondary to alcohol withdrawal unlikely to be sepsis. Preliminary Favored Differential Diagnosis: Alcohol withdrawal electrolyte derangement acute on chronic seizure disorder, among additional considered etiologies Testing Interpreted Independently: ?See below for details Radiology or Lab testing Results Reviewed: ?See below for details Consults: ?See below for details Independent Historians/External Chart Reviews: ?See below for details Social Determinants of Health Impacting MDM/Planning: ?See below for details Differential Diagnosis Differential Diagnoses: The differential diagnosis associated with the presentation includes Alcohol withdrawal seizure, skin or deep space infection versus hematoma left upper extremity Electrolyte derangement Malingering Admission/Observation Consideration of admission/observation: Escalation of care including admission/observation considered Consult Healthcare Provider Management of the patient was discussed with: Hospitalist Lab Data MDM Lab Attestation statement: I reviewed the patient's lab results. 01/04/25 19:43 01/04/25 19:43 Labs: Lab Results 01/04/25 01/04/25 Range/Units 19:43 22:46 WBC 16.5 H (4.8-10.8) X10*3/uL RBC 4.03 L (4.60-5.80) X10*6/uL Hgb 11.6 L (14.0-18.0) g/dl Hct 35.1 L (42.0-52.0) % MCV 87.1 (80.0-98.0) fL MCH 28.8 (27.0-33.0) pg MCHC 33.0 (31.0-36.0) g/dl RDW 18.9 H (11.0-16.0) % Plt Count 423 H (160-400) X10*3/uL MPV 10.3 (9.4-12.4) fL Immature Gran % (Auto) Cancelled Neut % (Auto) Cancelled Lymph % (Auto) Cancelled [place] % (Auto) Cancelled Eos % (Auto) Cancelled Baso % (Auto) Cancelled Lymph # (Auto) Cancelled [place] # (Auto) Cancelled Eos # (Auto) Cancelled Baso # (Auto) Cancelled Abs Immat Gran (auto) Cancelled Absolute Neuts (auto) Cancelled Absolute Nucleated RBC 0.040 H (0.0-0.012) X10*3/uL Nucleated RBC % (auto) 0.2 (0.0-0.2) /100WBC Neutrophils % (Manual) 71 (45-73) % Band Neutrophils % 0 L (3-5) % Lymphocytes % (Manual) 26 (20-40) % Monocytes % (Manual) 3 (2-11) % Abs Neuts (Manual) 11.7 H (2.0-8.3) X10*3/uL Lymphocytes # (Manual) 4.3 (1.2-4.9) X10*3/uL Monocytes # (Manual) 0.5 (0.1-1.2) X10*3/uL Nucleated RBCs 1 H (0-0) /100WBC Platelet Estimate NORMAL (NORMAL) Plt Morphology Comment NORMAL RBC Morphology NOTED Target Cells 1+ (5-14) /OIF Schistocytes 1+ (0-2) /OIF Smear Tech's Comments MANUAL DIFF ESR 25 H (0-15) MM/HR Sodium 141 (135-145) mmol/L Potassium 3.3 (3.3-5.1) mmol/L Chloride 108 (96-108) mmol/L Carbon Dioxide 26 (22-29) mmol/L Anion Gap 10 L (12-20) BUN 5 L (9-16) mg/dL Creatinine 0.67 (0.5-1.4) mg/dL Estim Creat Clear Calc 146.8 Estimated GFR > 60 Random Glucose 116 H (60-115) mg/dL Lactic Acid 1.7 1.6 (0.5-2.0) mmol/L Calcium 8.8 (8.4-10.2) mg/dL Magnesium 1.9 (1.6-2.6) mg/dL Total Bilirubin 0.4 (0.0-1.0) mg/dL AST 40 H (5-37) U/L ALT 35 (0-40) U/L Alkaline Phosphatase 116 (39-117) U/L Total Creatine Kinase 73 (38-174) U/L C-Reactive Protein 3.69 H (< or = 0.50) mg/dL Total Protein 7.2 (6.5-8.0) g/dL Albumin 3.7 (3.5-5.0) g/dL Lipase 39 (8-78) U/L Procalcitonin 0.07 ng/mL Ethyl Alcohol < 10 mg/dL Independent Interpretation I performed an independent interpretation of an: EKG (Sinus tachycardia, left bundle-branch block rate 125, unchanged bundle) External Record Review External record reviewed: Outside ED record ([facility] ED record) [facility] ED and inpatient record reviewed through M pages summarized above Critical Care Time Critical Care Time Critical Care Time: Yes Total Critical Care Time: 30 Attestation: ED Critical Care: Alcohol withdrawal seizure presumed plan Authorized and Performed by: Richie Hopper MD Total critical care time: Approximately 30 min Due to a high probability of clinically significant, life threatening deterioration, the patient required my highest level of preparedness to intervene emergently and I personally spent this critical care time directly and personally managing the patient. This critical care time included obtaining a history; examining the patient; pulse oximetry; ordering and review of studies; arranging urgent treatment with development of a management plan; evaluation of patient's response to treatment; frequent reassessment; and, discussions with other providers. This critical care time was performed to assess and manage the high probability of imminent, life-threatening deterioration that could result in multi-organ failure. It was exclusive of separately billable procedures and treating other patients and teaching time. Discharge Plan Discharge Clinical Impression: Alcohol withdrawal Qualifiers: Complication of substance-induced condition: uncomplicated Qualified Code(s): F 10.930 - Alcohol use, unspecified with withdrawal, uncomplicated Patient Disposition: Left Against Medical Advice Interventions: ED Discharge Assessment Last Done: 01/05/25 00:27 Discharge Date/Time: 01/05/25 00:27
--- NOTE | 2025-01-04 19:19 | ECG_ITS ---
Test Reason : SEIZURE LIKE ACTIVITY Blood Pressure : */* mmHG Vent. Rate : 125 BPM Atrial Rate : 125 BPM P-R Int : 120 ms QRS Dur : 138 ms QT Int : 366 ms P-R-T Axes : 45 -16 107 degrees QTcB Int : 528 ms Sinus tachycardia Left bundle branch block Abnormal ECG When compared with ECG of 31-Dec-2024 19:46, No significant change was found Referred By: Pham Adamse Electronically Signed By: JL BUSBY MD
[2025-01-04 19:48] VITALS: BP 146/90; PULSE 123; RESP 20; O2SAT 94
[2025-01-04 19:49] LABS: Hematocrit 35.1 % (42.0-52.0); Hemoglobin 11.6 g/dl (14.0-18.0); Mean Corpuscular HGB Conc 33.0 g/dl (31.0-36.0); Mean Corpuscular Hemoglobin 28.8 pg (27.0-33.0); Mean Corpuscular Volume 87.1 fL (80.0-98.0); NRBC Abs Auto 0.040 X10*3/uL (0.0-0.012); NRBC Pct Auto 0.2 /100WBC (0.0-0.2); Platelet Count 423 X10*3/uL (160-400); Red Blood Count 4.03 X10*6/uL (4.60-5.80); White Blood Count 16.5 X10*3/uL (4.8-10.8)
--- NOTE | 2025-01-04 19:56 | PC.NURSE ---
pt brought from waiting room into ed 10, a&ox4, respirations even and unlabored. pt reports he was on the way to [facility] when he had a seizure in the car and brought pt here. seizure precautions in place. when placing pt on monitor pt noted to have multiple tele leads on but refused to let this rn remove them. pt reports one etoh drink today and states he ran out of [employer] and has not picked it up. vss.
[2025-01-04 20:07] LABS: Alanine Aminotransferase 35 U/L (0-40); Albumin Level 3.7 g/dL (3.5-5.0); Alkaline Phosphatase 116 U/L (39-117); Anion Gap 10 (12-20); Aspartate Amino Transferase 40 U/L (5-37); Blood Urea Nitrogen 5 mg/dL (9-16); Calcium 8.8 mg/dL (8.4-10.2); Carbon Dioxide 26 mmol/L (22-29); Chloride 108 mmol/L (96-108); Creatinine Clr Calc Pharmacy 146.8; Estimated Glomerular Filt Rate > 60; Lipase 39 U/L (8-78); Magnesium 1.9 mg/dL (1.6-2.6); Potassium 3.3 mmol/L (3.3-5.1); Sodium 141 mmol/L (135-145); Total Protein 7.2 g/dL (6.5-8.0)
[2025-01-04 20:19] LABS: Band Neutrophils Percent 0 % (3-5); Lymphocytes Absolute Manual 4.3 X10*3/uL (1.2-4.9); Lymphocytes Percent Manual 26 % (20-40); Monocytes Absolute Manual 0.5 X10*3/uL (0.1-1.2); Monocytes Percent Manual 3 % (2-11); Neutrophils Absolute Manual 11.7 X10*3/uL (2.0-8.3); Neutrophils Percent Manual 71 % (45-73); Schistocytes 1+ (0-2) /OIF; Target Cells 1+ (5-14) /OIF
[2025-01-04 20:20] LABS: RBC Morphology NOTED
--- NOTE | 2025-01-04 21:27 | PC.NURSE ---
PT hard stick MD Mack to place ultrasound IV.
[2025-01-04 21:35] VITALS: BP 122/102; PULSE 110; RESP 20
[2025-01-04] MEDS: PHENobarbitaL sodium 130 MG/ML IM ONCE 255 MG IM (21:39)
--- NOTE | 2025-01-04 22:04 | PC.NURSE ---
pt refused to take keppra at this time, offered pt to take keppra with food and pt continues to refuse. CIWA=[id number]
--- OUTSIDE RECORDS SUMMARY | 2025-01-04 22:37 | XMS_ITS | Clinical Summary ---
Author Organization [facility] Address [address] [place] [address] Phone Care Team Providers Care Bellows Tester Name Role Phone Tomas Jordan MD Primary Care Provider [phone] Allergies Active Allergy Reactions Criticality Noted Date [...] closes my throat . Nutritional Supplements 03/07/2024 [place] 04/30/2024 Trazodone 03/07/2024 Elongated erection. Do you know why trazadone was originally made for? . Medications clonazePAM (KlonoPIN) 1 mg tablet TAKE ONE (1) TABLET BY MOUTH THREE TIMES A DAY, NEEDED FOR SEVERE ANXIETY/MLAHOTRA IC. USE SPARINGLY. Active Active Problems Problem [...] patient's age to complete this topic Insurance [facility] Advance Directives * [...] currently active code status orders. Care Teams Bellows Tester Relationship Specialty Start Date End Date Tomas Jordan MD [address] [place] [address], [address] [place], [place] [id number] PCP - General Internal Medicine 02/27/24
[2025-01-04 23:07] VITALS: BP 146/107; PULSE 105
--- NOTE | 2025-01-04 23:29 | PC.NURSE ---
MD at bedside placed ultrasound guided 20g midline in right brachial.
[2025-01-04 23:37] VITALS: BP 120/77; PULSE 100; PULSE 101; RESP 15; RESP 20; TEMP 36.9; O2SAT 93
--- NOTE | 2025-01-04 23:37 | PC.NURSE ---
pt requesting pain medication at this time, aware.
[2025-01-04 23:38] LABS: Procalcitonin 0.07 ng/mL
--- NOTE | 2025-01-05 00:24 | PC.NURSE ---
pt noted to be out of bed, removed tele leads, and removed IV fluids, pt states he is leaving at this time. MD Rivas aware, discharge placed. pt IV fluids not completed prior to leaving, see MAR. IV removed prior to exit
[2025-01-05 00:27] VITALS: BP 120/77; PULSE 100; RESP 15; TEMP 36.9; O2SAT 93
--- OUTSIDE RECORDS SUMMARY | 2025-01-05 12:10 | XMS_ITS | Clinical Summary ---
Author Organization [facility] Address [address] [place] [address] Phone Care Team Providers Care Steward/Stewardess Room Name Role Phone Tomas Jordan MD Primary [...] closes my throat . Nutritional Supplements 03/07/2024 [place] 04/30/2024 Trazodone 03/07/2024 Elongated erection. Do you [...] patient's age to complete this topic Insurance [facility] Advance Directives * Full Code - Default [...] currently active code status orders. Care Teams Steward/Stewardess Room Relationship Specialty Start Date End Date Tomas Jordan MD [address] [place] [address], [address] [place], [place] [id number] PCP - General Internal Medicine 02/27/24
[2025-01-08 18:18] LABS: Levetiracetam Keppra <2.0 mcg/mL (6.0-46.0)
== END 2025-01-05 00:28 | disposition admitted as inpatient to this hospital (09) ==
LOC: HO.ED 21:00 → HO.EDOVER 01-05 00:21
PROVIDERS: Physician Assistant Medical; Emergency Provider Emergency Medicine; Visit Provider Physician Assistant
DX: F10.930 Alcohol use, unspecified with withdrawal, uncomplicated (principal); R56.9 Unspecified convulsions; R11.0 Nausea; R00.0 Tachycardia, unspecified; I44.7 Left bundle-branch block, unspecified; Y90.0 Blood alcohol level of less than 20 mg/100 ml; Z51.81 Encounter for therapeutic drug level monitoring; Z79.899 Other long term (current) drug therapy
CPT/HCPCS: 36415; 80053; 80177; 80307; 82550; 83605; 83690; 83735; 84145; 85007; 85025; 85027; 85652; 86140; 87040; 87070; 87205; 93005; 96360; 96372; 99285; J2560; J7120

== ENCOUNTER → 2025-01-04 19:19 | Outpatient (BNV) | payer MEDICAID, SELFPAY | PROVIDERS: Emergency Provider Emergency Medicine; Visit Provider Internal Medicine Cardiovascular Disease | DX: R00.0 Tachycardia, unspecified (principal); I44.7 Left bundle-branch block, unspecified | CPT/HCPCS: 93010 ==

== ENCOUNTER 2025-02-25 15:44 | Emergency (ER) | payer MEDICAID, SELFPAY ==
[2025-02-25 16:10] VITALS: BP 135/97; PULSE 135; RESP 16; TEMP 36.8; O2SAT 95; BMI 32.6
--- NOTE | 2025-02-25 16:19 | ED.OVERDOSE ---
HPI - Overdose General Chief Complaint: Overdose Stated Complaint: Dl full of anit freeze tring to stop a leak Time Seen by Provider: 02/25/25 17:45 History of Present Illness HPI Narrative: Patient is a 44-year-old male presented today was working on his car he was underneath the car when the hose broke. He swallows some antifreeze then noted his heart rate to go up to 200. Patient did not take his metoprolol. Patient had some headache then came to the emergency department. Related Data Home Medications ?Medication ?Instructions ?Recorded ?Confirmed clonidine 0.2 mg/24 hr weekly 2 patch transdermal DICKEY 02/28/24 06/26/24 transdermal patch metoprolol tartrate 50 mg tablet 100 mg PO BID 02/28/24 06/26/24 pantoprazole 40 mg tablet,delayed 40 mg PO DAILY@0630 02/28/24 06/26/24 release warfarin 5 mg tablet 5 mg PO DAILY 02/28/24 06/26/24 clonazepam 1 mg tablet 3 mg PO BEDTIME Anxiety 04/17/24 06/26/24 clonidine HCl 0.2 mg tablet 0.1 mg PO DAILY PRN Blood Pressure 04/17/24 06/26/24 acetaminophen 160 mg/5 mL oral 1,000 mg PO QID PRN Pain 06/26/24 06/26/24 liquid ipratropium 0.5 mg-albuterol 3 mg 3 ml inhalation QID PRN Shortness 06/26/24 06/26/24 (2.5 mg base)/3 mL nebulization Of Breath Or Wheezing soln loperamide 1 mg/7.5 mL oral liquid 2 mg PO Q2-4H PRN Loose Stool 06/26/24 06/26/24 (Imodium A-D) zolpidem 5 mg tablet 5 mg PO BEDTIME PRN Insomnia 06/26/24 06/26/24 albuterol sulfate 90 mcg/actuation 2 puff inhalation Q4H PRN dyspnea 12/29/24 aerosol inhaler (Ventolin HFA) cetirizine 10 mg tablet 10 mg PO DAILY 12/29/24 fluconazole 100 mg tablet 200 mg PO DAILY 12/29/24 levetiracetam 500 mg tablet 500 mg PO BID 12/29/24 mirtazapine 15 mg tablet 15 mg PO BEDTIME 12/29/24 warfarin 1 mg tablet 1 - 2 mg PO DAILY 12/29/24 warfarin 2 mg tablet 2 mg PO DAILY 12/29/24 Previous Rx's ?Medication ?Instructions ?Recorded nystatin 100,000 unit/mL oral 100,000 unit buccal DAILY #60 mL 05/09/24 suspension cephalexin 500 mg capsule 500 mg PO QID 7 days #28 caps 07/29/24 doxycycline hyclate 100 mg tablet 100 mg PO BID 7 days #14 tabs 07/29/24 mupirocin 2 % topical ointment 1 appl topical TID 7 days #15 grams 07/29/24 Allergies Allergy/AdvReac Type Severity Reaction Status Date / Time phenytoin (From DILANTIN) Allergy Unknown GAVE PT A Verified 02/25/25 16:17 TOXIC LEVEL fluoxetine (From Prozac) Allergy Unknown Verified 02/25/25 16:17 lidocaine Allergy Unknown Verified 02/25/25 16:17 tramadol Allergy Anaphylaxis Verified 02/25/25 16:17 trazodone Allergy Unknown Verified 02/25/25 16:17 gabapentin (From Neurontin) AdvReac Unknown Verified 02/25/25 16:17 morphine AdvReac Agitated Verified 02/25/25 16:17 peppers Allergy Unknown Uncoded 12/31/24 07:11 Review of Systems Review of Systems: No SI no HI. Swallow the antifreeze because the hose broke. It was a very small amount of antifreeze. It did get into his nose. Yes all other systems are reviewed and are negative PMFSH Past Medical History Attestation statement: The following information was validated with the patient. Medical History Hypokalemia Metabolic acidosis Supratherapeutic INR Alcohol withdrawal Alcohol withdrawal seizure Bilateral pulmonary embolism Noncompliance with medications Alcohol dependence Endocarditis Surgical History Aortic valve replaced Social History Social History Household Members: Spouse Housing: House Do you presently have visiting nurse or other home services: No Alcohol intake: current Alcohol intake frequency: 0-2 drinks per day Alcohol type: beer and hard liquor Comment: Pt refuses fall risk measures, explained protocol/ safety measures Patient Tobacco Use Status: Tobacco use Unknown Tobacco use type: Cigarette Cigarettes Per Day: 10 Smoked in Last 30 Days: Yes e-Cigarette/Vaping Use: Never Used Second Hand Smoke Exposure: No Use of substances other than those prescribed or required for medical reasons: No Substance Use Type: Marijuana Advance Directives: No Advance Directives Information Provided: No Do you have a plan to hurt others: No Plan Physical Exam Vital Signs: Vital Signs: Last Vital Signs Temp 98.2 F 02/25/25 18:03 Pulse 99 02/25/25 18:03 Resp 18 02/25/25 18:03 BP 145/98 H 02/25/25 18:03 Pulse Ox 97 02/25/25 18:03 O2 Del Method Room Air 02/25/25 18:03 BMI result Body Mass Index 32.6 Course Course Course Narrative: This is a RME preformed in triage by Annmarie Spear PA-C. Date:02/25/2025, time 415 pm. Patient presents with accidental ingestion/inhalation/exposure to Prestone Antifreeze 130s radial pulse manual, machine 223 Work UP:?called poison control: [phone], SDS printed for Prestone SDS: INHALATION: Remove the victim to fresh air. If breathing has stopped administer artificial respiration. If breathing is difficult, have medical personnel administer oxygen. Get medical attention. SKIN CONTACT: Remove contaminated clothing. Immediately wash contacted area thoroughly with soap and water. If irritation persists, get medical attention. EYE CONTACT: Immediately flush eyes with large amounts of water for 15 minutes. Get medical attention if irritation persists. INGESTION: Seek immediate medical attention. Immediately call local poison control center or go to an emergency department. Never give anything by mouth to or induce vomiting in an unconscious or drowsy person. MOST IMPORTANT SYMPTOMS: May cause eye irritation. Inhalation of mists may cause nose and throat irritation and nervous system effects. Ingestion may cause abdominal discomfort or pain, nausea, vomiting, dizziness, drowsiness, malaise, blurring of vision, irritability, back pain, decrease in urine output, kidney failure, and central nervous system effects. INDICATION OF IMMEDIATE MEDICAL ATTENTION AND SPECIAL TREATMENT, IF NEEDED: Seek immediate medical attention for large ingestions. NOTES TO PHYSICIAN: The principal toxic effects of ethylene glycol, when swallowed, are kidney damage and metabolic acidosis. The combination of metabolic acidosis, an osmol gap and oxalate crystals in the urine is evidence of ethylene glycol poisoning. Pulmonary edema with hypoxemia has been described in a number of patients following poisoning with ethylene glycol. Respiratory support with mechanical ventilation may be required. There may be cranial nerve involvement in the late stages of toxicity from swallowed ethylene glycol. In particular, effects have been reported involving the seventh, eighth, and ninth cranial nerves, presenting with bilateral facial paralysis, diminished hearing and dysphagia. POIson COntrol: - CHeck eye pH- irrigate to neutral pH- problems consult eye - Get serum Osm, electrolyte and ethanol level, give fomepizole for ingestion 15 mg/kg , ethyline glycol and methanol to quest ( order it stat), VBG, lactic acid, UA for oxylate crystals CALL DONE @ 415 pm - Will defer full ROS and PE to treating provider. Patient will continued to be monitored in the interim. Medications Administered Generic Name Dose Route Start Last Admin Trade Name Freq PRN Reason Stop Dose Admin Sodium Chloride 1,000 mls @ 999 mls/hr 02/25/25 18:00 02/25/25 18:10 Ns IV 02/25/25 19:00 Not Given .Q1H1M SHAN Discontinued Medications Generic Name Dose Route Start Last Admin Trade Name Freq PRN Reason Stop Dose Admin Fomepizole 1,500 mg/ Sodium 101.5 mls @ 200.11 mls/hr 02/25/25 16:25 02/25/25 18:10 Chloride IV 02/25/25 16:55 Not Given ONCE ONE Medical Decision Making Medical Decision Making [facility] Narrative: Patient is 44 years old swallow some antifreeze well fixing his car. Now complaining of headache dizziness has high heart rate. I explained the patient that we need an IV line we need EKGs we need labs and potentially antidote for ethylene glycol. Patient refused. Understood risks including . Patient's family with him. Understood the risk of permanent damage. Understood the risk of . Patient left against medical advice. Did not want any further treatment did not want IV lines. Patient walked out of the emergency department. His is present understood that he would come back at any time. Differential Diagnosis Differential Diagnoses: The differential diagnosis associated with the presentation includes Overdose ACS, ethylene glycol overdose Admission/Observation Consideration of admission/observation: Escalation of care including admission/observation considered Lab Data [facility] Lab Attestation statement: I reviewed the patient's lab results. Social Determinants Patient?s care significantly limited by Social Determinants of Health including: Problems related to primary support group and Other Social Determinant of Health Discharge Plan Discharge Clinical Impression: Tachycardia, Toxic effect of unspecified alcohol, accidental (unintentional), initial encounter Patient Disposition: Left Against Medical Advice Instructions: Tachycardia (ED) Additional Instructions: You potentially have a toxic alcohol ingestion. You might have ingested ethylene glycol. You refused to be treated. Risk of significant injury exists. If you ingested other type of toxic alcohol you could go blind. Could have electrolyte imbalance. You could . You left against medical advice. Were happy to take your back. Please come back if he change his mind. You refused all IVs. You refused a central line. DVTs food. You refused treatment. Your was next to you we did explained to her as well as see what we can do for making things better. Despite all that you want to leave. You have a heart rate of 130 in your on Coumadin. I can not exclude the possibility of a bleed. I can not exclude the possibility of irregular heartbeats causing your heart rate to go so high. You left because you want to leave. you understood there is a risk of Prescriptions: No Action clonidine 0.2 mg/24 hr patch weekly 2 patch transdermal DICKEY pantoprazole 40 mg tablet,delayed release (DR/EC) 40 mg PO DAILY@0630 metoprolol tartrate 50 mg tablet 100 mg PO BID warfarin 5 mg tablet 5 mg PO DAILY nystatin 100,000 unit/mL suspension 100,000 unit buccal DAILY Qty: 60 0RF Rx Instructions: administer 1/2 of dose in each side of the mouth fluconazole 100 mg tablet 200 mg PO DAILY cetirizine 10 mg tablet 10 mg PO DAILY levetiracetam 500 mg tablet 500 mg PO BID warfarin 2 mg tablet 2 mg PO DAILY mirtazapine 15 mg tablet 15 mg PO BEDTIME warfarin 1 mg tablet 1 - 2 mg PO DAILY albuterol sulfate [Ventolin HFA] 90 mcg/actuation HFA aerosol inhaler 2 puff inhalation Q4H PRN (Reason: dyspnea) clonazepam 1 mg tablet 3 mg PO BEDTIME clonidine HCl 0.2 mg Tablet 0.1 mg PO DAILY PRN (Reason: Blood Pressure) ipratropium-albuterol 0.5 mg-3 mg(2.5 mg base)/3 mL solution for nebulization 3 ml inhalation QID PRN (Reason: Shortness Of Breath Or Wheezing) acetaminophen 160 mg/5 mL Liquid 1,000 mg PO QID PRN (Reason: Pain) zolpidem 5 mg tablet 5 mg PO BEDTIME PRN (Reason: Insomnia) loperamide [Imodium A-D] 1 mg/7.5 mL Liquid 2 mg PO Q2-4H PRN (Reason: Loose Stool) Rx Instructions: administer after each loose stool until symptoms controlled; do not exceed 16 mg per 24 hrs cephalexin 500 mg capsule 500 mg PO QID 7 Days Qty: 28 0RF doxycycline hyclate 100 mg tablet 100 mg PO BID 7 Days Qty: 14 0RF mupirocin 2 % ointment 1 appl topical TID 7 Days Qty: 15 0RF Referrals: Tomas Jordan MD [Primary Care Provider, Medical] Referral Note: Please follow-up with your doctor as soon as possible. If you change your mind come back to the emergency department. Stand Alone Forms: Against Medical Advice Print Language: Kyrgyz
--- OUTSIDE RECORDS SUMMARY | 2025-02-25 17:06 | XMS_ITS | Clinical Summary ---
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 Nutritional Supplements 03/07/2024 [place] 04/30/2024 Trazodone 03/07/2024 Elongated erection. Do you [...] Orientation Straight 06/20/2024 9: 58 PM EDT Last Filed Vital Signs Vital Sign Reading [...] series) 04/30/2024 04/02/2024 COVID-19 Vaccine ( - 2024-2 6 season) 2024 Influenza Vaccine (#1) 2024 RSV [...] patient's age to complete this topic Insurance [facility] Advance Directives * Full Code [...] currently active code status orders. Care Teams Stock Crane Operator Relationship Specialty Start Date End Date Tomas Jordan MD [address] [place] [address], [address] [place], [place] [id number] PCP - General Internal Medicine 02/27/24
--- NOTE | 2025-02-25 17:30 | PC.NURSE ---
Patient declining for an IV attempt unless it is by ultrasound, yard supervisor at bedside x 2 attempts made, patient jumping in bed stating to remove IV. aware
--- NOTE | 2025-02-25 17:33 | PC.NURSE ---
This RN at bedside to attempt US IV. Vein visualized via US, RN just broke the skin with the needle when pt became yelling and pulling his arm away IT HURTS IT HURTS, TAKE IT OUT STOP! Total of 2 attempts aborted not due to lack of veins but due to pt cooperation.
--- NOTE | 2025-02-25 17:34 | PC.NURSE ---
Patient requesting PO substitue for IV fomepizole, pharmacist stating no po substitute other than hard etoh. Patient stating he drank a beer and some whiskey earlier to get the taste of antifreeeze out of his mouth.
--- NOTE | 2025-02-25 17:40 | PC.NURSE ---
MD at bedside reviewing risk of not placing an IV. at this time patient continues to refuse iv placement
--- NOTE | 2025-02-25 17:50 | ECG_ITS ---
Test Reason : TACHY Blood Pressure : */* mmHG Vent. Rate : 115 BPM Atrial Rate : 115 BPM P-R Int : 158 ms QRS Dur : 138 ms QT Int : 382 ms P-R-T Axes : 41 -12 131 degrees QTcB Int : 528 ms Sinus tachycardia Possible Left atrial enlargement Left bundle branch block Abnormal ECG When compared with ECG of 04-Jan-2025 19:48, No significant change was found Referred By: Gretel Boyle Electronically Signed By: JL BUSBY MD
[2025-02-25 18:03] VITALS: BP 145/98; PULSE 99; RESP 18; TEMP 36.8; O2SAT 97
--- NOTE | 2025-02-25 18:04 | PC.NURSE ---
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
--- NOTE | 2025-02-25 18:19 | PC.NURSE ---
pt standing at ED doors threatening to fuck us up if not allowed to leave. Confirmed w/ net coordinator Becky pt is allowed to go. Pt let out of ED.
[2025-02-25 18:23] VITALS: BP 145/98; PULSE 99; RESP 18; TEMP 36.8; O2SAT 97
--- NOTE | 2025-02-25 18:24 | PC.NURSE ---
Patient declines to sign AMA paperwork , stating he is leaving now, MD aware
== END 2025-02-25 18:24 | disposition left against medical advice (07) ==
PROVIDERS: Emergency Provider Emergency Medicine Emergency Medical Services; PCP Internal Medicine
DX: R00.0 Tachycardia, unspecified (principal); T51.1X1A Toxic effect of methanol, accidental (unintentional), initial encounter; Y92.9 Unspecified place or not applicable; R00.2 Palpitations; R51.9 Headache, unspecified; I44.7 Left bundle-branch block, unspecified; Z53.29 Procedure and treatment not carried out because of patient's decision for other reasons
CPT/HCPCS: 93005; 99283; 99284

== ENCOUNTER → 2025-02-25 17:50 | Outpatient (BNV) | payer MEDICAID, SELFPAY | PROVIDERS: Emergency Provider Emergency Medicine Emergency Medical Services; PCP Internal Medicine; Visit Provider Internal Medicine Cardiovascular Disease | DX: I44.7 Left bundle-branch block, unspecified (principal); R00.0 Tachycardia, unspecified | CPT/HCPCS: 93010 ==